=== PATIENT | male | born 1980 | race Caucasian/White ===

== ENCOUNTER 2016-11-02 23:17 | Emergency (ER) | payer OTHER ==
[~2016-11-02] VITALS: Ht 167.6 cm; Wt 97.7 kg
[2016-11-02 23:17] VITALS: Ht 167.6 cm; Wt 97.7 kg
[2016-11-02] MEDS ORDERED: LEVE500T13 PO (23:55)
[2016-11-03 00:08] LABS: BASO % 0.3 %; BASO ABS # 0.02 K/uL (0-0.2); COMPLETE YES; EOS % 1.4 %; HEMATOCRIT 45.8 % (42-52); IG% 0.3 %; LYMPH % 31.2 %; LYMPH ABS # 2.08 K/uL (1.2-3.4); MEAN CELL VOLUME 80.2 fL (80-100); MEAN CORPUSCULAR HGB CONC 34.9 g/dl (32-36); MEAN PLATELET VOLUME 9.4 fL (7.4-10.4); MONO % 9.5 %; NEUT % 57.3 %; PLATELET COUNT 225 K/uL (130-400); RED BLOOD COUNT 5.71 M/uL (4.7-6.1); WHITE BLOOD COUNT 6.66 K/uL (4.8-10.8)
--- NOTE | 2016-11-03 00:10 | EMERGENCY ROOM VISIT NOTE ---
History Report prepared by Henok: Joe Faustin Under the Supervision of: Dr. Justin Echeverria M.D. First contact with patient: 23:51 Chief Complaint: MENTAL HEALTH EVALUATION Stated Complaint: MENTAL HEALTH History of Present Illness The patient is a 36 year old male who presents to the Emergency Room for a mental health evaluation. He was assessed in the field by [facility] and advised to go to the hospital. Police/EMS brought him here. He states that he was extremely depressed this evening and states that he wanted to hill himself either by "lighting myself on fire, stab myself, or shoot myself." The patient was celebrating his 1 year wedding anniversary leatha, for which he drank 1 beer for the first time in 5 years. He is suicidal because he is missing a lot of important people in his life. 3 months ago, the patient took "80 pills" to try to commit suicide. He was not admitted to a psych facility at that time. He has a history of being an inpatient at psychologic facilities. He states that he has been off his medications for the past 5 months because of his insurance. He claims that he had a seizure this evening. He denies any headache or neck pain. He has a past medical history of PTSD, manic depression, bipolar disorder , schizophrenia, and epileptic seizures. He does, however, periodically take his Depakote. Source of History: patient Onset: this evening Position: other Symptom Intensity: severe Quality: other (Suicidal Ideation with plan) Timing: constant Associated Symptoms: No headache, No neck pain Review of Systems See HPI for pertinent positives & negatives. A total of 10 systems reviewed and were otherwise negative. Past Medical & Surgical Medical Problems: (1) Bipolar disorder (2) Epileptic seizures (3) Manic depression (4) PTSD (post-traumatic stress disorder) (5) Schizophrenia Family History Patient reports no known family medical history. Social History Smoking Status: Current Every Day Smoker Alcohol Use: none Marital Status: Housing Status: lives alone Occupation Status: unemployed Current/Historical Medications Scheduled Divalproex Sodium (Depakote), 500 TAB PO BID Levetiracetam (Keppra), 500 MG PO TID Allergies Coded Allergies: Clonazepam (Verified Allergy, Severe, per pt..., 11/02/16) Gabapentin (Verified Allergy, Severe, makes patient extremely violent, ) Physical Exam Vital Signs Date Time Temp Pulse Resp B/P (MAP) Pulse Ox O2 Delivery O2 Flow Rate FiO2 11/03/16 00:58 89 20 157/97 96 Room Air 11/02/16 23:17 37.0 97 20 169/106 96 Room Air Physical Exam GENERAL: Patient is well appearing, pleasant, and in no acute distress. HEENT: No acute trauma, normocephalic atraumatic, mucous membranes moist, no nasal congestion, no scleral icterus. NECK: No stridor, no adenopathy, no meningismus, trachea is midline. LUNGS: No dyspnea. Clear to auscultation and equal bilaterally. No wheeze, no rhonchi. HEART: Regular rate and rhythm. No murmurs, rubs, gallops appreciated. ABDOMEN: Soft, nontender, bowel sounds positive, no masses appreciated, no peritonitis. BACK: No midline tenderness, no CVA tenderness EXTREMITIES: Normal motion all extremities, no cyanosis, no edema. NEUROLOGIC: Alert and oriented, no acute motor or sensory deficits, no focal weakness, cranial nerves grossly intact. SKIN: No rash, no jaundice, no diaphoresis. PSYCH: Patient is somewhat manic. He admits depression and suicidal ideation with a plan. Medical Decision & Procedures Laboratory Results 11/02/16 23:57 Red Blood Count 5.71, Mean Corpuscular Volume 80.2, Mean Corpuscular Hemoglobin 28.0, Mean Corpuscular Hemoglobin Concent 34.9, Mean Platelet Volume 9.4, Neutrophils (%) (Auto) 57.3, Lymphocytes (%) (Auto) 31.2, Monocytes (%) (Auto) 9.5, Eosinophils (%) (Auto) 1.4, Basophils (%) (Auto) 0.3, Neutrophils # (Auto) 3.82, Lymphocytes # (Auto) 2.08, Monocytes # (Auto) 0.63, Eosinophils # (Auto) 0.09, Basophils # (Auto) 0.02 11/02/16 23:57 Test 11/02/16 23:40 11/02/16 23:57 Urine Color DK YELLOW Urine Appearance CLEAR (CLEAR) Urine pH 5.0 (4.5-7.5) Urine Specific [place] 1.029 (1.000-1.030) Urine Protein NEG (NEG) Urine Glucose (UA) NEG (NEG) Urine Ketones TRACE (NEG) Urine Occult Blood NEG (NEG) Urine Nitrite NEG (NEG) Urine Bilirubin NEG (NEG) Urine Urobilinogen NEG (NEG) Urine Leukocyte Esterase TRACE (NEG) Urine WBC (Auto) 10-30 /hpf (0-5) Urine RBC (Auto) 0-4 /hpf (0-4) Urine Hyaline Casts (Auto) 5-10 /lpf (0-5) Urine Epithelial Cells (Auto) 10-20 /lpf (0-5) Urine Bacteria (Auto) NEG (NEG) Urine Opiates Screen NEG (NEG) Urine Methadone, Qualitative NEG (NEG) Urine Barbiturates NEG (NEG) Urine Phencyclidine (PCP) Level NEG (NEG) Ur Amphetamine/Methamphetamine NEG (NEG) MDMA (Ecstasy) Screen NEG (NEG) Urine Benzodiazepines Screen NEG (NEG) Urine Cocaine Metabolite NEG (NEG) Urine Marijuana (THC) NEG (NEG) White Blood Count 6.66 K/uL (4.8-10.8) Red Blood Count 5.71 M/uL (4.7-6.1) Hemoglobin 16.0 g/dL (14.0-18.0) Hematocrit 45.8 % (42-52) Mean Corpuscular Volume 80.2 fL (80-100) Mean Corpuscular Hemoglobin 28.0 pg (25-34) Mean Corpuscular Hemoglobin Concent 34.9 g/dl (32-36) Platelet Count 225 K/uL (130-400) Mean Platelet Volume 9.4 fL (7.4-10.4) Neutrophils (%) (Auto) 57.3 % Lymphocytes (%) (Auto) 31.2 % Monocytes (%) (Auto) 9.5 % Eosinophils (%) (Auto) 1.4 % Basophils (%) (Auto) 0.3 % Neutrophils # (Auto) 3.82 K/uL (1.4-6.5) Lymphocytes # (Auto) 2.08 K/uL (1.2-3.4) Monocytes # (Auto) 0.63 K/uL (0.11-0.59) Eosinophils # (Auto) 0.09 K/uL (0-0.5) Basophils # (Auto) 0.02 K/uL (0-0.2) RDW Standard Deviation 41.7 fL (36.4-46.3) RDW Coefficient of Variation 14.3 % (11.5-14.5) Immature Granulocyte % (Auto) 0.3 % Immature Granulocyte # (Auto) 0.02 K/uL (0.00-0.02) Anion Gap 6.0 mmol/L (3-11) Est Creatinine Clear Calc Drug Dose 134.6 ml/min Estimated GFR () 131.2 Estimated GFR (Non- 113.2 BUN/Creatinine Ratio 15.8 (10-20) Calcium Level 9.3 mg/dl (8.5-10.1) Total Bilirubin 0.5 mg/dl (0.2-1) Aspartate Amino Transf (AST/SGOT) 12 U/L (15-37) Alanine Aminotransferase (ALT/SGPT) 32 U/L (12-78) Alkaline Phosphatase 102 U/L (45-117) Total Protein 7.0 gm/dl (6.4-8.2) Albumin 3.8 gm/dl (3.4-5.0) Globulin 3.2 gm/dl (2.5-4.0) Albumin/Globulin Ratio 1.2 (0.9-2) Thyroid Stimulating Hormone (TSH) 0.943 uIu/ml (0.300-4.500) Salicylates Level 3.3 mg/dl (2.8-20) Acetaminophen Level < 2 ug/ml (10-30) Valproic Acid (Depakene) Level 3 mcg/ml (50-100) Ethyl Alcohol mg/dL < 3.0 mg/dl (0-3) Laboratory results as reviewed by me. ECG Indication: toxicologic Rate (beats per minute): 90 Rhythm: sinus rhythm Findings: RBBB, no ectopy, other (QTC 469) ED Course 2351: The patient was evaluated in room A6. A complete history and physical exam was performed. 0233: The patient was accepted for further management at the [facility]; however, he cannot be transferred until 0700. 0700: The patient was transferred to the [facility]. Medical Decision Differential: Mood Disorder, Overdose, Infectious, Electrolyte Abnormality, Cardiac, Hepatic, Endocrine, Toxicologic, Neurologic, amongst other pathologies entertained. Medication Reconciliation: I attest that I have personally reviewed the patient 's current medication list. Blood pressure screening: Patient was found to have an elevated blood pressure and was referred to their primary doctor for recheck and further treatment. 36 yr old male arrives for evaluation of suicidal ideation and thoughts. Long history of mental health disorder. Notes missing his who he reports he just on facebook last week. He has plan, reports history of suicide attempts in past and is at high risk repeat. Medically clear. Accepted to [facility]. Impression Primary Impression: Suicidal ideation Additional Impression: HTN (hypertension) Scribe Attestation The scribe's documentation has been prepared under my direction and personally reviewed by me in its entirety. I confirm that the note above accurately reflects all work, treatment, procedures, and medical decision making performed by me. Departure Information Dispostion Mental Health Acute Care Referrals No Doctor, Assigned (PCP) Patient Instructions My [facility] Problem Qualifiers
[2016-11-03 00:29] LABS: URINE APPEARANCE CLEAR (CLEAR); URINE COLOR DK YELLOW; URINE NITRITE NEG (NEG); URINE SPECIFIC GRAVITY 1.029 (1.000-1.030); UROBILINOGEN NEG (NEG); ZZUR CULT IF INDIC CLEAN CATCH YES
[2016-11-03 00:31] LABS: MANUAL MICROSCOPIC REQUIRED? NO; REVIEW REQ? NO
[2016-11-03 00:32] LABS: URINE BILIRUBIN NEG (NEG)
[2016-11-03 00:34] LABS: BUN/CREATININE RATIO 15.8 (10-20); CALCIUM 9.3 mg/dl (8.5-10.1); CREATININE 0.83 mg/dl (0.60-1.40); POTASSIUM 3.6 mmol/L (3.5-5.1)
[2016-11-03 00:45] LABS: ALB/GLOB RATIO 1.2 (0.9-2); THYROID STIMULATING HORMONE 0.943 uIu/ml (0.300-4.500)
[2016-11-03 00:48] LABS: BENZODIAZEPINE, URINE NEG (NEG); COCAINE,URINE NEG (NEG); PHENCYCLIDINE, URINE NEG (NEG)
[2016-11-03 00:49] LABS: ACETAMINOPHEN < 2 ug/ml (10-30)
[2016-11-03 11:37] VITALS: BP 150/93; PULSE 84; TEMP 37; O2SAT 96
[2017-01-23] MEDS ORDERED: SERT-234 PO (17:48)
[2017-01-23] MEDS ORDERED: ACET-1256 PO (17:48)
== END 2016-11-03 11:38 ==
LOC: EDBD 23:17 → C.EDA 23:21
DX: R45.851 Suicidal ideations (principal); I10 Essential (primary) hypertension; F43.10 Post-traumatic stress disorder, unspecified; F31.9 Bipolar disorder, unspecified; G40.909 Epilepsy, unspecified, not intractable, without status epilepticus; F20.9 Schizophrenia, unspecified; F17.210 Nicotine dependence, cigarettes, uncomplicated; Z79.899 Other long term (current) drug therapy

== ENCOUNTER 2016-12-06 15:31 | Emergency (ER) | payer OTHER ==
[~2016-12-06] VITALS: Ht 167.6 cm; Wt 104.0 kg
[~2016-12-06 15:31] MED LIST: LEVE500T13 PO
[2016-12-06 15:46] VITALS: TEMP 37.1; Ht 167.6 cm; Wt 104.0 kg
[2016-12-06 16:06] LABS: MANUAL MICROSCOPIC REQUIRED? NO; REVIEW REQ? NO; URINE APPEARANCE CLEAR (CLEAR); URINE BILIRUBIN NEG (NEG); URINE COLOR DK YELLOW; URINE NITRITE NEG (NEG); URINE PH 5.5 (4.5-7.5); URINE SPECIFIC GRAVITY 1.025 (1.000-1.030); UROBILINOGEN NEG (NEG)
--- NOTE | 2016-12-06 16:15 | EMERGENCY ROOM VISIT NOTE ---
History Report prepared by Scribe: Callie Tsang Under the Supervision of: Dr. Zay Beth D.O. First contact with patient: 15:52 Chief Complaint: MENTAL HEALTH EVALUATION Stated Complaint: MENTAL HEALTH History of Present Illness The patient is a 36 year old male who presents to the Emergency Room with complaints of having constant suicidal ideations that started last week. The patient states that his friend hide a knife from him and that "he knew I was thinking about killing myself". The patient states that he previously tried to kill himself by overdosing on drugs 5 other times. The patient states he has manic depression has not had his medications for the past month. He was admitted to [facility] last month for suicidal ideations. The patient states he is willing to sign himself in. The patient also states that his urged him to call the police today. Pt denies headache, change in vision, fevers, chest pain, shortness of breath, nausea, vomiting, diarrhea, pain with urination , and melena. Source of History: patient Onset: last week Position: other (suicidal ideations) Timing: constant Note: Pt denies headache, change in vision, fevers, chest pain, shortness of breath, nausea, vomiting, diarrhea, pain with urination, and melena. Review of Systems See HPI for pertinent positives & negatives. A total of 10 systems reviewed and were otherwise negative. Past Medical & Surgical Medical Problems: (1) Bipolar disorder (2) Epileptic seizures (3) Manic depression (4) PTSD (post-traumatic stress disorder) (5) Schizophrenia Family History Patient reports no known family medical history. no pertinent family history stated Social History Smoking Status: Current Every Day Smoker Alcohol Use: none Marital Status: Housing Status: lives alone Occupation Status: unemployed Current/Historical Medications Scheduled Divalproex Sodium (Depakote), 500 TAB PO BID Sertraline (Zoloft), 100 MG PO DAILY Scheduled PRN Acetaminophen (Tylenol), 1,000 MG PO Q6 PRN for Pain Allergies Coded Allergies: Clonazepam (Verified Allergy, Severe, per pt..., 11/02/16) Gabapentin (Verified Allergy, Severe, makes patient extremely violent, ) Physical Exam Vital Signs Date Time Temp Pulse Resp B/P (MAP) Pulse Ox O2 Delivery O2 Flow Rate FiO2 12/06/16 21:48 91 18 146/70 93 Room Air 12/06/16 18:00 90 162/95 96 12/06/16 15:46 37.1 110 18 173/107 95 Room Air Physical Exam GENERAL: sitting up, disheveled, no acute distress, non-toxic EYE EXAM: normal conjunctiva, OROPHARYNX: no exudate, no erythema, lips, buccal mucosa, and tongue normal and mucous membranes are moist NECK: supple, no nuchal rigidity, no adenopathy, non-tender LUNGS: Clear to auscultation. Normal chest wall mechanics HEART: no murmurs, S1 normal and S2 normal ABDOMEN: abdomen soft, non-tender, normo-active bowel sounds, no masses, no rebound or guarding. BACK: Back is symmetrical on inspection and there is no deformity, no midline tenderness, no CVA tenderness. SKIN: no rashes and no bruising UPPER EXTREMITIES: upper extremities are grossly normal. LOWER EXTREMITIES: No pitting edema. PSYCH: Admits to suicidal ideation with plans to kill himself with a knife. Medical Decision & Procedures Laboratory Results 12/06/16 16:12 Red Blood Count 5.61, Mean Corpuscular Volume 82.0, Mean Corpuscular Hemoglobin 28.5, Mean Corpuscular Hemoglobin Concent 34.8, Mean Platelet Volume 9.2, Neutrophils (%) (Auto) 63.1, Lymphocytes (%) (Auto) 25.1, Monocytes (%) (Auto) 10.2, Eosinophils (%) (Auto) 1.0, Basophils (%) (Auto) 0.4, Neutrophils # (Auto ) 3.17, Lymphocytes # (Auto) 1.26, Monocytes # (Auto) 0.51, Eosinophils # (Auto ) 0.05, Basophils # (Auto) 0.02 12/06/16 16:12 Test 12/06/16 15:46 12/06/16 16:08 12/06/16 16:12 Urine Color DK YELLOW Urine Appearance CLEAR (CLEAR) Urine pH 5.5 (4.5-7.5) Urine Specific [place] 1.025 (1.000-1.030) Urine Protein NEG (NEG) Urine Glucose (UA) NEG (NEG) Urine Ketones NEG (NEG) Urine Occult Blood NEG (NEG) Urine Nitrite NEG (NEG) Urine Bilirubin NEG (NEG) Urine Urobilinogen NEG (NEG) Urine Leukocyte Esterase NEG (NEG) Urine Opiates Screen NEG (NEG) Urine Methadone, Qualitative NEG (NEG) Urine Barbiturates NEG (NEG) Urine Phencyclidine (PCP) Level NEG (NEG) Ur Amphetamine/Methamphetamine NEG (NEG) MDMA (Ecstasy) Screen NEG (NEG) Urine Benzodiazepines Screen NEG (NEG) Urine Cocaine Metabolite NEG (NEG) Urine Marijuana (THC) NEG (NEG) Bedside Glucose 138 mg/dl (70-99) White Blood Count 5.02 K/uL (4.8-10.8) Red Blood Count 5.61 M/uL (4.7-6.1) Hemoglobin 16.0 g/dL (14.0-18.0) Hematocrit 46.0 % (42-52) Mean Corpuscular Volume 82.0 fL (80-100) Mean Corpuscular Hemoglobin 28.5 pg (25-34) Mean Corpuscular Hemoglobin Concent 34.8 g/dl (32-36) Platelet Count 201 K/uL (130-400) Mean Platelet Volume 9.2 fL (7.4-10.4) Neutrophils (%) (Auto) 63.1 % Lymphocytes (%) (Auto) 25.1 % Monocytes (%) (Auto) 10.2 % Eosinophils (%) (Auto) 1.0 % Basophils (%) (Auto) 0.4 % Neutrophils # (Auto) 3.17 K/uL (1.4-6.5) Lymphocytes # (Auto) 1.26 K/uL (1.2-3.4) Monocytes # (Auto) 0.51 K/uL (0.11-0.59) Eosinophils # (Auto) 0.05 K/uL (0-0.5) Basophils # (Auto) 0.02 K/uL (0-0.2) RDW Standard Deviation 40.5 fL (36.4-46.3) RDW Coefficient of Variation 13.5 % (11.5-14.5) Immature Granulocyte % (Auto) 0.2 % Immature Granulocyte # (Auto) 0.01 K/uL (0.00-0.02) Anion Gap 5.0 mmol/L (3-11) Est Creatinine Clear Calc Drug Dose 151.8 ml/min Estimated GFR () 136.0 Estimated GFR (Non- 117.4 BUN/Creatinine Ratio 17.0 (10-20) Calcium Level 8.9 mg/dl (8.5-10.1) Total Bilirubin 0.4 mg/dl (0.2-1) Direct Bilirubin < 0.1 mg/dl (0-0.2) Aspartate Amino Transf (AST/SGOT) 23 U/L (15-37) Alanine Aminotransferase (ALT/SGPT) 35 U/L (12-78) Alkaline Phosphatase 110 U/L (45-117) Total Protein 6.6 gm/dl (6.4-8.2) Albumin 3.5 gm/dl (3.4-5.0) Thyroid Stimulating Hormone (TSH) 0.677 uIu/ml (0.300-4.500) Ethyl Alcohol mg/dL < 3.0 mg/dl (0-3) Laboratory results per my review. ED Course ED COURSE: Vital signs were reviewed and showed hypertensive and bradycardic The patients medical record was reviewed The above diagnostic studies were performed and reviewed. ED treatments and interventions as stated above. 1557: The patient was evaluated in room A6. A complete history and physical examination was performed. 2225: Upon reevaluation, the patient is resting.I discussed my findings with the patient and he understands and agrees with the treatment plan. Based on the patients age, coexisting illnesses, exam and lab findings the decision to treat as an outpatient transfer to [facility] was made. The patient remained stable while under my care. The patient appeared well at the time of discharge. The patient will be evaluated for further management. Medical Decision Differential diagnosis: Etiologies such as mood disorder, infection, hypoglycemia, electrolyte abnormalities, cardiac sources, intracerebral event, toxicologic, neurologic, as well as others were entertained. Patient is a 36 old male who presents the ER with suicidal ideations a plan to kill himself with a knife. He was talking with a friend and his . He called the police to bring him in. Based also been present for the past 2 weeks. Patient has had suicidal thoughts for the past. He has a history of schizophrenia, bipolar and manic depression. 302 petition was performed per report by the police. Patient is willing to come in. Labs were unremarkable with exception of a mild hypokalemia. Urine tox is negative. Alcohol was negative. Patient was agreeable and was accepted to [facility] on a 201 following being evaluated by our psychiatric palliative care coordinator. Medication Reconcilliation Current Medication List: was personally reviewed by me Blood Pressure Screening Patient's blood pressure: Elevated blood pressure Blood pressure disposition: Did not require urgent referral Impression Primary Impression: Suicidal ideation Additional Impressions: Mood disorder Hypokalemia Scribe Attestation The scribe's documentation has been prepared under my direction and personally reviewed by me in its entirety. I confirm that the note above accurately reflects all work, treatment, procedures, and medical decision making performed by me. Departure Information Dispostion Transfer Acute Care Facility Referrals No Doctor, Assigned (PCP) Patient Instructions My [facility] Problem Qualifiers
[2016-12-06 16:29] LABS: BENZODIAZEPINE, URINE NEG (NEG); COCAINE,URINE NEG (NEG); PHENCYCLIDINE, URINE NEG (NEG)
[2016-12-06 16:33] LABS: BASO % 0.4 %; BASO ABS # 0.02 K/uL (0-0.2); COMPLETE YES; IG% 0.2 %; LYMPH % 25.1 %; LYMPH ABS # 1.26 K/uL (1.2-3.4); MEAN CORPUSCULAR HEMOGLOBIN 28.5 pg (25-34); MEAN CORPUSCULAR HGB CONC 34.8 g/dl (32-36); MEAN PLATELET VOLUME 9.2 fL (7.4-10.4); MONO % 10.2 %; NEUT % 63.1 %; PLATELET COUNT 201 K/uL (130-400); RED BLOOD COUNT 5.61 M/uL (4.7-6.1); WHITE BLOOD COUNT 5.02 K/uL (4.8-10.8)
[2016-12-06 16:53] LABS: ALT/SGPT 35 U/L (12-78); AST/SGOT 23 U/L (15-37); BLOOD UREA NITROGEN 13 mg/dl (7-18); CALCIUM 8.9 mg/dl (8.5-10.1); CARBON DIOXIDE 25 mmol/L (21-32); CHLORIDE 110 mmol/L (98-107); CREATININE 0.76 mg/dl (0.60-1.40); GLUCOSE 118 mg/dl (70-99); POTASSIUM 3.4 mmol/L (3.5-5.1); SODIUM 140 mmol/L (136-145)
[2016-12-06 17:04] LABS: ALKALINE PHOSPHATASE 110 U/L (45-117); THYROID STIMULATING HORMONE 0.677 uIu/ml (0.300-4.500)
[2016-12-06 21:48] VITALS: BP 146/70; PULSE 91; O2SAT 93
[2016-12-06] MEDS ORDERED: DIVA500T59 PO (23:55)
[2017-01-23] MEDS ORDERED: ACET-1256 PO (17:48)
[2017-01-23] MEDS ORDERED: SERT-234 PO (17:48)
== END 2016-12-07 00:28 ==
LOC: EDSEX 15:31 → EDBD 15:31 → C.EDA 15:33
DX: R45.851 Suicidal ideations (principal); F39 Unspecified mood [affective] disorder; E87.6 Hypokalemia; Z00.8 Encounter for other general examination; F31.9 Bipolar disorder, unspecified; G40.909 Epilepsy, unspecified, not intractable, without status epilepticus; F33.9 Major depressive disorder, recurrent, unspecified; F43.10 Post-traumatic stress disorder, unspecified; F20.9 Schizophrenia, unspecified; F17.200 Nicotine dependence, unspecified, uncomplicated

== ENCOUNTER 2016-12-21 17:56 | Emergency (ER) | payer OTHER ==
[~2016-12-21] VITALS: Ht 165.1 cm; Wt 104.4 kg
[~2016-12-21 17:56] MED LIST changes: +DIVA500T59 PO; -LEVE500T13 PO
[2016-12-21 18:07] VITALS: TEMP 36.9; Ht 165.1 cm; Wt 104.4 kg
[2016-12-21 18:30] LABS: MANUAL MICROSCOPIC REQUIRED? NO; REVIEW REQ? NO; URINE APPEARANCE CLOUDY (CLEAR); URINE COLOR ORANGE; URINE NITRITE POS (NEG); URINE PH 5.5 (4.5-7.5); URINE SPECIFIC GRAVITY 1.027 (1.000-1.030); UROBILINOGEN POS (NEG); ZZUR CULT IF INDIC CLEAN CATCH NO
[2016-12-21 18:32] LABS: URINE BILIRUBIN NEG (NEG)
--- NOTE | 2016-12-21 18:40 | EMERGENCY ROOM VISIT NOTE ---
History Report prepared by Henok: Claudio Parish Under the Supervision of: Dr. Estuardo Peralta M.D. First contact with patient: 18:19 Chief Complaint: MENTAL HEALTH EVALUATION Stated Complaint: MHID History of Present Illness The patient is a homeless 36 year old male with a history of overdosing during suicide attempts who presents to the Emergency Room for worsening mental health the past few days. Per the psychiatric classification case manager, the patient was in the [facility] over the summer, and was discharged from the [facility] 4 days ago. The patient states that he lost his daughter in the hurricane in [place] 2 days ago, and upon hearing the news, he took around 20 Zoloft pills. The patient states that his mother wanted him to come here, because the patient told his mother earlier today that he was going to drink alcohol tonight and potentially hang himself. The patient denies drinking any alcohol today. Per the nursing staff, the patient also has suicidal ideations with a plan to cut his jugular vein with a knife. Source of History: patient, nursing staff, other (psych classification case manager) Onset: The past few days Position: other ([facility] - [facility]) Quality: other (states daughter 2 days ago in hurricane in [place] ) Timing: worsening Note: Associated symptoms: States that he took 20 Zoloft pills 2 days ago. Told mother that he may hang himself tonight. Denies drinking alcohol today. Review of Systems See HPI for pertinent positives & negatives. A total of 10 systems reviewed and were otherwise negative. Past Medical & Surgical Medical Problems: (1) Bipolar disorder (2) Epileptic seizures (3) Manic depression (4) PTSD (post-traumatic stress disorder) (5) Schizophrenia Family History Patient reports no known family medical history. Social History Smoking Status: Current Every Day Smoker Alcohol Use: none Marital Status: Housing Status: lives alone Occupation Status: unemployed Current/Historical Medications Scheduled Divalproex Sodium (Depakote), 500 TAB PO BID Hydrochlorothiazide (Hctz), 25 MG PO DAILY Sertraline (Zoloft), 100 MG PO DAILY Scheduled PRN Acetaminophen (Tylenol), 1,000 MG PO Q12 PRN for Pain Chlorpromazine Hcl (Thorazine), Unknown Dose PO Q6H PRN for UNDECIDED Allergies Coded Allergies: Clonazepam (Verified Allergy, Severe, per pt..., 11/02/16) Gabapentin (Verified Allergy, Severe, makes patient extremely violent, ) Physical Exam Vital Signs Date Time Temp Pulse Resp B/P (MAP) Pulse Ox O2 Delivery O2 Flow Rate FiO2 12/21/16 19:53 87 18 134/94 98 Room Air 12/21/16 18:07 36.9 107 20 155/109 95 Room Air Physical Exam GENERAL: Patient is a healthy-appearing well-nourished 36 year old male. HEAD: Normocephalic atraumatic EYES: Ocular movements intact pupils equal and react to light OROPHARYNX mucous membranes are moist no exudates present no erythema or edema present NECK: Supple no nuchal rigidity CHEST: Good equal expansion LUNGS: Clear and equal to auscultation CARDIAC: Normal S1 and S2 ABDOMEN: Soft nontender no guarding BACK: No CVA tenderness EXTREMITIES: No pain upon palpation normal muscle strength in all groups no clubbing cyanosis or edema NEURO: Patient is following commands and answering questions appropriately. Alert and oriented x3 Cranial Nerves 2-12 grossly intact PSYCH: Flat affect. Medical Decision & Procedures Laboratory Results 12/21/16 18:29 Red Blood Count 5.83, Mean Corpuscular Volume 81.6, Mean Corpuscular Hemoglobin 27.8, Mean Corpuscular Hemoglobin Concent 34.0, Mean Platelet Volume 9.8, Neutrophils (%) (Auto) 70.0, Lymphocytes (%) (Auto) 21.7, Monocytes (%) (Auto) 7.0, Eosinophils (%) (Auto) 0.7, Basophils (%) (Auto) 0.3, Neutrophils # (Auto) 5.17, Lymphocytes # (Auto) 1.60, Monocytes # (Auto) 0.52, Eosinophils # (Auto) 0.05, Basophils # (Auto) 0.02 12/21/16 18:29 Test 12/21/16 18:20 12/21/16 18:29 Urine Color ORANGE Urine Appearance CLOUDY (CLEAR) Urine pH 5.5 (4.5-7.5) Urine Specific [place] 1.027 (1.000-1.030) Urine Protein TRACE (NEG) Urine Glucose (UA) NEG (NEG) Urine Ketones TRACE (NEG) Urine Occult Blood NEG (NEG) Urine Nitrite POS (NEG) Urine Bilirubin NEG (NEG) Urine Urobilinogen POS (NEG) Urine Leukocyte Esterase SMALL (NEG) Urine WBC (Auto) 1-5 /hpf (0-5) Urine RBC (Auto) 0-4 /hpf (0-4) Urine Hyaline Casts (Auto) 5-10 /lpf (0-5) Urine Epithelial Cells (Auto) 10-20 /lpf (0-5) Urine Bacteria (Auto) NEG (NEG) Urine Opiates Screen NEG (NEG) Urine Methadone, Qualitative NEG (NEG) Urine Barbiturates NEG (NEG) Urine Phencyclidine (PCP) Level NEG (NEG) Ur Amphetamine/Methamphetamine NEG (NEG) MDMA (Ecstasy) Screen NEG (NEG) Urine Benzodiazepines Screen NEG (NEG) Urine Cocaine Metabolite NEG (NEG) Urine Marijuana (THC) NEG (NEG) White Blood Count 7.38 K/uL (4.8-10.8) Red Blood Count 5.83 M/uL (4.7-6.1) Hemoglobin 16.2 g/dL (14.0-18.0) Hematocrit 47.6 % (42-52) Mean Corpuscular Volume 81.6 fL (80-100) Mean Corpuscular Hemoglobin 27.8 pg (25-34) Mean Corpuscular Hemoglobin Concent 34.0 g/dl (32-36) Platelet Count 241 K/uL (130-400) Mean Platelet Volume 9.8 fL (7.4-10.4) Neutrophils (%) (Auto) 70.0 % Lymphocytes (%) (Auto) 21.7 % Monocytes (%) (Auto) 7.0 % Eosinophils (%) (Auto) 0.7 % Basophils (%) (Auto) 0.3 % Neutrophils # (Auto) 5.17 K/uL (1.4-6.5) Lymphocytes # (Auto) 1.60 K/uL (1.2-3.4) Monocytes # (Auto) 0.52 K/uL (0.11-0.59) Eosinophils # (Auto) 0.05 K/uL (0-0.5) Basophils # (Auto) 0.02 K/uL (0-0.2) RDW Standard Deviation 40.3 fL (36.4-46.3) RDW Coefficient of Variation 13.6 % (11.5-14.5) Immature Granulocyte % (Auto) 0.3 % Immature Granulocyte # (Auto) 0.02 K/uL (0.00-0.02) Anion Gap 7.0 mmol/L (3-11) Est Creatinine Clear Calc Drug Dose 177.5 ml/min Estimated GFR () 146.0 Estimated GFR (Non- 126.0 BUN/Creatinine Ratio 13.3 (10-20) Calcium Level 9.1 mg/dl (8.5-10.1) Total Bilirubin 0.4 mg/dl (0.2-1) Aspartate Amino Transf (AST/SGOT) 23 U/L (15-37) Alanine Aminotransferase (ALT/SGPT) 35 U/L (12-78) Alkaline Phosphatase 120 U/L (45-117) Total Protein 6.8 gm/dl (6.4-8.2) Albumin 3.7 gm/dl (3.4-5.0) Globulin 3.1 gm/dl (2.5-4.0) Albumin/Globulin Ratio 1.2 (0.9-2) Thyroid Stimulating Hormone (TSH) 0.892 uIu/ml (0.300-4.500) Salicylates Level 2.9 mg/dl (2.8-20) Acetaminophen Level < 2 ug/ml (10-30) Ethyl Alcohol mg/dL < 3.0 mg/dl (0-3) Labs reviewed by ED physician. ED Course 1830: Past medical records reviewed. The patient was evaluated in room A8. A complete history and physical examination was performed. 1943: Upon reexamination the patient is resting comfortably and denying suicidal ideations. I discussed results and treatment plan with the patient. He verbalizes agreement and understanding. The patient is ready for discharge. Medical Decision Differential diagnosis: Etiologies such as mood disorder, infection, hypoglycemia, electrolyte abnormalities, cardiac sources, intracerebral event, toxicologic, neurologic, as well as others were entertained. This is a 36-year-old male who presents emergency department complaining he was suicidal however upon further examination and talking to the patient he denies being suicidal. The patient also talked to his mother and in talking to her he seems to calm down. Based on this I feel that he can most likely be discharged home safely. The patient was also independently evaluated by case management who also felt that the patient can be safely discharged home. The patient does promise to return if his feelings return. Patient is in agreement with the treatment plan. Medication Reconcilliation Current Medication List: was personally reviewed by me Blood Pressure Screening Patient's blood pressure: Elevated blood pressure Blood pressure disposition: Elevated BP felt to be situational Impression Primary Impression: Mood disorder Scribe Attestation The scribe's documentation has been prepared under my direction and personally reviewed by me in its entirety. I confirm that the note above accurately reflects all work, treatment, procedures, and medical decision making performed by me. Departure Information Dispostion Home / Self-Care Referrals No Doctor, Assigned (PCP) Forms HOME CARE DOCUMENTATION FORM, IMPORTANT VISIT INFORMATION, School Instructions, Work Instructions Patient Instructions My [facility] Additional Instructions Return if you have any thoughts of harming yourself You have been examined and treated today on an emergency basis only. This is not a substitute for, or an effort to provide, complete comprehensive medical care. It is impossible to recognize and treat all injuries or illnesses in a single emergency department visit. It is therefore important that you follow up closely with your PCP. Call as soon as possible for an appointment. Thank you for your time and consideration. I look forward to speaking with you again soon. Please don't hesitate to call us if you have any questions.
[2016-12-21 18:43] LABS: BASO % 0.3 %; BASO ABS # 0.02 K/uL (0-0.2); COMPLETE YES; EOS % 0.7 %; HEMATOCRIT 47.6 % (42-52); IG% 0.3 %; LYMPH % 21.7 %; MEAN CELL VOLUME 81.6 fL (80-100); MEAN CORPUSCULAR HEMOGLOBIN 27.8 pg (25-34); MEAN PLATELET VOLUME 9.8 fL (7.4-10.4); PLATELET COUNT 241 K/uL (130-400); RED BLOOD COUNT 5.83 M/uL (4.7-6.1); WHITE BLOOD COUNT 7.38 K/uL (4.8-10.8)
[2016-12-21 18:46] LABS: BENZODIAZEPINE, URINE NEG (NEG); COCAINE,URINE NEG (NEG); PHENCYCLIDINE, URINE NEG (NEG)
[2016-12-21] MEDS ORDERED: HYDR25TA4 PO (18:55)
[2016-12-21] MEDS ORDERED: CHLO1TAB19 PO (18:56)
[2016-12-21 19:01] LABS: BUN/CREATININE RATIO 13.3 (10-20); CALCIUM 9.1 mg/dl (8.5-10.1); CREATININE 0.64 mg/dl (0.60-1.40); POTASSIUM 3.2 mmol/L (3.5-5.1)
[2016-12-21 19:11] LABS: ALB/GLOB RATIO 1.2 (0.9-2); THYROID STIMULATING HORMONE 0.892 uIu/ml (0.300-4.500)
[2016-12-21 19:12] LABS: ACETAMINOPHEN < 2 ug/ml (10-30)
[2016-12-21 19:53] VITALS: BP 134/94; PULSE 87; O2SAT 98
[2016-12-25 10:36] LABS: SYNTHETIC CANNABINOIDS QL URIN NEGATIVE (Negative)
[2017-01-23] MEDS ORDERED: SERT-234 PO (17:48)
[2017-01-23] MEDS ORDERED: ACET-1256 PO (17:48)
== END 2016-12-21 20:01 | disposition home or self-care (01) ==
LOC: EDBD 17:56 → C.EDA 17:57
DX: F39 Unspecified mood [affective] disorder (principal); F31.9 Bipolar disorder, unspecified; F20.9 Schizophrenia, unspecified; G40.909 Epilepsy, unspecified, not intractable, without status epilepticus; F17.200 Nicotine dependence, unspecified, uncomplicated; Z79.899 Other long term (current) drug therapy; Z88.8 Allergy status to other drugs, medicaments and biological substances

== ENCOUNTER 2017-01-09 14:21 | Emergency (ER) | payer OTHER ==
[~2017-01-09] VITALS: Ht 167.6 cm; Wt 95.6 kg
[~2017-01-09 14:21] MED LIST changes: +CHLO1TAB19 PO; +HYDR25TA4 PO
[2017-01-09 14:48] VITALS: TEMP 37; Ht 167.6 cm; Wt 95.6 kg
[2017-01-09 14:58] LABS: BASO % 0.4 %; BASO ABS # 0.03 K/uL (0-0.2); COMPLETE YES; HEMATOCRIT 47.8 % (42-52); IG% 0.3 %; LYMPH % 17.8 %; LYMPH ABS # 1.37 K/uL (1.2-3.4); MEAN CELL VOLUME 81.2 fL (80-100); MEAN CORPUSCULAR HEMOGLOBIN 29.2 pg (25-34); MEAN PLATELET VOLUME 9.2 fL (7.4-10.4); MONO % 7.5 %; PLATELET COUNT 220 K/uL (130-400); RED BLOOD COUNT 5.89 M/uL (4.7-6.1); WHITE BLOOD COUNT 7.71 K/uL (4.8-10.8)
[2017-01-09 15:18] LABS: URINE APPEARANCE CLEAR (CLEAR); URINE COLOR DK YELLOW; URINE NITRITE NEG (NEG); URINE PH 5.5 (4.5-7.5); URINE SPECIFIC GRAVITY 1.025 (1.000-1.030); UROBILINOGEN NEG (NEG)
[2017-01-09 15:23] LABS: MANUAL MICROSCOPIC REQUIRED? NO; REVIEW REQ? NO
[2017-01-09 15:24] LABS: URINE BILIRUBIN NEG (NEG)
[2017-01-09 15:24] LABS: ALT/SGPT 28 U/L (12-78); BLOOD UREA NITROGEN 9 mg/dl (7-18); BUN/CREATININE RATIO 12.3 (10-20); CALCIUM 9.7 mg/dl (8.5-10.1); CARBON DIOXIDE 23 mmol/L (21-32); CHLORIDE 109 mmol/L (98-107); CREATININE 0.69 mg/dl (0.60-1.40); GLUCOSE 85 mg/dl (70-99); POTASSIUM 3.7 mmol/L (3.5-5.1); SODIUM 142 mmol/L (136-145)
[2017-01-09 15:35] LABS: ALKALINE PHOSPHATASE 111 U/L (45-117); AST/SGOT 27 U/L (15-37); THYROID STIMULATING HORMONE 0.575 uIu/ml (0.300-4.500)
--- NOTE | 2017-01-09 15:44 | EMERGENCY ROOM VISIT NOTE ---
History Report prepared by Henok: Ibeth Ornelas Under the Supervision of: Dr. Estuardo Peralta M.D. First contact with patient: 14:26 Chief Complaint: MENTAL HEALTH EVALUATION Stated Complaint: SUICIDAL THOUGHTS History of Present Illness The patient is a 36 year old male who presents to the Emergency Room for a mental health evaluation. Per police, the patient called 911 stating that he has been paranoid and had thoughts of hanging himself by tying shoe strings together. The patient states that after he was last discharged, he relapsed a few days later. He states that he had some alcohol and that his last drink was a week ago. The patient notes that he stopped taking his medication. Source of History: patient Onset: episode Position: other (global) Quality: other (global) Timing: other (episode) Note: Per the police, the patient complains of being overly paranoid. Review of Systems See HPI for pertinent positives & negatives. A total of 10 systems reviewed and were otherwise negative. Past Medical & Surgical Medical Problems: (1) Bipolar disorder (2) Epileptic seizures (3) Manic depression (4) PTSD (post-traumatic stress disorder) (5) Schizophrenia Family History Patient reports no known family medical history. Social History Smoking Status: Current Every Day Smoker Alcohol Use: none Marital Status: Housing Status: lives alone Occupation Status: unemployed Current/Historical Medications Scheduled Divalproex Sodium (Depakote), 500 TAB PO BID Hydrochlorothiazide (Hctz), 25 MG PO DAILY Sertraline (Zoloft), 100 MG PO DAILY Scheduled PRN Acetaminophen (Tylenol), 1,000 MG PO Q12 PRN for Pain Allergies Coded Allergies: Clonazepam (Verified Allergy, Severe, per pt..., 01/09/17) Gabapentin (Verified Allergy, Severe, makes patient extremely violent, ) Physical Exam Vital Signs Date Time Temp Pulse Resp B/P (MAP) Pulse Ox O2 Delivery O2 Flow Rate FiO2 01/09/17 16:40 95 20 156/80 98 Room Air 01/09/17 14:48 37.0 98 22 147/123 94 Room Air Physical Exam GENERAL: Patient is a healthy-appearing well-nourished, filthy. HEAD: Normocephalic atraumatic EYES: Ocular movements intact pupils equal and react to light OROPHARYNX mucous membranes are moist no exudates present no erythema or edema present NECK: Supple no nuchal rigidity CHEST: Good equal expansion LUNGS: Clear and equal to auscultation CARDIAC: Normal S1 and S2 ABDOMEN: Soft nontender no guarding BACK: No CVA tenderness EXTREMITIES: No pain upon palpation normal muscle strength in all groups no clubbing cyanosis or edema NEURO: Patient is following commands and answering questions appropriately. Alert and oriented x3 Cranial Nerves 2-12 grossly intact Medical Decision & Procedures Laboratory Results 01/09/17 14:45 Red Blood Count 5.89, Mean Corpuscular Volume 81.2, Mean Corpuscular Hemoglobin 29.2, Mean Corpuscular Hemoglobin Concent 36.0, Mean Platelet Volume 9.2, Neutrophils (%) (Auto) 73.0, Lymphocytes (%) (Auto) 17.8, Monocytes (%) (Auto) 7.5, Eosinophils (%) (Auto) 1.0, Basophils (%) (Auto) 0.4, Neutrophils # (Auto) 5.63, Lymphocytes # (Auto) 1.37, Monocytes # (Auto) 0.58, Eosinophils # (Auto) 0.08, Basophils # (Auto) 0.03 01/09/17 14:45 Test 01/09/17 00:00 01/09/17 14:41 01/09/17 14:45 Urine Color DK YELLOW Urine Appearance CLEAR (CLEAR) Urine pH 5.5 (4.5-7.5) Urine Specific [place] 1.025 (1.000-1.030) Urine Protein NEG (NEG) Urine Glucose (UA) NEG (NEG) Urine Ketones TRACE (NEG) Urine Occult Blood NEG (NEG) Urine Nitrite NEG (NEG) Urine Bilirubin NEG (NEG) Urine Urobilinogen NEG (NEG) Urine Leukocyte Esterase NEG (NEG) Urine Opiates Screen NEG (NEG) Urine Methadone, Qualitative NEG (NEG) Urine Barbiturates NEG (NEG) Urine Phencyclidine (PCP) Level NEG (NEG) Ur Amphetamine/Methamphetamine NEG (NEG) MDMA (Ecstasy) Screen NEG (NEG) Urine Benzodiazepines Screen NEG (NEG) Urine Cocaine Metabolite NEG (NEG) Urine Marijuana (THC) NEG (NEG) Bedside Glucose 97 mg/dl (70-99) White Blood Count 7.71 K/uL (4.8-10.8) Red Blood Count 5.89 M/uL (4.7-6.1) Hemoglobin 17.2 g/dL (14.0-18.0) Hematocrit 47.8 % (42-52) Mean Corpuscular Volume 81.2 fL (80-100) Mean Corpuscular Hemoglobin 29.2 pg (25-34) Mean Corpuscular Hemoglobin Concent 36.0 g/dl (32-36) Platelet Count 220 K/uL (130-400) Mean Platelet Volume 9.2 fL (7.4-10.4) Neutrophils (%) (Auto) 73.0 % Lymphocytes (%) (Auto) 17.8 % Monocytes (%) (Auto) 7.5 % Eosinophils (%) (Auto) 1.0 % Basophils (%) (Auto) 0.4 % Neutrophils # (Auto) 5.63 K/uL (1.4-6.5) Lymphocytes # (Auto) 1.37 K/uL (1.2-3.4) Monocytes # (Auto) 0.58 K/uL (0.11-0.59) Eosinophils # (Auto) 0.08 K/uL (0-0.5) Basophils # (Auto) 0.03 K/uL (0-0.2) RDW Standard Deviation 39.5 fL (36.4-46.3) RDW Coefficient of Variation 13.5 % (11.5-14.5) Immature Granulocyte % (Auto) 0.3 % Immature Granulocyte # (Auto) 0.02 K/uL (0.00-0.02) Anion Gap 10.0 mmol/L (3-11) Est Creatinine Clear Calc Drug Dose 160.1 ml/min Estimated GFR () 141.6 Estimated GFR (Non- 122.1 BUN/Creatinine Ratio 12.3 (10-20) Calcium Level 9.7 mg/dl (8.5-10.1) Total Bilirubin 0.4 mg/dl (0.2-1) Direct Bilirubin < 0.1 mg/dl (0-0.2) Aspartate Amino Transf (AST/SGOT) 27 U/L (15-37) Alanine Aminotransferase (ALT/SGPT) 28 U/L (12-78) Alkaline Phosphatase 111 U/L (45-117) Total Protein 7.6 gm/dl (6.4-8.2) Albumin 4.1 gm/dl (3.4-5.0) Thyroid Stimulating Hormone (TSH) 0.575 uIu/ml (0.300-4.500) Ethyl Alcohol mg/dL < 3.0 mg/dl (0-3) Labs reviewed by ED physician. ED Course 1426: Past medical records reviewed. The patient was evaluated in room A8. A complete history and physical examination was performed. 1527: The patient has been medically cleared. Medical Decision Etiologies such as mood disorder, infection, hypoglycemia, electrolyte abnormalities, cardiac sources, intracerebral event, toxicologic, neurologic, as well as others were entertained. This is a 36-year-old male who is well-known to the emergency department who presents suicidal ideations. The patient's mother feels that the patient cannot be safely signed out. The patient has not been taking any of his medications and is still wearing the same clothes he was discharged in last time he was in the emergency department. I did discuss the case with case management who is able to get patient admitted to [facility]. Patient was given food in the emergency department. Impression Primary Impression: Mood disorder Scribe Attestation The scribe's documentation has been prepared under my direction and personally reviewed by me in its entirety. I confirm that the note above accurately reflects all work, treatment, procedures, and medical decision making performed by me. Departure Information Dispostion Home / Self-Care Referrals No Doctor, Assigned (PCP) Patient Instructions My [facility]
[2017-01-09 15:45] LABS: BENZODIAZEPINE, URINE NEG (NEG); COCAINE,URINE NEG (NEG); PHENCYCLIDINE, URINE NEG (NEG)
[2017-01-09 18:37] VITALS: BP 162/91; PULSE 94; O2SAT 98
[2017-01-23] MEDS ORDERED: SERT-234 PO (17:48)
[2017-01-23] MEDS ORDERED: ACET-1256 PO (17:48)
== END 2017-01-09 18:40 ==
LOC: C.EDB 14:22 → C.EDA 18:40
DX: F39 Unspecified mood [affective] disorder (principal); G40.909 Epilepsy, unspecified, not intractable, without status epilepticus; F31.9 Bipolar disorder, unspecified; F20.9 Schizophrenia, unspecified; F17.200 Nicotine dependence, unspecified, uncomplicated; Z79.899 Other long term (current) drug therapy; Z88.8 Allergy status to other drugs, medicaments and biological substances

== ENCOUNTER 2017-01-23 18:30 | Emergency (ER) | payer OTHER ==
[~2017-01-23] VITALS: Ht 157.5 cm; Wt 105.0 kg
[~2017-01-23 18:30] MED LIST changes: +ACET-1256 PO; -CHLO1TAB19 PO; +SERT-234 PO
[2017-01-23 18:43] VITALS: TEMP 36.7
[2017-01-23] MEDS ORDERED: ASPIRIN 81 MG CHEW PO STA (18:47)
[2017-01-23 18:50] VITALS: O2SAT 95
[2017-01-23 18:50] LABS: BASO % 0.3 %; BASO ABS # 0.02 K/uL (0-0.2); COMPLETE YES; EOS % 0.8 %; HEMATOCRIT 44.2 % (42-52); IG% 0.4 %; LYMPH % 20.7 %; LYMPH ABS # 1.59 K/uL (1.2-3.4); MEAN CELL VOLUME 80.1 fL (80-100); MEAN CORPUSCULAR HEMOGLOBIN 28.4 pg (25-34); MEAN CORPUSCULAR HGB CONC 35.5 g/dl (32-36); MEAN PLATELET VOLUME 9.6 fL (7.4-10.4); MONO % 9.2 %; NEUT % 68.6 %; PLATELET COUNT 226 K/uL (130-400); RED BLOOD COUNT 5.52 M/uL (4.7-6.1); WHITE BLOOD COUNT 7.69 K/uL (4.8-10.8)
[2017-01-23] MEDS ORDERED: NITROGLYCERIN OINT 2% 1GM PACKET EXT ONE (19:00)
[2017-01-23 19:04] LABS: BUN/CREATININE RATIO 16.4 (10-20); CALCIUM 9.3 mg/dl (8.5-10.1); CREATININE 0.66 mg/dl (0.60-1.40); POTASSIUM 3.5 mmol/L (3.5-5.1)
[2017-01-23 19:10] LABS: CKMB/CK RATIO 2.6 (0-3.0)
[2017-01-23 19:16] LABS: POINT OF CARE TROPONIN I < 0.030 ng/ml (0-0.045)
--- NOTE | 2017-01-23 19:29 | DIAGNOSTIC IMAGING REPORT ---
CHEST ONE VIEW PORTABLE HISTORY: 36 years-old Male CHEST PAIN acute atypical chest pain COMPARISON: None available TECHNIQUE: Portable upright AP view of the chest FINDINGS: Lungs are mildly hypoinflated. Cardiac silhouette is upper limits of normal, likely accentuated by technique. No pneumothorax. There is mild blunting of the left costophrenic angle with linear subsegmental bibasilar opacities. Mild right hemidiaphragmatic elevation. No lobar airspace consolidation. Bones are grossly intact. IMPRESSION: 1. Linear subsegmental bibasilar opacities favor atelectasis. 2. Mild blunting of the left costophrenic angle may also be secondary to atelectasis or trace effusion. The above report was generated using voice recognition software. It may contain grammatical, syntax or spelling errors. Electronically signed by: Prem Carreon M.D. 01/23/2017 7:28 PM Dictated Date/Time: 01/23/2017 7:26 PM
[2017-01-23] MEDS ORDERED: DPKSR500 PO (19:35)
[2017-01-23] MEDS ORDERED: RISP0.5T10 PO (19:35)
--- NOTE | 2017-01-23 20:09 | EMERGENCY ROOM VISIT NOTE ---
History Report prepared by Henok: Bacilio James Under the Supervision of: Dr. Alexx Gomez M.D. First contact with patient: 18:36 Chief Complaint: CHEST PAIN Stated Complaint: CHEST DISCOMFORT History of Present Illness The patient is a 36 year old male who presents to the Emergency Room with complaints of constant left chest pressure starting last night. The patient states that last night he has having chest pain that radiated into his left shoulder. The patient currently rates his discomfort as a 7/10 in severity. He additionally states that he is having some weakness, nausea, abdominal pain, and shortness of breath. The patient states that he is a smoker, and he smokes a pack every three days, though he used to smoke three packs per day. The patient states that he recently started taking Risperdal. He states that he has an extensive family history of heart disease, and he states that his father had a heart attack at 18 years old, and from one at 57 and had 15 in his life time. Pt denies LOC, headache, fevers, chills, diaphoresis, visual changes, neck pain, vomiting, back pain, melena, hematochezia, urinary symptoms , numbness, lymphadenopathy, rash, or other complaints. The patient was given aspirin and nitro by EMS prior to arrival. Source of History: patient Onset: last night Position: chest (left) Quality: pressure Timing: constant Associated Symptoms: + SOB, + nausea, + abdominal pain, + weakness Review of Systems See HPI for pertinent positives and negatives. A total of ten systems were reviewed and were otherwise negative. Past Medical & Surgical Medical Problems: (1) Bipolar disorder (2) Chest pain, rule out acute myocardial infarction (3) Epileptic seizures (4) Manic depression (5) PTSD (post-traumatic stress disorder) (6) Schizophrenia Family History Patient reports no known family medical history. Social History Smoking Status: Current Every Day Smoker Alcohol Use: none Marital Status: Housing Status: lives alone Occupation Status: unemployed Current/Historical Medications Scheduled Divalproex Sodium (Divalproex Sodium ER), 500 MG PO TID Risperidone (Risperdal), 0.5 MG PO BID Sertraline (Zoloft), 100 MG PO DAILY Scheduled PRN Acetaminophen (Tylenol), 1,000 MG PO Q12 PRN for Pain Allergies Coded Allergies: Clonazepam (Verified Allergy, Severe, per pt..., 01/09/17) Gabapentin (Verified Allergy, Severe, makes patient extremely violent, ) Physical Exam Vital Signs Date Time Temp Pulse Resp B/P (MAP) Pulse Ox O2 Delivery O2 Flow Rate FiO2 01/23/17 21:45 79 168/101 94 Room Air 01/23/17 21:07 Room Air 01/23/17 20:45 90 28 136/109 97 Room Air 01/23/17 20:05 89 24 140/94 95 Room Air 01/23/17 19:34 92 01/23/17 18:50 95 Room Air 01/23/17 18:50 95 Room Air 01/23/17 18:43 36.7 98 15 162/103 95 Room Air 01/23/17 18:43 95 Room Air Physical Exam GENERAL: Awake, alert, well-appearing, in no distress HENT: Normocephalic, atraumatic. Oropharynx unremarkable. EYES: Normal conjunctiva. Sclera non-icteric. NECK: Supple. No nuchal rigidity. FROM. No JVD. RESPIRATORY: Clear to auscultation. CARDIAC: Regular rate, normal rhythm. Extremities warm and well perfused. Pulses equal. ABDOMEN: Soft, non-distended. No tenderness to palpation. No rebound or guarding. No masses. RECTAL: Deferred. MUSCULOSKELETAL: Chest examination reveals no tenderness. The back is symmetrical on inspection without obvious abnormality. There is no CVA tenderness to palpation. No joint edema. LOWER EXTREMITIES: Calves are equal size bilaterally and non-tender. No edema. No discoloration. NEURO: Normal sensorium. No sensory or motor deficits noted. SKIN: No rash or jaundice noted. Medical Decision & Procedures ER Provider Diagnostic Interpretation: Radiology results as stated below per my review and radiologist interpretation: CHEST ONE VIEW PORTABLE HISTORY: 36 years-old Male CHEST PAIN acute atypical chest pain COMPARISON: None available TECHNIQUE: Portable upright AP view of the chest FINDINGS: Lungs are mildly hypoinflated. Cardiac silhouette is upper limits of normal, likely accentuated by technique. No pneumothorax. There is mild blunting of the left costophrenic angle with linear subsegmental bibasilar opacities. Mild right hemidiaphragmatic elevation. No lobar airspace consolidation. Bones are grossly intact. IMPRESSION: 1. Linear subsegmental bibasilar opacities favor atelectasis. 2. Mild blunting of the left costophrenic angle may also be secondary to atelectasis or trace effusion. The above report was generated using voice recognition software. It may contain grammatical, syntax or spelling errors. Electronically signed by: Prem Carreon M.D. 01/23/2017 7:28 PM Dictated Date/Time: 01/23/2017 7:26 PM Laboratory Results 01/23/17 18:40 Red Blood Count 5.52, Mean Corpuscular Volume 80.1, Mean Corpuscular Hemoglobin 28.4, Mean Corpuscular Hemoglobin Concent 35.5, Mean Platelet Volume 9.6, Neutrophils (%) (Auto) 68.6, Lymphocytes (%) (Auto) 20.7, Monocytes (%) (Auto) 9.2, Eosinophils (%) (Auto) 0.8, Basophils (%) (Auto) 0.3, Neutrophils # (Auto) 5.28, Lymphocytes # (Auto) 1.59, Monocytes # (Auto) 0.71, Eosinophils # (Auto) 0.06, Basophils # (Auto) 0.02 01/23/17 18:40 Test 01/23/17 18:40 01/23/17 18:58 White Blood Count 7.69 K/uL (4.8-10.8) Red Blood Count 5.52 M/uL (4.7-6.1) Hemoglobin 15.7 g/dL (14.0-18.0) Hematocrit 44.2 % (42-52) Mean Corpuscular Volume 80.1 fL (80-100) Mean Corpuscular Hemoglobin 28.4 pg (25-34) Mean Corpuscular Hemoglobin Concent 35.5 g/dl (32-36) Platelet Count 226 K/uL (130-400) Mean Platelet Volume 9.6 fL (7.4-10.4) Neutrophils (%) (Auto) 68.6 % Lymphocytes (%) (Auto) 20.7 % Monocytes (%) (Auto) 9.2 % Eosinophils (%) (Auto) 0.8 % Basophils (%) (Auto) 0.3 % Neutrophils # (Auto) 5.28 K/uL (1.4-6.5) Lymphocytes # (Auto) 1.59 K/uL (1.2-3.4) Monocytes # (Auto) 0.71 K/uL (0.11-0.59) Eosinophils # (Auto) 0.06 K/uL (0-0.5) Basophils # (Auto) 0.02 K/uL (0-0.2) RDW Standard Deviation 39.3 fL (36.4-46.3) RDW Coefficient of Variation 13.6 % (11.5-14.5) Immature Granulocyte % (Auto) 0.4 % Immature Granulocyte # (Auto) 0.03 K/uL (0.00-0.02) Anion Gap 7.0 mmol/L (3-11) Est Creatinine Clear Calc Drug Dose 163.6 ml/min Estimated GFR () 144.2 Estimated GFR (Non- 124.4 BUN/Creatinine Ratio 16.4 (10-20) Calcium Level 9.3 mg/dl (8.5-10.1) Total Bilirubin 0.4 mg/dl (0.2-1) Direct Bilirubin 0.1 mg/dl (0-0.2) Aspartate Amino Transf (AST/SGOT) 12 U/L (15-37) Alanine Aminotransferase (ALT/SGPT) 29 U/L (12-78) Alkaline Phosphatase 102 U/L (45-117) Total Creatine Kinase 137 U/L (39-308) Creatine Kinase MB 3.6 ng/ml (0.5-3.6) Creatine Kinase MB Ratio 2.6 (0-3.0) Total Protein 6.7 gm/dl (6.4-8.2) Albumin 3.6 gm/dl (3.4-5.0) Lipase 138 U/L (73-393) Bedside D-Dimer 158 ng/mlFEU (0-450) Bedside Troponin I < 0.030 ng/ml (0-0.045) Laboratory results reviewed by me Medications Administered Medications (Trade) Dose Ordered Sig/Jennifer Route Start Time Stop Time Status Last Admin Dose Admin Nitroglycerin (Nitroglycerin 2% Oint) 0.5 inch NOW ONCE EXT 01/23/17 19:00 01/23/17 19:01 DC 01/23/17 19:17 0.5 INCH Metoprolol Tartrate (Lopressor Tab) 50 mg STK-MED ONCE .ROUTE 01/23/17 20:43 01/23/17 20:44 DC 01/23/17 20:46 25 MG ECG Indication: chest pain Rate (beats per minute): 93 Rhythm: normal sinus Findings: RBBB (incomplete), no acute ischemic change, left axis deviation, no ectopy ED Course 1840: The patient was evaluated in room C11. A complete history and physical exam was performed. 1899: Nitroglycerin 2% Oint 0.5 inch EXT 2006: Upon reexamination, the patient was feeling better. I discussed the test results and treatment plan with him, and he was agreeable. The patient will be evaluated for further management. 2019: Discussed the patient's case with Dr. Peña, [facility] [place]. The patient will be evaluated for further treatment and disposition. 2128: I reassessed the patient, and he states that he does not want to stay. Dr. Peña, Dr Gonzalez, and I met with him, and he states that he does not like to be inside, and he feels that he is fine to go. He is going to follow up as an outpatient. The patient will be discharged home. Medical Decision Triage Nursing notes reviewed. The patient's presentation and history were concerning for chest pain. Etiologies such as cardiac ischemia, aortic dissection, pulmonary embolism, pneumonia, pneumothorax, musculoskeletal, infections, gastrointestinal, as well as others were entertained. The patient was evaluated. He had left-sided chest pain. ECG showed an incomplete right bundle branch block. No obvious ischemic change. His chest x- ray was unremarkable. His laboratory testing was unremarkable including a d- dimer and troponin. The patient is a smoker. He does not have good primary care. He has a family history of early heart disease and is overweight. Due to this a consultation was made with internal medicine for further evaluation and management. The patient was given aspirin prehospital. He received nitro paste in the emergency department. After evaluation and preparation for admission by internal medicine the patient declined admission. He asked to be discharged. He did not feel like he needed to stay in the hospital. I had a long discussion with this patient as did internal medicine. Dr. Peña from internal was was present. We offered to have the patient stay for further workup regarding his history but he declined. He was awake, alert, and not under the influence. The patient has demonstrated no significant defect in the decision-making capacity to make choices. The encounter had a good level of communication with language the patient can easily understand. I feel trust was present and conveyed that our action/intentions were the best interest of the patient. The patient was given all relevant information and reiterated the explained risks and benefits. The patient explained the reasoning for refusing treatment clearly. The patient possesses and expresses a set of values and goals, the ability to communicate and understand, and an ability to reason and deliberate. Despite acting emphatically, attentively and with the utmost patient's the patient declined further treatment. I offered options, negotiated, and explored every reasonable choice. I must respect the patient's autonomy and that they feel that their choices are best for them despite the associated risks of leaving AGAINST MEDICAL ADVICE. Medication Reconcilliation Current Medication List: was personally reviewed by me Blood Pressure Screening Patient's blood pressure: Elevated blood pressure Referred to the hospitalist Consults Time Called: 2006 Consulting Physician: LOC Maria Returned Call: 2018 Discussed the patient's case with LOC Maria. The patient will be evaluated for further treatment and disposition. Impression Primary Impression: Left sided chest pain Scribe Attestation The scribe's documentation has been prepared under my direction and personally reviewed by me in its entirety. I confirm that the note above accurately reflects all work, treatment, procedures, and medical decision making performed by me. Departure Information Dispostion Against Medical Advice Referrals No Doctor, Assigned (PCP) Forms Call Back Authorization, HOME CARE DOCUMENTATION FORM, IMPORTANT VISIT INFORMATION Patient Instructions My [facility] [employer] Additional Instructions Rest. Stop smoking. You are leaving against the physician's medical advice. Your evaluation is not complete. The exact cause of your symptoms is not known at this time. Your health could be at significant risk by your actions of leaving before the evaluation was completed. This could result in worsening of your condition, need for further treatment, hospitalization, surgery, or even . You may return at any time, for any reason, but you are encouraged to return immediately if your symptoms worsen or if you change your mind. Since you don't want to complete the evaluation here please seek medical care elsewhere as soon as possible. Call to [phone] for follow-up with the [facility] primary care doctors on Wednesday. Call your psychiatrist on Wednesday for follow-up as well.
[2017-01-23] MEDS ORDERED: METOPROLOL TARTRATE 25 MG TAB PO STA (20:36)
[2017-01-23] MEDS ORDERED: METOPROLOL TARTRATE 50 MG TAB ONE (20:43)
[2017-01-23] MEDS ORDERED: METOPROLOL TARTRATE 25 MG TAB PO SCH (21:00)
[2017-01-23] MEDS ORDERED: RISPERIDONE 0.5 MG TAB PO ONE (21:03)
[2017-01-23] MEDS ORDERED: DIVALPROEX 500 MG EXTENDED RELEASE TAB PO ONE (21:03)
[2017-01-23 21:07] VITALS: Ht 157.5 cm; Wt 105.0 kg
[2017-01-23] MEDS ORDERED: ACETAMINOPHEN 325 MG TAB PO PRN (21:15)
[2017-01-23] MEDS ORDERED: ONDANSETRON INJ 2 MG/ML 2 ML VIAL IV PRN (21:15)
[2017-01-23] MEDS ORDERED: IV FLUIDS COMPLETED PRN (21:30)
[2017-01-23] MEDS ORDERED: INFLUENZA VIRUS QUAD VACCINE 0.5 ML SYR IM. ONE (21:30)
[2017-01-23] MEDS ORDERED: INFLUENZA ADMINISTRATION CHARGE ONE (21:30)
[2017-01-23 21:45] VITALS: BP 168/101; PULSE 79; O2SAT 94
--- NOTE | 2017-01-23 23:00 | Medical Consult ---
Consultation Date of Consultation: Jan 23, 2017. Attending Physician: Reason for Consultation: Chest Pain Evaluation for admission History of Present Illness Mr Jasso is a 36 year old male who presents to the ER with chest pain. Started the previous night, severity currently 0/10, improved with nitro paste given in ER, constant ache on the left side of his chest. Radiating to his left shoulder. Associated nausea and shortness of breath. No diaphoresis. Current smoker third pack/day, previously 3 packs/day. His father had an VT aged 18 years old, aged 57. He feels like the chest tightness is related to him taking risperidone. Past Medical/Surgical History Medical Problems: (1) HTN (hypertension) Status: Acute (2) Hypokalemia Status: Acute (3) Left sided chest pain Status: Acute (4) Mood disorder Status: Acute (5) Mood disorder Status: Acute (6) Mood disorder Status: Acute (7) Suicidal ideation Status: Acute (8) Suicidal ideation Status: Acute Family History Patient reports no known family medical history. Social History Smoking Status: Current Every Day Smoker Marital Status: Housing Status: lives alone Occupation Status: unemployed Allergies Coded Allergies: Clonazepam (Verified Allergy, Severe, per pt..., 01/09/17) Gabapentin (Verified Allergy, Severe, makes patient extremely violent, ) Physical Exam Date Time Temp Pulse Resp B/P (MAP) Pulse Ox O2 Delivery O2 Flow Rate FiO2 01/23/17 21:45 79 168/101 94 Room Air 01/23/17 21:07 Room Air 01/23/17 20:45 90 28 136/109 97 Room Air 01/23/17 20:05 89 24 140/94 95 Room Air 01/23/17 19:34 92 01/23/17 18:50 95 Room Air 01/23/17 18:50 95 Room Air 01/23/17 18:43 36.7 98 15 162/103 95 Room Air 01/23/17 18:43 95 Room Air Laboratory Results Last 24 Hours Test 01/23/17 18:40 01/23/17 18:58 White Blood Count 7.69 K/uL Red Blood Count 5.52 M/uL Hemoglobin 15.7 g/dL Hematocrit 44.2 % Mean Corpuscular Volume 80.1 fL Mean Corpuscular Hemoglobin 28.4 pg Mean Corpuscular Hemoglobin Concent 35.5 g/dl Platelet Count 226 K/uL Mean Platelet Volume 9.6 fL Neutrophils (%) (Auto) 68.6 % Lymphocytes (%) (Auto) 20.7 % Monocytes (%) (Auto) 9.2 % Eosinophils (%) (Auto) 0.8 % Basophils (%) (Auto) 0.3 % Neutrophils # (Auto) 5.28 K/uL Lymphocytes # (Auto) 1.59 K/uL Monocytes # (Auto) 0.71 K/uL Eosinophils # (Auto) 0.06 K/uL Basophils # (Auto) 0.02 K/uL RDW Standard Deviation 39.3 fL RDW Coefficient of Variation 13.6 % Immature Granulocyte % (Auto) 0.4 % Immature Granulocyte # (Auto) 0.03 K/uL Sodium Level 142 mmol/L Potassium Level 3.5 mmol/L Chloride Level 108 mmol/L Carbon Dioxide Level 27 mmol/L Anion Gap 7.0 mmol/L Blood Urea Nitrogen 11 mg/dl Creatinine 0.66 mg/dl Est Creatinine Clear Calc Drug Dose 163.6 ml/min Estimated GFR () 144.2 Estimated GFR (Non- 124.4 BUN/Creatinine Ratio 16.4 Random Glucose 91 mg/dl Calcium Level 9.3 mg/dl Total Bilirubin 0.4 mg/dl Direct Bilirubin 0.1 mg/dl Aspartate Amino Transf (AST/SGOT) 12 U/L Alanine Aminotransferase (ALT/SGPT) 29 U/L Alkaline Phosphatase 102 U/L Total Creatine Kinase 137 U/L Creatine Kinase MB 3.6 ng/ml Creatine Kinase MB Ratio 2.6 Total Protein 6.7 gm/dl Albumin 3.6 gm/dl Lipase 138 U/L Bedside D-Dimer 158 ng/mlFEU Bedside Troponin I < 0.030 ng/ml
[2017-01-24] MEDS ORDERED: RISPERIDONE 0.5 MG TAB PO SCH (09:00)
[2017-01-24] MEDS ORDERED: ASPIRIN 81 MG ECTAB PO SCH (09:00)
[2017-01-24] MEDS ORDERED: DIVALPROEX 500 MG EXTENDED RELEASE TAB PO SCH (09:00)
[2017-01-24] MEDS ORDERED: SERTRALINE HCL 100 MG TAB PO SCH (09:00)
== END 2017-01-23 21:57 | disposition left against medical advice (07) ==
LOC: EDBD 18:30 → C.EDC 18:31 → CANRESERV 21:26 → ENRESERV 21:26 → C.EDC 21:57 → CANBEDREQ 22:27
DX: R07.89 Other chest pain (principal); F39 Unspecified mood [affective] disorder; G40.909 Epilepsy, unspecified, not intractable, without status epilepticus; F31.9 Bipolar disorder, unspecified; F20.9 Schizophrenia, unspecified; Z79.899 Other long term (current) drug therapy; F43.10 Post-traumatic stress disorder, unspecified; F17.210 Nicotine dependence, cigarettes, uncomplicated; Z82.49 Family history of ischemic heart disease and other diseases of the circulatory system

== ENCOUNTER 2017-02-11 18:47 | Emergency (ER) | payer OTHER ==
[~2017-02-11] VITALS: Ht 172.7 cm; Wt 85.0 kg
[~2017-02-11 18:47] MED LIST changes: -DIVA500T59 PO; +DPKSR500 PO; -HYDR25TA4 PO; +RISP0.5T10 PO
[2017-02-11 18:58] VITALS: TEMP 36.6; Ht 172.7 cm; Wt 85.0 kg
[2017-02-11 19:25] LABS: URINE APPEARANCE CLEAR (CLEAR); URINE BILIRUBIN NEG (NEG); URINE COLOR YELLOW; URINE NITRITE NEG (NEG); URINE PH 6.5 (4.5-7.5); URINE SPECIFIC GRAVITY 1.011 (1.000-1.030); UROBILINOGEN NEG (NEG)
[2017-02-11 19:29] LABS: MANUAL MICROSCOPIC REQUIRED? NO; REVIEW REQ? NO
[2017-02-11 19:44] LABS: BENZODIAZEPINE, URINE NEG (NEG); COCAINE,URINE NEG (NEG); PHENCYCLIDINE, URINE NEG (NEG)
[2017-02-11 20:04] LABS: BASO % 0.4 %; BASO ABS # 0.02 K/uL (0-0.2); COMPLETE YES; EOS % 0.9 %; HEMATOCRIT 45.7 % (42-52); IG% 0.4 %; LYMPH % 21.8 %; LYMPH ABS # 1.18 K/uL (1.2-3.4); MEAN CELL VOLUME 81.5 fL (80-100); MEAN CORPUSCULAR HEMOGLOBIN 28.9 pg (25-34); MEAN CORPUSCULAR HGB CONC 35.4 g/dl (32-36); MEAN PLATELET VOLUME 9.8 fL (7.4-10.4); MONO % 10.2 %; NEUT % 66.3 %; PLATELET COUNT 184 K/uL (130-400); RED BLOOD COUNT 5.61 M/uL (4.7-6.1); WHITE BLOOD COUNT 5.41 K/uL (4.8-10.8)
[2017-02-11 20:25] LABS: BUN/CREATININE RATIO 9.4 (10-20); CALCIUM 9.1 mg/dl (8.5-10.1); CREATININE 0.76 mg/dl (0.60-1.40); POTASSIUM 3.5 mmol/L (3.5-5.1)
[2017-02-11 20:36] LABS: THYROID STIMULATING HORMONE 0.358 uIu/ml (0.300-4.500)
[2017-02-11] MEDS ORDERED: NICOTINE POLACRILEX 2 MG GUM MT PRN (20:45)
[2017-02-11] MEDS ORDERED: NICOTINE 14 MG/24 HR TDSY ONE (20:49)
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
[2017-02-12 00:04] VITALS: BP 178/100; PULSE 78; O2SAT 100
[2017-02-12] MEDS ORDERED: NICOTINE 14 MG/24 HR TDSY TD SCH (09:00)
== END 2017-02-12 00:05 ==
LOC: EDBD 18:47 → C.EDA 18:50
DX: R45.851 Suicidal ideations (principal); F39 Unspecified mood [affective] disorder; F31.9 Bipolar disorder, unspecified; G40.909 Epilepsy, unspecified, not intractable, without status epilepticus; F20.9 Schizophrenia, unspecified; Z87.891 Personal history of nicotine dependence; Z79.899 Other long term (current) drug therapy; Z88.8 Allergy status to other drugs, medicaments and biological substances

== ENCOUNTER 2017-03-02 14:38 | Emergency (ER) | payer OTHER ==
[~2017-03-02] VITALS: Ht 167.6 cm; Wt 102.7 kg
[2017-03-02 14:38] VITALS: TEMP 36.5; Ht 167.6 cm; Wt 102.7 kg
[~2017-03-02 14:38] MED LIST changes: -ACET-1256 PO; -RISP0.5T10 PO
[2017-03-02 15:08] LABS: URINE APPEARANCE CLEAR (CLEAR); URINE BILIRUBIN NEG (NEG); URINE COLOR YELLOW; URINE NITRITE NEG (NEG); URINE SPECIFIC GRAVITY 1.015 (1.000-1.030); UROBILINOGEN NEG (NEG); ZZUR CULT IF INDIC CLEAN CATCH NO
[2017-03-02 15:10] LABS: MANUAL MICROSCOPIC REQUIRED? NO; REVIEW REQ? NO
--- NOTE | 2017-03-02 15:13 | EMERGENCY ROOM VISIT NOTE ---
History Report prepared by Henok: Bacilio James Under the Supervision of: Dr. Jareth Shukla M.D. First contact with patient: 15:00 Chief Complaint: MENTAL HEALTH EVALUATION Stated Complaint: MENTAL HEALTH History of Present Illness The patient is a 36 year old male who presents to the Emergency Room for a mental health evaluation due persistent suicidal ideation for the past few weeks. The patient states that he is having thoughts of overdosing on his medications, and he takes Depakote and Zoloft. He states that he does not feel safe at home with his brother since they have been getting into fights. He additionally states that he has been having thoughts of killing his brother as well. The patient states that he has not tried to hurt himself recently, though within the past year he has tried to overdose a few times. He reports he has been diagnosed with schizophrenia and depression. Source of History: patient Onset: past few weeks Position: other (global) Quality: other (suicidal ideation) Timing: other (persistent) Note: Associated symptoms: Homicidal ideation Review of Systems See HPI for pertinent positives and negatives. A total of ten systems were reviewed and were otherwise negative. Past Medical & Surgical Medical Problems: (1) Bipolar disorder (2) Chest pain, rule out acute myocardial infarction (3) Epileptic seizures (4) Manic depression (5) PTSD (post-traumatic stress disorder) (6) Schizophrenia Family History Patient reports no known family medical history. Social History Smoking Status: Current Every Day Smoker Alcohol Use: none Marital Status: Housing Status: lives alone Occupation Status: unemployed Current/Historical Medications Scheduled Divalproex Sodium (Divalproex Sodium ER), 500 MG PO TID Sertraline (Zoloft), 100 MG PO DAILY Scheduled PRN Trazodone Hcl (Trazodone), 1 TAB PO HS PRN for Sleep Allergies Coded Allergies: Clonazepam (Verified Allergy, Severe, per pt..., 03/02/17) Gabapentin (Verified Allergy, Severe, makes patient extremely violent, ) Risperidone (Unverified Allergy, Unknown, FOAMING AT THE MOUTH, UNSTEADY GAIT, 03/02/17) Physical Exam Vital Signs Date Time Temp Pulse Resp B/P (MAP) Pulse Ox O2 Delivery O2 Flow Rate FiO2 03/02/17 23:17 77 9 179/112 97 03/02/17 19:21 82 186/98 03/02/17 15:09 94 199/135 97 162/114 03/02/17 14:38 36.5 96 189/120 96 Room Air Physical Exam GENERAL: Awake, alert, well-appearing, in no distress HENT: Normocephalic, atraumatic. Oropharynx unremarkable. EYES: Normal conjunctiva. Sclera non-icteric. NECK: Supple. No nuchal rigidity. FROM. No JVD. RESPIRATORY: Clear to auscultation. CARDIAC: Regular rate, normal rhythm. Extremities warm and well perfused. Pulses equal. ABDOMEN: Soft, non-distended. No tenderness to palpation. No rebound or guarding. No masses. RECTAL: Deferred. MUSCULOSKELETAL: Chest examination reveals no tenderness. The back is symmetrical on inspection without obvious abnormality. There is no CVA tenderness to palpation. No joint edema. LOWER EXTREMITIES: Calves are equal size bilaterally and non-tender. No edema. No discoloration. NEURO: Normal sensorium. No sensory or motor deficits noted. SKIN: No rash or jaundice noted. PSYCH: Colorful affect.+SI with a plan and +HI Medical Decision & Procedures Laboratory Results 03/02/17 14:55 Red Blood Count 5.57, Mean Corpuscular Volume 82.2, Mean Corpuscular Hemoglobin 28.9, Mean Corpuscular Hemoglobin Concent 35.2, Mean Platelet Volume 10.1, Neutrophils (%) (Auto) 71.3, Lymphocytes (%) (Auto) 19.6, Monocytes (%) (Auto) 7.3, Eosinophils (%) (Auto) 0.8, Basophils (%) (Auto) 0.4, Neutrophils # (Auto) 5.10, Lymphocytes # (Auto) 1.40, Monocytes # (Auto) 0.52, Eosinophils # (Auto) 0.06, Basophils # (Auto) 0.03 03/02/17 14:55 Test 03/02/17 14:55 White Blood Count 7.15 K/uL (4.8-10.8) Red Blood Count 5.57 M/uL (4.7-6.1) Hemoglobin 16.1 g/dL (14.0-18.0) Hematocrit 45.8 % (42-52) Mean Corpuscular Volume 82.2 fL (80-100) Mean Corpuscular Hemoglobin 28.9 pg (25-34) Mean Corpuscular Hemoglobin Concent 35.2 g/dl (32-36) Platelet Count 198 K/uL (130-400) Mean Platelet Volume 10.1 fL (7.4-10.4) Neutrophils (%) (Auto) 71.3 % Lymphocytes (%) (Auto) 19.6 % Monocytes (%) (Auto) 7.3 % Eosinophils (%) (Auto) 0.8 % Basophils (%) (Auto) 0.4 % Neutrophils # (Auto) 5.10 K/uL (1.4-6.5) Lymphocytes # (Auto) 1.40 K/uL (1.2-3.4) Monocytes # (Auto) 0.52 K/uL (0.11-0.59) Eosinophils # (Auto) 0.06 K/uL (0-0.5) Basophils # (Auto) 0.03 K/uL (0-0.2) RDW Standard Deviation 41.2 fL (36.4-46.3) RDW Coefficient of Variation 13.7 % (11.5-14.5) Immature Granulocyte % (Auto) 0.6 % Immature Granulocyte # (Auto) 0.04 K/uL (0.00-0.02) Urine Color YELLOW Urine Appearance CLEAR (CLEAR) Urine pH 6.0 (4.5-7.5) Urine Specific [place] 1.015 (1.000-1.030) Urine Protein NEG (NEG) Urine Glucose (UA) NEG (NEG) Urine Ketones NEG (NEG) Urine Occult Blood NEG (NEG) Urine Nitrite NEG (NEG) Urine Bilirubin NEG (NEG) Urine Urobilinogen NEG (NEG) Urine Leukocyte Esterase NEG (NEG) Anion Gap 9.0 mmol/L (3-11) Est Creatinine Clear Calc Drug Dose 161.4 ml/min Estimated GFR () 139.9 Estimated GFR (Non- 120.7 BUN/Creatinine Ratio 16.0 (10-20) Calcium Level 8.9 mg/dl (8.5-10.1) Total Bilirubin 0.2 mg/dl (0.2-1) Aspartate Amino Transf (AST/SGOT) 6 U/L (15-37) Alanine Aminotransferase (ALT/SGPT) 24 U/L (12-78) Alkaline Phosphatase 93 U/L (45-117) Total Protein 6.9 gm/dl (6.4-8.2) Albumin 3.6 gm/dl (3.4-5.0) Globulin 3.3 gm/dl (2.5-4.0) Albumin/Globulin Ratio 1.1 (0.9-2) Thyroid Stimulating Hormone (TSH) 0.779 uIu/ml (0.300-4.500) Salicylates Level 2.9 mg/dl (2.8-20) Urine Opiates Screen NEG (NEG) Urine Methadone, Qualitative NEG (NEG) Acetaminophen Level < 2 ug/ml (10-30) Urine Barbiturates NEG (NEG) Valproic Acid (Depakene) Level 47 mcg/ml (50-100) Urine Phencyclidine (PCP) Level NEG (NEG) Ur Amphetamine/Methamphetamine NEG (NEG) MDMA (Ecstasy) Screen NEG (NEG) Urine Benzodiazepines Screen NEG (NEG) Urine Cocaine Metabolite NEG (NEG) Urine Marijuana (THC) NEG (NEG) Ethyl Alcohol mg/dL < 3.0 mg/dl (0-3) Laboratory results reviewed by me Medications Administered Medications (Trade) Dose Ordered Sig/Jennifer Route Start Time Stop Time Status Last Admin Dose Admin Divalproex Sodium (Depakote Extended Rel Tab) 500 mg NOW ONCE PO 03/02/17 19:30 03/02/17 19:31 DC 03/02/17 20:11 500 MG Labetalol HCl (Normodyne Tab) 100 mg NOW ONCE PO 03/02/17 22:30 03/02/17 22:31 DC 03/02/17 22:30 100 MG ED Course 1500: The patient was evaluated in room A6. A complete history and physical exam was performed. 0: Depakote Extended Release Tab 500mg PO 2147: [facility] will not accept the patient yet with his high blood pressure. 0: Labetalol HCl 100mg PO 2236: The patient will be transferred. Medical Decision I reviewed the patient's past medical history, medications, and the nursing notes as described above. Differential Diagnoses include: suicidality. The patient is a 36-year-old gentleman with a past medical history of bipolar disorder and suicidality with frequent inpatient admissions who presents emergency Department with report of SI with plan to overdose as well as thoughts of HI against his brother per history of present illness. Arrival the patient is in no acute distress, afebrile with stable vital signs. He is a colorful affect and reports suicidal thoughts with plan to overdose which she has done in the past. No recent attempts at self-harm. Labs unremarkable and patient was medically cleared. The patient's symptoms patient is criteria and requires inpatient admission. This time the patient is agreeable and seeks admission. However, if patient were to change his mind patient meets criteria for 302 and would be required at that time. Otherwise bed search is in progress. [facility] potentially may have a bed placement. Of note the did express concern over the patient's elevated blood pressures, over at this time the patient has no symptoms and thus given current guidelines there is no indication for treatment at this time. After further clarification with facility they request his BP be better controlled for transfer and their providers will be able to trend and manage going forward. Thus patient was given 1 time PO dose of Labetalol for BP control. Patient accepted for transfer to [facility]. Impression Primary Impression: Suicidal ideation Scribe Attestation The scribe's documentation has been prepared under my direction and personally reviewed by me in its entirety. I confirm that the note above accurately reflects all work, treatment, procedures, and medical decision making performed by me. Departure Information Dispostion Mental Health Acute Care Referrals No Doctor, Assigned (PCP) Patient Instructions My [facility]
[2017-03-02 15:20] LABS: BASO % 0.4 %; BASO ABS # 0.03 K/uL (0-0.2); COMPLETE YES; EOS % 0.8 %; HEMATOCRIT 45.8 % (42-52); IG% 0.6 %; LYMPH % 19.6 %; MEAN CELL VOLUME 82.2 fL (80-100); MEAN CORPUSCULAR HEMOGLOBIN 28.9 pg (25-34); MEAN CORPUSCULAR HGB CONC 35.2 g/dl (32-36); MEAN PLATELET VOLUME 10.1 fL (7.4-10.4); MONO % 7.3 %; NEUT % 71.3 %; PLATELET COUNT 198 K/uL (130-400); RED BLOOD COUNT 5.57 M/uL (4.7-6.1); WHITE BLOOD COUNT 7.15 K/uL (4.8-10.8)
[2017-03-02 15:37] LABS: BENZODIAZEPINE, URINE NEG (NEG); COCAINE,URINE NEG (NEG); PHENCYCLIDINE, URINE NEG (NEG)
[2017-03-02 15:47] LABS: CALCIUM 8.9 mg/dl (8.5-10.1); CREATININE 0.71 mg/dl (0.60-1.40); POTASSIUM 3.6 mmol/L (3.5-5.1)
[2017-03-02 15:53] LABS: ACETAMINOPHEN < 2 ug/ml (10-30)
[2017-03-02 15:57] LABS: ALB/GLOB RATIO 1.1 (0.9-2); THYROID STIMULATING HORMONE 0.779 uIu/ml (0.300-4.500)
[2017-03-02] MEDS ORDERED: TRAZ50TA35 PO (16:24)
[2017-03-02] MEDS ORDERED: DIVALPROEX 500 MG EXTENDED RELEASE TAB PO ONE (19:30)
[2017-03-02] MEDS ORDERED: LABETALOL HCL 100 MG TAB PO ONE (22:30)
[2017-03-02 23:17] VITALS: BP 179/112; PULSE 77; O2SAT 97
== END 2017-03-02 23:21 ==
LOC: EDBD 14:38 → C.EDA 14:40
DX: R45.851 Suicidal ideations (principal); R45.850 Homicidal ideations; R03.0 Elevated blood-pressure reading, without diagnosis of hypertension; F20.9 Schizophrenia, unspecified; F33.9 Major depressive disorder, recurrent, unspecified; F31.9 Bipolar disorder, unspecified; G40.909 Epilepsy, unspecified, not intractable, without status epilepticus; F43.10 Post-traumatic stress disorder, unspecified; F17.200 Nicotine dependence, unspecified, uncomplicated; Z91.5 Personal history of self-harm

== ENCOUNTER 2017-03-12 00:59 | Emergency (ER) | payer OTHER ==
[~2017-03-12] VITALS: Ht 167.6 cm; Wt 108.0 kg
[~2017-03-12 00:59] MED LIST changes: +TRAZ50TA35 PO
[2017-03-12 01:11] VITALS: TEMP 36.7; Ht 167.6 cm; Wt 108.0 kg
[2017-03-12] MEDS ORDERED: ABL/5 PO (01:33)
[2017-03-12] MEDS ORDERED: CLON0.1T12 PO (01:35)
[2017-03-12 01:40] LABS: URINE APPEARANCE CLEAR (CLEAR); URINE BILIRUBIN NEG (NEG); URINE COLOR YELLOW; URINE NITRITE NEG (NEG); UROBILINOGEN NEG (NEG)
[2017-03-12 01:57] LABS: MANUAL MICROSCOPIC REQUIRED? NO; REVIEW REQ? NO
[2017-03-12 02:07] LABS: BASO % 0.6 %; BASO ABS # 0.04 K/uL (0-0.2); COMPLETE YES; EOS % 1.7 %; HEMATOCRIT 44.3 % (42-52); LYMPH ABS # 1.93 K/uL (1.2-3.4); MEAN CELL VOLUME 83.7 fL (80-100); MEAN CORPUSCULAR HEMOGLOBIN 29.1 pg (25-34); MEAN CORPUSCULAR HGB CONC 34.8 g/dl (32-36); MEAN PLATELET VOLUME 9.7 fL (7.4-10.4); MONO % 10.2 %; NEUT % 59.5 %; PLATELET COUNT 173 K/uL (130-400); RED BLOOD COUNT 5.29 M/uL (4.7-6.1); WHITE BLOOD COUNT 7.16 K/uL (4.8-10.8)
[2017-03-12 02:09] LABS: BENZODIAZEPINE, URINE NEG (NEG); COCAINE,URINE NEG (NEG); PHENCYCLIDINE, URINE NEG (NEG)
[2017-03-12 02:29] LABS: ALT/SGPT 40 U/L (12-78); AST/SGOT 22 U/L (15-37); BLOOD UREA NITROGEN 13 mg/dl (7-18); BUN/CREATININE RATIO 18.5 (10-20); CALCIUM 9.1 mg/dl (8.5-10.1); CARBON DIOXIDE 27 mmol/L (21-32); CHLORIDE 102 mmol/L (98-107); CREATININE 0.72 mg/dl (0.60-1.40); GLUCOSE 93 mg/dl (70-99); POTASSIUM 3.7 mmol/L (3.5-5.1); SODIUM 139 mmol/L (136-145)
[2017-03-12 02:40] LABS: ALKALINE PHOSPHATASE 97 U/L (45-117)
--- NOTE | 2017-03-12 02:50 | EMERGENCY ROOM VISIT NOTE ---
History Report prepared by Henok: Amanda Valentino Under the Supervision of: Dr. Tasha Garcia D.O. First contact with patient: 01:02 Stated Complaint: MENTAL HEALTH EVALUATION History of Present Illness The patient is a 36 year old male who presents to the Emergency Room with complaints of an episode of suicidal ideations earlier today. He has a history of depression and suicidal ideation. He was discharged from [place] yesterday. The patient had been having a rough time today which is day. He was thinking about his father who passed 3 years ago and his daughter who passed a couple months ago. He admits to cutting himself earlier today. He was thinking about harming himself earlier, but he then starting thinking about his and family. He decided that he would not harm himself. He states that he has changed and become a better person recently. 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 He currently does not have any thoughts of hurting himself. He is taking all of his medications. He is staying at a [facility] with staff. He denies any drug or alcohol use. He admits to drug and alcohol abuse in the past. He has had thoughts of hurting his brother, but they have resolved when he thinks about his family. He does not think it would be worth an assault charge and potential fdc sentence. He does smoke. He is currently smoking 3 packs per day, but is thinking of quitting. Source of History: patient Onset: earlier today Position: other (global) Quality: other (suicidal ideation) Timing: other (episodic) Note: Pt reports thoughts of hurting others. Review of Systems See HPI for pertinent positives & negatives. A total of 10 systems reviewed and were otherwise negative. Past Medical & Surgical Medical Problems: (1) Bipolar disorder (2) Chest pain, rule out acute myocardial infarction (3) Epileptic seizures (4) Manic depression (5) PTSD (post-traumatic stress disorder) (6) Schizophrenia Family History Patient reports no known family medical history. Social History Smoking Status: Current Every Day Smoker Alcohol Use: none Marital Status: Housing Status: lives alone Occupation Status: unemployed Current/Historical Medications Scheduled Aripiprazole (Abilify), 5 MG PO QID Divalproex Sodium (Divalproex Sodium ER), 500 MG PO QID Sertraline (Zoloft), 50 MG PO QID Allergies Coded Allergies: Clonazepam (Verified Allergy, Severe, per pt..., 03/12/17) Gabapentin (Verified Allergy, Severe, makes patient extremely violent, ) Risperidone (Unverified Allergy, Unknown, FOAMING AT THE MOUTH, UNSTEADY GAIT, 03/12/17) Physical Exam Vital Signs Date Time Temp Pulse Resp B/P (MAP) Pulse Ox O2 Delivery O2 Flow Rate FiO2 03/12/17 03:10 81 18 147/90 98 03/12/17 01:11 36.7 94 18 154/88 96 Room Air Physical Exam GENERAL: alert, well appearing, well nourished, no distress, non-toxic EYE EXAM: normal conjunctiva, PERRL and EOM's grossly intact OROPHARYNX: poor dentition. no exudate, no erythema, lips, buccal mucosa, and tongue normal and mucous membranes are moist NECK: supple, no nuchal rigidity, no adenopathy, non-tender LUNGS: Clear to auscultation. Normal chest wall mechanics HEART: no murmurs, S1 normal and S2 normal ABDOMEN: abdomen soft, non-tender, normo-active bowel sounds, no masses, no rebound or guarding. BACK: Back is symmetrical on inspection and there is no deformity, no midline tenderness, no CVA tenderness. SKIN: no rashes and no bruising UPPER EXTREMITIES: upper extremities are grossly normal. LOWER EXTREMITIES: No pitting edema. NEURO EXAM: Normal sensorium, cranial nerves II-XII grossly intact, normal speech, no gross weakness of arms, no gross weakness of legs. PSYCH: positive SI with no plan. No HI. Odd affect. Makes eye contact. Medical Decision & Procedures Laboratory Results 03/12/17 01:24 Red Blood Count 5.29, Mean Corpuscular Volume 83.7, Mean Corpuscular Hemoglobin 29.1, Mean Corpuscular Hemoglobin Concent 34.8, Mean Platelet Volume 9.7, Neutrophils (%) (Auto) 59.5, Lymphocytes (%) (Auto) 27.0, Monocytes (%) (Auto) 10.2, Eosinophils (%) (Auto) 1.7, Basophils (%) (Auto) 0.6, Neutrophils # (Auto ) 4.27, Lymphocytes # (Auto) 1.93, Monocytes # (Auto) 0.73, Eosinophils # (Auto ) 0.12, Basophils # (Auto) 0.04 03/12/17 01:24 Test 03/12/17 01:15 03/12/17 01:24 Urine Color YELLOW Urine Appearance CLEAR (CLEAR) Urine pH 7.0 (4.5-7.5) Urine Specific [place] 1.020 (1.000-1.030) Urine Protein NEG (NEG) Urine Glucose (UA) NEG (NEG) Urine Ketones NEG (NEG) Urine Occult Blood NEG (NEG) Urine Nitrite NEG (NEG) Urine Bilirubin NEG (NEG) Urine Urobilinogen NEG (NEG) Urine Leukocyte Esterase NEG (NEG) Urine Opiates Screen NEG (NEG) Urine Methadone, Qualitative NEG (NEG) Urine Barbiturates NEG (NEG) Urine Phencyclidine (PCP) Level NEG (NEG) Ur Amphetamine/Methamphetamine NEG (NEG) MDMA (Ecstasy) Screen NEG (NEG) Urine Benzodiazepines Screen NEG (NEG) Urine Cocaine Metabolite NEG (NEG) Urine Marijuana (THC) NEG (NEG) White Blood Count 7.16 K/uL (4.8-10.8) Red Blood Count 5.29 M/uL (4.7-6.1) Hemoglobin 15.4 g/dL (14.0-18.0) Hematocrit 44.3 % (42-52) Mean Corpuscular Volume 83.7 fL (80-100) Mean Corpuscular Hemoglobin 29.1 pg (25-34) Mean Corpuscular Hemoglobin Concent 34.8 g/dl (32-36) Platelet Count 173 K/uL (130-400) Mean Platelet Volume 9.7 fL (7.4-10.4) Neutrophils (%) (Auto) 59.5 % Lymphocytes (%) (Auto) 27.0 % Monocytes (%) (Auto) 10.2 % Eosinophils (%) (Auto) 1.7 % Basophils (%) (Auto) 0.6 % Neutrophils # (Auto) 4.27 K/uL (1.4-6.5) Lymphocytes # (Auto) 1.93 K/uL (1.2-3.4) Monocytes # (Auto) 0.73 K/uL (0.11-0.59) Eosinophils # (Auto) 0.12 K/uL (0-0.5) Basophils # (Auto) 0.04 K/uL (0-0.2) RDW Standard Deviation 42.8 fL (36.4-46.3) RDW Coefficient of Variation 14.0 % (11.5-14.5) Immature Granulocyte % (Auto) 1.0 % Immature Granulocyte # (Auto) 0.07 K/uL (0.00-0.02) Anion Gap 10.0 mmol/L (3-11) Est Creatinine Clear Calc Drug Dose 163.4 ml/min Estimated GFR () 139.1 Estimated GFR (Non- 120.0 BUN/Creatinine Ratio 18.5 (10-20) Calcium Level 9.1 mg/dl (8.5-10.1) Total Bilirubin 0.3 mg/dl (0.2-1) Direct Bilirubin < 0.1 mg/dl (0-0.2) Aspartate Amino Transf (AST/SGOT) 22 U/L (15-37) Alanine Aminotransferase (ALT/SGPT) 40 U/L (12-78) Alkaline Phosphatase 97 U/L (45-117) Total Protein 6.8 gm/dl (6.4-8.2) Albumin 3.6 gm/dl (3.4-5.0) Thyroid Stimulating Hormone (TSH) 2.280 uIu/ml (0.300-4.500) Valproic Acid (Depakene) Level 61 mcg/ml (50-100) Ethyl Alcohol mg/dL < 3.0 mg/dl (0-3) Laboratory results per my review. ED Course 0110: The patient was evaluated in room A7. A complete history and physical exam was performed. 0221: The binder caser has evaluated the patient. She thinks the patient is safe to discharge. 0240: Upon reevaluation, the patient is doing well. I discussed the findings and the treatment plan with the patient. He verbalizes agreement and understanding. He was discharged home. Medical Decision Differential diagnosis: Etiologies such as mood disorder, infection, hypoglycemia, electrolyte abnormalities, cardiac sources, intracerebral event, toxicologic, neurologic, as well as others were entertained. Patient well-appearing here despite original complaints. Patient states he felt better by the time of arrival here. Patient currently in a jail and with supervision of all of his medications. Patient denies any current this I plan. Patient reassured and asking to leave after management by psychiatric binder caser. Patient states he felt safe to go home and knew he could come back if he felt worse. I do not feel patient is an eminent risk to himself or others at this time. Medication Reconcilliation Current Medication List: was personally reviewed by me Blood Pressure Screening Patient's blood pressure: Elevated blood pressure Blood pressure disposition: Elevated BP felt to be situational Impression Primary Impression: Acute anxiety Additional Impressions: Depression Tobacco abuse Scribe Attestation The scribe's documentation has been prepared under my direction and personally reviewed by me in its entirety. I confirm that the note above accurately reflects all work, treatment, procedures, and medical decision making performed by me. Departure Information Dispostion Home / Self-Care Referrals No Doctor, Assigned (PCP) Additional Instructions Please continue your regular medications as prescribed. If you're having any concerning thoughts of wanting to hurt herself or anyone else, please return the emergency room. Problem Qualifiers Additional Impressions: Depression Depression Type: unspecified Qualified Codes: F32.9 - Major depressive disorder, single episode, unspecified
[2017-03-12 03:10] VITALS: BP 147/90; PULSE 81; O2SAT 98
== END 2017-03-12 03:10 | disposition home or self-care (01) ==
LOC: EDBD 00:59 → C.EDA 01:01
DX: F41.9 Anxiety disorder, unspecified (principal); F32.9 Major depressive disorder, single episode, unspecified; F17.210 Nicotine dependence, cigarettes, uncomplicated; F31.9 Bipolar disorder, unspecified; G40.909 Epilepsy, unspecified, not intractable, without status epilepticus; F43.10 Post-traumatic stress disorder, unspecified; F20.9 Schizophrenia, unspecified; Z79.899 Other long term (current) drug therapy

== ENCOUNTER 2017-03-23 02:42 | Emergency (ER) | payer OTHER ==
[~2017-03-23] VITALS: Ht 165.1 cm; Wt 107.3 kg
[~2017-03-23 02:42] MED LIST changes: +ABL/5 PO; -TRAZ50TA35 PO
[2017-03-23 02:54] VITALS: TEMP 36.6; Ht 165.1 cm; Wt 107.3 kg
--- NOTE | 2017-03-23 03:47 | EMERGENCY ROOM VISIT NOTE ---
History Report prepared by Henok: Amanda Valentino Under the Supervision of: Dr. Rajiv Altamirano D.O. First contact with patient: 02:52 Chief Complaint: MENTAL HEALTH EVALUATION Stated Complaint: MENTAL HEALTH History of Present Illness The patient is a 37 year old male who presents to the Emergency Room with complaints of persistent suicidal ideation starting ATHLETIC MONITOR. He presents to the ED by EMS. The patient has a plan to overdose on all of his medications and alcohol. He called the police and told them of his plans. He has a history of suicidal ideation. He has tried overdosing before. He states he wants to kill himself, but is stopped because he has his children. He says that tonight he does not care anymore and if he is let out he will try to kill himself. He is feeling depressed. He notes that he has started drinking again. Source of History: patient Onset: ATHLETIC MONITOR Position: other (global) Quality: other (suicidal ideation) Timing: other (persistent) Note: Pt reports depression. Review of Systems See HPI for pertinent positives and negatives. A total of ten systems were reviewed and were otherwise negative. Past Medical & Surgical Medical Problems: (1) Bipolar disorder (2) Chest pain, rule out acute myocardial infarction (3) Epileptic seizures (4) Manic depression (5) PTSD (post-traumatic stress disorder) (6) Schizophrenia Family History Patient reports no known family medical history. Social History Smoking Status: Current Every Day Smoker Alcohol Use: none Marital Status: Housing Status: lives alone Occupation Status: unemployed Current/Historical Medications Scheduled Aripiprazole (Abilify), 5 MG PO QID Divalproex Sodium (Divalproex Sodium ER), 1,000 MG PO BID Sertraline (Zoloft), 50 MG PO QID Allergies Coded Allergies: Clonazepam (Verified Allergy, Severe, per pt..., 03/23/17) Gabapentin (Verified Allergy, Severe, makes patient extremely violent, 03/23/17) Risperidone (Unverified Allergy, Unknown, FOAMING AT THE MOUTH, UNSTEADY GAIT, 03/23/17) Physical Exam Vital Signs Date Time Temp Pulse Resp B/P (MAP) Pulse Ox O2 Delivery O2 Flow Rate FiO2 03/23/17 05:04 86 18 171/111 96 Room Air 03/23/17 02:54 36.6 96 18 186/109 99 Room Air Physical Exam GENERAL: Awake, alert, well-appearing, in no distress HENT: Normocephalic, atraumatic. Oropharynx unremarkable. EYES: Normal conjunctiva. Sclera non-icteric. NECK: Supple. No nuchal rigidity. FROM. No JVD. RESPIRATORY: Clear to auscultation. CARDIAC: Regular rate, normal rhythm. Extremities warm and well perfused. Pulses equal. ABDOMEN: Soft, non-distended. No tenderness to palpation. No rebound or guarding. No masses. RECTAL: Deferred. MUSCULOSKELETAL: Chest examination reveals no tenderness. The back is symmetrical on inspection without obvious abnormality. There is no CVA tenderness to palpation. No joint edema. LOWER EXTREMITIES: Calves are equal size bilaterally and non-tender. No edema. No discoloration. NEURO: Normal sensorium. No sensory or motor deficits noted. SKIN: No rash or jaundice noted. PSYCH: Suicidal ideation, but cooperative. Medical Decision & Procedures Laboratory Results 03/23/17 03:39 Red Blood Count 5.46, Mean Corpuscular Volume 84.4, Mean Corpuscular Hemoglobin 29.5, Mean Corpuscular Hemoglobin Concent 34.9, Mean Platelet Volume 9.7, Neutrophils (%) (Auto) 68.7, Lymphocytes (%) (Auto) 20.5, Monocytes (%) (Auto) 9.2, Eosinophils (%) (Auto) 0.9, Basophils (%) (Auto) 0.2, Neutrophils # (Auto) 5.50, Lymphocytes # (Auto) 1.64, Monocytes # (Auto) 0.74, Eosinophils # (Auto) 0.07, Basophils # (Auto) 0.02 03/23/17 03:39 Test 03/23/17 03:00 03/23/17 03:37 03/23/17 03:39 Urine Color YELLOW Urine Appearance CLEAR (CLEAR) Urine pH 6.0 (4.5-7.5) Urine Specific [place] 1.020 (1.000-1.030) Urine Protein TRACE (NEG) Urine Glucose (UA) NEG (NEG) Urine Ketones NEG (NEG) Urine Occult Blood NEG (NEG) Urine Nitrite NEG (NEG) Urine Bilirubin NEG (NEG) Urine Urobilinogen NEG (NEG) Urine Leukocyte Esterase NEG (NEG) Urine WBC (Auto) 5-10 /hpf (0-5) Urine RBC (Auto) 0-4 /hpf (0-4) Urine Hyaline Casts (Auto) 1-5 /lpf (0-5) Urine Epithelial Cells (Auto) 5-10 /lpf (0-5) Urine Bacteria (Auto) NEG (NEG) Urine Opiates Screen NEG (NEG) Urine Methadone, Qualitative NEG (NEG) Urine Barbiturates NEG (NEG) Urine Phencyclidine (PCP) Level NEG (NEG) Ur Amphetamine/Methamphetamine NEG (NEG) MDMA (Ecstasy) Screen NEG (NEG) Urine Benzodiazepines Screen NEG (NEG) Urine Cocaine Metabolite NEG (NEG) Urine Marijuana (THC) NEG (NEG) Bedside Glucose 106 mg/dl (70-99) White Blood Count 8.01 K/uL (4.8-10.8) Red Blood Count 5.46 M/uL (4.7-6.1) Hemoglobin 16.1 g/dL (14.0-18.0) Hematocrit 46.1 % (42-52) Mean Corpuscular Volume 84.4 fL (80-100) Mean Corpuscular Hemoglobin 29.5 pg (25-34) Mean Corpuscular Hemoglobin Concent 34.9 g/dl (32-36) Platelet Count 197 K/uL (130-400) Mean Platelet Volume 9.7 fL (7.4-10.4) Neutrophils (%) (Auto) 68.7 % Lymphocytes (%) (Auto) 20.5 % Monocytes (%) (Auto) 9.2 % Eosinophils (%) (Auto) 0.9 % Basophils (%) (Auto) 0.2 % Neutrophils # (Auto) 5.50 K/uL (1.4-6.5) Lymphocytes # (Auto) 1.64 K/uL (1.2-3.4) Monocytes # (Auto) 0.74 K/uL (0.11-0.59) Eosinophils # (Auto) 0.07 K/uL (0-0.5) Basophils # (Auto) 0.02 K/uL (0-0.2) RDW Standard Deviation 43.6 fL (36.4-46.3) RDW Coefficient of Variation 14.2 % (11.5-14.5) Immature Granulocyte % (Auto) 0.5 % Immature Granulocyte # (Auto) 0.04 K/uL (0.00-0.02) Anion Gap 4.0 mmol/L (3-11) Est Creatinine Clear Calc Drug Dose 196.9 ml/min Estimated GFR () > 150.0 Estimated GFR (Non- 130.3 BUN/Creatinine Ratio 22.0 (10-20) Calcium Level 8.8 mg/dl (8.5-10.1) Total Bilirubin 0.3 mg/dl (0.2-1) Direct Bilirubin < 0.1 mg/dl (0-0.2) Aspartate Amino Transf (AST/SGOT) 8 U/L (15-37) Alanine Aminotransferase (ALT/SGPT) 22 U/L (12-78) Alkaline Phosphatase 88 U/L (45-117) Total Protein 6.7 gm/dl (6.4-8.2) Albumin 3.6 gm/dl (3.4-5.0) Thyroid Stimulating Hormone (TSH) 1.520 uIu/ml (0.300-4.500) Ethyl Alcohol mg/dL < 3.0 mg/dl (0-3) Laboratory results reviewed by me Medications Administered Medications (Trade) Dose Ordered Sig/Jennifer Route Start Time Stop Time Status Last Admin Dose Admin Clonidine HCl (Catapres Tab) 0.2 mg NOW ONCE PO 03/23/17 05:30 03/23/17 05:31 DC 03/23/17 05:24 0.2 MG ED Course 0259: The patient was evaluated in room A9B. A complete history and physical exam was performed. 0530: Clonidine HCl 0.2 mg PO. 0545: I reevaluated the patient. Discussed results and discharge instructions: he verbalized understanding and agreement. The patient is ready for discharge. Medical Decision Differential diagnosis: Etiologies such as mood disorder, infection, hypoglycemia, electrolyte abnormalities, cardiac sources, intracerebral event, toxicologic, neurologic, as well as others were entertained. Patient seen by the crisis counselor patient's requesting to go to the [facility]. Patient's under 201 for suicidal ideation. He's been stable throughout emergency department evaluation and recheck of the patient is stable at 5:15 AM Patient with a symptomatic hypertension, patient was treated with clonidine Patient at 5:40 AM spoke again to the crisis counselor and decided that he would contract for safety he has strict follow-up he has a friend that will be able to watch him. Patient had clonidine given his blood pressure did decrease. After discussing at great length with the crisis counselor decided that he would be safe for discharge Medication Reconcilliation Current Medication List: was personally reviewed by me Blood Pressure Screening Patient's blood pressure: Elevated blood pressure Blood pressure disposition: Elevated BP felt to be situational Impression Primary Impression: Suicidal ideation Additional Impression: HTN (hypertension) Scribe Attestation The scribe's documentation has been prepared under my direction and personally reviewed by me in its entirety. I confirm that the note above accurately reflects all work, treatment, procedures, and medical decision making performed by me. Departure Information Dispostion Home / Self-Care Referrals No Doctor, Assigned (PCP) Patient Instructions ED Depression, ED HTN Established, My [facility] Problem Qualifiers
[2017-03-23 03:56] LABS: BASO % 0.2 %; BASO ABS # 0.02 K/uL (0-0.2); COMPLETE YES; EOS % 0.9 %; HEMATOCRIT 46.1 % (42-52); IG% 0.5 %; LYMPH % 20.5 %; LYMPH ABS # 1.64 K/uL (1.2-3.4); MEAN CELL VOLUME 84.4 fL (80-100); MEAN CORPUSCULAR HEMOGLOBIN 29.5 pg (25-34); MEAN CORPUSCULAR HGB CONC 34.9 g/dl (32-36); MEAN PLATELET VOLUME 9.7 fL (7.4-10.4); MONO % 9.2 %; NEUT % 68.7 %; PLATELET COUNT 197 K/uL (130-400); RED BLOOD COUNT 5.46 M/uL (4.7-6.1); WHITE BLOOD COUNT 8.01 K/uL (4.8-10.8)
[2017-03-23 04:00] LABS: URINE APPEARANCE CLEAR (CLEAR); URINE BILIRUBIN NEG (NEG); URINE COLOR YELLOW; URINE NITRITE NEG (NEG); UROBILINOGEN NEG (NEG)
[2017-03-23 04:02] LABS: MANUAL MICROSCOPIC REQUIRED? NO; REVIEW REQ? NO
[2017-03-23 04:16] LABS: BENZODIAZEPINE, URINE NEG (NEG); COCAINE,URINE NEG (NEG); PHENCYCLIDINE, URINE NEG (NEG)
[2017-03-23 04:17] LABS: ALT/SGPT 22 U/L (12-78); AST/SGOT 8 U/L (15-37); BLOOD UREA NITROGEN 13 mg/dl (7-18); CALCIUM 8.8 mg/dl (8.5-10.1); CARBON DIOXIDE 28 mmol/L (21-32); CHLORIDE 107 mmol/L (98-107); CREATININE 0.58 mg/dl (0.60-1.40); GLUCOSE 100 mg/dl (70-99); POTASSIUM 3.4 mmol/L (3.5-5.1); SODIUM 139 mmol/L (136-145)
[2017-03-23 04:28] LABS: ALKALINE PHOSPHATASE 88 U/L (45-117)
[2017-03-23] MEDS ORDERED: CLONIDINE HCL 0.1 MG TAB PO ONE (05:30)
[2017-03-23 05:55] VITALS: BP 165/108; PULSE 86; O2SAT 95
== END 2017-03-23 05:55 | disposition home or self-care (01) ==
LOC: EDUNIT# 02:43 → EDBD 02:46 → C.EDA 02:47
DX: Z00.8 Encounter for other general examination (principal); R45.851 Suicidal ideations; I10 Essential (primary) hypertension; F32.9 Major depressive disorder, single episode, unspecified; F17.210 Nicotine dependence, cigarettes, uncomplicated; F31.9 Bipolar disorder, unspecified; G40.909 Epilepsy, unspecified, not intractable, without status epilepticus; F43.10 Post-traumatic stress disorder, unspecified; F20.9 Schizophrenia, unspecified; Z79.899 Other long term (current) drug therapy

== ENCOUNTER 2017-04-06 00:36 | Emergency (ER) | payer OTHER ==
[~2017-04-06] VITALS: Ht 167.6 cm; Wt 110.0 kg
[2017-04-06 00:47] VITALS: BP 171/101; PULSE 98; TEMP 36.9; O2SAT 98; Ht 167.6 cm; Wt 110.0 kg
--- NOTE | 2017-04-06 00:52 | EMERGENCY ROOM VISIT NOTE ---
History Report prepared by Henok: Miriam Tsang Under the Supervision of: Dr. Justin Echeverria M.D. First contact with patient: 00:41 Chief Complaint: MENTAL HEALTH EVALUATION Stated Complaint: MENTAL HEALTH History of Present Illness The patient is a 37 year old male who presents to the Emergency Room for a mental health evaluation. The patient admits to suicidal ideation with a plan to overdose and walk into traffic. The patient states that he is angry and "would like to fight somebody". The patient reports has been off of his daily medications because he has been unable to get them filled. The patient reports not taking his Depakote or Clonidine over the past couple days. The patient denies any drug or recent alcohol use. Source of History: patient Position: other (generalized) Quality: other (mental health evaluation) Modifying Factors (Relieving): other (none) Review of Systems See HPI for pertinent positives & negatives. A total of 10 systems reviewed and were otherwise negative. Past Medical & Surgical Medical Problems: (1) Bipolar disorder (2) Chest pain, rule out acute myocardial infarction (3) Epileptic seizures (4) Manic depression (5) PTSD (post-traumatic stress disorder) (6) Schizophrenia Family History Patient reports no known family medical history. Social History Smoking Status: Current Every Day Smoker Alcohol Use: none Drug Use: none Marital Status: Housing Status: lives alone Occupation Status: unemployed Current/Historical Medications Scheduled Aripiprazole (Abilify), 5 MG PO QID Clonidine Hcl (Catapres), 0.3 MG PO TID Divalproex Sodium (Divalproex Sodium ER), 1,000 MG PO BID Sertraline (Zoloft), 50 MG PO QID Allergies Coded Allergies: Clonazepam (Verified Allergy, Severe, per pt..., 04/06/17) Gabapentin (Verified Allergy, Severe, makes patient extremely violent, ) Risperidone (Verified Allergy, Unknown, FOAMING AT THE MOUTH, UNSTEADY GAIT, 04/06/17) Physical Exam Vital Signs Date Time Temp Pulse Resp B/P (MAP) Pulse Ox O2 Delivery O2 Flow Rate FiO2 04/06/17 00:47 36.9 98 18 171/101 98 Room Air Physical Exam GENERAL: Patient is unkempt appearing and malodorous, in no acute distress. HEENT: No acute trauma, normocephalic atraumatic, mucous membranes moist, no nasal congestion, no scleral icterus. NECK: No stridor, no adenopathy, no meningismus, trachea is midline. LUNGS: No dyspnea. Clear to auscultation and equal bilaterally. No wheeze, no rhonchi. HEART: Regular rate and rhythm. No murmurs, rubs, gallops appreciated. ABDOMEN: Soft, nontender, bowel sounds positive, no masses appreciated, no peritonitis. BACK: No midline tenderness, no CVA tenderness EXTREMITIES: Normal motion all extremities, no cyanosis, no edema. NEUROLOGIC: Alert and oriented, no acute motor or sensory deficits, no focal weakness, cranial nerves grossly intact. SKIN: No rash, no jaundice, no diaphoresis. PSYCH: States he is suicidal and while not homicidal, he wants to hurt people. Medical Decision & Procedures Laboratory Results 04/06/17 01:05 Red Blood Count 5.24, Mean Corpuscular Volume 84.5, Mean Corpuscular Hemoglobin 30.0, Mean Corpuscular Hemoglobin Concent 35.4, Mean Platelet Volume 9.5, Neutrophils (%) (Auto) 66.5, Lymphocytes (%) (Auto) 23.1, Monocytes (%) (Auto) 8.5, Eosinophils (%) (Auto) 1.1, Basophils (%) (Auto) 0.5, Neutrophils # (Auto) 5.79, Lymphocytes # (Auto) 2.01, Monocytes # (Auto) 0.74, Eosinophils # (Auto) 0.10, Basophils # (Auto) 0.04 04/06/17 01:05 Test 04/06/17 00:44 04/06/17 01:05 Urine Color DK YELLOW Urine Appearance CLEAR (CLEAR) Urine pH 5.0 (4.5-7.5) Urine Specific [place] 1.029 (1.000-1.030) Urine Protein NEG (NEG) Urine Glucose (UA) NEG (NEG) Urine Ketones TRACE (NEG) Urine Occult Blood NEG (NEG) Urine Nitrite NEG (NEG) Urine Bilirubin NEG (NEG) Urine Urobilinogen NEG (NEG) Urine Leukocyte Esterase NEG (NEG) Urine WBC (Auto) 1-5 /hpf (0-5) Urine RBC (Auto) 0-4 /hpf (0-4) Urine Hyaline Casts (Auto) 0 /lpf (0-5) Urine Epithelial Cells (Auto) 5-10 /lpf (0-5) Urine Bacteria (Auto) NEG (NEG) Urine Opiates Screen NEG (NEG) Urine Methadone, Qualitative NEG (NEG) Urine Barbiturates NEG (NEG) Urine Phencyclidine (PCP) Level NEG (NEG) Ur Amphetamine/Methamphetamine NEG (NEG) MDMA (Ecstasy) Screen NEG (NEG) Urine Benzodiazepines Screen NEG (NEG) Urine Cocaine Metabolite NEG (NEG) Urine Marijuana (THC) NEG (NEG) White Blood Count 8.71 K/uL (4.8-10.8) Red Blood Count 5.24 M/uL (4.7-6.1) Hemoglobin 15.7 g/dL (14.0-18.0) Hematocrit 44.3 % (42-52) Mean Corpuscular Volume 84.5 fL (80-100) Mean Corpuscular Hemoglobin 30.0 pg (25-34) Mean Corpuscular Hemoglobin Concent 35.4 g/dl (32-36) Platelet Count 198 K/uL (130-400) Mean Platelet Volume 9.5 fL (7.4-10.4) Neutrophils (%) (Auto) 66.5 % Lymphocytes (%) (Auto) 23.1 % Monocytes (%) (Auto) 8.5 % Eosinophils (%) (Auto) 1.1 % Basophils (%) (Auto) 0.5 % Neutrophils # (Auto) 5.79 K/uL (1.4-6.5) Lymphocytes # (Auto) 2.01 K/uL (1.2-3.4) Monocytes # (Auto) 0.74 K/uL (0.11-0.59) Eosinophils # (Auto) 0.10 K/uL (0-0.5) Basophils # (Auto) 0.04 K/uL (0-0.2) RDW Standard Deviation 42.0 fL (36.4-46.3) RDW Coefficient of Variation 13.7 % (11.5-14.5) Immature Granulocyte % (Auto) 0.3 % Immature Granulocyte # (Auto) 0.03 K/uL (0.00-0.02) Anion Gap 6.0 mmol/L (3-11) Est Creatinine Clear Calc Drug Dose 152.8 ml/min Estimated GFR () 134.4 Estimated GFR (Non- 115.9 BUN/Creatinine Ratio 24.3 (10-20) Calcium Level 9.0 mg/dl (8.5-10.1) Total Bilirubin 0.3 mg/dl (0.2-1) Aspartate Amino Transf (AST/SGOT) 14 U/L (15-37) Alanine Aminotransferase (ALT/SGPT) 28 U/L (12-78) Alkaline Phosphatase 89 U/L (45-117) Total Protein 7.0 gm/dl (6.4-8.2) Albumin 3.5 gm/dl (3.4-5.0) Globulin 3.5 gm/dl (2.5-4.0) Albumin/Globulin Ratio 1.0 (0.9-2) Thyroid Stimulating Hormone (TSH) 2.140 uIu/ml (0.300-4.500) Salicylates Level 2.2 mg/dl (2.8-20) Acetaminophen Level < 2 ug/ml (10-30) Valproic Acid (Depakene) Level 60 mcg/ml (50-100) Ethyl Alcohol mg/dL < 3.0 mg/dl (0-3) Laboratory results as reviewed by me. Medications Administered Medications (Trade) Dose Ordered Sig/Jennifer Route Start Time Stop Time Status Last Admin Dose Admin Divalproex Sodium (Depakote Extended Rel Tab) 1,000 mg NOW ONCE PO 04/06/17 01:00 04/06/17 01:01 DC 04/06/17 01:06 1,000 MG Sertraline HCl (Zoloft Tab) 50 mg NOW ONCE PO 04/06/17 01:00 04/06/17 01:01 DC 04/06/17 01:06 50 MG Clonidine HCl (Catapres Tab) 0.2 mg NOW ONCE PO 04/06/17 01:00 04/06/17 01:01 DC 04/06/17 01:06 0.2 MG ED Course 0042: The patient was evaluated in room A6. A complete history and physical exam was performed. 0100: Ordered Clonidine HCl 0.2 mg PO, Zoloft Tab 50 mg PO, Divalproex Sodium 1000 mg PO. 0217: The patient was evaluated by mental health case management associate and states he is no longer suicidal or homicidal and would like to be discharged. 0223: I reevaluated the patient, he reconfirms he is no longer suicidal or homicidal. 0226: Reevaluated the patient. Discussed results and discharge instructions: He verbalized understanding and agreement. The patient is ready for discharge. Medical Decision Differential: Mood Disorder, Overdose, Infectious, Electrolyte Abnormality, Cardiac, Hepatic, Endocrine, Toxicologic, Neurologic, amongst other pathologies entertained. 37 yr old homeless male well known to department for frequent visits requesting mental health evaluation. Initially with complaints of suicidal ideation and anger issues but this changed shortly after arrival and him stating he was planning on leaving at 530a after sleeping/eating in ED. He has made no act of furtherance on harming self, admits he is not a danger to self others and this is a pattern he has developed which I note reviewing his recent stays. I gave him his nightly medications, stressed the importance of him actually taking his medications. He states he feels safe being discharged, he has set up pickup with local homeless [facility]pc and he is aware of symptoms requiring RTED. Medication Reconcilliation Current Medication List: was personally reviewed by me Blood Pressure Screening Patient's blood pressure: Elevated blood pressure Blood pressure disposition: Referred to PCP (advised urgent PCP evaluation) Impression Primary Impression: Mood disorder Additional Impression: Hypertension Scribe Attestation The scribe's documentation has been prepared under my direction and personally reviewed by me in its entirety. I confirm that the note above accurately reflects all work, treatment, procedures, and medical decision making performed by me. Departure Information Dispostion Home / Self-Care Forms HOME CARE DOCUMENTATION FORM, IMPORTANT VISIT INFORMATION Patient Instructions My [facility] Additional Instructions We are always here to help. Return at any time if you are concerned you may harm yourself or others. It is important you take all of your medications. Your blood pressure was elevated during this visit. This is quite common in many people who are being evaluated in the Emergency Department for many reasons. However, it is important that you have your Primary Care Provider recheck your blood pressure and discuss whether treatment will be needed. 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 If you develop severe headaches, chest pain, weakness in arms or legs, or other concerning symptoms call 911. Problem Qualifiers
[2017-04-06] MEDS ORDERED: DIVALPROEX 500 MG EXTENDED RELEASE TAB PO ONE (01:00)
[2017-04-06] MEDS ORDERED: CLONIDINE HCL 0.1 MG TAB PO ONE (01:00)
[2017-04-06] MEDS ORDERED: SERTRALINE HCL 50 MG TAB PO ONE (01:00)
[2017-04-06 01:04] LABS: URINE APPEARANCE CLEAR (CLEAR); URINE COLOR DK YELLOW; URINE NITRITE NEG (NEG); URINE SPECIFIC GRAVITY 1.029 (1.000-1.030); UROBILINOGEN NEG (NEG); ZZUR CULT IF INDIC CLEAN CATCH NO
[2017-04-06] MEDS ORDERED: CLON0.3T3 PO (01:06)
[2017-04-06 01:09] LABS: MANUAL MICROSCOPIC REQUIRED? NO; REVIEW REQ? NO
[2017-04-06 01:11] LABS: URINE BILIRUBIN NEG (NEG)
[2017-04-06 01:16] LABS: BASO % 0.5 %; BASO ABS # 0.04 K/uL (0-0.2); COMPLETE YES; EOS % 1.1 %; HEMATOCRIT 44.3 % (42-52); IG% 0.3 %; LYMPH % 23.1 %; LYMPH ABS # 2.01 K/uL (1.2-3.4); MEAN CELL VOLUME 84.5 fL (80-100); MEAN CORPUSCULAR HGB CONC 35.4 g/dl (32-36); MEAN PLATELET VOLUME 9.5 fL (7.4-10.4); MONO % 8.5 %; NEUT % 66.5 %; PLATELET COUNT 198 K/uL (130-400); RED BLOOD COUNT 5.24 M/uL (4.7-6.1); WHITE BLOOD COUNT 8.71 K/uL (4.8-10.8)
[2017-04-06 01:28] LABS: BENZODIAZEPINE, URINE NEG (NEG); COCAINE,URINE NEG (NEG); PHENCYCLIDINE, URINE NEG (NEG)
[2017-04-06 01:36] LABS: BUN/CREATININE RATIO 24.3 (10-20); CREATININE 0.77 mg/dl (0.60-1.40); POTASSIUM 3.4 mmol/L (3.5-5.1)
[2017-04-06 01:46] LABS: THYROID STIMULATING HORMONE 2.14 uIu/ml (0.300-4.500)
[2017-04-06 01:55] LABS: ACETAMINOPHEN < 2 ug/ml (10-30)
== END 2017-04-06 02:43 | disposition home or self-care (01) ==
LOC: EDBD 00:36 → C.EDA 00:38
DX: F39 Unspecified mood [affective] disorder (principal); I10 Essential (primary) hypertension; F31.9 Bipolar disorder, unspecified; G40.909 Epilepsy, unspecified, not intractable, without status epilepticus; F20.9 Schizophrenia, unspecified; F17.200 Nicotine dependence, unspecified, uncomplicated; Z79.899 Other long term (current) drug therapy; Z88.8 Allergy status to other drugs, medicaments and biological substances

== ENCOUNTER 2017-04-15 23:08 | Inpatient (IN) | payer OTHER ==
[~2017-04-15] VITALS: Ht 167.6 cm; Wt 108.8 kg
[~2017-04-15 23:08] MED LIST changes: +CLON0.3T3 PO; -DPKSR500 PO
[2017-04-15 23:39] LABS: BASO % 0.4 %; BASO ABS # 0.03 K/uL (0-0.2); EOS % 1.4 %; HEMATOCRIT 44.6 % (42-52); HEMOGLOBIN 15.8 g/dL (14.0-18.0); IG# 0.02 K/uL (0.00-0.02); LYMPH % 28.1 %; LYMPH ABS # 2.06 K/uL (1.2-3.4); MEAN CELL VOLUME 83.7 fL (80-100); MEAN CORPUSCULAR HEMOGLOBIN 29.6 pg (25-34); MEAN CORPUSCULAR HGB CONC 35.4 g/dl (32-36); MEAN PLATELET VOLUME 9.8 fL (7.4-10.4); MONO % 6.8 %; NEUT ABS # 4.62 K/uL (1.4-6.5); PLATELET COUNT 205 K/uL (130-400); RED CELL DISTRIBUTION WIDTH CV 13.4 % (11.5-14.5); RED CELL DISTRIBUTION WIDTH SD 40.3 fL (36.4-46.3); WHITE BLOOD COUNT 7.33 K/uL (4.8-10.8)
[2017-04-15 23:59] LABS: ALBUMIN 3.6 gm/dl (3.4-5.0); CALCIUM 8.8 mg/dl (8.5-10.1); CREATININE 0.75 mg/dl (0.60-1.40); POTASSIUM 3.5 mmol/L (3.5-5.1)
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
[2017-04-16 00:10] LABS: TOTAL PROTEIN 6.6 gm/dl (6.4-8.2)
[2017-04-16 00:24] VITALS: O2SAT 96
[2017-04-16] MEDS ORDERED: CLONIDINE HCL 0.1 MG TAB PO STA (00:26)
[2017-04-16] MEDS ORDERED: NURSING VERBAL MED ORDER ONE (01:45)
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
[2017-04-16 02:58] VITALS: BP 179/93; PULSE 70; TEMP 36.9; Ht 167.6 cm; Wt 108.8 kg
[2017-04-16] MEDS ORDERED: hydrOXYzine HCL 25 MG TAB PO PRN ×2 (03:00)
[2017-04-16] MEDS ORDERED: SODIUM CHLORIDE 0.65% NA SOLN 45 ML (OCEAN) PRN (03:00)
[2017-04-16] MEDS ORDERED: BISMUTH SUBSALICYLATE PER ML OMNICELL CHARGE PO PRN (03:00)
[2017-04-16] MEDS ORDERED: MAGNESIUM HYDROXIDE SUSP 30 ML UDC PO PRN (03:00)
[2017-04-16] MEDS ORDERED: ACETAMINOPHEN 325 MG TAB PO PRN (03:00)
[2017-04-16] MEDS ORDERED: ALUMINUM/MAGNESIUM SUSP 30 ML UDC PO PRN (03:00)
--- NOTE | 2017-04-16 06:15 | NUR ---
Patient's admission orders were reviewed.
[2017-04-16 10:08] VITALS: BP 138/91; PULSE 87; TEMP 36.7
[2017-04-16] MEDS: CLONIDINE HCL 0.3 MG TAB PO SCH ×3 (10:11→21:54)
[2017-04-16] MEDS: SERTRALINE HCL 50 MG TAB PO SCH (10:11)
[2017-04-16] MEDS: DIVALPROEX 500 MG EXTENDED RELEASE TAB PO SCH ×2 (10:11→21:53)
[2017-04-16] MEDS ORDERED: ABL/5 PO (11:56)
--- NOTE | 2017-04-16 12:02 | NUR ---
Malnutrition screen identified patient, however reviewed chart and no indication for malnutrition was identified. Malnutrition [place] Screening Tool Assessment Score= 0, no nutrition risk. Please consult RD for any nutrition concerns.
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
[2017-04-16] MEDS ORDERED: NICOTINE 21 MG/24 HR TDSY TD ONE (12:45)
--- NOTE | 2017-04-16 13:14 | NUR ---
Per pt request, [facility] and Geeta was informed of pts admission. Per Geeta, pt does well when he is compliant with his meds and his daily routine is not changed. Geeta is off this week and part of next week. Geeta said pt struggles with lack of structure when [employer]eta is not available daily. She said pt tends to lie and to be attention seeking. She said he will often say he is an addict, has children and seizures. Geeta said that none of this information has been confirmed and to her knowledge is not true. He is easily influenced by what others say. She said he has child like behaviors and if doesn't get his way with threaten others. Geeta said she has been working with his CM, Allyssa with [employer]. She said they are working on finding him housing. She said pt is impulsive and will spend his monthly income in one day. She said in May, he will have a rep-payee, Julia Feliz.
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
[2017-04-16 14:20] VITALS: BP 131/85; PULSE 84
--- NOTE | 2017-04-16 14:25 | NUR ---
Pt signed his treatment plan and review. His LOS is reported to be 2-4 days. He hopes to be discharged on Wednesday. He states he is not suicidal and reports his mood is normal. Affect does appear bright.
--- NOTE | 2017-04-16 14:36 | NUR ---
Pt slept in this morning and ate breakfast late. He has been sleeping off and on most of the day. He said that he wasn't feeling ready to go to groups yet because he wanted "to get to know everyone first." He said that he has "PTSD" and that it is difficult for him to be around people sometimes. He took his meds without difficulty. Pt continues on q 15 minute checks.
--- NOTE | 2017-04-16 15:22 | NUR ---
Initial social history conducted with pt . Pt reported that he is currently homeless and resides at night at a local homeless usp , [facility] . Pt reported that he has " triplets " and a biological son . Pt reported numerous inpatient mental health treatment and [facility] ( 2010 , 2014 ) . Pt reported the previous incarcerations for assault and drug possession . Pt reported that he was a " crack cocaine smoker " for 10 years . Pt reported the last time he used crack cocaine was 7 years ago . Pt denied all current substance use/abuse . Pt reported that he has no contact with his family and reported that he was adopted . Pt stated that he has one female friend whom is also homeless . Pt presented with periodic sleeping throughout the session . Pt denied all current suicidal/homicidal ideation and stated that he " was just saying alot of stupid things last night " . Pt reported that he has been homeless " off and on " for many years . Pt was orientated to current month , date , and time . Pt reported receiving therapy at [facility] , case management at [facility] , and services from [facility] .
--- NOTE | 2017-04-16 18:47 | NUR ---
Pt thinks a female friend of his may visit him, but wanted to know if she would be able to bring her emotional support dog. This RN called Karie, clinical coordinator, who stated that she could bring the dog to the unit if the dog had a collar/vest on it indicating that it is an emotional support dog, and current paperwork from the dog's hatch supervisor would also be needed. Pt was made aware of this, but has not made an effort to call his friend.
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
[2017-04-16] MEDS: ARIPIprazole TAB 10 MG TAB PO SCH (21:53)
--- NOTE | 2017-04-16 21:56 | NUR ---
Pt just approached the nurses' station and asked, "why am I not in my own room anymore?". Attempted to talk with pt that he has been out of his room, affect bright and pleasant. Pt stated, "well, it's doctor ordered and I don't like to sleep with anyone in my room". Pt then stated he plans to sleep in the quiet room.
[2017-04-16] MEDS ORDERED: ARIPIprazole TAB 5 MG TAB PO SCH (22:00)
--- NOTE | 2017-04-17 01:55 | NUR ---
24 hour chart orders reviewed.
[2017-04-17 06:49] VITALS: BP_SYST 128; BP_SYST 130; BP_DIAS 84; BP_DIAS 86; PULSE 92; TEMP 36.9
[2017-04-17] MEDS: SERTRALINE HCL 50 MG TAB PO SCH (08:56)
[2017-04-17] MEDS: DIVALPROEX 500 MG EXTENDED RELEASE TAB PO SCH ×2 (08:56→20:39)
[2017-04-17] MEDS: CLONIDINE HCL 0.3 MG TAB PO SCH ×3 (08:56→20:38)
[2017-04-17] MEDS: NICOTINE 21 MG/24 HR TDSY TD SCH (08:59)
[2017-04-17 14:12] VITALS: BP 117/75; PULSE 101
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
[2017-04-17] MEDS: ARIPIprazole TAB 10 MG TAB PO SCH (20:38)
[2017-04-17] MEDS ORDERED: HALOPERIDOL 5 MG TAB ONE (21:23)
[2017-04-17] MEDS ORDERED: LORAZEPAM 2 MG TAB ONE (21:24)
[2017-04-17] MEDS ORDERED: LORAZEPAM 2 MG/ML 1 ML VIAL IM PRN (21:30)
[2017-04-17] MEDS ORDERED: NURSING VERBAL MED ORDER ONE (21:30)
[2017-04-17] MEDS ORDERED: HALOPERIDOL LACTATE 5 MG/ML 1 ML VIAL IM PRN (21:30)
[2017-04-17] MEDS ORDERED: HALOPERIDOL 5 MG TAB PO PRN (21:30)
[2017-04-17] MEDS: LORAZEPAM 2 MG TAB PO PRN (21:30)
--- NOTE | 2017-04-17 22:06 | NUR ---
Pt took his HS meds early per his request. He then was in the dayroom and asked by the counselor why he left community meeting early. Pt became verbally threatening to staff. The undersigned went to the dayroom to talk with pt, who also threatened to leave the unit "and you can't stop me". As pt was threatening to harm staff and to leave the unit, security was called for support. Pt continued to threaten to leave and demanded to be transferred to another facility. Pt was focused on being "disrespected" by you guys (staff), because you didn't stop that lady (female patient) from talking to my friends". Any attempts to rationally have a discussion with pt were unsuccessful, as he was becoming increasingly agitated. Dr. Faria was contacted and new orders obtained (see eMAR). Pt was given/accepted Haldol 5mg po and Ativan 2mg po at 2130. Asked pt to go to the quiet room, as his behavior was not acceptable in the dayroom, as it might scare his peers. Pt was reluctant to do this, stating "I don't have to do that if I don't fucking want to" but he did walk to the quiet room, with staff and security. He continued to focus on wanting to be discharged, despite being reminded he is on an involuntary commitment. Pt remains in the quiet room at this time, with security present in the hallway.
--- NOTE | 2017-04-18 02:38 | NUR ---
24 hour chart orders reviewed.
[2017-04-18 06:55] VITALS: BP_SYST 141; BP_SYST 89; BP_DIAS 46; BP_DIAS 95; PULSE 108; PULSE 78; TEMP 36.6
[2017-04-18] MEDS: DIVALPROEX 500 MG EXTENDED RELEASE TAB PO SCH ×2 (09:35→22:41)
[2017-04-18] MEDS: SERTRALINE HCL 50 MG TAB PO SCH (09:35)
[2017-04-18] MEDS: CLONIDINE HCL 0.3 MG TAB PO SCH ×3 (09:35→22:41)
[2017-04-18] MEDS: NICOTINE 21 MG/24 HR TDSY TD SCH (09:36)
--- NOTE | 2017-04-18 11:58 | NUR ---
Prem has maintained good behavioral control this morning. He has not attended unit programming but has been appropriate in the day area and has napped a few times.
[2017-04-18 13:33] VITALS: BP_SYST 128; BP_SYST 147; BP_DIAS 86; PULSE 80
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
[2017-04-18] MEDS: LORAZEPAM 2 MG TAB PO PRN ×2 (18:05→23:21)
--- NOTE | 2017-04-18 18:06 | NUR ---
Pt requested and received Ativan 2mg PO PRN for complaints of feeling "worked up and anxious." He said that he needed something to calm down after having a disagreement about football with another pt. Addendum: 04/18/17 at 1940 by Cristina Azar RN Pt is resting comfortably in the quiet room.
[2017-04-18 22:25] VITALS: BP 132/83; PULSE 118
--- NOTE | 2017-04-18 22:32 | NUR ---
Patient stated he was having chest discomfort and his vital signs were taken and his blood pressure was 138/83, which is a marked improvement from his base line. Patient states he has had multiple heart attacks over the last week, but was never diagnosed. He historically has blood pressures of 200/100. Patient continues to threaten staff, states to call security, dictates care. Patient states he doesn't feel he is being treated fairly. Patient stated he only likes to watch movies of retirement where the guards get killed by the prisoners.
[2017-04-18] MEDS: ARIPIprazole TAB 15 MG TAB PO SCH (22:41)
--- NOTE | 2017-04-18 22:56 | NUR ---
Awakened pt at approximately 1015 to give him his HS meds. Pt initially cooperative but then became upset and argumentative because he said that he wanted to watch "Wednesday Night Football" and the other patients were watching a movie. He said that "it's not fair that they are able to control the TV that way." Explained to pt that the other patients came to a group decision to watch a movie. Pt then refused to take his medication at that time. Pt then came out to the nurse's station and continued to argue with multiple staff. He was also threatening staff members and calling staff names. Pt later took his HS meds for another nurse. Pt is currently in the quiet room talking with security. Pt continues on q 15 minute checks.
--- NOTE | 2017-04-18 23:15 | NUR ---
Patient received ativan 2 mg and haldol 5 mg for increased anxiety and agitation. Continued to threaten staff and dictate his care. He refused to take medications from one nurse and demanded other nurse to give them. Argumentative with every step of care.
--- NOTE | 2017-04-18 23:45 | NUR ---
Patient stated his medications began to work and asked for radio and to return to his room. More cooperative at this point.
--- NOTE | 2017-04-19 02:05 | NUR ---
romi has been asleep in the quiet room since 29. he had received prn meds to help him calm his thoughts/behaviors.
--- NOTE | 2017-04-19 04:20 | NUR ---
24 hour chart orders reviewed
[2017-04-19 07:40] VITALS: BP_SYST 109; BP_SYST 125; BP_DIAS 69; BP_DIAS 85; PULSE 86; PULSE 98; TEMP 36.7
[2017-04-19] MEDS: SERTRALINE HCL 50 MG TAB PO SCH (08:02)
[2017-04-19] MEDS: DIVALPROEX 500 MG EXTENDED RELEASE TAB PO SCH ×2 (08:02→19:46)
[2017-04-19] MEDS: CLONIDINE HCL 0.3 MG TAB PO SCH ×3 (08:02→19:46)
[2017-04-19] MEDS: NICOTINE 21 MG/24 HR TDSY TD SCH (08:03)
--- NOTE | 2017-04-19 14:39 | NUR ---
Pt has spent most of his free time in the quiet room. He was irritated b/c he wanted to leave today, has been focused on disch. Is aware disch is planned for tomorrow. He has been trying to negotiate the earliest time. Staff explained disch process. Pt was able to process with staff, he deescalated without requiring medication. He jokes with peers and staff. Lacks insight. Med compliant.
[2017-04-19 14:46] VITALS: BP 138/76; PULSE 89; TEMP 36.7
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
[2017-04-19] MEDS: ARIPIprazole TAB 15 MG TAB PO SCH (19:46)
--- NOTE | 2017-04-19 20:14 | NUR ---
Pt was calm and cooperative for the majority of the afternoon. He said that he was going "to have a good evening because I am leaving tomorrow." Pt did not go to self awareness group but came out to eat dinner. He returned to the quiet room after dinner and took a nap. The pt woke up and ate a snack and his HS meds were administered early because he was going to return to bed. Pt became acutely agitated with staff, demanding that staff get him new clothes so that he could take a shower. When staff asked what clothes he needed, he said, "What are you fucking retarded, you are supposed to be a nurse." The pt continued to be agitated saying "noone cares about my personal hygiene." Pt then demanded being given a time that he would be discharged tomorrow saying that he has an appointment at 10am with his correctional counselor/case manager. Pt is currently taking a shower. Pt continues on q 15minute checks.
--- NOTE | 2017-04-19 22:33 | NUR ---
Pt came out to the dayroom after his shower and was more calm and cooperative. He spent time watching television and then returned to lay down in the quiet room. Pt currently appears to be sleeping. Pt continues on q 15 minute checks.
--- NOTE | 2017-04-20 02:35 | NUR ---
24 hour chart orders reviewed
[2017-04-20 07:04] VITALS: BP_SYST 130; BP_SYST 143; BP_DIAS 85; BP_DIAS 86; PULSE 81; PULSE 99; TEMP 36.5
[2017-04-20] MEDS: CLONIDINE HCL 0.3 MG TAB PO SCH (07:55)
[2017-04-20] MEDS: SERTRALINE HCL 50 MG TAB PO SCH (07:55)
[2017-04-20] MEDS: NICOTINE 21 MG/24 HR TDSY TD SCH (07:55)
[2017-04-20] MEDS: DIVALPROEX 500 MG EXTENDED RELEASE TAB PO SCH (07:55)
[2017-04-20] MEDS ORDERED: ZLF50 PO (09:20)
[2017-04-20] MEDS ORDERED: ABL/15 PO (09:20)
--- NOTE | 2017-04-20 09:22 | NUR ---
discharge summary : see interdisciplinary treatment team review for 04/20/17
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
[2017-04-20] MEDS ORDERED: CTP/1 PO (09:37)
--- NOTE | 2017-04-20 09:52 | NUR ---
discharged to front entrance at 0950 for discharge to home; belongings returned and discharge information given with stated understanding.
== END 2017-04-20 09:50 | disposition home or self-care (01) | DRG 885 ==
LOC: EDBD 23:08 → C.EDA 23:09 → C.MHU 04-16 01:43
PROVIDERS: ADMIT Psychiatry & Neurology Child & Adolescent Psychiatry; ATTEND Psychiatry & Neurology Child & Adolescent Psychiatry
DX: F20.9 Schizophrenia, unspecified (principal); R45.851 Suicidal ideations; F31.9 Bipolar disorder, unspecified; E11.9 Type 2 diabetes mellitus without complications; F43.10 Post-traumatic stress disorder, unspecified; F17.200 Nicotine dependence, unspecified, uncomplicated; G40.909 Epilepsy, unspecified, not intractable, without status epilepticus

== ENCOUNTER 2017-04-26 19:16 | Inpatient (IN) | payer OTHER ==
[~2017-04-26] VITALS: Ht 167.6 cm; Wt 107.8 kg
[~2017-04-26 19:16] MED LIST changes: +ABL/15 PO; -ABL/5 PO; -CLON0.3T3 PO; +CTP/1 PO; -SERT-234 PO; +ZLF50 PO
[2017-04-26 19:23] VITALS: O2SAT 95
[2017-04-26] MEDS ORDERED: DPKSR500 PO (19:35)
[2017-04-26] MEDS ORDERED: ALBUT/IPRATROP 3MG/0.5MG NEB 3 ML VIAL INH STA (20:01)
[2017-04-26 20:29] LABS: BASO % 0.4 %; BASO ABS # 0.03 K/uL (0-0.2); EOS % 0.6 %; EOS ABS # 0.05 K/uL (0-0.5); HEMATOCRIT 44.1 % (42-52); HEMOGLOBIN 15.7 g/dL (14.0-18.0); IG# 0.02 K/uL (0.00-0.02); LYMPH % 25.4 %; LYMPH ABS # 2.08 K/uL (1.2-3.4); MEAN CELL VOLUME 83.4 fL (80-100); MEAN CORPUSCULAR HEMOGLOBIN 29.7 pg (25-34); MEAN CORPUSCULAR HGB CONC 35.6 g/dl (32-36); MEAN PLATELET VOLUME 9.2 fL (7.4-10.4); MONO % 7.3 %; NEUT % 66.1 %; NEUT ABS # 5.41 K/uL (1.4-6.5); PLATELET COUNT 209 K/uL (130-400); RED CELL DISTRIBUTION WIDTH CV 13.2 % (11.5-14.5); RED CELL DISTRIBUTION WIDTH SD 39.7 fL (36.4-46.3); WHITE BLOOD COUNT 8.19 K/uL (4.8-10.8)
--- NOTE | 2017-04-26 20:41 | DIAGNOSTIC IMAGING REPORT ---
TWO VIEW CHEST CLINICAL HISTORY: Pneumonia. FINDINGS: PA and lateral chest radiographs are compared to study dated 01/23/2017. The cardiomediastinal silhouette is unremarkable. There is chronic elevation of right hemidiaphragm and bibasilar opacities. No pleural effusion or pneumothorax is seen. There is no pneumothorax. The bony thorax appears intact. IMPRESSION: There is chronic elevation right hemidiaphragm and bibasilar airspace opacities. This likely represents atelectasis. Correlate clinically for evidence of superimposed pneumonia. Electronically signed by: Kenji Montoya M.D. 04/26/2017 8:40 PM Dictated Date/Time: 04/26/2017 8:39 PM
[2017-04-26 20:45] LABS: BLOOD UREA NITROGEN 14 mg/dl (7-18); CALCIUM 9.2 mg/dl (8.5-10.1); CARBON DIOXIDE 27 mmol/L (21-32); CREATININE 0.64 mg/dl (0.60-1.40); GLUCOSE 92 mg/dl (70-99); POTASSIUM 3.4 mmol/L (3.5-5.1); SODIUM 140 mmol/L (136-145)
[2017-04-26] MEDS ORDERED: DOXYCYCLINE HYCLATE 100 MG CAP PO ONE (21:00)
[2017-04-26 21:28] LABS: INFLUENZA B ANTIGEN Neg for Influ B (NEG)
[2017-04-26 23:11] LABS: ALBUMIN 3.9 gm/dl (3.4-5.0); TOTAL PROTEIN 6.9 gm/dl (6.4-8.2)
[2017-04-26] MEDS ORDERED: NURSING VERBAL MED ORDER ONE (23:15)
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
[2017-04-27 00:52] VITALS: O2SAT 95
[2017-04-27] MEDS ORDERED: ARIPIprazole TAB 15 MG TAB PO STA (01:31)
[2017-04-27] MEDS ORDERED: DIVALPROEX 500 MG EXTENDED RELEASE TAB PO STA (01:32)
[2017-04-27] MEDS ORDERED: CLONIDINE HCL 0.1 MG TAB PO STA (01:34)
[2017-04-27] MEDS ORDERED: ACETAMINOPHEN 325 MG TAB PO PRN (01:45)
[2017-04-27] MEDS ORDERED: SODIUM CHLORIDE 0.65% NA SOLN 45 ML (OCEAN) PRN (01:45)
[2017-04-27] MEDS ORDERED: MAGNESIUM HYDROXIDE SUSP 30 ML UDC PO PRN (01:45)
[2017-04-27] MEDS ORDERED: ALUMINUM/MAGNESIUM SUSP 30 ML UDC PO PRN (01:45)
[2017-04-27] MEDS ORDERED: BISMUTH SUBSALICYLATE PER ML OMNICELL CHARGE PO PRN (01:45)
[2017-04-27] MEDS ORDERED: HALOPERIDOL 5 MG TAB PO PRN (01:45)
[2017-04-27] MEDS ORDERED: hydrOXYzine HCL 25 MG TAB PO PRN ×2 (01:45)
[2017-04-27] MEDS ORDERED: BENZTROPINE MESYLATE 1 MG TAB PO PRN (01:45)
[2017-04-27 03:07] VITALS: BP 136/88; PULSE 78; TEMP 36.8; BMI 38.4
[2017-04-27 06:54] VITALS: BP_SYST 156; BP_SYST 172; BP_DIAS 112; BP_DIAS 90; PULSE 121; PULSE 96; TEMP 36.8
[2017-04-27 06:55] VITALS: Ht 167.6 cm; Wt 107.8 kg
[2017-04-27] MEDS: CLONIDINE HCL 0.1 MG TAB PO SCH ×3 (08:39→21:30)
[2017-04-27] MEDS: NICOTINE 21 MG/24 HR TDSY TD SCH (08:39)
[2017-04-27] MEDS: DIVALPROEX 500 MG EXTENDED RELEASE TAB PO SCH ×2 (08:40→21:27)
[2017-04-27] MEDS: SERTRALINE HCL 50 MG TAB PO SCH (08:40)
[2017-04-27] MEDS: DOXYCYCLINE HYCLATE 100 MG CAP PO SCH ×2 (08:40→21:27)
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
[2017-04-27 14:19] VITALS: BP 157/83; PULSE 101
[2017-04-27] MEDS: ARIPIprazole TAB 15 MG TAB PO SCH (21:27)
[2017-04-27 21:31] VITALS: BP 157/96; PULSE 86
[2017-04-28 06:55] VITALS: BP_SYST 141; BP_SYST 152; BP_DIAS 90; PULSE 92; PULSE 99; TEMP 37
[2017-04-28] MEDS: SERTRALINE HCL 50 MG TAB PO SCH (08:14)
[2017-04-28] MEDS: CLONIDINE HCL 0.1 MG TAB PO SCH ×3 (08:14→21:29)
[2017-04-28] MEDS: DIVALPROEX 500 MG EXTENDED RELEASE TAB PO SCH ×2 (08:14→21:29)
[2017-04-28] MEDS: DOXYCYCLINE HYCLATE 100 MG CAP PO SCH ×2 (08:14→21:29)
[2017-04-28] MEDS: NICOTINE 21 MG/24 HR TDSY TD SCH (08:17)
[2017-04-28] MEDS: LORAZEPAM 2 MG TAB PO PRN (09:57)
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
[2017-04-28 14:02] VITALS: BP 130/88; PULSE 108
--- NOTE | 2017-04-28 16:44 | Psychiatric Progress Notes ---
Psychiatric Progress Note Date of Service Apr 28, 2017. Notes Approach by patient in the day room, who stated that he wanted to speak with me about his medications, as he walked out of his assessment with the psychiatric nurse practitioner earlier today. He says he wants new medications, as the current medications must not be working because "I'm getting angry on them." Again reviewed the treatment plan and repeated our discussion from yesterday, that he was not compliant with the Depakote was restarted during his hospitalization last week, and that this is our recommendation to help with irritability and anger outbursts. Also reviewed the importance of working on coping skills and developing a plan to deal with stressful or difficult situations. He made comments that he could hurt someone if he doesn't get what he wants, and continued to complain about his care, stating that he was only seen by a medical physician today and not a powder press operator (which is inaccurate), and that he refuses to see that clinician anymore, and if he is forced to, we will have to keep him in the hospital until the of the . He then stomped off ending the interaction. He was later informed by staff that he had initially agreed to a meeting with his vocational case manager and possibly other service providers, which was scheduled for tomorrow morning. He then became upset when his female friend Estefania said she couldn't come to visit him, so said he didn't want to talk with anyone or have a meeting tomorrow. He also refused to sign a release for [place] [facility] medication management, but with ongoing staff encouragement eventually signed it. We will continue to plan to hold the meeting with his vocational case manager and any other outpatient service providers were able to attend, and if the patient is unwilling to participate in treatment, we will consider an administrative discharge. He does not have active psychotic or manic symptoms, is aware of the potential consequences of threats or aggression towards other people, and is making unrealistic demands of treatment. He is also clearly attempting to manipulate others and threatening people to get what he wants.
[2017-04-28 20:46] VITALS: BP 144/91; PULSE 85
[2017-04-28] MEDS: ARIPIprazole TAB 15 MG TAB PO SCH (21:29)
[2017-04-29 06:43] VITALS: BP_SYST 145; BP_SYST 151; BP_DIAS 100; BP_DIAS 75; PULSE 108; PULSE 90; TEMP 36.8
[2017-04-29] MEDS: DIVALPROEX 500 MG EXTENDED RELEASE TAB PO SCH (08:29)
[2017-04-29] MEDS: CLONIDINE HCL 0.1 MG TAB PO SCH (08:29)
[2017-04-29] MEDS: DOXYCYCLINE HYCLATE 100 MG CAP PO SCH (08:29)
[2017-04-29] MEDS: SERTRALINE HCL 50 MG TAB PO SCH (08:29)
[2017-04-29] MEDS: NICOTINE 21 MG/24 HR TDSY TD SCH (08:32)
[2017-04-29] MEDS ORDERED: DXY100 PO (09:03)
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
[2017-04-29] MEDS: LORAZEPAM 2 MG TAB PO PRN (10:59)
== END 2017-04-29 11:40 | disposition home or self-care (01) | DRG 885 ==
LOC: C.EDB 19:16 → EDBD 19:16 → C.MHU 23:17
PROVIDERS: ADMIT Psychiatry & Neurology Psychiatry; ATTEND Psychiatry & Neurology Psychiatry
DX: F25.0 Schizoaffective disorder, bipolar type (principal); R45.851 Suicidal ideations; R45.850 Homicidal ideations; J20.9 Acute bronchitis, unspecified; G40.909 Epilepsy, unspecified, not intractable, without status epilepticus; F60.2 Antisocial personality disorder; F43.10 Post-traumatic stress disorder, unspecified; F70 Mild intellectual disabilities; F17.200 Nicotine dependence, unspecified, uncomplicated; Z91.14 Patient's other noncompliance with medication regimen; Z59.0 Homelessness; Z91.5 Personal history of self-harm; Z81.8 Family history of other mental and behavioral disorders; Z81.3 Family history of other psychoactive substance abuse and dependence; Z79.899 Other long term (current) drug therapy

== ENCOUNTER 2017-05-01 12:28 | Emergency (ER) | payer OTHER ==
[~2017-05-01] VITALS: Ht 167.6 cm; Wt 109.0 kg
[~2017-05-01 12:28] MED LIST changes: +DPKSR500 PO; +DXY100 PO
[2017-05-01 12:36] VITALS: TEMP 36.5; Ht 167.6 cm; Wt 109.0 kg
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
[2017-05-01] MEDS ORDERED: NICOTINE POLACRILEX 2 MG GUM MT PRN (13:15)
[2017-05-01] MEDS ORDERED: NICOTINE 21 MG/24 HR TDSY TD STA (13:15)
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
[2017-05-01 14:27] LABS: HEMATOCRIT 45.3 % (42-52); HEMOGLOBIN 16.1 g/dL (14.0-18.0); MEAN CELL VOLUME 83.1 fL (80-100); MEAN CORPUSCULAR HEMOGLOBIN 29.5 pg (25-34); MEAN CORPUSCULAR HGB CONC 35.5 g/dl (32-36); MEAN PLATELET VOLUME 9.7 fL (7.4-10.4); PLATELET COUNT 205 K/uL (130-400); RED CELL DISTRIBUTION WIDTH CV 13.3 % (11.5-14.5); RED CELL DISTRIBUTION WIDTH SD 39.9 fL (36.4-46.3); WHITE BLOOD COUNT 10.68 K/uL (4.8-10.8)
[2017-05-01 14:31] LABS: BASO % 0.2 %; BASO ABS # 0.02 K/uL (0-0.2); EOS % 0.2 %; EOS ABS # 0.02 K/uL (0-0.5); IG# 0.03 K/uL (0.00-0.02); LYMPH % 11.3 %; LYMPH ABS # 1.21 K/uL (1.2-3.4); MONO % 7.7 %; MONO ABS # 0.82 K/uL (0.11-0.59); NEUT % 80.3 %; NEUT ABS # 8.58 K/uL (1.4-6.5)
[2017-05-01 14:37] LABS: ALT/SGPT 29 U/L (12-78); AST/SGOT 12 U/L (15-37); BLOOD UREA NITROGEN 13 mg/dl (7-18); CALCIUM 9.1 mg/dl (8.5-10.1); CARBON DIOXIDE 27 mmol/L (21-32); CREATININE 0.58 mg/dl (0.60-1.40); GLUCOSE 91 mg/dl (70-99); POTASSIUM 3.5 mmol/L (3.5-5.1); SODIUM 138 mmol/L (136-145); TOTAL PROTEIN 7.2 gm/dl (6.4-8.2)
[2017-05-01 14:48] LABS: ALKALINE PHOSPHATASE 97 U/L (45-117)
[2017-05-01 19:20] VITALS: BP 184/94; PULSE 93; O2SAT 95
== END 2017-05-01 19:20 ==
LOC: C.EDB 12:29 → C.EDA 19:20
DX: F60.2 Antisocial personality disorder (principal); F25.0 Schizoaffective disorder, bipolar type; F43.10 Post-traumatic stress disorder, unspecified; R45.850 Homicidal ideations; M79.641 Pain in right hand; W22.8XXA Striking against or struck by other objects, initial encounter; E11.9 Type 2 diabetes mellitus without complications; F17.200 Nicotine dependence, unspecified, uncomplicated; Z79.2 Long term (current) use of antibiotics

== ENCOUNTER 2017-05-08 21:47 | Emergency (ER) | payer OTHER ==
[~2017-05-08] VITALS: Ht 167.6 cm; Wt 110.9 kg
[~2017-05-08 21:47] MED LIST changes: -ABL/15 PO
[2017-05-08 21:51] VITALS: TEMP 36.9; Ht 167.6 cm; Wt 110.9 kg
[2017-05-08] MEDS ORDERED: INVEGA INJECTION IM (22:36)
[2017-05-08 22:48] LABS: BASO % 0.6 %; BASO ABS # 0.05 K/uL (0-0.2); EOS % 0.8 %; EOS ABS # 0.07 K/uL (0-0.5); HEMATOCRIT 45.6 % (42-52); IG# 0.06 K/uL (0.00-0.02); LYMPH ABS # 2.06 K/uL (1.2-3.4); MEAN CELL VOLUME 83.8 fL (80-100); MEAN CORPUSCULAR HEMOGLOBIN 29.4 pg (25-34); MEAN CORPUSCULAR HGB CONC 35.1 g/dl (32-36); MEAN PLATELET VOLUME 9.7 fL (7.4-10.4); MONO % 8.6 %; MONO ABS # 0.71 K/uL (0.11-0.59); NEUT % 64.3 %; NEUT ABS # 5.29 K/uL (1.4-6.5); PLATELET COUNT 212 K/uL (130-400); RED CELL DISTRIBUTION WIDTH CV 13.4 % (11.5-14.5); RED CELL DISTRIBUTION WIDTH SD 40.1 fL (36.4-46.3); WHITE BLOOD COUNT 8.24 K/uL (4.8-10.8)
[2017-05-08 23:07] LABS: ALBUMIN 3.8 gm/dl (3.4-5.0); CALCIUM 9.3 mg/dl (8.5-10.1); CREATININE 0.72 mg/dl (0.60-1.40); POTASSIUM 3.8 mmol/L (3.5-5.1)
[2017-05-08 23:26] LABS: TOTAL PROTEIN 7.1 gm/dl (6.4-8.2)
[2017-05-09 00:30] VITALS: BP 128/72; PULSE 80; O2SAT 98
--- NOTE | 2017-05-09 00:57 | EMERGENCY ROOM VISIT NOTE ---
History Report prepared by [place]: Brianna Perez Under the Supervision of: Dr. Zay Beth D.O. 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 The patient states that his girlfriend broke up with him today and he began punching a wall with his left hand. The patient was recently treated at [facility] two weeks ago. The patient was recently seen at [facility] two days ago. He states that his medications have been discontinued, though he is currently taking one medication for his depression. He states that he messaged his mother on FB that he wishes he had a gun so he could harm himself. He notes that he has overdosed in the past on his prescription medication and illicit drugs. The patient denies any headaches, fevers, nausea, vomiting, diarrhea, coughs, or runny nose. 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 He denies any runny nose. Review of Systems See HPI for pertinent positives & negatives. A total of 10 systems reviewed and were otherwise negative. Past Medical & Surgical Medical Problems: (1) Antisocial personality disorder (2) Chest pain, rule out acute myocardial infarction (3) Diabetes (4) Epileptic seizures (5) PTSD (post-traumatic stress disorder) (6) Schizoaffective disorder, bipolar type Family History Patient reports no known family medical history. Social History Smoking Status: Current Every Day Smoker Alcohol Use: none Drug Use: none Marital Status: single Housing Status: lives alone Occupation Status: unemployed Current/Historical Medications Scheduled [Invega Injection], IM UD Allergies Coded Allergies: Gabapentin (Verified Allergy, Severe, makes patient extremely violent, ) Risperidone (Verified Allergy, Unknown, FOAMING AT THE MOUTH, UNSTEADY GAIT, 05/01/17) Uncoded Allergies: *CLONAZEPAM (Allergy, Severe, PATIENT STATES "" THE REACTION, ) THIS IS ADDED AN UNCODED ALLERGEN TO ALLOW MAR DOCUMENTATION FOR THE SUCCESSFUL ADMINISTRATION OF LORAZEPAM. Physical Exam Vital Signs Date Time Temp Pulse Resp B/P (MAP) Pulse Ox O2 Delivery O2 Flow Rate FiO2 05/09/17 00:30 80 20 128/72 98 05/08/17 21:51 36.9 117 20 167/124 95 Room Air Physical Exam GENERAL: Sitting up in bed, alert, disheveled-appearing, well nourished, no distress, non-toxic EYE EXAM: normal conjunctiva. OROPHARYNX: no exudate, no erythema, lips, buccal mucosa, and tongue normal and mucous membranes are moist NECK: supple, no nuchal rigidity, no adenopathy, non-tender LUNGS: Clear to auscultation. Normal chest wall mechanics HEART: no murmurs, S1 normal and S2 normal ABDOMEN: abdomen soft, non-tender, normo-active bowel sounds, no masses, no rebound or guarding. BACK: Back is symmetrical on inspection and there is no deformity, no midline tenderness, no CVA tenderness. SKIN: no rashes and no bruising UPPER EXTREMITIES: upper extremities are grossly normal. LOWER EXTREMITIES: No pitting edema. NEURO EXAM: Normal sensorium, cranial nerves II-XII grossly intact, normal speech, no gross weakness of arms, no gross weakness of legs. PSYCH: Admits to suicidal ideations with a plan. Medical Decision & Procedures Laboratory Results 05/08/17 22:14 Red Blood Count 5.44, Mean Corpuscular Volume 83.8, Mean Corpuscular Hemoglobin 29.4, Mean Corpuscular Hemoglobin Concent 35.1, Mean Platelet Volume 9.7, Neutrophils (%) (Auto) 64.3, Lymphocytes (%) (Auto) 25.0, Monocytes (%) (Auto) 8.6, Eosinophils (%) (Auto) 0.8, Basophils (%) (Auto) 0.6, Neutrophils # (Auto) 5.29, Lymphocytes # (Auto) 2.06, Monocytes # (Auto) 0.71, Eosinophils # (Auto) 0.07, Basophils # (Auto) 0.05 05/08/17 22:14 Test 05/08/17 00:00 05/08/17 22:14 Urine Color YELLOW Urine Appearance CLEAR (CLEAR) Urine pH 5.0 (4.5-7.5) Urine Specific [place] 1.027 (1.000-1.030) Urine Protein TRACE (NEG) Urine Glucose (UA) NEG (NEG) Urine Ketones TRACE (NEG) Urine Occult Blood NEG (NEG) Urine Nitrite NEG (NEG) Urine Bilirubin NEG (NEG) Urine Urobilinogen NEG (NEG) Urine Leukocyte Esterase NEG (NEG) Urine WBC (Auto) 1-5 /hpf (0-5) Urine RBC (Auto) 0-4 /hpf (0-4) Urine Hyaline Casts (Auto) 1-5 /lpf (0-5) Urine Epithelial Cells (Auto) 0-5 /lpf (0-5) Urine Bacteria (Auto) NEG (NEG) Urine Crystals CALCIUM OXALATE (NONE Urine Opiates Screen NEG (NEG) Urine Methadone, Qualitative NEG (NEG) Urine Barbiturates NEG (NEG) Urine Phencyclidine (PCP) Level NEG (NEG) Ur Amphetamine/Methamphetamine NEG (NEG) MDMA (Ecstasy) Screen NEG (NEG) Urine Benzodiazepines Screen NEG (NEG) Urine Cocaine Metabolite NEG (NEG) Urine Marijuana (THC) NEG (NEG) White Blood Count 8.24 K/uL (4.8-10.8) Red Blood Count 5.44 M/uL (4.7-6.1) Hemoglobin 16.0 g/dL (14.0-18.0) Hematocrit 45.6 % (42-52) Mean Corpuscular Volume 83.8 fL (80-100) Mean Corpuscular Hemoglobin 29.4 pg (25-34) Mean Corpuscular Hemoglobin Concent 35.1 g/dl (32-36) Platelet Count 212 K/uL (130-400) Mean Platelet Volume 9.7 fL (7.4-10.4) Neutrophils (%) (Auto) 64.3 % Lymphocytes (%) (Auto) 25.0 % Monocytes (%) (Auto) 8.6 % Eosinophils (%) (Auto) 0.8 % Basophils (%) (Auto) 0.6 % Neutrophils # (Auto) 5.29 K/uL (1.4-6.5) Lymphocytes # (Auto) 2.06 K/uL (1.2-3.4) Monocytes # (Auto) 0.71 K/uL (0.11-0.59) Eosinophils # (Auto) 0.07 K/uL (0-0.5) Basophils # (Auto) 0.05 K/uL (0-0.2) RDW Standard Deviation 40.1 fL (36.4-46.3) RDW Coefficient of Variation 13.4 % (11.5-14.5) Immature Granulocyte % (Auto) 0.7 % Immature Granulocyte # (Auto) 0.06 K/uL (0.00-0.02) Anion Gap 12.0 mmol/L (3-11) Est Creatinine Clear Calc Drug Dose 164.2 ml/min Estimated GFR () 138.1 Estimated GFR (Non- 119.2 BUN/Creatinine Ratio 20.2 (10-20) Calcium Level 9.3 mg/dl (8.5-10.1) Total Bilirubin 0.2 mg/dl (0.2-1) Direct Bilirubin mg/dl (0-0.2) Aspartate Amino Transf (AST/SGOT) 21 U/L (15-37) Alanine Aminotransferase (ALT/SGPT) 41 U/L (12-78) Alkaline Phosphatase 102 U/L (45-117) Total Protein 7.1 gm/dl (6.4-8.2) Albumin 3.8 gm/dl (3.4-5.0) Thyroid Stimulating Hormone (TSH) 0.779 uIu/ml (0.300-4.500) Chemistry Specimen Hemolysis Ethyl Alcohol mg/dL < 3.0 mg/dl (0-3) Laboratory results per my review. ED Course ED COURSE: Vital signs were reviewed and showed tachycardic. The patients medical record was reviewed The above diagnostic studies were performed and reviewed. ED treatments and interventions as stated above. 2207: The patient was evaluated in room A5. A complete history and physical examination was performed. 2240: The patient was moved to room C9 at this time. 2255: I reassessed the patient at this time. [facility] [place] determined the patient was clear for discharge. The patient does not feel comfortable going home. The patient is being re-evaluated. 2343: Riley Almendarez, psychiatric protective services case worker states that the patient denies any SI and wants to leave. The patient states that his girlfriend wants to get back with him. 0110: Upon reevaluation, I discussed my findings with the patient and he understands and agrees with the treatment plan. Based on the patients age, coexisting illnesses, exam and lab findings the decision to treat as an outpatient was made. The patient remained stable while under my care. The patient appeared well at the time of discharge. Medical Decision Differential diagnosis: Etiologies such as mood disorder, infection, hypoglycemia, electrolyte abnormalities, cardiac sources, intracerebral event, toxicologic, neurologic, as well as others were entertained. Patient is a 37-year-old male who presents to ER for suicidal thoughts. He has been recently admitted and discharged twice this past month. Patient currently notes that his girlfriend broke up with him and this incited all of these events. On my exam he notes he wishes to come in. He was evaluated by Randi Bob and Riley. Upon a complete evaluation by our psychiatric care liaison patient retracted all the statements. He notes that he is not suicidal. His girlfriend did take him back. He currently has place to stay tonight. Upon talking to Randi Bob they note that he does this fairly regularly when he has no place to stay. I had a long conversation with this gentleman. He denied any suicidal or homicidal ideations. He does note that he wants to go home. I discussed with Riley and Randi Bob survey instrument operator. They both agree that this is very common. Patient denies that he will hurt himself. He no longer has any suicidal or homicidal ideations. Anything worsens or changes he'll return immediately to the ER. They have been through this multiple times with him before in the past. He notes he is comfortable following this procedure. Discussed with Pt concerning signs and symptoms to watch out for. Pt was instructed to follow up with their PCP and discussed with the patient their option to return to the ED at anytime for persistent or worsening symptoms. The appropriate anticipatory guidance and out-patient management, including indications for return to the emergency department, were explained at length to the patient and understood. Medication Reconcilliation Current Medication List: was personally reviewed by me Blood Pressure Screening Patient's blood pressure: Elevated blood pressure Blood pressure disposition: Elevated BP felt to be situational Impression Primary Impression: Mood disorder Scribe Attestation The scribe's documentation has been prepared under my direction and personally reviewed by me in its entirety. I confirm that the note above accurately reflects all work, treatment, procedures, and medical decision making performed by me. Departure Information Dispostion Home / Self-Care Referrals No Doctor, Assigned (PCP) Forms HOME CARE DOCUMENTATION FORM, IMPORTANT VISIT INFORMATION Patient Instructions My [facility] Additional Instructions Please follow up with your primary care doctor with in the next 24 hours. Any worsening of your symptoms, please return to the ED immediately. This includes any fevers greater than 100.4, worsening pain, chest pain, shortness breath, persistent nausea, vomiting, unable to eat or drink, or any other concerning signs or symptoms from your standpoint. Any thoughts of self-harm or wanting to harm anyone else please return immediately to the ER.
== END 2017-05-09 00:32 | disposition home or self-care (01) ==
LOC: C.EDB 21:48 → C.EDC 05-09 00:32
DX: F39 Unspecified mood [affective] disorder (principal); F60.2 Antisocial personality disorder; E11.9 Type 2 diabetes mellitus without complications; G40.909 Epilepsy, unspecified, not intractable, without status epilepticus; F43.10 Post-traumatic stress disorder, unspecified; F25.0 Schizoaffective disorder, bipolar type; F17.200 Nicotine dependence, unspecified, uncomplicated

== ENCOUNTER 2017-05-09 11:24 | Emergency (ER) | payer OTHER ==
[2017-05-09 11:24] VITALS: TEMP 36.4
[~2017-05-09 11:24] MED LIST changes: -CTP/1 PO; -DPKSR500 PO; -DXY100 PO; +INVEGA INJECTION IM; -ZLF50 PO
[2017-05-09 12:29] LABS: BASO % 0.3 %; BASO ABS # 0.02 K/uL (0-0.2); EOS % 0.4 %; EOS ABS # 0.03 K/uL (0-0.5); HEMATOCRIT 46.6 % (42-52); HEMOGLOBIN 16.6 g/dL (14.0-18.0); IG# 0.06 K/uL (0.00-0.02); LYMPH % 17.5 %; LYMPH ABS # 1.39 K/uL (1.2-3.4); MEAN CELL VOLUME 82.9 fL (80-100); MEAN CORPUSCULAR HEMOGLOBIN 29.5 pg (25-34); MEAN CORPUSCULAR HGB CONC 35.6 g/dl (32-36); MEAN PLATELET VOLUME 9.6 fL (7.4-10.4); MONO % 7.1 %; MONO ABS # 0.56 K/uL (0.11-0.59); NEUT % 73.9 %; NEUT ABS # 5.88 K/uL (1.4-6.5); PLATELET COUNT 215 K/uL (130-400); RED CELL DISTRIBUTION WIDTH CV 13.3 % (11.5-14.5); RED CELL DISTRIBUTION WIDTH SD 39.6 fL (36.4-46.3); WHITE BLOOD COUNT 7.94 K/uL (4.8-10.8)
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
[2017-05-09 12:48] LABS: ALBUMIN 3.9 gm/dl (3.4-5.0); ALT/SGPT 42 U/L (12-78); AST/SGOT 15 U/L (15-37); BLOOD UREA NITROGEN 12 mg/dl (7-18); CALCIUM 8.9 mg/dl (8.5-10.1); CARBON DIOXIDE 27 mmol/L (21-32); CREATININE 0.71 mg/dl (0.60-1.40); GLUCOSE 88 mg/dl (70-99); POTASSIUM 3.5 mmol/L (3.5-5.1); SODIUM 139 mmol/L (136-145)
[2017-05-09 12:59] LABS: ALKALINE PHOSPHATASE 102 U/L (45-117)
--- NOTE | 2017-05-09 13:54 | DIAGNOSTIC IMAGING REPORT ---
R HAND MIN 3 VIEWS ROUTINE HISTORY: 37 years-old Male right hand pain acute right hand pain status post trauma COMPARISON: Brain radiographs 05/01/2017 TECHNIQUE: 3 views the right hand FINDINGS: Subacute to chronic fracture deformity involves the right fifth metacarpal neck, unchanged with mild apex dorsal angulation. 9 mm corticated bone fragment is seen within the expected region of the ulnar styloid. No acute fracture or subluxation. There is mild soft tissue swelling noted about the dorsomedial hand. IMPRESSION: 1. Unchanged subacute to chronic appearing fracture deformity of the fifth metatarsal neck. 2. Chronic appearing ulnar styloid fracture. 3. Mild soft tissue swelling of the dorsomedial hand. No opaque foreign body. The above report was generated using voice recognition software. It may contain grammatical, syntax or spelling errors. Electronically signed by: Prem Carreon M.D. 05/09/2017 1:53 PM Dictated Date/Time: 05/09/2017 1:51 PM
[2017-05-09 20:27] VITALS: BP 151/113; PULSE 101; O2SAT 95
== END 2017-05-09 20:28 ==
LOC: EDBD 11:24 → C.EDA 11:25
DX: F32.9 Major depressive disorder, single episode, unspecified (principal); R45.851 Suicidal ideations; M79.641 Pain in right hand; F25.0 Schizoaffective disorder, bipolar type; F17.210 Nicotine dependence, cigarettes, uncomplicated; F60.2 Antisocial personality disorder; F43.10 Post-traumatic stress disorder, unspecified; I10 Essential (primary) hypertension; E11.9 Type 2 diabetes mellitus without complications

== ENCOUNTER 2017-06-30 18:22 | Emergency (ER) | payer OTHER ==
[~2017-06-30] VITALS: Ht 167.6 cm; Wt 110.0 kg
[2017-06-30 18:27] VITALS: TEMP 36.5; Ht 167.6 cm; Wt 110.0 kg
[2017-06-30 19:31] LABS: BASO % 0.3 %; BASO ABS # 0.02 K/uL (0-0.2); EOS % 1.3 %; EOS ABS # 0.08 K/uL (0-0.5); HEMATOCRIT 43.7 % (42-52); HEMOGLOBIN 15.6 g/dL (14.0-18.0); IG# 0.03 K/uL (0.00-0.02); LYMPH % 24.7 %; LYMPH ABS # 1.53 K/uL (1.2-3.4); MEAN CELL VOLUME 81.5 fL (80-100); MEAN CORPUSCULAR HEMOGLOBIN 29.1 pg (25-34); MEAN CORPUSCULAR HGB CONC 35.7 g/dl (32-36); MEAN PLATELET VOLUME 9.8 fL (7.4-10.4); MONO % 10.5 %; MONO ABS # 0.65 K/uL (0.11-0.59); NEUT % 62.7 %; NEUT ABS # 3.88 K/uL (1.4-6.5); PLATELET COUNT 189 K/uL (130-400); RED CELL DISTRIBUTION WIDTH CV 13.5 % (11.5-14.5); RED CELL DISTRIBUTION WIDTH SD 40.2 fL (36.4-46.3); WHITE BLOOD COUNT 6.19 K/uL (4.8-10.8)
[2017-06-30 19:48] LABS: ALBUMIN 3.6 gm/dl (3.4-5.0); ALT/SGPT 25 U/L (12-78); AST/SGOT 14 U/L (15-37); BLOOD UREA NITROGEN 13 mg/dl (7-18); CALCIUM 9.4 mg/dl (8.5-10.1); CARBON DIOXIDE 27 mmol/L (21-32); CREATININE 0.63 mg/dl (0.60-1.40); GLUCOSE 84 mg/dl (70-99); POTASSIUM 3.7 mmol/L (3.5-5.1); SODIUM 140 mmol/L (136-145)
[2017-06-30 19:58] LABS: ALKALINE PHOSPHATASE 95 U/L (45-117); TOTAL PROTEIN 6.9 gm/dl (6.4-8.2)
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
[2017-07-01] MEDS ORDERED: DEXAMETHASONE CONC 1 MG/ML 30 ML PO STA (01:00)
--- NOTE | 2017-07-01 10:34 | EMERGENCY ROOM VISIT NOTE ---
ED Visit Note First contact with patient: 08:14 I assumed care at the change of shift, Dr. Segovia had been the physician just prior to me. The patient was seen by the psychiatry case management team. The patient is now denying suicidal intent. He does have a history of suicidal ideation, this is almost chronic for him. He denies intent to harm himself. He states now that he has been taking his medications. He does feel comfortable with discharge back to the [facility]. Patient does have outpatient appointments scheduled. These appointments were made by our psychiatry team. Patient has agreed to return here for any worsening suicidality or worsening symptoms. He has contracted verbally for safety.
[2017-07-01 11:02] VITALS: BP 153/92; PULSE 87; O2SAT 94
--- NOTE | 2017-07-01 23:57 | EMERGENCY ROOM VISIT NOTE ---
ED Visit Note First contact with patient: 02:57 I received this patient in signout at the change of shift from Dr. Beth, pending a mental health bed search. The patient is well known to our mental health team. He is voluntary for admission. Patient has been signed out to Dr. Cruz at the change of shift, please see his notes for further details of disposition.
== END 2017-07-01 11:03 | disposition home or self-care (01) ==
LOC: EDBD 18:22 → C.EDA 18:23
DX: R45.851 Suicidal ideations (principal); F32.9 Major depressive disorder, single episode, unspecified; F25.0 Schizoaffective disorder, bipolar type; F17.210 Nicotine dependence, cigarettes, uncomplicated; F60.2 Antisocial personality disorder; F43.10 Post-traumatic stress disorder, unspecified; E11.9 Type 2 diabetes mellitus without complications; G40.909 Epilepsy, unspecified, not intractable, without status epilepticus; Z79.899 Other long term (current) drug therapy; Z88.8 Allergy status to other drugs, medicaments and biological substances

== ENCOUNTER 2017-07-06 22:32 | Emergency (ER) | payer OTHER ==
[~2017-07-06] VITALS: Ht 167.6 cm; Wt 112.2 kg
[2017-07-06 22:37] VITALS: TEMP 36.2; O2SAT 95; Ht 167.6 cm; Wt 112.2 kg
[2017-07-06] MEDS ORDERED: ONDANSETRON INJ 2 MG/ML 2 ML VIAL IV STA (23:01)
[2017-07-06] MEDS ORDERED: SODIUM CHLORIDE 0.9% 1000ML 1,000 ML IV STA (23:01)
[2017-07-06 23:39] LABS: BASO % 0.5 %; BASO ABS # 0.03 K/uL (0-0.2); EOS % 1.5 %; EOS ABS # 0.09 K/uL (0-0.5); HEMATOCRIT 42.3 % (42-52); HEMOGLOBIN 15.2 g/dL (14.0-18.0); IG# 0.02 K/uL (0.00-0.02); LYMPH % 32.6 %; LYMPH ABS # 2.01 K/uL (1.2-3.4); MEAN CELL VOLUME 82.5 fL (80-100); MEAN CORPUSCULAR HEMOGLOBIN 29.6 pg (25-34); MEAN CORPUSCULAR HGB CONC 35.9 g/dl (32-36); MEAN PLATELET VOLUME 9.9 fL (7.4-10.4); MONO % 12.5 %; MONO ABS # 0.77 K/uL (0.11-0.59); NEUT % 52.6 %; NEUT ABS # 3.24 K/uL (1.4-6.5); PLATELET COUNT 202 K/uL (130-400); RED CELL DISTRIBUTION WIDTH CV 13.6 % (11.5-14.5); RED CELL DISTRIBUTION WIDTH SD 41.2 fL (36.4-46.3); WHITE BLOOD COUNT 6.16 K/uL (4.8-10.8)
[2017-07-07] LABS: ALBUMIN 3.6 gm/dl (3.4-5.0); CALCIUM 9.2 mg/dl (8.5-10.1); CREATININE 0.88 mg/dl (0.60-1.40); POTASSIUM 3.5 mmol/L (3.5-5.1)
[2017-07-07 00:03] LABS: TOTAL PROTEIN 6.6 gm/dl (6.4-8.2)
[2017-07-07] MEDS ORDERED: ONDA4TAB10 SL (00:05)
--- NOTE | 2017-07-07 00:07 | EMERGENCY ROOM VISIT NOTE ---
History First contact with patient: 22:46 Chief Complaint: ABDOMINAL PAIN Stated Complaint: STOMACH PAINS FROM DRINKING Nursing Triage Summary: Pt complains of generalized of abdominal pain since yesterday. +nausea, vomiting and diarrhea History of Present Illness The patient is a 37 year old male who presents to the Emergency Room with complaints of abdominal pain. The patient states that he drank a significant amount of alcohol yesterday. He states that he drank 1 can of beer, then 3, 42 ounce bottles of beer. He states that afterward, he was very argumentative and argues with both his mom and his . He states that his mother is a DIRECTOR [employer] and was worried he may have alcohol poisoning. The patient admits that he has a problem with alcohol, although states he has only drank on 5 occasions since he was put on probation 10 years ago. He does admit to smoking weight this morning. He states that he has had some abdominal cramping since this morning and has had multiple episodes of diarrhea and vomiting since then. Patient rates his discomfort a 9/10. Review of Systems A complete 10 point review of systems was reviewed with the patient with pertinent positives and negatives as per history of present illness. All else were negative. Past Medical/Surgical History Medical Problems: (1) Antisocial personality disorder (2) Chest pain, rule out acute myocardial infarction (3) Diabetes (4) Epileptic seizures (5) PTSD (post-traumatic stress disorder) (6) Schizoaffective disorder, bipolar type Family History Patient reports no known family medical history. Social History Smoking Status: Current Every Day Smoker Alcohol Use: none Drug Use: none Marital Status: single Housing Status: lives alone Occupation Status: unemployed Current/Historical Medications Scheduled Ondasetron Odt (Zofran Odt), 4 MG SL Q6H [Invega Injection], IM UD Physical Exam Vital Signs Date Time Temp Pulse Resp B/P (MAP) Pulse Ox O2 Delivery O2 Flow Rate FiO2 07/07/17 00:42 92 20 142/110 Room Air 07/06/17 22:37 36.2 93 16 154/118 95 Room Air Physical Exam VITALS: Vitals are noted on the nurse's note and reviewed by myself. Vital signs stable. GENERAL: This is a 37-year-old male, in no acute distress, nondiaphoretic, well- developed well-nourished. EARS: External auditory canals clear, tympanic membranes pearly bess without erythema or effusion bilaterally. EYES: Pupils equal round and reactive to light and accommodation. MOUTH: Mucous membranes moist. Tonsils are not enlarged. Pharynx without erythema or exudate. HEART: Regular rate and rhythm without murmurs gallops or rubs. LUNGS: Clear to auscultation bilaterally without wheezes, rales or rhonchi. ABDOMEN: Positive bowel sounds x 4. Soft, nontender to palpation. NEURO: Patient was alert and oriented to person place and time. Medical Decision & Procedures Laboratory Results 07/06/17 23:29 Red Blood Count 5.13, Mean Corpuscular Volume 82.5, Mean Corpuscular Hemoglobin 29.6, Mean Corpuscular Hemoglobin Concent 35.9, Mean Platelet Volume 9.9, Neutrophils (%) (Auto) 52.6, Lymphocytes (%) (Auto) 32.6, Monocytes (%) (Auto) 12.5, Eosinophils (%) (Auto) 1.5, Basophils (%) (Auto) 0.5, Neutrophils # (Auto ) 3.24, Lymphocytes # (Auto) 2.01, Monocytes # (Auto) 0.77, Eosinophils # (Auto ) 0.09, Basophils # (Auto) 0.03 07/06/17 23:29 Test 07/06/17 23:29 White Blood Count 6.16 K/uL (4.8-10.8) Red Blood Count 5.13 M/uL (4.7-6.1) Hemoglobin 15.2 g/dL (14.0-18.0) Hematocrit 42.3 % (42-52) Mean Corpuscular Volume 82.5 fL (80-100) Mean Corpuscular Hemoglobin 29.6 pg (25-34) Mean Corpuscular Hemoglobin Concent 35.9 g/dl (32-36) Platelet Count 202 K/uL (130-400) Mean Platelet Volume 9.9 fL (7.4-10.4) Neutrophils (%) (Auto) 52.6 % Lymphocytes (%) (Auto) 32.6 % Monocytes (%) (Auto) 12.5 % Eosinophils (%) (Auto) 1.5 % Basophils (%) (Auto) 0.5 % Neutrophils # (Auto) 3.24 K/uL (1.4-6.5) Lymphocytes # (Auto) 2.01 K/uL (1.2-3.4) Monocytes # (Auto) 0.77 K/uL (0.11-0.59) Eosinophils # (Auto) 0.09 K/uL (0-0.5) Basophils # (Auto) 0.03 K/uL (0-0.2) RDW Standard Deviation 41.2 fL (36.4-46.3) RDW Coefficient of Variation 13.6 % (11.5-14.5) Immature Granulocyte % (Auto) 0.3 % Immature Granulocyte # (Auto) 0.02 K/uL (0.00-0.02) Anion Gap 7.0 mmol/L (3-11) Est Creatinine Clear Calc Drug Dose 135.2 ml/min Estimated GFR () 127.2 Estimated GFR (Non- 109.7 BUN/Creatinine Ratio 13.9 (10-20) Calcium Level 9.2 mg/dl (8.5-10.1) Total Bilirubin 0.3 mg/dl (0.2-1) Aspartate Amino Transf (AST/SGOT) 12 U/L (15-37) Alanine Aminotransferase (ALT/SGPT) 24 U/L (12-78) Alkaline Phosphatase 93 U/L (45-117) Total Protein 6.6 gm/dl (6.4-8.2) Albumin 3.6 gm/dl (3.4-5.0) Globulin 3.0 gm/dl (2.5-4.0) Albumin/Globulin Ratio 1.2 (0.9-2) Lipase 118 U/L (73-393) Ethyl Alcohol mg/dL < 3.0 mg/dl (0-3) Medications Administered Medications (Trade) Dose Ordered Sig/Jennifer Route Start Time Stop Time Status Last Admin Dose Admin Sodium Chloride 1,000 ml @ 999 mls/hr Q1H1M STAT IV 07/06/17 23:01 07/07/17 00:01 DC 07/06/17 23:29 999 MLS/HR Ondansetron HCl (Zofran Inj) 4 mg NOW STAT IV 07/06/17 23:01 07/06/17 23:03 DC 07/06/17 23:29 4 MG Ondansetron HCl (ZOFRAN ODT 4MG Home Pack) 1 homepack UD ONCE PO 07/07/17 00:15 07/07/17 00:16 DC 07/07/17 00:41 1 HOMEPACK Medical Decision Differential diagnosis includes gastroenteritis, colitis, IBS, IBD, food-born illness, appendicitis, among others. The patient is a 37-year-old male who presents today complaining of vomiting and diarrhea. He has no focal abdominal tenderness on exam. Labs revealed no leukocytosis, anemia, or concerning electrolyte abnormalities. Patient was treated with antiemetics and fluids and was able to tolerate fluids prior to discharge. He did express concern about his drinking. He certainly will not require any inpatient treatment as he has only drank on 5 occasions in the past 10 years. Case management spoke with the patient and provided him with outpatient resources. Based on the patient's presentation and work up, I feel the patient is stable for outpatient treatment. The patient was educated to return to the emergency department for any worsening of their current condition or new/concerning symptoms. He will follow up with his PCP. The patient was independently evaluated by Dr. Peralta, ED attending physician , who agreed with my assessment and treatment plan. Medication Reconcilliation Current Medication List: was personally reviewed by me Blood Pressure Screening Patient's blood pressure: Elevated blood pressure Blood pressure disposition: Referred to PCP Impression Primary Impression: Nausea, vomiting, and diarrhea Departure Information Dispostion Home / Self-Care Condition GOOD Prescriptions Ondasetron Odt (ZOFRAN ODT) 4 Mg Tab 4 MG SL Q6H for Nausea, #10 TAB Prov: Myrna Gold ., MIKE 07/07/17 Referrals No Doctor, Assigned (PCP) Patient Instructions My [facility] Additional Instructions You have been treated in the Emergency Department your Abdominal Pain. Laboratory results and imaging studies have ruled out any emergent causes for your abdominal pain which would warrant admission or surgery. You have been prescribed Zofran to be used for any nausea or vomiting. Take as prescribed. For pain control, you can use the following [id number] medicines (if >12 yo): - Regular strength (325mg/tab) Tylenol (acetaminophen) 2 tabs every 4-6 hours as needed. Do not exceed 12 tablets in a 24 hour period. Avoid taking more than 4 grams (4000 mg) of Tylenol per day. This includes any other sources of acetaminophen you may take on a regular basis. - Regular strength (200 mg/tab) Advil (ibuprofen) 1-2 tabs every 4-6 hours as needed. Do not exceed a dose of 3200 mg per day. Drink plenty of water and stay well hydrated. As with any trip to the Emergency Department, you should follow-up with your Primary Care Provider from today's visit. Return to the emergency department if your symptoms persist despite treatment plan outlined above or if the following symptoms occur: Worsening abdominal pain , persistent vomiting despite the medication, fever or other new/concerning symptoms.
[2017-07-07] MEDS ORDERED: ONDANSETRON HOME PACK 4MG OD TAB PO ONE (00:15)
[2017-07-07 00:42] VITALS: BP 142/110; PULSE 92
== END 2017-07-07 00:48 | disposition home or self-care (01) ==
LOC: C.EDB 22:33
DX: R11.2 Nausea with vomiting, unspecified (principal); R19.7 Diarrhea, unspecified; R03.0 Elevated blood-pressure reading, without diagnosis of hypertension; F10.99 Alcohol use, unspecified with unspecified alcohol-induced disorder; E11.9 Type 2 diabetes mellitus without complications; F17.200 Nicotine dependence, unspecified, uncomplicated

== ENCOUNTER 2017-07-09 13:26 | Inpatient (IN) | payer OTHER ==
[~2017-07-09] VITALS: Ht 167.6 cm; Wt 102.0 kg
[~2017-07-09 13:26] MED LIST changes: +ONDA4TAB10 SL
--- NOTE | 2017-07-09 13:42 | EMERGENCY ROOM VISIT NOTE ---
History Report prepared by Henok: Lionel Ba Under the Supervision of: Dr. Justin Echeverria M.D. First contact with patient: 13:28 Stated Complaint: MENTAL HEALTH History of Present Illness The patient is a 37 year old male who presents to the Emergency Room with complaints of altered mental status. Per the sample case porter, he reports homicidal and suicidal ideation and claims he would like a gun to shoot himself. He became increasingly aggressive with the homeless prison staff and was kicked out of the [facility] Apparently he made threatening movements towards staff thus CAN help contacted. Of note he apparently is on probation. Patient admits regular ETOH use though it has been a few days. He admits worsening anxiety/depression and thoughts of self harm. States he would consider shooting himself or others but does not have a gun and probably wouldn' t do anything. Denies other plan nor access for self harm or harm to others. Recieves invega shots for his psychiatric issues. Many previous admissions. Denies any medical issues. Denies drug use. Denies anything making things worse. Better now that out of situation. 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 He denies possession of any weapons. Review of Systems See HPI for pertinent positives & negatives. A total of 10 systems reviewed and were otherwise negative. Past Medical & Surgical Medical Problems: (1) Antisocial personality disorder (2) Chest pain, rule out acute myocardial infarction (3) Diabetes (4) Epileptic seizures (5) PTSD (post-traumatic stress disorder) (6) Schizoaffective disorder, bipolar type Family History Patient reports no known family medical history. Social History Smoking Status: Current Every Day Smoker Alcohol Use: none Drug Use: none Marital Status: single Housing Status: lives alone Occupation Status: unemployed Current/Historical Medications Scheduled Divalproex Sodium (Depakote Etended-Release), 1,500 MG PO HS Lisinopril (Zestril), 20 MG PO DAILY Metoprolol Tartrate (Metoprolol Tartrate), 50 MG PO DAILY Ondasetron Odt (Zofran Odt), 4 MG SL Q6H Sertraline (Zoloft), 50 MG PO DAILY Allergies Coded Allergies: Gabapentin (Verified Allergy, Severe, makes patient extremely violent, ) Risperidone (Verified Allergy, Unknown, FOAMING AT THE MOUTH, UNSTEADY GAIT, 07/09/17) Uncoded Allergies: *CLONAZEPAM (Allergy, Severe, PATIENT STATES "" THE REACTION, ) THIS IS ADDED AN UNCODED ALLERGEN TO ALLOW MAR DOCUMENTATION FOR THE SUCCESSFUL ADMINISTRATION OF LORAZEPAM. Physical Exam Vital Signs Date Time Temp Pulse Resp B/P (MAP) Pulse Ox O2 Delivery O2 Flow Rate FiO2 07/09/17 16:35 76 18 129/82 98 Room Air 07/09/17 14:12 36.9 86 16 181/104 98 Room Air Physical Exam GENERAL: Patient is unkept, malodorous, and overweight. Patient is well appearing and in no acute distress. EYES: No scleral icterus, unremarkable pupils. ENT: Mucous membranes moist, no nasal congestion. NECK: No masses appreciated, no meningismus, trachea is midline. RESPIRATORY: No dyspnea. Clear to auscultation and equal bilaterally. No wheeze , no rhonchi. CARDIOVASCULAR: Regular rate and rhythm. No murmurs, rubs, gallops appreciated. GASTROINTESTINAL: Abdomen soft, nontender, no peritonitis. Bowel sounds positive. No masses appreciated. BACK: No midline tenderness, no CVA tenderness EXTREMITIES: Normal motion all extremities, no cyanosis, no edema. NEUROLOGIC: Alert and oriented, no acute motor or sensory deficits, no focal weakness, cranial nerves grossly intact. SKIN: No rash, no jaundice, no diaphoresis. PSYCH: Admits suicidal and homicidal ideation. He has a plan to find a gun and shoot self and others. Medical Decision & Procedures Laboratory Results 07/09/17 13:46 Red Blood Count 5.26, Mean Corpuscular Volume 81.9, Mean Corpuscular Hemoglobin 29.1, Mean Corpuscular Hemoglobin Concent 35.5, Mean Platelet Volume 9.6, Neutrophils (%) (Auto) 66.9, Lymphocytes (%) (Auto) 22.7, Monocytes (%) (Auto) 8.5, Eosinophils (%) (Auto) 1.1, Basophils (%) (Auto) 0.3, Neutrophils # (Auto) 5.05, Lymphocytes # (Auto) 1.71, Monocytes # (Auto) 0.64, Eosinophils # (Auto) 0.08, Basophils # (Auto) 0.02 07/09/17 13:58 Test 07/09/17 13:31 07/09/17 13:46 07/09/17 13:58 Urine Color DK YELLOW Urine Appearance CLEAR (CLEAR) Urine pH 6.5 (4.5-7.5) Urine Specific [place] 1.025 (1.000-1.030) Urine Protein NEG (NEG) Urine Glucose (UA) NEG (NEG) Urine Ketones NEG (NEG) Urine Occult Blood TRACE (NEG) Urine Nitrite NEG (NEG) Urine Bilirubin NEG (NEG) Urine Urobilinogen NEG (NEG) Urine Leukocyte Esterase NEG (NEG) Urine WBC (Auto) 1-5 /hpf (0-5) Urine RBC (Auto) 0-4 /hpf (0-4) Urine Hyaline Casts (Auto) 1-5 /lpf (0-5) Urine Epithelial Cells (Auto) 5-10 /lpf (0-5) Urine Bacteria (Auto) NEG (NEG) Urine Opiates Screen NEG (NEG) Urine Methadone, Qualitative NEG (NEG) Urine Barbiturates NEG (NEG) Urine Phencyclidine (PCP) Level NEG (NEG) Ur Amphetamine/Methamphetamine NEG (NEG) MDMA (Ecstasy) Screen NEG (NEG) Urine Benzodiazepines Screen NEG (NEG) Urine Cocaine Metabolite NEG (NEG) Urine Marijuana (THC) NEG (NEG) White Blood Count 7.54 K/uL (4.8-10.8) Red Blood Count 5.26 M/uL (4.7-6.1) Hemoglobin 15.3 g/dL (14.0-18.0) Hematocrit 43.1 % (42-52) Mean Corpuscular Volume 81.9 fL (80-100) Mean Corpuscular Hemoglobin 29.1 pg (25-34) Mean Corpuscular Hemoglobin Concent 35.5 g/dl (32-36) Platelet Count 195 K/uL (130-400) Mean Platelet Volume 9.6 fL (7.4-10.4) Neutrophils (%) (Auto) 66.9 % Lymphocytes (%) (Auto) 22.7 % Monocytes (%) (Auto) 8.5 % Eosinophils (%) (Auto) 1.1 % Basophils (%) (Auto) 0.3 % Neutrophils # (Auto) 5.05 K/uL (1.4-6.5) Lymphocytes # (Auto) 1.71 K/uL (1.2-3.4) Monocytes # (Auto) 0.64 K/uL (0.11-0.59) Eosinophils # (Auto) 0.08 K/uL (0-0.5) Basophils # (Auto) 0.02 K/uL (0-0.2) RDW Standard Deviation 41.1 fL (36.4-46.3) RDW Coefficient of Variation 13.7 % (11.5-14.5) Immature Granulocyte % (Auto) 0.5 % Immature Granulocyte # (Auto) 0.04 K/uL (0.00-0.02) Anion Gap 8.0 mmol/L (3-11) Est Creatinine Clear Calc Drug Dose 174.3 ml/min Estimated GFR () 144.1 Estimated GFR (Non- 124.3 BUN/Creatinine Ratio 21.9 (10-20) Calcium Level 9.1 mg/dl (8.5-10.1) Total Bilirubin 0.3 mg/dl (0.2-1) Aspartate Amino Transf (AST/SGOT) 14 U/L (15-37) Alanine Aminotransferase (ALT/SGPT) 25 U/L (12-78) Alkaline Phosphatase 88 U/L (45-117) Total Protein 6.8 gm/dl (6.4-8.2) Albumin 3.7 gm/dl (3.4-5.0) Globulin 3.1 gm/dl (2.5-4.0) Albumin/Globulin Ratio 1.2 (0.9-2) Thyroid Stimulating Hormone (TSH) 0.803 uIu/ml (0.300-4.500) Salicylates Level 2.7 mg/dl (2.8-20) Acetaminophen Level < 2 ug/ml (10-30) Ethyl Alcohol mg/dL < 3.0 mg/dl (0-3) Laboratory results as reviewed by me. ED Course 1330: The patient was evaluated in room A7. A complete history and physical exam was performed. 1511: We are waiting for the [facility] to evaluate the patient. 1822: I checked in with the sample case porter who notes that the [facility] denied to take him. He has a referral to the [facility]. Medical Decision Differential: Mood Disorder, Overdose, Infectious, Electrolyte Abnormality, Cardiac, Hepatic, Endocrine, Toxicologic, Neurologic, amongst other pathologies entertained. 37 yr old schizophrenic male well known to department for frequent visits with suicidal ideation. Worsening over the last week or so with visit last week for mood disorder as well. Issues with homeless prison and became aggressive with staff. Threatening to shoot himself and others but admits he probably wouldn't and that he doesn't own or have access to these or other weapons. He denies plan to overdose on anything. Initially HTN but resolved after resting some. Labs unremarkable. Difficulty with placement given he states he wishes to kill people. Throughout patient wishing 201 placement though noting feeling much better after calming down. Of not CAN Help did not feel 302 indicated and his statements were quite vague to me without any act of furtherance. Plan to continue bed search and monitor patient further. He has not been aggressive, combative, nor causing issues throughout his stay. Head Trauma GCS Score: 15 Medication Reconcilliation Current Medication List: was personally reviewed by me Blood Pressure Screening Patient's blood pressure: Elevated blood pressure Blood pressure disposition: Elevated BP felt to be situational Impression Primary Impression: Suicidal ideation Additional Impressions: Homicidal ideation Schizoaffective disorder, bipolar type Scribe Attestation The scribe's documentation has been prepared under my direction and personally reviewed by me in its entirety. I confirm that the note above accurately reflects all work, treatment, procedures, and medical decision making performed by me. Departure Information Referrals No Doctor, Assigned (PCP) Problem Qualifiers
[2017-07-09 14:10] LABS: BASO % 0.3 %; BASO ABS # 0.02 K/uL (0-0.2); EOS % 1.1 %; EOS ABS # 0.08 K/uL (0-0.5); HEMATOCRIT 43.1 % (42-52); HEMOGLOBIN 15.3 g/dL (14.0-18.0); IG# 0.04 K/uL (0.00-0.02); LYMPH % 22.7 %; LYMPH ABS # 1.71 K/uL (1.2-3.4); MEAN CELL VOLUME 81.9 fL (80-100); MEAN CORPUSCULAR HEMOGLOBIN 29.1 pg (25-34); MEAN CORPUSCULAR HGB CONC 35.5 g/dl (32-36); MEAN PLATELET VOLUME 9.6 fL (7.4-10.4); MONO % 8.5 %; MONO ABS # 0.64 K/uL (0.11-0.59); NEUT % 66.9 %; NEUT ABS # 5.05 K/uL (1.4-6.5); PLATELET COUNT 195 K/uL (130-400); RED CELL DISTRIBUTION WIDTH CV 13.7 % (11.5-14.5); RED CELL DISTRIBUTION WIDTH SD 41.1 fL (36.4-46.3); WHITE BLOOD COUNT 7.54 K/uL (4.8-10.8)
[2017-07-09] MEDS ORDERED: DPKSR/500 PO (14:18)
[2017-07-09] MEDS ORDERED: METO50TA17 PO (14:18)
[2017-07-09] MEDS ORDERED: LISI-725 PO (14:18)
[2017-07-09] MEDS ORDERED: SERT50TA PO (14:18)
[2017-07-09 14:31] LABS: ALBUMIN 3.7 gm/dl (3.4-5.0); CALCIUM 9.1 mg/dl (8.5-10.1); CREATININE 0.65 mg/dl (0.60-1.40); POTASSIUM 3.5 mmol/L (3.5-5.1)
[2017-07-09 14:42] LABS: TOTAL PROTEIN 6.8 gm/dl (6.4-8.2)
--- NOTE | 2017-07-09 21:42 | EMERGENCY ROOM VISIT NOTE ---
ED Visit Note First contact with patient: 21:37 I received this patient at change of shift signout from Dr. Echeverria. Please see his note for complete history and physical. The patient was medically cleared prior to my assuming of his care. The patient presented to the emergency department because of threatening gestures as well as threatening statements to the staff. He also made suicidal ideation known. The patient started to have thoughts that he wanted to leave the emergency department prior to his complete evaluation. For this reason a 302 petition was requested. I evaluated the patient. He has very poor insight into his overall condition as well as his threatening gestures and statements. I did fill out page 7 of the 302 commitment. I do feel the patient requires inpatient treatment at this time. I discussed his case with the emergency department mental health case management coordinator. After the 302 petition was filled out the patient was evaluated by the can help delegate. At this time a bed search did not produce an inpatient facility for the patient. He will be observed in the emergency department overnight while the bed search has been put on hold. The patient was signed out to Dr. Garcia at change of shift. Please see her note for continuation of care.
[2017-07-10] MEDS ORDERED: ONDANSETRON 4MG OD TAB PO PRN (01:15)
--- NOTE | 2017-07-10 08:17 | EMERGENCY ROOM VISIT NOTE ---
ED Visit Note First contact with patient: 08:00 Patient signed out to me by Dr. Walker. No issues reported to be overnight. Bed search had been suspended overnight and will resume again in the morning. Patient signed out to Dr. Yanez.
[2017-07-10] MEDS ORDERED: METOPROLOL TARTRATE 50 MG TAB PO SCH (09:00)
[2017-07-10] MEDS ORDERED: SERTRALINE HCL 100 MG TAB PO SCH (09:00)
[2017-07-10] MEDS ORDERED: LISINOPRIL 20 MG TAB PO SCH (09:00)
[2017-07-10] MEDS ORDERED: ONDA4TAB46 PO (11:09)
[2017-07-10 11:28] VITALS: O2SAT 97
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
[2017-07-10] MEDS ORDERED: SODIUM CHLORIDE 0.65% NA SOLN 45 ML (OCEAN) PRN (12:30)
[2017-07-10] MEDS ORDERED: hydrOXYzine HCL 25 MG TAB PO PRN ×2 (12:30)
[2017-07-10] MEDS ORDERED: MAGNESIUM HYDROXIDE SUSP 30 ML UDC PO PRN (12:30)
[2017-07-10] MEDS ORDERED: BISMUTH SUBSALICYLATE PER ML OMNICELL CHARGE PO PRN (12:30)
[2017-07-10] MEDS ORDERED: ACETAMINOPHEN 325 MG TAB PO PRN (12:30)
[2017-07-10] MEDS ORDERED: ALUMINUM/MAGNESIUM SUSP 30 ML UDC PO PRN (12:30)
[2017-07-10] MEDS ORDERED: HALOPERIDOL 5 MG TAB PO PRN (12:30)
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
[2017-07-10 13:35] VITALS: BP 156/105; PULSE 89; TEMP 36.8; Ht 167.6 cm; Wt 102.0 kg
[2017-07-10] MEDS ORDERED: DIVALPROEX 500 MG EXTENDED RELEASE TAB PO SCH (21:00)
[2017-07-10] MEDS: DIVALPROEX 500 MG EXTENDED RELEASE TAB PO SCH ×2 (21:04→21:23)
[2017-07-10] MEDS: METOPROLOL TARTRATE 50 MG TAB PO SCH ×2 (21:05→21:24)
[2017-07-11 06:34] VITALS: BP_SYST 135; BP_SYST 146; BP_DIAS 101; BP_DIAS 90; PULSE 80; PULSE 87; TEMP 37
[2017-07-11] MEDS: SERTRALINE HCL 50 MG TAB PO SCH (08:11)
[2017-07-11] MEDS: LISINOPRIL 20 MG TAB PO SCH (08:11)
[2017-07-11] MEDS: METOPROLOL TARTRATE 50 MG TAB PO SCH ×2 (08:12→20:39)
--- NOTE | 2017-07-11 10:26 | Psychiatric Progress Notes ---
Progress Note Date of Service Jul 11, 2017. Interval History 37-year-old gentleman known to us from previous hospitalizations, admitted on 301 after making homicidal and suicidal statements. Chief Complaint "A little better.". Subjective Patient was seen & assessed interval progress reviewed with Treatment Team. The patient says that he is doing "a little better", "I don't know what came over me the other day.". He is taking his meds and denying side effects and says that he knows he needs to keep taking them. He says that his SI are "less " and denies any thoughts to harm others. He denies aud/vis hallucinations. Nursing reports that he continues to misrepresent his circumstances to peers, saying that he is and has triplets. He asks if he will be able to leave sometime this week. He has been cooperative with staff, appropriate in his behaviors. Review of Systems Constitutional: No fever, No chills, No sweats, No weight loss, No weakness, No fatigue, No problem reported ENT: No hearing loss, No unusual epistaxis, No nasal symptoms, No sore throat, No tinnitus, No dental problems, No trouble swallowing, No problem reported Respiratory: No cough, No sputum, No wheezing, No shortness of breath, No dyspnea on exertion, No dyspnea at rest, No hemoptysis, No problem reported Cardiovascular: No chest pain, No orthopnea, No PND, No edema, No claudication , No palpitations, No problem reported Abdomen: No pain, No nausea, No vomiting, No diarrhea, No constipation, No GI bleeding, No problem reported Musculoskeletal: No joint pain, No muscle pain, No swelling, No calf pain, No problem reported Neurologic: No memory loss, No paralysis, No weakness, No numbness/tingling, No vertigo, No balance problems, No problem reported Psychiatric: + depression symptoms (fewer SI) Integumentary: No rash, No itch, No new/changing skin lesions, No color change , No bleeding, No problem reported Sleep Information Total Hours of Sleep: 8.00 Meal Information Percent of Breakfast Consumed: 100 Percent of Lunch Consumed: 100 Percent of Dinner Consumed: 100 Mental Status Exam During interview pt is: alert and oriented, cooperative Appearance: disheveled (and malodorous) Eye contact is: good Motor behavior is: steady gait & station, no abnormal motor movements Speech: normal in rate, rhythm & volume Affect: blunted Mood is: depressed Thought process: goal directed Thought content: reality based without delusions Suicidal thought are: present Homicidal thoughts are: present Hallucinations: denies auditory, denies visual Cognition: memory grossly intact, attention grossly intact, language grossly intact Intelligence estimated to be: below average Insight: limited Judgement: limited Impression Cooperative with treatment, behavior appropriate. No HI and fewer SI. He has been restarted on all meds with titration of Depakote over 3 days. Is here on a 302, but likely will not need to be inpatient long. Would like to confirm all OP services tomorrow, but could go as soon as Wednesday if remains appropriate. Plan (1) Schizoaffective disorder, bipolar type 07/10 -Will restart Depakote ER 500 mg tonight, 1000 mg tomorrow and 1500 mg the next night -Will restart Zoloft to target mood at 50 mg titrating as tolerated -Will need to confirm current medications with outpatient provider on Wednesday and obtain outpatient records -Will maintain him on a medically necessary private room presently due to his history of impulsive aggressive behaviors -Every 15 minute checks for safety -Encourage participation in group and individual counseling -Assist the patient to maintain good hygiene -Patient is here on a 302. Will continue to gather information toward the need for further inpatient treatment - Will order haldol 4 mg q4hr prn agitation - FLP and FBS completed 04/17/17, less than 3 months ago. All WNL with the exception of elevated triglycerides of 153. 3/ - Continue current plan - Confirm all OP services Wednesday (2) Antisocial personality disorder 07/10 - He has clearly been informed that he needs to maintain appropriate behaviors while on the unit - There is some concern that his behaviors are at times aimed at getting his needs served in the ER (meals, place to sleep). Monitor for malingering (3) Hypertension 07/10 - Will restart lisinporil and metoprolol - Monitor BP's Has been reviewed with Dr. Shyann Membreno Discharge / Aftercare Planning Therapist: Name: None Room Service Food Server: Name: None Visit Code E&M Code: 13936 Inventory Assets Strengths: Reports that he has a psychiatric provider, Needs: To abstain from abusable substances Risk Factors Assessment Male: Yes : Yes /single/: Yes Higher / Fall in social status: No Health problems: No Mental Health Diagnoses: Yes Substance use disorders: Yes Previous attempt: Yes Previous psychiatric stay: Yes Smoker: Yes Protective Factors Assessment Moravian beliefs: No : No Responsible for young children: No Employed: No Stable relationships: No Supportive family: No Data Vital Signs Last 24 Hrs: Date Time Temp Pulse Resp B/P (MAP) Pulse Ox O2 Delivery O2 Flow Rate FiO2 07/11/17 06:34 37.0 80 22 135/90 87 146/101 07/10/17 13:35 36.8 89 16 156/105 07/10/17 11:28 82 18 177/85 97 Meds Administered Last 24 Hrs: Meds Administered (Past 24Hrs) Medications (Trade) Dose Ordered Sig/Jennifer Route Start Time Stop Time Status Last Admin Dose Admin Lisinopril (Zestril Tab) 20 mg QAM PO 07/10/17 09:00 07/10/17 13:00 DC 07/10/17 09:55 20 MG Metoprolol Tartrate (Lopressor Tab) 50 mg QAM PO 07/10/17 09:00 07/10/17 12:51 DC 07/10/17 09:55 50 MG Sertraline HCl (Zoloft Tab) 50 mg QAM PO 07/10/17 09:00 07/10/17 12:52 DC 07/10/17 09:55 50 MG Divalproex Sodium (Depakote Extended Rel Tab) 500 mg Taper HS PO 07/10/17 21:00 08/11/17 20:59 07/10/17 21:04 500 MG Lisinopril (Zestril Tab) 20 mg DAILY PO 07/11/17 09:00 08/10/17 08:59 07/11/17 08:11 20 MG Metoprolol Tartrate (Lopressor Tab) 50 mg BID PO 07/10/17 21:00 08/09/17 20:59 07/11/17 08:12 50 MG Sertraline HCl (Zoloft Tab) 50 mg DAILY PO 07/11/17 09:00 08/10/17 08:59 07/11/17 08:11 50 MG Lab Results Last 24 Hrs: 07/09/17 13:46 Red Blood Count 5.26, Mean Corpuscular Volume 81.9, Mean Corpuscular Hemoglobin 29.1, Mean Corpuscular Hemoglobin Concent 35.5, Mean Platelet Volume 9.6, Neutrophils (%) (Auto) 66.9, Lymphocytes (%) (Auto) 22.7, Monocytes (%) (Auto) 8.5, Eosinophils (%) (Auto) 1.1, Basophils (%) (Auto) 0.3, Neutrophils # (Auto) 5.05, Lymphocytes # (Auto) 1.71, Monocytes # (Auto) 0.64, Eosinophils # (Auto) 0.08, Basophils # (Auto) 0.02 07/09/17 13:58 Test 07/09/17 13:31 07/09/17 13:46 07/09/17 13:58 Urine Color DK YELLOW Urine Appearance CLEAR (CLEAR) Urine pH 6.5 (4.5-7.5) Urine Specific [place] 1.025 (1.000-1.030) Urine Protein NEG (NEG) Urine Glucose (UA) NEG (NEG) Urine Ketones NEG (NEG) Urine Occult Blood TRACE (NEG) Urine Nitrite NEG (NEG) Urine Bilirubin NEG (NEG) Urine Urobilinogen NEG (NEG) Urine Leukocyte Esterase NEG (NEG) Urine WBC (Auto) 1-5 /hpf (0-5) Urine RBC (Auto) 0-4 /hpf (0-4) Urine Hyaline Casts (Auto) 1-5 /lpf (0-5) Urine Epithelial Cells (Auto) 5-10 /lpf (0-5) Urine Bacteria (Auto) NEG (NEG) Urine Opiates Screen NEG (NEG) Urine Methadone, Qualitative NEG (NEG) Urine Barbiturates NEG (NEG) Urine Phencyclidine (PCP) Level NEG (NEG) Ur Amphetamine/Methamphetamine NEG (NEG) MDMA (Ecstasy) Screen NEG (NEG) Urine Benzodiazepines Screen NEG (NEG) Urine Cocaine Metabolite NEG (NEG) Urine Marijuana (THC) NEG (NEG) White Blood Count 7.54 K/uL (4.8-10.8) Red Blood Count 5.26 M/uL (4.7-6.1) Hemoglobin 15.3 g/dL (14.0-18.0) Hematocrit 43.1 % (42-52) Mean Corpuscular Volume 81.9 fL (80-100) Mean Corpuscular Hemoglobin 29.1 pg (25-34) Mean Corpuscular Hemoglobin Concent 35.5 g/dl (32-36) Platelet Count 195 K/uL (130-400) Mean Platelet Volume 9.6 fL (7.4-10.4) Neutrophils (%) (Auto) 66.9 % Lymphocytes (%) (Auto) 22.7 % Monocytes (%) (Auto) 8.5 % Eosinophils (%) (Auto) 1.1 % Basophils (%) (Auto) 0.3 % Neutrophils # (Auto) 5.05 K/uL (1.4-6.5) Lymphocytes # (Auto) 1.71 K/uL (1.2-3.4) Monocytes # (Auto) 0.64 K/uL (0.11-0.59) Eosinophils # (Auto) 0.08 K/uL (0-0.5) Basophils # (Auto) 0.02 K/uL (0-0.2) RDW Standard Deviation 41.1 fL (36.4-46.3) RDW Coefficient of Variation 13.7 % (11.5-14.5) Immature Granulocyte % (Auto) 0.5 % Immature Granulocyte # (Auto) 0.04 K/uL (0.00-0.02) Anion Gap 8.0 mmol/L (3-11) Est Creatinine Clear Calc Drug Dose 174.3 ml/min Estimated GFR () 144.1 Estimated GFR (Non- 124.3 BUN/Creatinine Ratio 21.9 (10-20) Calcium Level 9.1 mg/dl (8.5-10.1) Total Bilirubin 0.3 mg/dl (0.2-1) Aspartate Amino Transf (AST/SGOT) 14 U/L (15-37) Alanine Aminotransferase (ALT/SGPT) 25 U/L (12-78) Alkaline Phosphatase 88 U/L (45-117) Total Protein 6.8 gm/dl (6.4-8.2) Albumin 3.7 gm/dl (3.4-5.0) Globulin 3.1 gm/dl (2.5-4.0) Albumin/Globulin Ratio 1.2 (0.9-2) Thyroid Stimulating Hormone (TSH) 0.803 uIu/ml (0.300-4.500) Salicylates Level 2.7 mg/dl (2.8-20) Acetaminophen Level < 2 ug/ml (10-30) Ethyl Alcohol mg/dL < 3.0 mg/dl (0-3)
[2017-07-11] MEDS ORDERED: NICOTINE 21 MG/24 HR TDSY TD ONE (12:01)
[2017-07-11] MEDS: DIVALPROEX 500 MG EXTENDED RELEASE TAB PO SCH (20:40)
[2017-07-12 06:46] VITALS: BP_SYST 143; BP_SYST 149; BP_DIAS 102; BP_DIAS 96; PULSE 80; PULSE 81; TEMP 36.9
[2017-07-12] MEDS: SERTRALINE HCL 50 MG TAB PO SCH (08:22)
[2017-07-12] MEDS: METOPROLOL TARTRATE 50 MG TAB PO SCH (08:22)
[2017-07-12] MEDS: NICOTINE 21 MG/24 HR TDSY TD SCH ×2 (08:22→09:00)
[2017-07-12] MEDS: LISINOPRIL 20 MG TAB PO SCH (08:22)
[2017-07-12] MEDS ORDERED: SERT50TA PO (10:56)
[2017-07-12] MEDS ORDERED: LISI-725 PO (10:56)
[2017-07-12] MEDS ORDERED: DPKSR/500 PO (10:56)
[2017-07-12] MEDS ORDERED: METO50TA17 PO (10:56)
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
== END 2017-07-12 11:50 | disposition home or self-care (01) | DRG 885 ==
LOC: EDBD 13:26 → C.EDA 13:27 → C.MHU 07-10 11:54
PROVIDERS: ADMIT Psychiatry & Neurology Child & Adolescent Psychiatry; ATTEND Psychiatry & Neurology Child & Adolescent Psychiatry
DX: F25.0 Schizoaffective disorder, bipolar type (principal); R45.851 Suicidal ideations; R45.850 Homicidal ideations; F60.2 Antisocial personality disorder; E11.9 Type 2 diabetes mellitus without complications; F43.10 Post-traumatic stress disorder, unspecified; F17.200 Nicotine dependence, unspecified, uncomplicated; G40.909 Epilepsy, unspecified, not intractable, without status epilepticus; F12.10 Cannabis abuse, uncomplicated; I10 Essential (primary) hypertension; Z91.14 Patient's other noncompliance with medication regimen; Z88.8 Allergy status to other drugs, medicaments and biological substances; Z59.0 Homelessness

== ENCOUNTER 2017-08-25 11:03 | Emergency (ER) | payer OTHER ==
[~2017-08-25] VITALS: Ht 170.2 cm; Wt 116.6 kg
[~2017-08-25 11:03] MED LIST changes: +DPKSR/500 PO; -INVEGA INJECTION IM; +LISI-725 PO; +METO50TA17 PO; -ONDA4TAB10 SL; +SERT50TA PO
[2017-08-25 11:05] VITALS: TEMP 37; Ht 170.2 cm; Wt 116.6 kg
[2017-08-25] MEDS ORDERED: KETOROLAC TROMETHAMINE 30 MG/ML VIAL IV STA (11:12)
[2017-08-25] MEDS ORDERED: SODIUM CHLORIDE 0.9% 1000ML 1,000 ML IV STA (11:12)
[2017-08-25 11:41] LABS: BASO % 0.6 %; BASO ABS # 0.03 K/uL (0-0.2); EOS % 1.6 %; EOS ABS # 0.08 K/uL (0-0.5); HEMATOCRIT 42.5 % (42-52); IG# 0.03 K/uL (0.00-0.02); LYMPH % 22.6 %; LYMPH ABS # 1.15 K/uL (1.2-3.4); MEAN CELL VOLUME 81.9 fL (80-100); MEAN CORPUSCULAR HEMOGLOBIN 28.9 pg (25-34); MEAN CORPUSCULAR HGB CONC 35.3 g/dl (32-36); MEAN PLATELET VOLUME 10.1 fL (7.4-10.4); MONO % 13.2 %; MONO ABS # 0.67 K/uL (0.11-0.59); NEUT % 61.4 %; NEUT ABS # 3.13 K/uL (1.4-6.5); PLATELET COUNT 155 K/uL (130-400); RED CELL DISTRIBUTION WIDTH CV 13.7 % (11.5-14.5); RED CELL DISTRIBUTION WIDTH SD 41.2 fL (36.4-46.3); WHITE BLOOD COUNT 5.09 K/uL (4.8-10.8)
[2017-08-25] MEDS ORDERED: RSP2 PO (11:49)
[2017-08-25 11:59] LABS: ALBUMIN 3.8 gm/dl (3.4-5.0); ALT/SGPT 32 U/L (12-78); AST/SGOT 14 U/L (15-37); BLOOD UREA NITROGEN 11 mg/dl (7-18); CALCIUM 9.1 mg/dl (8.5-10.1); CARBON DIOXIDE 27 mmol/L (21-32); CREATININE 0.65 mg/dl (0.60-1.40); GLUCOSE 97 mg/dl (70-99); LIPASE 130 U/L (73-393); POTASSIUM 3.8 mmol/L (3.5-5.1); SODIUM 142 mmol/L (136-145)
[2017-08-25 12:02] LABS: ALKALINE PHOSPHATASE 110 U/L (45-117); TOTAL PROTEIN 6.9 gm/dl (6.4-8.2)
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
--- NOTE | 2017-08-25 12:49 | DIAGNOSTIC IMAGING REPORT ---
LUMBAR SPINE 2 OR 3 VIEWS HISTORY: 37 years-old Male lower back pain acute low back pain COMPARISON: None available TECHNIQUE: 3 views of the lumbar spine FINDINGS: No acute fracture, subluxation or significant degenerative changes. Minimal posterior intervertebral disc space narrowing at L5-S1. The imaged soft tissues are unremarkable. IMPRESSION: No acute fracture or subluxation. The above report was generated using voice recognition software. It may contain grammatical, syntax or spelling errors. Electronically signed by: Prem Carreon M.D. 08/25/2017 12:47 PM Dictated Date/Time: 08/25/2017 12:46 PM
[2017-08-25 13:50] VITALS: BP 150/100; PULSE 75; O2SAT 98
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
== END 2017-08-25 14:02 | disposition home or self-care (01) ==
LOC: EDBD 11:03 → C.EDC 11:04
DX: R51 Headache (principal); G40.909 Epilepsy, unspecified, not intractable, without status epilepticus; E11.9 Type 2 diabetes mellitus without complications; I10 Essential (primary) hypertension; F25.0 Schizoaffective disorder, bipolar type; F17.200 Nicotine dependence, unspecified, uncomplicated; Z88.8 Allergy status to other drugs, medicaments and biological substances; Z79.899 Other long term (current) drug therapy

== ENCOUNTER 2017-09-06 02:42 | Emergency (ER) | payer OTHER ==
[~2017-09-06] VITALS: Ht 167.6 cm; Wt 102.5 kg
[~2017-09-06 02:42] MED LIST changes: -LISI-725 PO; -METO50TA17 PO; +RSP2 PO
--- NOTE | 2017-09-06 02:52 | EMERGENCY ROOM VISIT NOTE ---
History Report prepared by Henok: [place] Under the Supervision of: Dr. Estuardo Peralta M.D. First contact with patient: 02:43 Chief Complaint: MENTAL HEALTH EVALUATION Stated Complaint: MENTAL HEALTH History of Present Illness The patient is a 37 year old male who presents to the Emergency Room for a mental health evaluation. The patient states he is suicidal and that he has a plan. He has already accepted admission to [place]. He is in the ED for medical clearance. This HPI is limited. Source of History: patient Review of Systems ROS limited. Past Medical & Surgical Medical Problems: (1) Antisocial personality disorder (2) Chest pain, rule out acute myocardial infarction (3) Diabetes (4) Epileptic seizures (5) Hypertension (6) PTSD (post-traumatic stress disorder) (7) Schizoaffective disorder, bipolar type Family History Patient reports no known family medical history. Social History Smoking Status: Current Every Day Smoker Alcohol Use: none Drug Use: none Marital Status: single Housing Status: lives alone Occupation Status: unemployed Current/Historical Medications Scheduled Divalproex Sodium (Depakote Etended-Release), 1,500 MG PO HS Lisinopril (Zestril), 20 MG PO DAILY Metoprolol Succinate (Toprol Xl), 1 TAB PO DAILY Sertraline (Zoloft), 25 MG PO DAILY Scheduled PRN Ibuprofen Tab (Advil), 200-400 MG PO DIRECTED PRN for Pain or Fever Allergies Coded Allergies: Gabapentin (Verified Allergy, Severe, makes patient extremely violent, ) Risperidone (Verified Allergy, Unknown, FOAMING AT THE MOUTH, UNSTEADY GAIT, 09/06/17) Uncoded Allergies: *CLONAZEPAM (Allergy, Severe, PATIENT STATES "" THE REACTION, ) THIS IS ADDED AN UNCODED ALLERGEN TO ALLOW MAR DOCUMENTATION FOR THE SUCCESSFUL ADMINISTRATION OF LORAZEPAM. Physical Exam Vital Signs Date Time Temp Pulse Resp B/P (MAP) Pulse Ox O2 Delivery O2 Flow Rate FiO2 09/06/17 04:45 79 14 160/89 99 Room Air 09/06/17 03:18 187/145 09/06/17 02:56 36.9 88 18 202/131 94 Room Air Physical Exam GENERAL: Awake, alert, well-appearing, in no acute distress HENT: Normocephalic, atraumatic. Oropharynx unremarkable. EYES: Normal conjunctiva. Sclera non-icteric. NECK: Supple. No nuchal rigidity. FROM. No JVD. RESPIRATORY: Clear to auscultation. CARDIAC: Regular rate, normal rhythm. Extremities warm and well perfused. Pulses equal. ABDOMEN: Soft, non-distended. No tenderness to palpation. No rebound or guarding. No masses. RECTAL: Deferred. MUSCULOSKELETAL: Chest examination reveals no tenderness. The back is symmetrical on inspection without obvious abnormality. There is no CVA tenderness to palpation. No joint edema. LOWER EXTREMITIES: Calves are equal size bilaterally and non-tender. No edema. No discoloration. NEURO: Normal sensorium. No sensory or motor deficits noted. SKIN: No rash or jaundice noted. Medical Decision & Procedures Laboratory Results 09/06/17 02:56 Red Blood Count 5.50, Mean Corpuscular Volume 81.3, Mean Corpuscular Hemoglobin 30.2, Mean Corpuscular Hemoglobin Concent 37.1, Mean Platelet Volume 9.6, Neutrophils (%) (Auto) 69.3, Lymphocytes (%) (Auto) 21.0, Monocytes (%) (Auto) 8.1, Eosinophils (%) (Auto) 1.1, Basophils (%) (Auto) 0.1, Neutrophils # (Auto) 5.50, Lymphocytes # (Auto) 1.67, Monocytes # (Auto) 0.64, Eosinophils # (Auto) 0.09, Basophils # (Auto) 0.01 09/06/17 02:56 Test 09/06/17 02:47 09/06/17 02:56 Urine Color YELLOW Urine Appearance CLEAR (CLEAR) Urine pH 6.5 (4.5-7.5) Urine Specific [place] 1.006 (1.000-1.030) Urine Protein NEG (NEG) Urine Glucose (UA) NEG (NEG) Urine Ketones NEG (NEG) Urine Occult Blood NEG (NEG) Urine Nitrite NEG (NEG) Urine Bilirubin NEG (NEG) Urine Urobilinogen NEG (NEG) Urine Leukocyte Esterase NEG (NEG) Urine Opiates Screen NEG (NEG) Urine Methadone, Qualitative NEG (NEG) Urine Barbiturates NEG (NEG) Urine Phencyclidine (PCP) Level NEG (NEG) Ur Amphetamine/Methamphetamine NEG (NEG) MDMA (Ecstasy) Screen NEG (NEG) Urine Benzodiazepines Screen NEG (NEG) Urine Cocaine Metabolite NEG (NEG) Urine Marijuana (THC) NEG (NEG) White Blood Count 7.94 K/uL (4.8-10.8) Red Blood Count 5.50 M/uL (4.7-6.1) Hemoglobin 16.6 g/dL (14.0-18.0) Hematocrit 44.7 % (42-52) Mean Corpuscular Volume 81.3 fL (80-100) Mean Corpuscular Hemoglobin 30.2 pg (25-34) Mean Corpuscular Hemoglobin Concent 37.1 g/dl (32-36) Platelet Count 208 K/uL (130-400) Mean Platelet Volume 9.6 fL (7.4-10.4) Neutrophils (%) (Auto) 69.3 % Lymphocytes (%) (Auto) 21.0 % Monocytes (%) (Auto) 8.1 % Eosinophils (%) (Auto) 1.1 % Basophils (%) (Auto) 0.1 % Neutrophils # (Auto) 5.50 K/uL (1.4-6.5) Lymphocytes # (Auto) 1.67 K/uL (1.2-3.4) Monocytes # (Auto) 0.64 K/uL (0.11-0.59) Eosinophils # (Auto) 0.09 K/uL (0-0.5) Basophils # (Auto) 0.01 K/uL (0-0.2) RDW Standard Deviation 41.0 fL (36.4-46.3) RDW Coefficient of Variation 13.7 % (11.5-14.5) Immature Granulocyte % (Auto) 0.4 % Immature Granulocyte # (Auto) 0.03 K/uL (0.00-0.02) Anion Gap 9.0 mmol/L (3-11) Est Creatinine Clear Calc Drug Dose 169.2 ml/min Estimated GFR () 142.3 Estimated GFR (Non- 122.8 BUN/Creatinine Ratio 14.8 (10-20) Calcium Level 8.9 mg/dl (8.5-10.1) Total Bilirubin 0.5 mg/dl (0.2-1) Direct Bilirubin < 0.1 mg/dl (0-0.2) Aspartate Amino Transf (AST/SGOT) 16 U/L (15-37) Alanine Aminotransferase (ALT/SGPT) 34 U/L (12-78) Alkaline Phosphatase 97 U/L (45-117) Total Protein 7.8 gm/dl (6.4-8.2) Albumin 3.8 gm/dl (3.4-5.0) Thyroid Stimulating Hormone (TSH) 1.420 uIu/ml (0.300-4.500) Valproic Acid (Depakene) Level 94 mcg/ml (50-100) Ethyl Alcohol mg/dL < 3.0 mg/dl (0-3) Labs reviewed by ED physician. Medications Administered Medications (Trade) Dose Ordered Sig/Jennifer Route Start Time Stop Time Status Last Admin Dose Admin Ibuprofen (Motrin Tab) 600 mg NOW STAT PO 09/06/17 03:08 09/06/17 03:09 DC 09/06/17 03:08 600 MG Metoprolol Tartrate (Lopressor Tab) 50 mg NOW STAT PO 09/06/17 04:42 09/06/17 04:43 DC 09/06/17 04:55 50 MG Lisinopril (Zestril Tab) 20 mg STK-MED ONCE .ROUTE 09/06/17 04:47 09/06/17 04:48 DC 09/06/17 04:56 20 MG ED Course 0245: Past medical records reviewed. The patient was evaluated in room A7. A complete history and physical examination was performed. 0308: Motrin Tab 600 mg PO. Medical Decision Differential diagnosis: Etiologies such as mood disorder, infection, hypoglycemia, electrolyte abnormalities, cardiac sources, intracerebral event, toxicologic, neurologic, as well as others were entertained. This is a 37-year-old male who comes here for because he is suicidal and wants to sign himself in. He also notes that he has a plan. He was medically cleared by me as he is normal laboratory work. The patient has been accepted by [place] awaiting medical clearance. I did discuss the case with case management. Patient will be transferred to [place]. Medication Reconcilliation Current Medication List: was personally reviewed by me Impression Primary Impression: Mood disorder Scribe Attestation The scribe's documentation has been prepared under my direction and personally reviewed by me in its entirety. I confirm that the note above accurately reflects all work, treatment, procedures, and medical decision making performed by me. Departure Information Dispostion Mental Health Acute Care Prescriptions Metoprolol Succinate (TOPROL XL) 50 Mg Tab 1 TAB PO DAILY for 30 Days, #30 TAB Prov: Estuardo Peralta MD 09/06/17 Lisinopril (ZESTRIL) 20 Mg Tab 20 MG PO DAILY for 30 Days, #30 TAB Prov: Estuardo Peralta MD 09/06/17 Referrals No Doctor, Assigned (PCP) Patient Instructions [facility]
[2017-09-06 02:56] VITALS: TEMP 36.9; Ht 167.6 cm; Wt 102.5 kg
[2017-09-06] MEDS ORDERED: IBUPROFEN 600 MG TAB PO STA (03:08)
[2017-09-06 03:12] LABS: BASO % 0.1 %; BASO ABS # 0.01 K/uL (0-0.2); EOS % 1.1 %; EOS ABS # 0.09 K/uL (0-0.5); HEMATOCRIT 44.7 % (42-52); HEMOGLOBIN 16.6 g/dL (14.0-18.0); IG# 0.03 K/uL (0.00-0.02); LYMPH ABS # 1.67 K/uL (1.2-3.4); MEAN CELL VOLUME 81.3 fL (80-100); MEAN CORPUSCULAR HEMOGLOBIN 30.2 pg (25-34); MEAN CORPUSCULAR HGB CONC 37.1 g/dl (32-36); MEAN PLATELET VOLUME 9.6 fL (7.4-10.4); MONO % 8.1 %; MONO ABS # 0.64 K/uL (0.11-0.59); NEUT % 69.3 %; PLATELET COUNT 208 K/uL (130-400); RED CELL DISTRIBUTION WIDTH CV 13.7 % (11.5-14.5); WHITE BLOOD COUNT 7.94 K/uL (4.8-10.8)
[2017-09-06] MEDS ORDERED: SERT25TA PO (03:12)
[2017-09-06] MEDS ORDERED: IBUP-103 PO (03:12)
[2017-09-06] MEDS ORDERED: DPKSR/500 PO (03:12)
[2017-09-06 03:41] LABS: ALBUMIN 3.8 gm/dl (3.4-5.0); ALKALINE PHOSPHATASE 97 U/L (45-117); ALT/SGPT 34 U/L (12-78); AST/SGOT 16 U/L (15-37); BLOOD UREA NITROGEN 10 mg/dl (7-18); CALCIUM 8.9 mg/dl (8.5-10.1); CARBON DIOXIDE 26 mmol/L (21-32); CREATININE 0.67 mg/dl (0.60-1.40); GLUCOSE 92 mg/dl (70-99); POTASSIUM 3.7 mmol/L (3.5-5.1); SODIUM 141 mmol/L (136-145); TOTAL PROTEIN 7.8 gm/dl (6.4-8.2)
[2017-09-06] MEDS ORDERED: METOPROLOL TARTRATE 50 MG TAB PO STA (04:42)
[2017-09-06] MEDS ORDERED: LISINOPRIL 20 MG TAB PO STA (04:42)
[2017-09-06] MEDS ORDERED: METO-452 PO (04:45)
[2017-09-06] MEDS ORDERED: LISI-792 PO (04:45)
[2017-09-06] MEDS ORDERED: LISINOPRIL 5 MG TAB ONE (04:47)
[2017-09-06 07:40] VITALS: BP 140/94; PULSE 70; O2SAT 95
== END 2017-09-06 07:40 ==
LOC: EDBD 02:42 → C.EDA 02:43
DX: Z00.8 Encounter for other general examination (principal); F39 Unspecified mood [affective] disorder; R45.851 Suicidal ideations; F17.210 Nicotine dependence, cigarettes, uncomplicated; Z79.899 Other long term (current) drug therapy; Z88.8 Allergy status to other drugs, medicaments and biological substances

== ENCOUNTER 2021-11-18 17:16 | Inpatient (IN) ==
[2021-11-18 18:31] LABS: Appearance Urine Cloudy (Clear); Bacteria Urine Automated Negative (Negative); Bilirubin Urine Negative (Negative); Blood Urine 2+ (Negative); Color Urine Dark Yellow; Glucose Urine UA Negative (Negative); Ketones Urine Negative (Negative); Leukocyte Esterase Urine Negative (Negative); Nitrite Urine Negative (Negative); Protein Urine Negative (Negative); RBC Urine Automated >30 /hpf (0-4); Specific Gravity Urine 1.026 (1.000-1.030); Urobilinogen Urine Negative (Negative); pH Urine 6.5 (4.5-7.5)
--- NOTE | 2021-11-18 18:35 | Emergency Department Note ---
History of Present Illness General Chief complaint: Mental Health Evaluation Stated complaint: suicidal ideation Time Seen by Provider: 11/18/21 18:20 Source: patient, RN notes reviewed and old records reviewed Mode of arrival: ambulatory Limitations: no limitations History of Present Illness Maximum Pain Intensity: 8 This patient is a 41-year-old male who comes in here for mental health help. He tells me that his ship's officer wants him to go to rehab but he thinks he should get mental health help first he started using drugs again lately 2 days ago he said he used meth marijuana and 1 shot of heroin. He denies that he is use any alcohol for 1 week. He has a history of seizure disorder mostly in the setting of using alcohol or drugs he says and he last had a seizure 1 week ago he tells me is on Keppra for this. He did run out of some of his medications for his mental health recently. He denies any recent overdose he denies any aspirin or alcohol ingestion he is chronic back pain from where he broke it in the past denies fever chills he has chronic asthma and COPD but his breathing is been stable he said suicidal ideations he said 1 week ago he got mad and started hitting things and he has a history of bipolar. He feels he needs inpatient treatment. Home Medications Medication Instructions Recorded Confirmed Type divalproex 500 mg tablet,extended 500 mg PO TID 02/14/19 11/18/21 History release 24 hr amlodipine 5 mg tablet 5 mg PO BID 11/30/20 11/18/21 History aripiprazole 10 mg tablet 10 mg PO DAILY 06/17/21 11/18/21 History atenolol 50 mg tablet 50 mg PO DAILY 06/17/21 11/18/21 History famotidine 20 mg tablet (Pepcid) 20 mg UNKNOWN 11/18/21 11/18/21 History Allergies Allergy/AdvReac Type Severity Reaction Status Date / Time clonazepam Allergy Severe PATIENT Verified 06/17/21 18:48 STATES "" THE REACTION gabapentin Allergy Severe makes Verified 06/17/21 18:48 patient extremely violent risperidone Allergy Severe FOAMING AT Verified 06/17/21 18:48 THE MOUTH, UNSTEADY GAIT strawberry Allergy Intermediate Hives Verified 06/17/21 18:48 Past Med/Surg History Medical History (Updated 11/18/21 @ 23:06 by Jesus Naranjo MD) Alcohol consumption binge drinking Antisocial personality disorder Chest pain, rule out acute myocardial infarction Diabetes Epileptic seizures Headache Hypertension MDD (major depressive disorder) Methamphetamine use Nausea and vomiting Nausea, vomiting, and diarrhea PTSD (post-traumatic stress disorder) Schizoaffective disorder, bipolar type Seizure Surgical History No pertinent past surgical history No significant past surgical history Social History Smoking Status: Current every day smoker Tobacco Type: Cigarettes Hx Alcohol Use: Yes Hx Substance Use: Yes Non-Prescribed Medications: Amphetamines Non-Prescribed Medications Comment: Has not used since beginning of 2020 Preferred Language: Macedonian Feels Safe at Home: Yes Review of Systems A total of 10 systems reviewed and were otherwise negative Physical Exam Vital Signs Vital Signs - 24 hr 11/18/21 17:28 11/18/21 18:46 11/18/21 20:23 Temperature 36.6 C Temperature Source Temporal Artery Scan Pulse Rate 96 H Pulse Rate [Finger] 78 Respiratory Rate 18 14 16 Respiratory Effort / Characteristics Non-Labored Spontaneous Respiratory Depth Normal Normal Normal Respiratory Pattern Regular Blood Pressure 191/124 H Blood Pressure [Right Arm] 180/142 H Blood Pressure Mean 146 Blood Pressure Mean [Right Arm] 154 Blood Pressure Position Sitting Pulse Oximetry 97 95 95 Oxygen Delivery Method Room Air Room Air Sepsis Recent Fever Within 48 Hours No Sepsis New/Unexplained Change in Mental Status No Sepsis Action Taken by Nursing No Action Required 11/18/21 22:17 Temperature Temperature Source Pulse Rate Pulse Rate [Finger] 84 Respiratory Rate 18 Respiratory Effort / Characteristics Respiratory Depth Respiratory Pattern Blood Pressure Blood Pressure [Right Arm] 164/97 H Blood Pressure Mean Blood Pressure Mean [Right Arm] 119 Blood Pressure Position Pulse Oximetry 98 Oxygen Delivery Method Room Air Sepsis Recent Fever Within 48 Hours Sepsis New/Unexplained Change in Mental Status Sepsis Action Taken by Nursing General: Well developed well nourished middle-aged male who appears in no acute distress, breathing comfortably on room air. Normal speech HEENT: Normal cephalic atraumatic. Pupils are equal round and reactive to light. Extraocular movements are intact. Oropharynx is pink with moist mucous membranes. No swelling of the mouth lips or tongue. Neck: Supple with a midline trachea. No meningeal signs or stiffness, no JVD or bruits. No Stridor. Chest: Clear to auscultation bilaterally. No wheezes or rhonchi. No increased work of breathing. Heart: Regular rate and rhythm without murmurs or gallops. Abdomen: Soft nontender, nondistended without rebound guarding or rigidity. Extremities: No cyanosis clubbing or edema. No calf tenderness or assymetry Spine/Back. Non tender to palpation. No CVA tenderness Skin: Good turgor without rashes. Neurologic exam: Cranial nerves two through 12 are intact. Motor and sensation are intact and symmetrical throughout. Psych: His speech is somewhat rapid he answers questions appropriately. He admits to having suicidal ideations. Course Administered Medications Discontinued Medications Nicotine (Nicotine 21 Mg/24 Hr Tdsy) 21 mg TD NOW STA Stop: 11/18/21 22:59 Last Admin: 11/18/21 23:21 Dose: 21 mg Documented By: ROMARIO Medical Decision Making Differential Diagnosis Depression, anxiety, schizophrenia, toxicologic, metabolic, electrolyte or metabolic abnormality Medical Records Attestation: I reviewed the patient's medical records. Home Medications Current Medication List: was personally reviewed by me Laboratory Data Attestation: I reviewed the patient's lab results. Result diagrams: 11/18/21 18:47 11/18/21 18:47 Lab Results 11/18/21 11/18/21 11/18/21 Range/Units 18:12 18:12 18:34 WBC (4.8-10.8) K/ul RBC (4.63-6.08) M/uL Hgb (14.0-18.0) g/dl Hct (40.1-51.0) % MCV (80.0-100.0) fL MCH (25.0-34.0) pg MCHC (32.0-36.0) g/dL RDW Std Deviation (36.4-46.3) fL RDW Coeff of Franco (11.5-14.5) % Plt Count (130-400) K/uL MPV (9.4-12.4) fL Immature Gran % (Auto) % Neut % (Auto) % Lymph % (Auto) % Gilliam % (Auto) % Eos % (Auto) % Baso % (Auto) % Neut # (Auto) (1.4-6.5) K/uL Lymph # (Auto) (1.2-3.4) K/uL Gilliam # (Auto) (0.24-0.82) K/uL Eos # (Auto) (0-0.50) K/uL Baso # (Auto) (0-0.2) K/uL Immature Gran # (Auto) (0.00-0.02) K/uL Sodium (136-145) mmol/L Potassium (3.5-5.1) mmol/L Chloride (98-107) mmol/L Carbon Dioxide (21-32) mmol/L Anion Gap (3-11) BUN (6-23) mg/dl Creatinine (0.6-1.4) mg/dl Est Cr Clr Drug Dosing ml/min Est GFR ( Amer) ml/min Est GFR (Non-Af Amer) ml/min BUN/Creatinine Ratio (10-20) Glucose (70-99(Fasting)) mg/dl Calcium (8.5-10.1) mg/dl Total Bilirubin (0.2-1.0) mg/dl AST (13-39) U/L ALT (7-52) U/L Alkaline Phosphatase (34-104) U/L Total Protein (6.0-8.3) gm/dl Albumin (3.4-5.0) gm/dl Globulin (2.5-4.0) gm/dl Albumin/Globulin Ratio (0.9-2) TSH (0.300-4.500) uIu/ml Urine Color Dark Yellow Urine Appearance Cloudy A (Clear) Urine pH 6.5 (4.5-7.5) Ur Specific [place] 1.026 (1.000-1.030) Urine Protein Negative (Negative) Urine Glucose (UA) Negative (Negative) Urine Ketones Negative (Negative) Urine Blood 2+ H (Negative) Urine Nitrite Negative (Negative) Urine Bilirubin Negative (Negative) Urine Urobilinogen Negative (Negative) Ur Leukocyte Esterase Negative (Negative) Urine WBC (Auto) 1-5 (0-5) /hpf Urine RBC (Auto) >30 H (0-4) /hpf U Hyaline Cast (Auto) 1-5 (0-5) /lpf U Epithel Cells (Auto) 5-10 H (0-5) /lpf Urine Bacteria (Auto) Negative (Negative) Salicylates (3.0-30) mg/dl Urine Opiates Screen Neg (Neg) Ur Methadone, Qual Neg (Neg) Acetaminophen (10-30) ug/ml Urine Barbiturates Neg (Neg) Valproic Acid (50-100) mcg/ml Ur Phencyclidine (PCP) Neg (Neg) U Amphetamin/Meth Scrn Neg (Neg) MDMA (Ecstasy) Screen Neg (Neg) U Benzodiazepines Scrn Neg (Neg) Ur Cocaine Metabolite Neg (Neg) U Marijuana (THC) Screen Neg (Neg) Ethyl Alcohol mg/dL (<10.0) mg/dl SARS-CoV-2, RNA, NAAT POSITIVE A* (NEGATIVE) 11/18/21 11/18/21 11/18/21 Range/Units 18:39 18:47 18:47 WBC 4.39 L (4.8-10.8) K/ul RBC 4.96 (4.63-6.08) M/uL Hgb 14.0 (14.0-18.0) g/dl Hct 39.7 L (40.1-51.0) % MCV 80.0 (80.0-100.0) fL MCH 28.2 (25.0-34.0) pg MCHC 35.3 (32.0-36.0) g/dL RDW Std Deviation 40.2 (36.4-46.3) fL RDW Coeff of Franco 13.8 (11.5-14.5) % Plt Count 205 (130-400) K/uL MPV 10.2 (9.4-12.4) fL Immature Gran % (Auto) 0.2 % Neut % (Auto) 59.0 % Lymph % (Auto) 30.5 % Gilliam % (Auto) 8.9 % Eos % (Auto) 0.9 % Baso % (Auto) 0.5 % Neut # (Auto) 2.59 (1.4-6.5) K/uL Lymph # (Auto) 1.34 (1.2-3.4) K/uL Gilliam # (Auto) 0.39 (0.24-0.82) K/uL Eos # (Auto) 0.04 (0-0.50) K/uL Baso # (Auto) 0.02 (0-0.2) K/uL Immature Gran # (Auto) 0.01 (0.00-0.02) K/uL Sodium 144 (136-145) mmol/L Potassium 3.8 (3.5-5.1) mmol/L Chloride 107 (98-107) mmol/L Carbon Dioxide 30 (21-32) mmol/L Anion Gap 7 (3-11) BUN 12 (6-23) mg/dl Creatinine 0.70 (0.6-1.4) mg/dl Est Cr Clr Drug Dosing 151.6 ml/min Est GFR ( Amer) 135.9 ml/min Est GFR (Non-Af Amer) 117.2 ml/min BUN/Creatinine Ratio 17.1 (10-20) Glucose 95 (70-99(Fasting)) mg/dl Calcium 9.3 (8.5-10.1) mg/dl Total Bilirubin 0.4 (0.2-1.0) mg/dl AST 14 (13-39) U/L ALT 20 (7-52) U/L Alkaline Phosphatase 96 (34-104) U/L Total Protein 6.3 (6.0-8.3) gm/dl Albumin 4.1 (3.4-5.0) gm/dl Globulin 2.2 L (2.5-4.0) gm/dl Albumin/Globulin Ratio 1.9 (0.9-2) TSH 0.538 (0.300-4.500) uIu/ml Urine Color Urine Appearance (Clear) Urine pH (4.5-7.5) Ur Specific [place] (1.000-1.030) Urine Protein (Negative) Urine Glucose (UA) (Negative) Urine Ketones (Negative) Urine Blood (Negative) Urine Nitrite (Negative) Urine Bilirubin (Negative) Urine Urobilinogen (Negative) Ur Leukocyte Esterase (Negative) Urine WBC (Auto) (0-5) /hpf Urine RBC (Auto) (0-4) /hpf U Hyaline Cast (Auto) (0-5) /lpf U Epithel Cells (Auto) (0-5) /lpf Urine Bacteria (Auto) (Negative) Salicylates (3.0-30) mg/dl Urine Opiates Screen (Neg) Ur Methadone, Qual (Neg) Acetaminophen (10-30) ug/ml Urine Barbiturates (Neg) Valproic Acid (50-100) mcg/ml Ur Phencyclidine (PCP) (Neg) U Amphetamin/Meth Scrn (Neg) MDMA (Ecstasy) Screen (Neg) U Benzodiazepines Scrn (Neg) Ur Cocaine Metabolite (Neg) U Marijuana (THC) Screen (Neg) Ethyl Alcohol mg/dL (<10.0) mg/dl SARS-CoV-2, RNA, NAAT (NEGATIVE) 11/18/21 11/18/21 Range/Units 18:47 18:47 WBC (4.8-10.8) K/ul RBC (4.63-6.08) M/uL Hgb (14.0-18.0) g/dl Hct (40.1-51.0) % MCV (80.0-100.0) fL MCH (25.0-34.0) pg MCHC (32.0-36.0) g/dL RDW Std Deviation (36.4-46.3) fL RDW Coeff of Franco (11.5-14.5) % Plt Count (130-400) K/uL MPV (9.4-12.4) fL Immature Gran % (Auto) % Neut % (Auto) % Lymph % (Auto) % Gilliam % (Auto) % Eos % (Auto) % Baso % (Auto) % Neut # (Auto) (1.4-6.5) K/uL Lymph # (Auto) (1.2-3.4) K/uL Gilliam # (Auto) (0.24-0.82) K/uL Eos # (Auto) (0-0.50) K/uL Baso # (Auto) (0-0.2) K/uL Immature Gran # (Auto) (0.00-0.02) K/uL Sodium (136-145) mmol/L Potassium (3.5-5.1) mmol/L Chloride (98-107) mmol/L Carbon Dioxide (21-32) mmol/L Anion Gap (3-11) BUN (6-23) mg/dl Creatinine (0.6-1.4) mg/dl Est Cr Clr Drug Dosing ml/min Est GFR ( Amer) ml/min Est GFR (Non-Af Amer) ml/min BUN/Creatinine Ratio (10-20) Glucose (70-99(Fasting)) mg/dl Calcium (8.5-10.1) mg/dl Total Bilirubin (0.2-1.0) mg/dl AST (13-39) U/L ALT (7-52) U/L Alkaline Phosphatase (34-104) U/L Total Protein (6.0-8.3) gm/dl Albumin (3.4-5.0) gm/dl Globulin (2.5-4.0) gm/dl Albumin/Globulin Ratio (0.9-2) TSH (0.300-4.500) uIu/ml Urine Color Urine Appearance (Clear) Urine pH (4.5-7.5) Ur Specific [place] (1.000-1.030) Urine Protein (Negative) Urine Glucose (UA) (Negative) Urine Ketones (Negative) Urine Blood (Negative) Urine Nitrite (Negative) Urine Bilirubin (Negative) Urine Urobilinogen (Negative) Ur Leukocyte Esterase (Negative) Urine WBC (Auto) (0-5) /hpf Urine RBC (Auto) (0-4) /hpf U Hyaline Cast (Auto) (0-5) /lpf U Epithel Cells (Auto) (0-5) /lpf Urine Bacteria (Auto) (Negative) Salicylates < 3.0 L (3.0-30) mg/dl Urine Opiates Screen (Neg) Ur Methadone, Qual (Neg) Acetaminophen < 3 L (10-30) ug/ml Urine Barbiturates (Neg) Valproic Acid < 10 L (50-100) mcg/ml Ur Phencyclidine (PCP) (Neg) U Amphetamin/Meth Scrn (Neg) MDMA (Ecstasy) Screen (Neg) U Benzodiazepines Scrn (Neg) Ur Cocaine Metabolite (Neg) U Marijuana (THC) Screen (Neg) Ethyl Alcohol mg/dL < 10.0 (<10.0) mg/dl SARS-CoV-2, RNA, NAAT (NEGATIVE) MDM Narrative Patient comes in as described above he has been using drugs again and is feeling depressed and suicidal. He last used alcohol a week ago and does not appear to be acutely withdrawing. Multiple blood testing and urine was done for medical clearance as well as COVID testing. He has no acute complaints to suggest a medical issue. Blood work was unremarkable for any acute abnormalities. Nothing to suggest acute electrolyte, toxicologic, metabolic or infectious process. COVID testing was however. In light of this he will not be a low be placed in a psych facility and will be admitted here medically with a psychiatric consultation. I did consult Dr. Escobar, who promptly saw the patient in the ER for these measures. Impression & Plan COVID, Depression, Anxiety, Suicide ideation Discharge Plan Visit Data Chief Complaint: Mental Health Evaluation Stated Complaint: suicidal ideation ED Provider: Jesus Naranjo Discharge Problem: COVID, Depression, Anxiety, Suicide ideation Forms Stand Alone Forms: My [facility], Suicide Prevention Resources Prescriptions Prescriptions: No Action divalproex 500 mg Tablet Extended Release 24 Hr 500 mg PO TID Rx Instructions: LAST FILLED PER EXT MED HX WAS 11/18/20 atenolol 50 mg tablet 50 mg PO DAILY Rx Instructions: LAST FILLED PER EXT MED HX WAS 06/25/20 aripiprazole 10 mg tablet 10 mg PO DAILY Rx Instructions: LAST FILLED PER EXT MED HX WAS 06/17/20. famotidine [Pepcid] 20 mg tablet 20 mg UNKNOWN amlodipine 5 mg tablet 5 mg PO BID Rx Instructions: LAST FILLED PER EXT MED HX WAS 11/18/20 Referrals Referrals: PCP,NO [Primary Care Provider] - : Depression Qualifiers: Depression Type: other depression Qualified Code(s): F32.89 - Other specified depressive episodes
[2021-11-18 19:05] LABS: Basophils # (auto) 0.02 K/uL (0-0.2); Basophils % (auto) 0.5 %; Eosinophils # (auto) 0.04 K/uL (0-0.50); Eosinophils % (auto) 0.9 %; Hematocrit (blood only) 39.7 % (40.1-51.0); Immature Granulocytes # (auto) 0.01 K/uL (0.00-0.02); Immature Granulocytes % (auto) 0.2 %; Lymphocytes # (auto) 1.34 K/uL (1.2-3.4); Lymphocytes % (auto) 30.5 %; Mean Corpuscular Hemoglobin 28.2 pg (25.0-34.0); Mean Corpuscular Hgb Conc 35.3 g/dL (32.0-36.0); Mean Platelet Volume 10.2 fL (9.4-12.4); Monocytes # (auto) 0.39 K/uL (0.24-0.82); Monocytes % (auto) 8.9 %; Neutrophils # (auto) 2.59 K/uL (1.4-6.5); Platelet Count 205 K/uL (130-400); RDW Coefficient of Variation 13.8 % (11.5-14.5); RDW Standard Deviation 40.2 fL (36.4-46.3); Red Blood Count 4.96 M/uL (4.63-6.08); White Blood Count 4.39 K/ul (4.8-10.8)
[2021-11-18 19:30] LABS: Albumin Globulin Ratio 1.9 (0.9-2); Albumin Level 4.1 gm/dl (3.4-5.0); BUN Creatinine Ratio 17.1 (10-20); Bilirubin,Total 0.4 mg/dl (0.2-1.0); Calcium 9.3 mg/dl (8.5-10.1); Creatinine Clr Calc Pharmacy 151.6 ml/min; Est GFR (African American) 135.9 ml/min; Est GFR (Non-African American) 117.2 ml/min; Globulin 2.2 gm/dl (2.5-4.0); Potassium 3.8 mmol/L (3.5-5.1); Total Protein 6.3 gm/dl (6.0-8.3)
[2021-11-18 19:31] LABS: Acetaminophen < 3 ug/ml (10-30); Salicylate < 3.0 mg/dl (3.0-30); Valproic Acid < 10 mcg/ml (50-100)
[2021-11-18 20:18] LABS: Amphetamines+Metham, Urine Neg (Neg); Barbiturates, Urine Neg (Neg); Benzodiazepine, Urine Neg (Neg); Cocaine, Urine Neg (Neg); MDMA (Ecstacy), Urine Neg (Neg); Methadone, Urine Neg (Neg); Opiate, Urine Neg (Neg); Phencyclidine, Urine Neg (Neg)
[2021-11-18] MEDS ORDERED: NICOTINE 21 MG/24 HR TDSY TD STA (22:58)
--- NOTE | 2021-11-18 23:44 | History and Physical Report ---
DATE OF ADMISSION: 11/18/2021. CHIEF COMPLAINT: Suicidal ideation, COVID positive. HISTORY OF PRESENT ILLNESS: This is a 41-year-old male with past medical history significant for hypertension, seizures, schizophrenia, PTSD, depression, bipolar, who comes for mental health help. Says he was using drugs lately, he was using meth, marijuana and one shot of heroin a few days back and also says about one week ago, he drank alcohol 48 beers in 2 days. He has a history of seizures, mostly from alcohol and drugs, and he takes medication for that. He says he has chronic asthma and he states he is smoking 3-4 packs of cigarettes daily and asking for nicotine patch. He says he is on probation since December last year and his lead security officer told him to go to rehab, but because, lately using drugs having suicidal ideation he wanted mental health help before going to rehab and in the ER, he was found to be COVID positive. He says he has some cough possibly from COVID or from his asthma, has some runny nose. No sore throat. Appetite is not that great. Denies any headache. No blurred visions. He says he has some mild chest pain, but he says it is from his anxiety. No shortness of breath, no nausea, no abdominal pain. Normal bowel and bladder movements. He says he is not COVID vaccinated.Also he says he had thoughts of hurting one woman. ALLERGIES: KLONOPIN, GABAPENTIN, RISPERIDONE, STRAWBERRY. PAST MEDICAL HISTORY: As mentioned above. PAST SURGICAL HISTORY: Unknown at this time. FAMILY HISTORY: Unknown. SOCIAL HISTORY: He says he drinks, smokes 3-4 packs of cigarettes daily, drank alcohol last week, did meth, marijuana and heroin a few days back. REVIEW OF SYSTEMS: As per HPI. Rest of review of systems is negative. PHYSICAL EXAMINATION: GENERAL: The patient is of moderate build, not in acute distress. VITAL SIGNS: Temperature 36.6, pulse 84, respiratory rate 16, blood pressure 167/94, oxygen 95% on room air. HEENT: Atraumatic. No facial droop seen. NECK: No JVD. No neck masses. CARDIOVASCULAR: S1 and S2 heard. Regular rate and rhythm. No murmur, no gallop. RESPIRATORY SYSTEM: Normal AP diameter. No accessory muscle use. No wheezing or crackles. ABDOMEN: Soft, bowel sounds present, nontender, no distention. CENTRAL NERVOUS SYSTEM: Alert and oriented. Speech is clear. No facial droop. Obeys simple commands. Moves extremities. EXTREMITIES: No edema, no erythema. LABORATORY DATA: WBC 4.3, hemoglobin 14, hematocrit 39.7, platelets 205. Sodium 144, potassium 3.8, chloride 107, bicarbonate 20, BUN 12, creatinine 0.7, serum glucose 95, calcium 9.3, total bilirubin 0.4, AST 14, ALT 20, alkaline phosphatase 96. TSH 0.5. Urinalysis cloudy, +2 blood. Urine drug screen, salicylate level less than 3, acetaminophen less than 3, valproic acid less than 10, alcohol less than 10. SARS-CoV-2 rapid test positive. ASSESSMENT AND PLAN: This is a 41-year-old male who presents with mental health problem and found to be COVID positive. 1. COVID positive. The patient is not vaccinated, saturating fine on room air. We will follow chest x-ray in the a.m. Isolation precautions for COVID. 2. Hypertension. Continue his amlodipine, atenolol. We will place him on IV hydralazine p.r.n. Monitor the blood pressure. 3. History of seizures. Continue his home med?. Seems had seizure last week. Will consult neurology. 4. History of bipolar depression, post-traumatic stress disorder, schizophrenia. Continue his home medications. Psychiatry consult. 5. Current suicidal ideation. One-on-one observation ,Suicidal precautions,safe tray. Await psychiatry input. 6. Alcoholism and drug abuse. The patient is allergic to gabapentin and Klonopin. We will place him on thiamine and folic acid. We will monitor for any withdrawals. 7. Deep venous thrombosis prophylaxis: Lovenox. DISPOSITION: Closely monitor in the med-tele. Level 1, full code. Expect to discharge to mental health unit when stable. Job ID: [id number] [facility]
[2021-11-19] MEDS ORDERED: MULTI-VITAMIN INFUSION 10 ML, THIAMINE HCL 100 MG, FOLIC ACID 1 MG in SODIUM CHLORIDE 0... IV ONE (00:21)
[2021-11-19] MEDS ORDERED: ALBUTEROL HFA 8 GM INHALER INH PRN (00:21)
[2021-11-19] MEDS ORDERED: SODIUM CHLORIDE 0.45 % 1,000 ML IV SCH (00:21)
[2021-11-19] MEDS ORDERED: NITROGLYCERIN SL 0.4 MG/TAB TAB SL PRN (00:21)
[2021-11-19] MEDS: amLODIPine BESYLATE 5 MG TAB PO SCH ×2 (01:55→09:45)
[2021-11-19] MEDS: hydrALAZINE HCL 20 MG/ML VIAL IV PRN (04:16)
[2021-11-19] MEDS: FOLIC ACID 1 MG TAB PO SCH ×2 (05:57→09:45)
[2021-11-19] MEDS: THIAMINE HCL 100 MG TAB PO SCH ×2 (05:57→09:45)
--- NOTE | 2021-11-19 06:23 | Communication Note ---
Date of Service: November 19, 2021 Needs to confirm medications patient is on. Thanks
[2021-11-19 06:54] LABS: Basophils # (auto) 0.03 K/uL (0-0.2); Basophils % (auto) 0.5 %; Eosinophils # (auto) 0.11 K/uL (0-0.50); Eosinophils % (auto) 1.7 %; Hematocrit (blood only) 43.1 % (40.1-51.0); Hemoglobin 14.9 g/dl (14.0-18.0); Immature Granulocytes # (auto) 0.01 K/uL (0.00-0.02); Immature Granulocytes % (auto) 0.2 %; Lymphocytes # (auto) 1.28 K/uL (1.2-3.4); Mean Corpuscular Hemoglobin 27.9 pg (25.0-34.0); Mean Corpuscular Hgb Conc 34.6 g/dL (32.0-36.0); Mean Corpuscular Volume 80.7 fL (80.0-100.0); Monocytes # (auto) 0.54 K/uL (0.24-0.82); Monocytes % (auto) 8.4 %; Neutrophils # (auto) 4.44 K/uL (1.4-6.5); Neutrophils % (auto) 69.2 %; Platelet Count 190 K/uL (130-400); RDW Coefficient of Variation 13.5 % (11.5-14.5); RDW Standard Deviation 39.4 fL (36.4-46.3); Red Blood Count 5.34 M/uL (4.63-6.08); White Blood Count 6.41 K/ul (4.8-10.8)
--- NOTE | 2021-11-19 07:19 | XRay Report ---
XR chest 1V portable HISTORY: 41 years-old Male covid acute shortness of breath COMPARISON: 01/23/2017 TECHNIQUE: AP view of the chest FINDINGS: The cardiac silhouette is enlarged. No pneumothorax, large pleural effusion or overt pulmonary edema. Mild linear right basilar consolidation with right hemidiaphragmatic elevation. The bones appear yeimi ssly intact. IMPRESSION: Mild linear right basilar consolidation suggests atelectasis. ACT 112: Negative or not required by law. The above report was generated using voice recognition software. It may contain grammatical, syntax o r spelling errors. Electronically signed by: Joseluis Carreon M.D. 11/19/2021 7:17 AM
[2021-11-19 07:30] LABS: Troponin I High Sensitivity 5.5 pg/ml (0-20)
--- NOTE | 2021-11-19 07:36 | Hospitalist Progress Note ---
Date of Service November 19, 2021 Assessment & Plan (1) Suicide ideation: (2) Polysubstance abuse: (3) COVID: Plan: This is a 41-year-old male who presents with mental health problem and found to be COVID positive. 1. COVID positive. The patient is not vaccinated, saturating fine on room air.chest x-ray unremarkable. Isolation precautions for COVID. 2. Hypertension. Continue his amlodipine, atenolol. We will place him on IV hydralazine p.r.n. Monitor the blood pressure. 3. History of seizures. Continue his home med?. Seems had seizure last week. Neurology consulted -Depakote 1000 mg now, then continue home dose. Check level in about a week. CBC, hepatic, Depakote level should be checked every 6 months or so. This patient gives a longstanding history of seizures, which he reports as being related to drug and alcohol use, although he indicates that he has clearly had seizures without alcohol withdrawal. It sounds as if the patient has done well on Depakote and this could be helpful psychiatrically as well. Given that he has essentially no detectable Depakote in his blood, I would recommend giving him Depakote 1000 mg p.o. x1 now and continuing with home dose and checking the level in about a week. His primary care provider is located in [place] and apparently has been providing his anticonvulsants. I think that is reasonable to continue to do so. 4. History of bipolar depression, post-traumatic stress disorder, schizophrenia . Continue his home medications. Psychiatry consulted 5. Current suicidal ideation. One-on-one observation ,Suicidal precautions,safe tray. Psychiatry consulted, plan for Invega trial, instead of Abilify 6. Alcoholism and drug abuse. The patient is allergic to gabapentin and Klonopin. We will place him on thiamine and folic acid. We will monitor for any withdrawals. DVT prophylaxis: Lovenox. DISPOSITION: Closely monitor in the med-tele.full code. Expect to discharge to mental health unit when stable. Admission and Anticipated Discharge Date Admission Date: November 18, 2021 Subjective Patient seen for follow-up of SI, found covid 19 positive Currently laying in bed, in no acute distress He is cooperative Alert oriented answering questions appropriately He has no respiratory symptoms, no complaints No fevers, chills, chest pain, shortness of breath, minimal occasional cough (reports hx of asthma) Review of Systems Review of Systems: All systems reviewed & are unremarkable except as noted in Subjective Physical Exam Physical Exam: GENERAL: The patient is of moderate build, not in acute distress. HEENT: NC/Atraumatic. No facial droop seen. NECK: No JVD. No neck masses. CARDIOVASCULAR: S1 and S2 heard. Regular rate and rhythm. No murmur, no gallop. RESPIRATORY SYSTEM: Normal AP diameter. No accessory muscle use. No wheezing or crackles. ABDOMEN: Soft, bowel sounds present, nontender, no distention. NEURO: Alert and oriented. Speech is clear. No facial droop. Obeys simple commands. Moves extremities. Cooperative. EXTREMITIES: No edema, no erythema. Results & Data Results & Data ([facility]) Vital Signs (Past 12 Hours) Vital Signs Pulse Pulse Resp BP BP Pulse Ox Pulse Ox 11/19/21 07:10 82 18 154/119 H 95 11/19/21 06:11 80 20 169/119 H 95 11/19/21 05:34 82 20 161/120 H 97 11/19/21 04:39 82 20 116/116 H 98 11/19/21 04:18 80 20 187/111 H 96 11/19/21 02:30 80 20 162/108 H 96 11/19/21 02:33 97 11/19/21 01:14 87 20 163/109 H 98 11/18/21 22:17 84 18 164/97 H 98 11/18/21 20:23 78 16 180/142 H 95 O2 Del Method 11/19/21 07:10 Room Air 11/19/21 06:11 Room Air 11/19/21 05:34 Room Air 11/19/21 04:39 Room Air 11/19/21 04:18 Room Air 11/19/21 02:30 11/19/21 02:33 11/19/21 01:14 11/18/21 22:17 Room Air 11/18/21 20:23 Room Air Laboratory Results 11/19/21 11/19/21 11/19/21 Range/Units 06:07 06:07 06:07 WBC 6.41 (4.8-10.8) K/ul RBC 5.34 (4.63-6.08) M/uL Hgb 14.9 (14.0-18.0) g/dl Hct 43.1 (40.1-51.0) % MCV 80.7 (80.0-100.0) fL MCH 27.9 (25.0-34.0) pg MCHC 34.6 (32.0-36.0) g/dL RDW Std Deviation 39.4 (36.4-46.3) fL RDW Coeff of Franco 13.5 (11.5-14.5) % Plt Count 190 (130-400) K/uL MPV 10.0 (9.4-12.4) fL Immature Gran % (Auto) 0.2 % Neut % (Auto) 69.2 % Lymph % (Auto) 20.0 % [place] % (Auto) 8.4 % Eos % (Auto) 1.7 % Baso % (Auto) 0.5 % Neut # (Auto) 4.44 (1.4-6.5) K/uL Lymph # (Auto) 1.28 (1.2-3.4) K/uL [place] # (Auto) 0.54 (0.24-0.82) K/uL Eos # (Auto) 0.11 (0-0.50) K/uL Baso # (Auto) 0.03 (0-0.2) K/uL Immature Gran # (Auto) 0.01 (0.00-0.02) K/uL Sodium Pending (136-145) mmol/L Potassium Pending (3.5-5.1) mmol/L Chloride Pending (98-107) mmol/L Carbon Dioxide Pending (21-32) mmol/L Anion Gap Pending (3-11) BUN Pending (6-23) mg/dl Creatinine Pending (0.6-1.4) mg/dl Est Cr Clr Drug Dosing Pending ml/min Est GFR ( Amer) Pending ml/min Est GFR (Non-Af Amer) Pending ml/min BUN/Creatinine Ratio Pending (10-20) Glucose Pending (70-99(Fasting)) mg/dl Calcium Pending (8.5-10.1) mg/dl Magnesium Pending Total Bilirubin Pending (0.2-1.0) mg/dl Direct Bilirubin Pending AST Pending (13-39) U/L ALT Pending (7-52) U/L Alkaline Phosphatase Pending (34-104) U/L Troponin I High Sens 5.5 (0-20) pg/ml Total Protein Pending (6.0-8.3) gm/dl Albumin Pending (3.4-5.0) gm/dl Globulin (2.5-4.0) gm/dl Albumin/Globulin Ratio (0.9-2) Vitamin B12 Pending TSH (0.300-4.500) uIu/ml Urine Color Urine Appearance (Clear) Urine pH (4.5-7.5) Ur Specific [place] (1.000-1.030) Urine Protein (Negative) Urine Glucose (UA) (Negative) Urine Ketones (Negative) Urine Blood (Negative) Urine Nitrite (Negative) Urine Bilirubin (Negative) Urine Urobilinogen (Negative) Ur Leukocyte Esterase (Negative) Urine WBC (Auto) (0-5) /hpf Urine RBC (Auto) (0-4) /hpf U Hyaline Cast (Auto) (0-5) /lpf U Epithel Cells (Auto) (0-5) /lpf Urine Bacteria (Auto) (Negative) Salicylates (3.0-30) mg/dl Urine Opiates Screen (Neg) Ur Methadone, Qual (Neg) Acetaminophen (10-30) ug/ml Urine Barbiturates (Neg) Valproic Acid (50-100) mcg/ml Ur Phencyclidine (PCP) (Neg) U Amphetamin/Meth Scrn (Neg) MDMA (Ecstasy) Screen (Neg) U Benzodiazepines Scrn (Neg) Ur Cocaine Metabolite (Neg) U Marijuana (THC) Screen (Neg) Ethyl Alcohol mg/dL (<10.0) mg/dl SARS-CoV-2, RNA, NAAT (NEGATIVE) 11/18/21 11/18/21 11/18/21 Range/Units 23:53 18:47 18:47 WBC (4.8-10.8) K/ul RBC (4.63-6.08) M/uL Hgb (14.0-18.0) g/dl Hct (40.1-51.0) % MCV (80.0-100.0) fL MCH (25.0-34.0) pg MCHC (32.0-36.0) g/dL RDW Std Deviation (36.4-46.3) fL RDW Coeff of Franco (11.5-14.5) % Plt Count (130-400) K/uL MPV (9.4-12.4) fL Immature Gran % (Auto) % Neut % (Auto) % Lymph % (Auto) % [place] % (Auto) % Eos % (Auto) % Baso % (Auto) % Neut # (Auto) (1.4-6.5) K/uL Lymph # (Auto) (1.2-3.4) K/uL [place] # (Auto) (0.24-0.82) K/uL Eos # (Auto) (0-0.50) K/uL Baso # (Auto) (0-0.2) K/uL Immature Gran # (Auto) (0.00-0.02) K/uL Sodium (136-145) mmol/L Potassium (3.5-5.1) mmol/L Chloride (98-107) mmol/L Carbon Dioxide (21-32) mmol/L Anion Gap (3-11) BUN (6-23) mg/dl Creatinine (0.6-1.4) mg/dl Est Cr Clr Drug Dosing ml/min Est GFR ( Amer) ml/min Est GFR (Non-Af Amer) ml/min BUN/Creatinine Ratio (10-20) Glucose (70-99(Fasting)) mg/dl Calcium (8.5-10.1) mg/dl Magnesium Total Bilirubin (0.2-1.0) mg/dl Direct Bilirubin AST (13-39) U/L ALT (7-52) U/L Alkaline Phosphatase (34-104) U/L Troponin I High Sens 5.8 (0-20) pg/ml Total Protein (6.0-8.3) gm/dl Albumin (3.4-5.0) gm/dl Globulin (2.5-4.0) gm/dl Albumin/Globulin Ratio (0.9-2) Vitamin B12 TSH (0.300-4.500) uIu/ml Urine Color Urine Appearance (Clear) Urine pH (4.5-7.5) Ur Specific [place] (1.000-1.030) Urine Protein (Negative) Urine Glucose (UA) (Negative) Urine Ketones (Negative) Urine Blood (Negative) Urine Nitrite (Negative) Urine Bilirubin (Negative) Urine Urobilinogen (Negative) Ur Leukocyte Esterase (Negative) Urine WBC (Auto) (0-5) /hpf Urine RBC (Auto) (0-4) /hpf U Hyaline Cast (Auto) (0-5) /lpf U Epithel Cells (Auto) (0-5) /lpf Urine Bacteria (Auto) (Negative) Salicylates < 3.0 L (3.0-30) mg/dl Urine Opiates Screen (Neg) Ur Methadone, Qual (Neg) Acetaminophen < 3 L (10-30) ug/ml Urine Barbiturates (Neg) Valproic Acid < 10 L (50-100) mcg/ml Ur Phencyclidine (PCP) (Neg) U Amphetamin/Meth Scrn (Neg) MDMA (Ecstasy) Screen (Neg) U Benzodiazepines Scrn (Neg) Ur Cocaine Metabolite (Neg) U Marijuana (THC) Screen (Neg) Ethyl Alcohol mg/dL < 10.0 (<10.0) mg/dl SARS-CoV-2, RNA, NAAT (NEGATIVE) 11/18/21 11/18/21 11/18/21 Range/Units 18:47 18:47 18:39 WBC 4.39 L (4.8-10.8) K/ul RBC 4.96 (4.63-6.08) M/uL Hgb 14.0 (14.0-18.0) g/dl Hct 39.7 L (40.1-51.0) % MCV 80.0 (80.0-100.0) fL MCH 28.2 (25.0-34.0) pg MCHC 35.3 (32.0-36.0) g/dL RDW Std Deviation 40.2 (36.4-46.3) fL RDW Coeff of Franco 13.8 (11.5-14.5) % Plt Count 205 (130-400) K/uL MPV 10.2 (9.4-12.4) fL Immature Gran % (Auto) 0.2 % Neut % (Auto) 59.0 % Lymph % (Auto) 30.5 % [place] % (Auto) 8.9 % Eos % (Auto) 0.9 % Baso % (Auto) 0.5 % Neut # (Auto) 2.59 (1.4-6.5) K/uL Lymph # (Auto) 1.34 (1.2-3.4) K/uL [place] # (Auto) 0.39 (0.24-0.82) K/uL Eos # (Auto) 0.04 (0-0.50) K/uL Baso # (Auto) 0.02 (0-0.2) K/uL Immature Gran # (Auto) 0.01 (0.00-0.02) K/uL Sodium 144 (136-145) mmol/L Potassium 3.8 (3.5-5.1) mmol/L Chloride 107 (98-107) mmol/L Carbon Dioxide 30 (21-32) mmol/L Anion Gap 7 (3-11) BUN 12 (6-23) mg/dl Creatinine 0.70 (0.6-1.4) mg/dl Est Cr Clr Drug Dosing 151.6 ml/min Est GFR ( Amer) 135.9 ml/min Est GFR (Non-Af Amer) 117.2 ml/min BUN/Creatinine Ratio 17.1 (10-20) Glucose 95 (70-99(Fasting)) mg/dl Calcium 9.3 (8.5-10.1) mg/dl Magnesium Total Bilirubin 0.4 (0.2-1.0) mg/dl Direct Bilirubin AST 14 (13-39) U/L ALT 20 (7-52) U/L Alkaline Phosphatase 96 (34-104) U/L Troponin I High Sens (0-20) pg/ml Total Protein 6.3 (6.0-8.3) gm/dl Albumin 4.1 (3.4-5.0) gm/dl Globulin 2.2 L (2.5-4.0) gm/dl Albumin/Globulin Ratio 1.9 (0.9-2) Vitamin B12 TSH 0.538 (0.300-4.500) uIu/ml Urine Color Urine Appearance (Clear) Urine pH (4.5-7.5) Ur Specific [place] (1.000-1.030) Urine Protein (Negative) Urine Glucose (UA) (Negative) Urine Ketones (Negative) Urine Blood (Negative) Urine Nitrite (Negative) Urine Bilirubin (Negative) Urine Urobilinogen (Negative) Ur Leukocyte Esterase (Negative) Urine WBC (Auto) (0-5) /hpf Urine RBC (Auto) (0-4) /hpf U Hyaline Cast (Auto) (0-5) /lpf U Epithel Cells (Auto) (0-5) /lpf Urine Bacteria (Auto) (Negative) Salicylates (3.0-30) mg/dl Urine Opiates Screen (Neg) Ur Methadone, Qual (Neg) Acetaminophen (10-30) ug/ml Urine Barbiturates (Neg) Valproic Acid (50-100) mcg/ml Ur Phencyclidine (PCP) (Neg) U Amphetamin/Meth Scrn (Neg) MDMA (Ecstasy) Screen (Neg) U Benzodiazepines Scrn (Neg) Ur Cocaine Metabolite (Neg) U Marijuana (THC) Screen (Neg) Ethyl Alcohol mg/dL (<10.0) mg/dl SARS-CoV-2, RNA, NAAT (NEGATIVE) 11/18/21 11/18/21 11/18/21 Range/Units 18:34 18:12 18:12 WBC (4.8-10.8) K/ul RBC (4.63-6.08) M/uL Hgb (14.0-18.0) g/dl Hct (40.1-51.0) % MCV (80.0-100.0) fL MCH (25.0-34.0) pg MCHC (32.0-36.0) g/dL RDW Std Deviation (36.4-46.3) fL RDW Coeff of Franco (11.5-14.5) % Plt Count (130-400) K/uL MPV (9.4-12.4) fL Immature Gran % (Auto) % Neut % (Auto) % Lymph % (Auto) % [place] % (Auto) % Eos % (Auto) % Baso % (Auto) % Neut # (Auto) (1.4-6.5) K/uL Lymph # (Auto) (1.2-3.4) K/uL [place] # (Auto) (0.24-0.82) K/uL Eos # (Auto) (0-0.50) K/uL Baso # (Auto) (0-0.2) K/uL Immature Gran # (Auto) (0.00-0.02) K/uL Sodium (136-145) mmol/L Potassium (3.5-5.1) mmol/L Chloride (98-107) mmol/L Carbon Dioxide (21-32) mmol/L Anion Gap (3-11) BUN (6-23) mg/dl Creatinine (0.6-1.4) mg/dl Est Cr Clr Drug Dosing ml/min Est GFR ( Amer) ml/min Est GFR (Non-Af Amer) ml/min BUN/Creatinine Ratio (10-20) Glucose (70-99(Fasting)) mg/dl Calcium (8.5-10.1) mg/dl Magnesium Total Bilirubin (0.2-1.0) mg/dl Direct Bilirubin AST (13-39) U/L ALT (7-52) U/L Alkaline Phosphatase (34-104) U/L Troponin I High Sens (0-20) pg/ml Total Protein (6.0-8.3) gm/dl Albumin (3.4-5.0) gm/dl Globulin (2.5-4.0) gm/dl Albumin/Globulin Ratio (0.9-2) Vitamin B12 TSH (0.300-4.500) uIu/ml Urine Color Dark Yellow Urine Appearance Cloudy A (Clear) Urine pH 6.5 (4.5-7.5) Ur Specific [place] 1.026 (1.000-1.030) Urine Protein Negative (Negative) Urine Glucose (UA) Negative (Negative) Urine Ketones Negative (Negative) Urine Blood 2+ H (Negative) Urine Nitrite Negative (Negative) Urine Bilirubin Negative (Negative) Urine Urobilinogen Negative (Negative) Ur Leukocyte Esterase Negative (Negative) Urine WBC (Auto) 1-5 (0-5) /hpf Urine RBC (Auto) >30 H (0-4) /hpf U Hyaline Cast (Auto) 1-5 (0-5) /lpf U Epithel Cells (Auto) 5-10 H (0-5) /lpf Urine Bacteria (Auto) Negative (Negative) Salicylates (3.0-30) mg/dl Urine Opiates Screen Neg (Neg) Ur Methadone, Qual Neg (Neg) Acetaminophen (10-30) ug/ml Urine Barbiturates Neg (Neg) Valproic Acid (50-100) mcg/ml Ur Phencyclidine (PCP) Neg (Neg) U Amphetamin/Meth Scrn Neg (Neg) MDMA (Ecstasy) Screen Neg (Neg) U Benzodiazepines Scrn Neg (Neg) Ur Cocaine Metabolite Neg (Neg) U Marijuana (THC) Screen Neg (Neg) Ethyl Alcohol mg/dL (<10.0) mg/dl SARS-CoV-2, RNA, NAAT POSITIVE A* (NEGATIVE) Medications Administered Current Inpatient Medications Acetaminophen (Acetaminophen 325 Mg Tab) 650 mg PO Q4H PRN PRN Reason: Pain or Fever Stop: 12/19/21 00:20 Albuterol (Albuterol Hfa 8 Gm Inhaler) 2 puffs INH Q4H PRN PRN Reason: Shortness Of Breath Or Wheezing Stop: 12/19/21 00:20 Amlodipine Besylate (Amlodipine Besylate 5 Mg Tab) 5 mg PO BID [facility] Stop: 12/19/21 00:20 Last Admin: 11/19/21 01:55 Dose: 5 mg Aripiprazole (Aripiprazole 10 Mg Tab) 10 mg PO DAILY [facility] Stop: 12/19/21 08:59 Atenolol (Atenolol 50 Mg Tablet) 50 mg PO DAILY [facility] Stop: 12/19/21 08:59 Divalproex Sodium (Divalproex Extended Release 500 Mg Tab) 500 mg PO TID [facility] Stop: 12/19/21 08:59 Enoxaparin Sodium (Enoxaparin Inj 40 Mg/0.4 Ml Syr) 40 mg SQ Q24H [facility] Stop: 12/19/21 08:59 Folic Acid (Folic Acid 1 Mg Tab) 1 mg PO QAM [facility] Stop: 12/19/21 00:20 Last Admin: 11/19/21 05:57 Dose: 1 mg Hydralazine HCl (Hydralazine Hcl 20 Mg/Ml Vial) 7.5 mg IV Q6H PRN PRN Reason: Hypertension Stop: 12/19/21 00:20 Last Admin: 11/19/21 04:16 Dose: 7.5 mg Sodium Chloride (1/2 Nss) 1,000 mls @ 100 mls/hr IV .Q10H [facility] Stop: 11/19/21 10:20 Last Admin: 11/19/21 04:02 Dose: 100 mls/hr Miscellaneous (Remove Nicoderm Patch) 1 each N/A DAILY@0859 [facility] Stop: 12/19/21 08:58 Nicotine (Nicotine 21 Mg/24 Hr Tdsy) 21 mg TD QAM [facility] Stop: 12/19/21 08:59 Nitroglycerin (Nitroglycerin Sl 0.4 Mg/Tab Tab) 0.4 mg SL UD PRN PRN Reason: Chest Pain Stop: 12/19/21 00:20 Thiamine HCl (Thiamine Hcl 100 Mg Tab) [facility] [place] Stop: 12/19/21 00:20 Last Admin: 11/19/21 05:57 Dose: 100 mg
[2021-11-19 07:42] LABS: Albumin Level 4.1 gm/dl (3.4-5.0); BUN Creatinine Ratio 16.1 (10-20); Bilirubin Direct 0.1 mg/dl (0-0.2); Bilirubin,Total 0.4 mg/dl (0.2-1.0); Calcium 8.9 mg/dl (8.5-10.1); Creatinine Clr Calc Pharmacy 189.5 ml/min; Est GFR (African American) 148.9 ml/min; Est GFR (Non-African American) 128.5 ml/min; Magnesium 1.9 mg/dl (1.7-2.4); Potassium 3.8 mmol/L (3.5-5.1); Total Protein 6.4 gm/dl (6.0-8.3)
[2021-11-19] MEDS ORDERED: ARIPiprazole 10 MG TAB PO SCH (09:00)
[2021-11-19] MEDS: ENOXAPARIN INJ 40 MG/0.4 ML SYR SQ SCH (09:43)
[2021-11-19] MEDS: NICOTINE 21 MG/24 HR TDSY TD SCH (09:43)
[2021-11-19] MEDS: DIVALPROEX EXTENDED RELEASE 500 MG TAB PO SCH ×2 (09:44→16:21)
[2021-11-19] MEDS: ATENOLOL 50 MG TABLET PO SCH (09:44)
--- NOTE | 2021-11-19 10:53 | Electrocardiogram Report ---
Test Reason : Blood Pressure : / mmHG Vent. Rate : 077 BPM Atrial Rate : 077 BPM P-R Int : 232 ms QRS Dur : 126 ms QT Int : 384 ms P-R-T Axes : 056 -43 014 degrees QTc Int : 434 ms Sinus rhythm with marked sinus arrhythmia with 1st degree A-V block Left axis deviation Non-specific intra-ventricular conduction block Abnormal ECG When compared with ECG of 26-APR-2017 19:23, AL interval has increased QRS duration has increased Borderline criteria for Lateral infarct are no longer Present ST elevation now present in Lateral leads Confirmed by Endy Hernandez ([id number]) on 11/19/2021 10:53:38 AM Referred By: REFERRED SELF Confirmed By:Godfrey Hernandez
--- NOTE | 2021-11-19 13:33 | Psychiatric Consultation ---
Date of Consultation November 19, 2021 Impression / Recommendations Impression 41 yo male with long hx of recurrent threats, poor med compliance in the setting of ongoing polysubstance abuse and unstable housing. (1) COVID: (2) Schizoaffective disorder, bipolar type: (3) Polysubstance abuse: Plan Risks/benefits/alternatives were reviewed re: antipsychotics for mood and/or psychosis. Discussion included but was not limited to metabolic side effects, risks of TD and suicidal thoughts. There were no abnormal motor movements at baseline. Consider fasting glucose and lipid panel order for baseline monitoring, perhaps in 5 days when his depakote level is repeated. He agreed to Invega retrial with plan for KABA. Will start [address] of Abilify. continue 1-on-1. currently voluntary when he is medically cleared. Psych History Identifying Data 41 yo male, homeless most recently staying in the [facility], admit medically due to COVID + status and HTN after presenting for SI. was seen in respiratory isolation in full PPE. Chief Complaint "I wanted to get my head straightened out before I do a 90 day program." History of Present Illness Patient states that his PO directed him to [facility] ED as he has not been taking his medications for "many months" and patient had made statements about hurting himself though later reported SI was 1 week ago. In the ED he reported: he was using meth, marijuana and one shot of heroin a few days back and also says about one week ago, he drank alcohol 48 beers in 2 days. His last seizure was perhaps a week ago around that time. He does not appear to be experiencing Etoh withdrawal at his time but does have persistently elevated BP. He has a long history of threats to self harm resulting in patient hospitalizations on both voluntary and involuntary status. He has can be impulsive and make threats toward others though many times his symptoms are in the context of a being homeless/a legal issue or abusing substances. He reports his last inpatient hospitalization was in Feb [address] [facility]. He doesn't know the last time he was seen at [facility] or took Abilify. In general he feels that Abilify "makes me more agitated." He is open to a KABA and reports past positive response to Invega. He is rather non specific about current mood or vegetative symptoms. Past Psychiatric History Past Medication Trials: Klonopin, Neurontin, Risperdal, [place], Adderall, Haldol, Klonopin, Zoloft, Depakote, thorazine, Abilify, probably others Allergies Allergy/AdvReac Type Severity Reaction Status Date / Time clonazepam Allergy Severe PATIENT Verified 06/17/21 18:48 STATES "" THE REACTION gabapentin Allergy Severe makes Verified 06/17/21 18:48 patient extremely violent risperidone Allergy Severe FOAMING AT Verified 06/17/21 18:48 THE MOUTH, UNSTEADY GAIT strawberry Allergy Intermediate Hives Verified 06/17/21 18:48 Home Medications Medication Instructions Recorded Confirmed Type divalproex 500 mg tablet,extended 500 mg PO TID 02/14/19 11/18/21 History release 24 hr amlodipine 5 mg tablet 5 mg PO BID 11/30/20 11/18/21 History aripiprazole 10 mg tablet 10 mg PO DAILY 06/17/21 11/18/21 History atenolol 50 mg tablet 50 mg PO DAILY 06/17/21 11/18/21 History famotidine 20 mg tablet (Pepcid) 20 mg UNKNOWN 11/18/21 11/18/21 History Personal History Beliefs That Will Affect Care: None Patient History Medical History (Updated 11/19/21 @ 13:48 by Shyann Membreno MD) Alcohol consumption binge drinking Antisocial personality disorder Chest pain, rule out acute myocardial infarction Diabetes Epileptic seizures Headache Hypertension MDD (major depressive disorder) Methamphetamine use Nausea and vomiting Nausea, vomiting, and diarrhea PTSD (post-traumatic stress disorder) Schizoaffective disorder, bipolar type Seizure Surgical History No pertinent past surgical history No significant past surgical history Social History Smoking Status: Current every day smoker Tobacco Type: Cigarettes Hx Alcohol Use: Yes Alcohol type: beer Hx Substance Use: Yes Non-Prescribed Medications: Amphetamines Non-Prescribed Medications Comment: Has not used since beginning of 2020 Last Used Substance: Days (ago) Last Used Substance Other:: Heroin Preferred Language: Guatemalan Communication Ability: Effective Senior Account Representative Required: No Beliefs That Will Affect Care: None Current Living Situation: Homeless Other Information That Helps Us Care for You: No Feels Safe at Home: Yes Safety Concerns: Feels Safe At This Time Physical Exam Psychiatric: Orientation: alert Apperance: appropriately groomed Eye Contact: good eye contact Motor Behavior: no abnormal motor movements Speech: normal rate/rhythm/volume of speech Affect: + constricted affect Mood: + depressed mood Thought Process: + concrete thought process Thought Content: reality based without delusions Suicidal Thoughts: denies suicidal thoughts Homicidal Thoughts: denies homicidal thoughts Hallucinations: no auditory hallucinations and no visual hallucinations Cognition: attention grossly intact and language grossly intact Estimated Intelligence: consistent with education level Insight: + limited insight Judgement: + limited judgement Vital Signs (Past 24 Hours): Last Vital Signs Temp 36.6 C 11/19/21 11:51 Pulse 72 11/19/21 11:51 Resp 20 11/19/21 11:51 BP 161/117 H 11/19/21 11:51 Pulse Ox 98 11/19/21 11:51 O2 Del Method 11/19/21 11:51 Review of Systems All systems reviewed & are unremarkable except as noted in HPI & below Results & Data (PSY) Laboratory Results Labs 11/18/21 11/18/21 11/18/21 18:12 18:12 18:34 WBC RBC Hgb Hct MCV MCH MCHC RDW Std Deviation RDW Coeff of Franco Plt Count MPV Immature Gran % (Auto) Neut % (Auto) Lymph % (Auto) Garden % (Auto) Eos % (Auto) Baso % (Auto) Neut # (Auto) Lymph # (Auto) Garden # (Auto) Eos # (Auto) Baso # (Auto) Immature Gran # (Auto) Sodium Potassium Chloride Carbon Dioxide Anion Gap BUN Creatinine Est Cr Clr Drug Dosing Est GFR ( Amer) Est GFR (Non-Af Amer) BUN/Creatinine Ratio Glucose Calcium Magnesium Total Bilirubin Direct Bilirubin AST ALT Alkaline Phosphatase Troponin I High Sens Total Protein Albumin Globulin Albumin/Globulin Ratio Vitamin B12 TSH Urine Color Dark Yellow Urine Appearance Cloudy A Urine pH 6.5 Ur Specific Dunlap 1.026 Urine Protein Negative Urine Glucose (UA) Negative Urine Ketones Negative Urine Blood 2+ H Urine Nitrite Negative Urine Bilirubin Negative Urine Urobilinogen Negative Ur Leukocyte Esterase Negative Urine WBC (Auto) 1-5 Urine RBC (Auto) >30 H U Hyaline Cast (Auto) 1-5 U Epithel Cells (Auto) 5-10 H Urine Bacteria (Auto) Negative Salicylates Urine Opiates Screen Neg Ur Methadone, Qual Neg Acetaminophen Urine Barbiturates Neg Valproic Acid Ur Phencyclidine (PCP) Neg U Amphetamin/Meth Scrn Neg MDMA (Ecstasy) Screen Neg U Benzodiazepines Scrn Neg Ur Cocaine Metabolite Neg U Marijuana (THC) Screen Neg Ethyl Alcohol mg/dL SARS-CoV-2, RNA, NAAT POSITIVE A* 11/18/21 11/18/21 11/18/21 18:39 18:47 18:47 WBC 4.39 L RBC 4.96 Hgb 14.0 Hct 39.7 L MCV 80.0 MCH 28.2 MCHC 35.3 RDW Std Deviation 40.2 RDW Coeff of Franco 13.8 Plt Count 205 MPV 10.2 Immature Gran % (Auto) 0.2 Neut % (Auto) 59.0 Lymph % (Auto) 30.5 Garden % (Auto) 8.9 Eos % (Auto) 0.9 Baso % (Auto) 0.5 Neut # (Auto) 2.59 Lymph # (Auto) 1.34 Garden # (Auto) 0.39 Eos # (Auto) 0.04 Baso # (Auto) 0.02 Immature Gran # (Auto) 0.01 Sodium 144 Potassium 3.8 Chloride 107 Carbon Dioxide 30 Anion Gap 7 BUN 12 Creatinine 0.70 Est Cr Clr Drug Dosing 151.6 Est GFR ( Amer) 135.9 Est GFR (Non-Af Amer) 117.2 BUN/Creatinine Ratio 17.1 Glucose 95 Calcium 9.3 Magnesium Total Bilirubin 0.4 Direct Bilirubin AST 14 ALT 20 Alkaline Phosphatase 96 Troponin I High Sens Total Protein 6.3 Albumin 4.1 Globulin 2.2 L Albumin/Globulin Ratio 1.9 Vitamin B12 TSH 0.538 Urine Color Urine Appearance Urine pH Ur Specific Dunlap Urine Protein Urine Glucose (UA) Urine Ketones Urine Blood Urine Nitrite Urine Bilirubin Urine Urobilinogen Ur Leukocyte Esterase Urine WBC (Auto) Urine RBC (Auto) U Hyaline Cast (Auto) U Epithel Cells (Auto) Urine Bacteria (Auto) Salicylates Urine Opiates Screen Ur Methadone, Qual Acetaminophen Urine Barbiturates Valproic Acid Ur Phencyclidine (PCP) U Amphetamin/Meth Scrn MDMA (Ecstasy) Screen U Benzodiazepines Scrn Ur Cocaine Metabolite U Marijuana (THC) Screen Ethyl Alcohol mg/dL SARS-CoV-2, RNA, NAAT 11/18/21 11/18/21 11/18/21 18:47 18:47 23:53 WBC RBC Hgb Hct MCV MCH MCHC RDW Std Deviation RDW Coeff of Franco Plt Count MPV Immature Gran % (Auto) Neut % (Auto) Lymph % (Auto) Garden % (Auto) Eos % (Auto) Baso % (Auto) Neut # (Auto) Lymph # (Auto) Garden # (Auto) Eos # (Auto) Baso # (Auto) Immature Gran # (Auto) Sodium Potassium Chloride Carbon Dioxide Anion Gap BUN Creatinine Est Cr Clr Drug Dosing Est GFR ( Amer) Est GFR (Non-Af Amer) BUN/Creatinine Ratio Glucose Calcium Magnesium Total Bilirubin Direct Bilirubin AST ALT Alkaline Phosphatase Troponin I High Sens 5.8 Total Protein Albumin Globulin Albumin/Globulin Ratio Vitamin B12 TSH Urine Color Urine Appearance Urine pH Ur Specific Dun[place] Urine Protein Urine Glucose (UA) Urine Ketones Urine Blood Urine Nitrite Urine Bilirubin Urine Urobilinogen Ur Leukocyte Esterase Urine WBC (Auto) Urine RBC (Auto) U Hyaline Cast (Auto) U Epithel Cells (Auto) Urine Bacteria (Auto) Salicylates < 3.0 L Urine Opiates Screen Ur Methadone, Qual Acetaminophen < 3 L Urine Barbiturates Valproic Acid < 10 L Ur Phencyclidine (PCP) U Amphetamin/Meth Scrn MDMA (Ecstasy) Screen U Benzodiazepines Scrn Ur Cocaine Metabolite U Marijuana (THC) Screen Ethyl Alcohol mg/dL < 10.0 SARS-CoV-2, RNA, NAAT 11/19/21 11/19/21 11/19/21 06:07 06:07 06:07 WBC 6.41 RBC 5.34 Hgb 14.9 Hct 43.1 MCV 80.7 MCH 27.9 MCHC 34.6 RDW Std Deviation 39.4 RDW Coeff of Franco 13.5 Plt Count 190 MPV 10.0 Immature Gran % (Auto) 0.2 Neut % (Auto) 69.2 Lymph % (Auto) 20.0 Garden % (Auto) 8.4 Eos % (Auto) 1.7 Baso % (Auto) 0.5 Neut # (Auto) 4.44 Lymph # (Auto) 1.28 Garden # (Auto) 0.54 Eos # (Auto) 0.11 Baso # (Auto) 0.03 Immature Gran # (Auto) 0.01 Sodium 139 Potassium 3.8 Chloride 107 Carbon Dioxide 24 Anion Gap 8 BUN 9 Creatinine 0.56 L Est Cr Clr Drug Dosing 189.5 Est GFR ( Amer) 148.9 Est GFR (Non-Af Amer) 128.5 BUN/Creatinine Ratio 16.1 Glucose 89 Calcium 8.9 Magnesium 1.9 Total Bilirubin 0.4 Direct Bilirubin 0.1 AST 14 ALT 19 Alkaline Phosphatase 94 Troponin I High Sens 5.5 Total Protein 6.4 Albumin 4.1 Globulin Albumin/Globulin Ratio Vitamin B12 291 TSH Urine Color Urine Appearance Urine pH Ur Specific Dunlap Urine Protein Urine Glucose (UA) Urine Ketones Urine Blood Urine Nitrite Urine Bilirubin Urine Urobilinogen Ur Leukocyte Esterase Urine WBC (Auto) Urine RBC (Auto) U Hyaline Cast (Auto) U Epithel Cells (Auto) Urine Bacteria (Auto) Salicylates Urine Opiates Screen Ur Methadone, Qual Acetaminophen Urine Barbiturates Valproic Acid Ur Phencyclidine (PCP) U Amphetamin/Meth Scrn MDMA (Ecstasy) Screen U Benzodiazepines Scrn Ur Cocaine Metabolite U Marijuana (THC) Screen Ethyl Alcohol mg/dL SARS-CoV-2, RNA, NAAT 11/19/21 10:44 WBC RBC Hgb Hct MCV MCH MCHC RDW Std Deviation RDW Coeff of Franco Plt Count MPV Immature Gran % (Auto) Neut % (Auto) Lymph % (Auto) Garden % (Auto) Eos % (Auto) Baso % (Auto) Neut # (Auto) Lymph # (Auto) Garden # (Auto) Eos # (Auto) Baso # (Auto) Immature Gran # (Auto) Sodium Potassium Chloride Carbon Dioxide Anion Gap BUN Creatinine Est Cr Clr Drug Dosing Est GFR ( Amer) Est GFR (Non-Af Amer) BUN/Creatinine Ratio Glucose Calcium Magnesium Total Bilirubin Direct Bilirubin AST ALT Alkaline Phosphatase Troponin I High Sens 4.8 Total Protein Albumin Globulin Albumin/Globulin Ratio Vitamin B12 TSH Urine Color Urine Appearance Urine pH Ur Specific Dun[place] Urine Protein Urine Glucose (UA) Urine Ketones Urine Blood Urine Nitrite Urine Bilirubin Urine Urobilinogen Ur Leukocyte Esterase Urine WBC (Auto) Urine RBC (Auto) U Hyaline Cast (Auto) U Epithel Cells (Auto) Urine Bacteria (Auto) Salicylates Urine Opiates Screen Ur Methadone, Qual Acetaminophen Urine Barbiturates Valproic Acid Ur Phencyclidine (PCP) U Amphetamin/Meth Scrn MDMA (Ecstasy) Screen U Benzodiazepines Scrn Ur Cocaine Metabolite U Marijuana (THC) Screen Ethyl Alcohol mg/dL SARS-CoV-2, RNA, NAAT Medications Administered Amlodipine Besylate (Amlodipine Besylate 5 Mg Tab) 5 mg PO BID [facility] Stop: 12/19/21 00:20 Last Admin: 11/19/21 09:45 Dose: 5 mg Documented By: Admin: 11/19/21 01:55 Dose: 5 mg Documented By: ROMARIO Aripiprazole (Aripiprazole 10 Mg Tab) 10 mg PO DAILY [facility] Stop: 12/19/21 08:59 Last Admin: 11/19/21 09:44 Dose: 10 mg Documented By: JESUS Atenolol (Atenolol 50 Mg Tablet) 50 mg PO DAILY [facility] Stop: 12/19/21 08:59 Last Admin: 11/19/21 09:44 Dose: 50 mg Documented By: JESSU Divalproex Sodium (Divalproex Extended Release 500 Mg Tab) 500 mg PO TID [facility] Stop: 12/19/21 08:59 Last Admin: 11/19/21 09:44 Dose: 500 mg Documented By: JESUS Enoxaparin Sodium (Enoxaparin Inj 40 Mg/0.4 Ml Syr) 40 mg SQ Q24H [facility] Stop: 12/19/21 08:59 Last Admin: 11/19/21 09:43 Dose: 40 mg Documented By: JESUS Folic Acid (Folic Acid 1 Mg Tab) 1 mg PO QAM [facility] Stop: 12/19/21 00:20 Last Admin: 11/19/21 09:45 Dose: 1 mg Documented By: Admin: 11/19/21 05:57 Dose: 1 mg Documented By: BIRGIT Hydralazine HCl (Hydralazine Hcl 20 Mg/Ml Vial) 7.5 mg IV Q6H PRN PRN Reason: Hypertension Stop: 12/19/21 00:20 Last Admin: 11/19/21 04:16 Dose: 7.5 mg Documented By: BIRGIT Miscellaneous (Remove Nicoderm Patch) 1 each N/A DAILY@0859 [facility] Stop: 12/19/21 08:58 Last Admin: 11/19/21 08:19 Dose: 1 each Documented By: LEE Nicotine (Nicotine 21 Mg/24 Hr Tdsy) 21 mg TD QAM [facility] Stop: 12/19/21 08:59 Last Admin: 11/19/21 09:43 Dose: 21 mg Documented By: JESUS Thiamine HCl (Thiamine Hcl 100 Mg Tab) [facility] Stop: 12/19/21 00:20 Last Admin: 11/19/21 09:45 Dose: 100 mg Documented By: Admin: 11/19/21 05:57 Dose: 100 mg Documented By: BIRGIT Coding Level of Care Code 96603 Inpt Consult Level 3 Diagnoses COVID U07.1 Schizoaffective disorder, bipolar type F25.0 Polysubstance abuse F19.10
[2021-11-19] MEDS: PALIPERIDONE 3 MG TABCR PO SCH (16:21)
[2021-11-19] MEDS ORDERED: DIVALPROEX EXTENDED RELEASE 500 MG TAB PO ONE (16:30)
--- NOTE | 2021-11-19 17:11 | Progress Notes ---
DATE OF SERVICE: 11/19/2021. REASON FOR CONSULTATION: History of seizure. SUBJECTIVE: The patient is a 41-year-old male who was admitted for mental health reasons. He indicates that he has had seizures since age 15. He does not know the description of a seizure and does not have an aura, but believes that he has generalized tonic-clonic seizures and he has bitten his tongue in the past, but not been incontinent. He believes that the seizures are related to his drug and alcohol use. I have no records to confirm or refute that. The patient confirms that he was using drugs and alcohol when he was 15. He denies a family history of epilepsy, although is adopted. He was born full term, had normal milestones, had a concussion in high school. No known history of stroke, encephalitis or meningitis. At one point, he was both on Keppra and Depakote and was transitioned to Depakote monotherapy. His last seizure was over 2 years ago. He ran out of his seizure medicines, which he received from primary care several weeks ago and had a seizure last week. At that time, he was using meth, marijuana, heroin x1 and drank 48 cans of beer in 2 days. He has no current headaches, new weakness or numbness. He has tolerated Depakote well. He denies weight gain. On this admission, he was found to be COVID positive. ALLERGIES: KLONOPIN, GABAPENTIN, RISPERIDONE AND STRAWBERRY. MEDICAL HISTORY: Hypertension, seizures, schizophrenia, PTSD, depression, bipolar. SURGICAL HISTORY: Unknown to this examiner. FAMILY HISTORY: The patient is adopted. The patient smokes 3-4 packs of cigarettes daily, drank alcohol last 1 week ago, and did marijuana and heroin last week as well. REVIEW OF SYSTEMS: As above. LABORATORY DATA: The patient's Depakote level on admission is less than 10. Initial white count 4.39, H and H 14/40, platelet count 205. Chemistry panel unremarkable. Transaminases normal. Globulin level 2.2, albumin 4.1. Urinalysis cloudy, 2+ blood, greater than 30 red cells, 5-10 epithelial cells. Tox screen is negative. COVID testing is positive. HOME MEDICATIONS: are amlodipine, aripiprazole (Abilify), atenolol, Depakote 500 three times a day and famotidine. OBJECTIVE: Last vital signs: 125/90, 77, 18, 37, 96% on room air. The patient is awake and alert. Speech and language are normal. Affect is appropriate. He is oriented x3 and there is no right/left confusion. There is normal extraocular motility, normal facial symmetry. Speech and language are normal. There is full strength in the upper and lowers. There is normal bulk and tone. [id number] is without tremor. [id number] is normal. Toes are downgoing. IMPRESSION AND PLAN: This patient gives a longstanding history of seizures, which he reports as being related to drug and alcohol use, although he indicates that he has clearly had seizures without alcohol withdrawal. It sounds as if the patient has done well on Depakote and this could be helpful psychiatrically as well. Given that he has essentially no detectable Depakote in his blood, I would recommend giving him Depakote 1000 mg p.o. x1 now and continuing with home dose and checking the level in about a week. His primary care provider is located in [place] and apparently has been providing his anticonvulsants. I think that is reasonable to continue to do so. I do not think he necessarily needs to see a neurologist if he is doing well. CBC, hepatic, Depakote level should be checked every 6 months or so. We will sign off. Please contact me if there are questions or concerns. Job ID: [id number] [id number]
[2021-11-20] MEDS: DIVALPROEX EXTENDED RELEASE 500 MG TAB PO SCH ×4 (00:34→23:49)
[2021-11-20] MEDS: amLODIPine BESYLATE 5 MG TAB PO SCH ×3 (00:34→23:48)
--- NOTE | 2021-11-20 05:53 | Psychiatric Progress Note ---
Date of Service November 20, 2021 Impression / Recommendations Impression 41 yo male with long hx of recurrent threats, poor med compliance in the setting of ongoing polysubstance abuse and unstable housing. 11/20/21: feels like Invega is well tolerated and helping him "hold it together." (1) COVID: (2) Schizoaffective disorder, bipolar type: (3) Polysubstance abuse: Plan 11/20/21: continue Invega retrial, increase to 6 mg tomorrow with loading for KABA soon after. 11/19/21: Risks/benefits/alternatives were reviewed re: antipsychotics for mood and/or psychosis. Discussion included but was not limited to metabolic side effects, risks of TD and suicidal thoughts. There were no abnormal motor movements at baseline. Consider fasting glucose and lipid panel order for baseline monitoring, perhaps in 5 days when his depakote level is repeated. He agreed to Invega retrial with plan for KABA. Will start [address] of Abilify. continue 1-on-1. currently voluntary when he is medically cleared. Interval History Identifying Information 41 yo male, homeless most recently staying in the [place] area, admit medically due to COVID + status and HTN after presenting for SI. He remains in respiratory isolation. Chief Complaint patient didn't understand why not admitted to psych unit. Review of Systems Notes he is eating, drinking, and toileting well; denies medication related side effects. Telehealth Telehealth Options: Telephone only For the duration of the visit, provider was performing the assessment from: The same facility as the patient After establishing a telemedicine visit, patient was: Patient was verified with two unique identifiers, Patient/authorized rep acknowledged consent and understanding and Gave permission to continue telehealth session Total Time Spent (minutes): 15 Subjective Subjective Patient was seen & assessed and interval progress reviewed with nursing. Denying SI, no seizure activity. Last IV hydralazine >24 hrs ago and BP trended down with med compliance. Seen by neuro. States he's angry at people in [place] who are spreading rumors that he has AIDS and why he can't return there. Physical Exam Psychiatric Orientation: alert Speech: normal rate/rhythm/volume of speech Mood: + depressed mood Thought Process: + concrete thought process Thought Content: reality based without delusions Suicidal Thoughts: denies suicidal thoughts Homicidal Thoughts: denies homicidal thoughts Hallucinations: no auditory hallucinations and no visual hallucinations Cognition: attention grossly intact and language grossly intact Insight: + limited insight Judgement: + limited judgement Vital Signs (Past 24 Hours) Last Vital Signs Temp 37.1 C 11/20/21 03:25 Pulse 78 11/20/21 03:25 Resp 18 11/20/21 03:25 BP 147/95 H 11/20/21 03:25 Pulse Ox 92 11/20/21 03:25 O2 Del Method 11/20/21 03:25 Results & Data ([facility]) Laboratory Results Laboratory Results - last 24 hr 11/19/21 11/19/21 11/19/21 06:07 06:07 06:07 WBC 6.41 RBC 5.34 Hgb 14.9 Hct 43.1 MCV 80.7 MCH 27.9 MCHC 34.6 RDW Std Deviation 39.4 RDW Coeff of Franco 13.5 Plt Count 190 MPV 10.0 Immature Gran % (Auto) 0.2 Neut % (Auto) 69.2 Lymph % (Auto) 20.0 Toole % (Auto) 8.4 Eos % (Auto) 1.7 Baso % (Auto) 0.5 Neut # (Auto) 4.44 Lymph # (Auto) 1.28 Toole # (Auto) 0.54 Eos # (Auto) 0.11 Baso # (Auto) 0.03 Immature Gran # (Auto) 0.01 Sodium 139 Potassium 3.8 Chloride 107 Carbon Dioxide 24 Anion Gap 8 BUN 9 Creatinine 0.56 L Est Cr Clr Drug Dosing 189.5 Est GFR ( Amer) 148.9 Est GFR (Non-Af Amer) 128.5 BUN/Creatinine Ratio 16.1 Glucose 89 Calcium 8.9 Magnesium 1.9 Total Bilirubin 0.4 Direct Bilirubin 0.1 AST 14 ALT 19 Alkaline Phosphatase 94 Troponin I High Sens 5.5 Total Protein 6.4 Albumin 4.1 Vitamin B12 291 11/19/21 10:44 WBC RBC Hgb Hct MCV MCH MCHC RDW Std Deviation RDW Coeff of Franco Plt Count MPV Immature Gran % (Auto) Neut % (Auto) Lymph % (Auto) Toole % (Auto) Eos % (Auto) Baso % (Auto) Neut # (Auto) Lymph # (Auto) Toole # (Auto) Eos # (Auto) Baso # (Auto) Immature Gran # (Auto) Sodium Potassium Chloride Carbon Dioxide Anion Gap BUN Creatinine Est Cr Clr Drug Dosing Est GFR ( Amer) Est GFR (Non-Af Amer) BUN/Creatinine Ratio Glucose Calcium Magnesium Total Bilirubin Direct Bilirubin AST ALT Alkaline Phosphatase Troponin I High Sens 4.8 Total Protein Albumin Vitamin B12 Current Inpatient Medications Current Inpatient Medications: Current Inpatient Medications Acetaminophen (Acetaminophen 325 Mg Tab) 650 mg PO Q4H PRN PRN Reason: Pain or Fever Stop: 12/19/21 00:20 Albuterol (Albuterol Hfa 8 Gm Inhaler) 2 puffs INH Q4H PRN PRN Reason: Shortness Of Breath Or Wheezing Stop: 12/19/21 00:20 Amlodipine Besylate (Amlodipine Besylate 5 Mg Tab) 5 mg PO BID [facility] Stop: 12/19/21 00:20 Last Admin: 11/20/21 00:34 Dose: 5 mg Atenolol (Atenolol 50 Mg Tablet) 50 mg PO DAILY [facility] Stop: 12/19/21 08:59 Last Admin: 11/19/21 09:44 Dose: 50 mg Divalproex Sodium (Divalproex Extended Release 500 Mg Tab) 500 mg PO TID [facility] Stop: 12/19/21 08:59 Last Admin: 11/20/21 00:34 Dose: 500 mg Enoxaparin Sodium (Enoxaparin Inj 40 Mg/0.4 Ml Syr) 40 mg SQ Q24H [facility] Stop: 12/19/21 08:59 Last Admin: 11/19/21 09:43 Dose: 40 mg Folic Acid (Folic Acid 1 Mg Tab) 1 mg PO QAM [facility] Stop: 12/19/21 00:20 Last Admin: 11/19/21 09:45 Dose: 1 mg Hydralazine HCl (Hydralazine Hcl 20 Mg/Ml Vial) 7.5 mg IV Q6H PRN PRN Reason: Hypertension Stop: 12/19/21 00:20 Last Admin: 11/19/21 04:16 Dose: 7.5 mg Miscellaneous (Remove Nicoderm Patch) 1 each N/A DAILY@0859 [facility] Stop: 12/19/21 08:58 Last Admin: 11/19/21 08:19 Dose: 1 each Nicotine (Nicotine 21 Mg/24 Hr Tdsy) 21 mg TD QAM [facility] Stop: 12/19/21 08:59 Last Admin: 11/19/21 09:43 Dose: 21 mg Nitroglycerin (Nitroglycerin Sl 0.4 Mg/Tab Tab) 0.4 mg SL UD PRN PRN Reason: Chest Pain Stop: 12/19/21 00:20 Paliperidone (Paliperidone 3 Mg Tabcr) 3 mg PO [facility] Stop: 12/19/21 13:44 Last Admin: 11/19/21 16:21 Dose: 3 mg Thiamine HCl (Thiamine Hcl 100 Mg Tab) 100 mg PO [facility] Stop: 12/19/21 00:20 Last Admin: 11/19/21 09:45 Dose: 100 mg
[2021-11-20 07:54] LABS: Hematocrit (blood only) 43.1 % (40.1-51.0); Mean Corpuscular Hgb Conc 34.8 g/dL (32.0-36.0); Mean Corpuscular Volume 80.4 fL (80.0-100.0); Mean Platelet Volume 9.7 fL (9.4-12.4); Platelet Count 189 K/uL (130-400); RDW Coefficient of Variation 13.6 % (11.5-14.5); RDW Standard Deviation 39.2 fL (36.4-46.3); Red Blood Count 5.36 M/uL (4.63-6.08); White Blood Count 6.18 K/ul (4.8-10.8)
[2021-11-20] MEDS: ATENOLOL 50 MG TABLET PO SCH (08:43)
[2021-11-20] MEDS: THIAMINE HCL 100 MG TAB PO SCH (08:44)
[2021-11-20] MEDS: PALIPERIDONE 3 MG TABCR PO SCH (08:44)
[2021-11-20] MEDS: FOLIC ACID 1 MG TAB PO SCH (08:44)
[2021-11-20] MEDS: NICOTINE 21 MG/24 HR TDSY TD SCH (08:44)
[2021-11-20] MEDS: ENOXAPARIN INJ 40 MG/0.4 ML SYR SQ SCH (08:45)
[2021-11-20 08:51] LABS: BUN Creatinine Ratio 17.2 (10-20); Calcium 9.2 mg/dl (8.5-10.1); Chol HDL Ratio 3.6 (0-5); Creatinine Clr Calc Pharmacy 180.8 ml/min; Est GFR (African American) 146.8 ml/min; Est GFR (Non-African American) 126.6 ml/min; Magnesium 1.9 mg/dl (1.7-2.4); Phosphorus 2.4 mg/dl (2.5-4.9); Potassium 3.9 mmol/L (3.5-5.1)
--- NOTE | 2021-11-20 18:47 | Hospitalist Progress Note ---
Date of Service November 20, 2021 Assessment & Plan (1) Suicide ideation: (2) Polysubstance abuse: (3) COVID: Plan: This is a 41-year-old male who presents with mental health problem and found to be COVID positive. 1. COVID positive. The patient is not vaccinated, saturating fine on room air.chest x-ray unremarkable. Isolation precautions for COVID. 2. Hypertension. Continue his amlodipine, atenolol. We will place him on IV hydralazine p.r.n. Monitor the blood pressure. 3. History of seizures. Continue his home med?. Seems had seizure last week. Neurology consulted -Depakote 1000 mg now, then continue home dose. Check level in about a week. CBC, hepatic, Depakote level should be checked every 6 months or so. This patient gives a longstanding history of seizures, which he reports as being related to drug and alcohol use, although he indicates that he has clearly had seizures without alcohol withdrawal. It sounds as if the patient has done well on Depakote and this could be helpful psychiatrically as well. Given that he has essentially no detectable Depakote in his blood, I would recommend giving him Depakote 1000 mg p.o. x1 now and continuing with home dose and checking the level in about a week. His primary care provider is located in [place] and apparently has been providing his anticonvulsants. I think that is reasonable to continue to do so. 4. History of bipolar depression, post-traumatic stress disorder, schizophrenia . Continue his home medications. Psychiatry consulted 5. Current suicidal ideation. One-on-one observation ,Suicidal precautions,safe tray. Psychiatry consulted, plan for Invega trial, instead of Abilify Invega started 6. Alcoholism and drug abuse. The patient is allergic to gabapentin and Klonopin. We will place him on thiamine and folic acid. We will monitor for a ny withdrawals. DVT prophylaxis: Lovenox. DISPOSITION: Closely monitor in the med-tele.full code. Expect to discharge to mental health unit when stable. Admission and Anticipated Discharge Date Admission Date: November 18, 2021 Subjective Patient seen for follow-up of SI, found covid 19 positive Currently laying in bed, in no acute distress Alert oriented answering questions appropriately He has no respiratory symptoms, no complaints No fevers, chills, chest pain, shortness of breath, minimal occasional cough (reports hx of asthma) No SI Review of Systems Review of Systems: All systems reviewed & are unremarkable except as noted in Subjective Physical Exam Physical Exam: GENERAL: The patient is of moderate build, not in acute distress. HEENT: NC/Atraumatic. No facial droop seen. NECK: No JVD. No neck masses. CARDIOVASCULAR: S1 and S2 heard. Regular rate and rhythm. No murmur, no anderson p. RESPIRATORY SYSTEM: Normal AP diameter. No accessory muscle use. No wheezing or crackles. ABDOMEN: Soft, bowel sounds present, nontender, no distention. NEURO: Alert and oriented. Speech is clear. No facial droop. Obeys simple commands. Moves extremities. Cooperative. EXTREMITIES: No edema, no erythema. Results & Data Results & Data ([facility]) Vital Signs (Past 12 Hours) Vital Signs Temp Pulse Pulse Resp BP BP Pulse Ox 11/20/21 16:26 37.0 C 76 16 154/91 H 98 11/20/21 15:41 79 11/20/21 12:14 37.0 C 85 16 171/69 H 98 11/20/21 10:34 36.6 C 80 20 169/110 H 95 11/20/21 07:00 36.8 C 79 20 149/100 H 95 11/20/21 07:13 77 O2 Del Method 11/20/21 16:26 Room Air 11/20/21 15:41 11/20/21 12:14 Room Air 11/20/21 10:34 Room Air 11/20/21 07:00 Room Air 11/20/21 07:13 Laboratory Results 11/20/21 11/20/21 Range/Units 07:38 07:38 WBC 6.18 (4.8-10.8) K/ul RBC 5.36 (4.63-6.08) M/uL Hgb 15.0 (14.0-18.0) g/dl Hct 43.1 (40.1-51.0) % MCV 80.4 (80.0-100.0) fL MCH 28.0 (25.0-34.0) pg MCHC 34.8 (32.0-36.0) g/dL RDW Std Deviation 39.2 (36.4-46.3) fL RDW Coeff of Franco 13.6 (11.5-14.5) % Plt Count 189 (130-400) K/uL MPV 9.7 (9.4-12.4) fL Sodium 141 (136-145) mmol/L Potassium 3.9 (3.5-5.1) mmol/L Chloride 107 (98-107) mmol/L Carbon Dioxide 27 (21-32) mmol/L Anion Gap 7 (3-11) BUN 10 (6-23) mg/dl Creatinine 0.58 L (0.6-1.4) mg/dl Est Cr Clr Drug Dosing 180.8 ml/min Est GFR ( Amer) 146.8 ml/min Est GFR (Non-Af Amer) 126.6 ml/min BUN/Creatinine Ratio 17.2 (10-20) Glucose 88 (70-99(Fasting)) mg/dl Calcium 9.2 (8.5-10.1) mg/dl Phosphorus 2.4 L (2.5-4.9) mg/dl Magnesium 1.9 (1.7-2.4) mg/dl Triglycerides 122 (0-150) mg/dl Cholesterol 102 (0-200) mg/dl LDL Cholesterol, Calc 50 mg/dl VLDL Cholesterol, Calc 24 (0-30) mg/dl HDL Cholesterol 28 mg/dl Cholesterol/HDL Ratio 3.6 (0-5) Medications Administered Current Inpatient Medications Acetaminophen (Acetaminophen 325 Mg Tab) 650 mg PO Q4H PRN PRN Reason: Pain or Fever Stop: 12/19/21 00:20 Albuterol (Albuterol Hfa 8 Gm Inhaler) 2 puffs INH Q4H PRN PRN Reason: Shortness Of Breath Or Wheezing Stop: 12/19/21 00:20 Amlodipine Besylate (Amlodipine Besylate 5 Mg Tab) 5 mg PO BID [facility] Stop: 12/19/21 00:20 Last Admin: 11/20/21 08:43 Dose: 5 mg Atenolol (Atenolol 50 Mg Tablet) 50 mg PO DAILY [facility] Stop: 12/19/21 08:59 Last Admin: 11/20/21 08:43 Dose: 50 mg Divalproex Sodium (Divalproex Extended Release 500 Mg Tab) 500 mg PO TID [facility] Stop: 12/19/21 08:59 Last Admin: 11/20/21 14:00 Dose: 500 mg Enoxaparin Sodium (Enoxaparin Inj 40 Mg/0.4 Ml Syr) 40 mg SQ Q24H [facility] Stop: 12/19/21 08:59 Last Admin: 11/20/21 08:45 Dose: 40 mg Folic Acid (Folic Acid 1 Mg Tab) [facility] Stop: 12/19/21 00:20 Last Admin: 11/20/21 08:44 Dose: 1 mg Hydralazine HCl (Hydralazine Hcl 20 Mg/Ml Vial) 7.5 mg IV Q6H PRN PRN Reason: Hypertension Stop: 12/19/21 00:20 Last Admin: 11/19/21 04:16 Dose: 7.5 mg Miscellaneous (Remove Nicoderm Patch) 1 each N/A DAILY@0859 [facility] Stop: 12/19/21 08:58 Last Admin: 11/20/21 08:45 Dose: 1 each Nicotine (Nicotine 21 Mg/24 Hr Tdsy) 21 mg TD [facility] Stop: 12/19/21 08:59 Last Admin: 11/20/21 08:44 Dose: 21 mg Nitroglycerin (Nitroglycerin Sl 0.4 Mg/Tab Tab) 0.4 mg SL UD PRN PRN Reason: Chest Pain Stop: 12/19/21 00:20 Paliperidone (Paliperidone 3 Mg Tabcr) 6 mg PO [facility] Stop: 12/21/21 08:59 Thiamine HCl (Thiamine Hcl 100 Mg Tab) 100 mg PO [facility] Stop: 12/19/21 00:20 Last Admin: 11/20/21 08:44 Dose: 100 mg
[2021-11-20] MEDS: ACETAMINOPHEN 325 MG TAB PO PRN (23:48)
[2021-11-21] MEDS: PALIPERIDONE 3 MG TABCR PO SCH (07:46)
[2021-11-21] MEDS: ATENOLOL 50 MG TABLET PO SCH (07:47)
[2021-11-21] MEDS: THIAMINE HCL 100 MG TAB PO SCH (07:47)
[2021-11-21] MEDS: FOLIC ACID 1 MG TAB PO SCH (07:47)
[2021-11-21] MEDS: DIVALPROEX EXTENDED RELEASE 500 MG TAB PO SCH ×3 (07:47→20:09)
[2021-11-21] MEDS: amLODIPine BESYLATE 5 MG TAB PO SCH ×2 (07:47→20:09)
[2021-11-21] MEDS: NICOTINE 21 MG/24 HR TDSY TD SCH (07:50)
[2021-11-21] MEDS: ENOXAPARIN INJ 40 MG/0.4 ML SYR SQ SCH (07:50)
[2021-11-21 09:41] LABS: BUN Creatinine Ratio 16.4 (10-20); Calcium 9.7 mg/dl (8.5-10.1); Creatinine Clr Calc Pharmacy 156.5 ml/min; Est GFR (African American) 138.3 ml/min; Est GFR (Non-African American) 119.3 ml/min; Potassium 3.8 mmol/L (3.5-5.1)
--- NOTE | 2021-11-21 11:04 | Hospitalist Progress Note ---
Date of Service November 21, 2021 Assessment & Plan (1) Suicide ideation: (2) Polysubstance abuse: (3) COVID: Plan: This is a 41-year-old male who presents with mental health problem and found to be COVID positive. 1. COVID positive. The patient is not vaccinated, saturating fine on room air.chest x-ray unremarkable. Isolation precautions for COVID. Repeat COVID test, as it can help with placement Update: Repeat COVID test positive (11/21/21) 2. Hypertension. Continue his amlodipine, atenolol.IV hydralazine p.r.n. Monitor the blood pressure. 3. History of seizures. Continue his home med?. Seems had seizure last week. Neurology consulted -Depakote 1000 mg x1 given, then continue home dose. Check level in about a week. CBC, hepatic, Depakote level should be checked every 6 months or so. Per neuro - This patient gives a longstanding history of seizures, which he reports as being related to drug and alcohol use, although he indicates that he has clearly had seizures without alcohol withdrawal. It sounds as if the patient has done well on Depakote and this could be helpful psychiatrically as well. Given that he has essentially no detectable Depakote in his blood, I would recommend giving him Depakote 1000 mg p.o. x1 now and continuing with home dose and checking the level in about a week. His primary care provider is located in [place] and apparently has been providing his anticonvulsants. I think that is reasonable to continue to do so. 4. History of bipolar depression, post-traumatic stress disorder, schizophrenia. Continue his home medications. Psychiatry consulted 5. Current suicidal ideation. One-on-one observation ,Suicidal precautions,safe tray. Psychiatry consulted, plan for Invega trial, instead of Abilify Invega started Plan for KABA tomorrow 11/21/21: cholesterol panel from this am reviewed, 1 loading injection of Invega tomorrow 235, Depakote level ordered for 11/23/21. If still hospitalized, 2nd Invega injection 156 mg recommended on day 8 or 11/25. 6. Alcoholism and drug abuse. The patient is allergic to gabapentin and Klonopin.Place him on thiamine and folic acid. We will monitor for any withdrawals. DVT prophylaxis: Lovenox. DISPOSITION: Closely monitor in the med-tele.full code. Expect to discharge to mental health unit when stable. Admission and Anticipated Discharge Date Admission Date: November 18, 2021 Subjective Patient seen for follow-up of SI, found covid 19 positive Currently laying in bed, in no acute distress Alert oriented answering questions appropriately He has no respiratory symptoms, no complaints No fevers, chills, chest pain, shortness of breath, minimal occasional cough (reports hx of asthma) No SI Will repeat COVID-19 test, as patient is asymptomatic ( repeat test positive) Plan for long-acting injectable - Invega, tomorrow Review of Systems Review of Systems: All systems reviewed & are unremarkable except as noted in Subjective Physical Exam Physical Exam: GENERAL: The patient is of moderate build, not in acute distress. HEENT: NC/Atraumatic. No facial droop seen. NECK: No JVD. No neck masses. CARDIOVASCULAR: S1 and S2 heard. Regular rate and rhythm. No murmur, no gallop. RESPIRATORY SYSTEM: Normal AP diameter. No accessory muscle use. No wheezing or crackles. ABDOMEN: Soft, bowel sounds present, nontender, no distention. NEURO: Alert and oriented. Speech is clear. No facial droop. Obeys simple commands. Moves extremities. Cooperative. EXTREMITIES: No edema, no erythema. Results & Data Results & Data ([facility]) Vital Signs (Past 12 Hours) Vital Signs Temp Pulse Pulse Resp BP BP Pulse Ox 11/21/21 09:48 83 11/21/21 09:40 75 154/91 H 11/21/21 07:27 37.1 C 78 18 160/106 H 171/135 H 95 11/21/21 04:04 36.7 C 83 18 158/100 H 95 O2 Del Method 11/21/21 09:48 11/21/21 09:40 11/21/21 07:27 Room Air 11/21/21 04:04 Room Air Laboratory Results 11/21/21 Range/Units 09:05 Sodium 141 (136-145) mmol/L Potassium 3.8 (3.5-5.1) mmol/L Chloride 106 (98-107) mmol/L Carbon Dioxide 29 (21-32) mmol/L Anion Gap 6 (3-11) BUN 11 (6-23) mg/dl Creatinine 0.67 (0.6-1.4) mg/dl Est Cr Clr Drug Dosing 156.5 ml/min Est GFR ( Amer) 138.3 ml/min Est GFR (Non-Af Amer) 119.3 ml/min BUN/Creatinine Ratio 16.4 (10-20) Glucose 105 H (70-99(Fasting)) mg/dl Calcium 9.7 (8.5-10.1) mg/dl Medications Administered Current Inpatient Medications Acetaminophen (Acetaminophen 325 Mg Tab) 650 mg PO Q4H PRN PRN Reason: Pain or Fever Stop: 12/19/21 00:20 Last Admin: 11/20/21 23:48 Dose: 650 mg Albuterol (Albuterol Hfa 8 Gm Inhaler) 2 puffs INH Q4H PRN PRN Reason: Shortness Of Breath Or Wheezing Stop: 12/19/21 00:20 Amlodipine Besylate (Amlodipine Besylate 5 Mg Tab) 5 mg PO BID [facility] Stop: 12/19/21 00:20 Last Admin: 11/21/21 07:47 Dose: 5 mg Atenolol (Atenolol 50 Mg Tablet) 50 mg PO DAILY [facility] Stop: 12/19/21 08:59 Last Admin: 11/21/21 07:47 Dose: 50 mg Divalproex Sodium (Divalproex Extended Release 500 Mg Tab) 500 mg PO TID [facility] Stop: 12/19/21 08:59 Last Admin: 11/21/21 07:47 Dose: 500 mg Enoxaparin Sodium (Enoxaparin Inj 40 Mg/0.4 Ml Syr) 40 mg SQ Q24H [facility] Stop: 12/19/21 08:59 Last Admin: 11/21/21 07:50 Dose: 40 mg Folic Acid (Folic Acid 1 Mg Tab) 1 mg PO QAM [facility] Stop: 12/19/21 00:20 Last Admin: 11/21/21 07:47 Dose: 1 mg Hydralazine HCl (Hydralazine Hcl 20 Mg/Ml Vial) 7.5 mg IV Q6H PRN PRN Reason: Hypertension Stop: 12/19/21 00:20 Last Admin: 11/19/21 04:16 Dose: 7.5 mg Miscellaneous (Remove Nicoderm Patch) 1 each N/A DAILY@0859 [facility] Stop: 12/19/21 08:58 Last Admin: 11/21/21 07:50 Dose: 1 each Nicotine (Nicotine 21 Mg/24 Hr Tdsy) 21 mg TD QAM [facility] Stop: 12/19/21 08:59 Last Admin: 11/21/21 07:50 Dose: 21 mg Nitroglycerin (Nitroglycerin Sl 0.4 Mg/Tab Tab) 0.4 mg SL UD PRN PRN Reason: Chest Pain Stop: 12/19/21 00:20 Paliperidone ([facility]idone 3 Mg Tabcr) [facility] Stop: 12/21/21 08:59 Last Admin: 11/21/21 07:46 Dose: 6 mg Paliperidone Palmitate (Paliperidone Palmitate 234 Mg/1.5 Ml Syr) 234 mg IM ONE ONE Stop: 11/22/21 09:01 Thiamine HCl (Thiamine Hcl 100 Mg Tab) [facility] Stop: 12/19/21 00:20 Last Admin: 11/21/21 07:47 Dose: 100 mg
--- NOTE | 2021-11-21 14:04 | Psychiatric Progress Note ---
Date of Service November 21, 2021 Impression / Recommendations Impression 41 yo male with long hx of recurrent threats, poor med compliance in the setting of ongoing polysubstance abuse and unstable housing. 11/21/21: tolerating Invega, remains receptive to KABA but now refusing rehab. (1) COVID: (2) Schizoaffective disorder, bipolar type: (3) Polysubstance abuse: Plan 11/21/21: cholesterol panel from this am reviewed, 1 loading injection of Invega tomorrow 235, Depakote level ordered for 11/23/21. If still hospitalized, 2nd Invega injection 156 mg recommended on day 11/24 or 11/25. Dr. Elkins to repeat CoVID test as negative could assist with appropriate placement. 11/20/21: continue Invega retrial, increase to 6 mg tomorrow with loading for KABA soon after. 11/19/21: Risks/benefits/alternatives were reviewed re: antipsychotics for mood and/or psychosis. Discussion included but was not limited to metabolic side effects, risks of TD and suicidal thoughts. There were no abnormal motor movements at baseline. Consider fasting glucose and lipid panel order for baseline monitoring, perhaps in 5 days when his depakote level is repeated. He agreed to Invega retrial with plan for KABA. Will start [address] of Abilify. continue 1-on-1. currently voluntary when he is medically cleared. Interval History Identifying Information 41 yo male, homeless most recently staying in the [facility], admit medically due to COVID + status and HTN after presenting for SI. He remains in respiratory isolation. Chief Complaint "I'm going to the [facility], that's it." and hung up Review of Systems Notes patient unwilling to participate. Telehealth Telehealth Options: Telephone only For the duration of the visit, provider was performing the assessment from: The same facility as the patient After establishing a telemedicine visit, patient was: Patient was verified with two unique identifiers, Patient/authorized rep acknowledged consent and understanding and Gave permission to continue telehealth session Total Time Spent (minutes): 5 Subjective Subjective Patient was seen & assessed and interval progress reviewed with nursing. Started to review treatment plan goals with patient and he continues to have difficulty understanding why he can't be on a mental health unit. Now he is insistent that he will not go to rehab and liaison is unable to find any hx with probation or outstanding legal on patient. Case reviewed with Dr. Elkins. Patient reportedly asked for opiates. Physical Exam Psychiatric Orientation: alert Speech: normal rate/rhythm/volume of speech Mood: + irritable mood Thought Process: + concrete thought process Thought Content: reality based without delusions Cognition: language grossly intact Insight: + limited insight Judgement: + limited judgement Vital Signs (Past 24 Hours) Last Vital Signs Temp 37.0 C 11/21/21 11:13 Pulse 76 11/21/21 11:13 Resp 18 11/21/21 11:13 BP 151/94 H 11/21/21 11:13 Pulse Ox 96 11/21/21 11:13 O2 Del Method 11/21/21 11:13 Results & Data ([facility]) Laboratory Results Laboratory Results - last 24 hr 11/21/21 11/21/21 09:05 10:59 Sodium 141 Potassium 3.8 Chloride 106 Carbon Dioxide 29 Anion Gap 6 BUN 11 Creatinine 0.67 Est Cr Clr Drug Dosing 156.5 Est GFR ( Amer) 138.3 Est GFR (Non-Af Amer) 119.3 BUN/Creatinine Ratio 16.4 Glucose 105 H Calcium 9.7 SARS-CoV-2, RNA, NAAT Pending Current Inpatient Medications Current Inpatient Medications: Current Inpatient Medications Acetaminophen (Acetaminophen 325 Mg Tab) 650 mg PO Q4H PRN PRN Reason: Pain or Fever Stop: 12/19/21 00:20 Last Admin: 11/20/21 23:48 Dose: 650 mg Albuterol (Albuterol Hfa 8 Gm Inhaler) 2 puffs INH Q4H PRN PRN Reason: Shortness Of Breath Or Wheezing Stop: 12/19/21 00:20 Amlodipine Besylate (Amlodipine Besylate 5 Mg Tab) 5 mg PO BID [facility] Stop: 12/19/21 00:20 Last Admin: 11/21/21 07:47 Dose: 5 mg Atenolol (Atenolol 50 Mg Tablet) 50 mg PO DAILY [facility] Stop: 12/19/21 08:59 Last Admin: 11/21/21 07:47 Dose: 50 mg Divalproex Sodium (Divalproex Extended Release 500 Mg Tab) 500 mg PO TID [facility] Stop: 12/19/21 08:59 Last Admin: 11/21/21 07:47 Dose: 500 mg Enoxaparin Sodium (Enoxaparin Inj 40 Mg/0.4 Ml Syr) 40 mg SQ Q24H [facility] Stop: 12/19/21 08:59 Last Admin: 11/21/21 07:50 Dose: 40 mg Folic Acid (Folic Acid 1 Mg Tab) [facility] Stop: 12/19/21 00:20 Last Admin: 11/21/21 07:47 Dose: 1 mg Hydralazine HCl (Hydralazine Hcl 20 Mg/Ml Vial) 7.5 mg IV Q6H PRN PRN Reason: Hypertension Stop: 12/19/21 00:20 Last Admin: 11/19/21 04:16 Dose: 7.5 mg Miscellaneous (Remove Nicoderm Patch) 1 each N/A DAILY@0859 [facility] Stop: 12/19/21 08:58 Last Admin: 11/21/21 07:50 Dose: 1 each Nicotine (Nicotine 21 Mg/24 Hr Tdsy) 21 mg TD [facility] Stop: 12/19/21 08:59 Last Admin: 11/21/21 07:50 Dose: 21 mg Nitroglycerin (Nitroglycerin Sl 0.4 Mg/Tab Tab) 0.4 mg SL UD PRN PRN Reason: Chest Pain Stop: 12/19/21 00:20 Paliperidone (Paliperidone 3 Mg Tabcr) 6 mg PO [facility] Stop: 12/21/21 08:59 Last Admin: 11/21/21 07:46 Dose: 6 mg Paliperidone Palmitate (Paliperidone Palmitate 234 Mg/1.5 Ml Syr) 234 mg IM ONE ONE Stop: 11/22/21 09:01 Thiamine HCl (Thiamine Hcl 100 Mg Tab) 100 mg PO [facility] Stop: 12/19/21 00:20 Last Admin: 11/21/21 07:47 Dose: 100 mg
[2021-11-22] MEDS: ACETAMINOPHEN 325 MG TAB PO PRN (00:54)
--- NOTE | 2021-11-22 04:48 | Communication Note ---
Date of Service: November 22, [address] interim progress [address] as Dr. Vera assumes clinical responsibility for consult service late today. Repeat COVID test remained positive. Remains pérez ative with nursing but concrete and entitled re: his treatment once medically cleared. Monitor tolerability of 1st Invega injection, PO Invega will be taper and d/c at discretion of Dr. Vera when 2nd loading dose is ordered. Clarification: patient sought voluntary treatment. He is not on a 302 warrant and should he desire to leave AMA he does not meet commitment criteria.
--- NOTE | 2021-11-22 07:13 | Hospitalist Progress Note ---
Date of Service November 22, 2021 Assessment & Plan (1) Suicide ideation: (2) Polysubstance abuse: (3) COVID: Plan: This is a 41-year-old male who presents with mental health problem and found to be COVID positive. 1. COVID positive. The patient is not vaccinated, saturating fine on room air.chest x-ray unremarkable. Isolation precautions for COVID. Repeat COVID test, as it can help with placement Update: Repeat COVID test positive (11/21/21) 2. Hypertension. Continue his amlodipine, atenolol.IV hydralazine p.r.n. Monitor the blood pressure. 3. History of seizures. Continue his home med?. Seems had seizure last week. Neurology consulted -Depakote 1000 mg x1 given, then continue home dose. Check level in about a week. CBC, hepatic, Depakote level should be checked every 6 months or so. Per neuro - This patient gives a longstanding history of seizures, which he reports as being related to drug and alcohol use, although he indicates that he has clearly had seizures without alcohol withdrawal. It sounds as if the patient has done well on Depakote and this could be helpful psychiatrically as well. Given that he has essentially no detectable Depakote in his blood, I would recommend giving him Depakote 1000 mg p.o. x1 now and continuing with home dose and checking the level in about a week. His primary care provider is located in [place] and apparently has been providing his anticonvulsants. I think that is reasonable to continue to do so. 4. History of bipolar depression, post-traumatic stress disorder, schizophrenia. Continue his home medications. Psychiatry consulted 5. Current suicidal ideation. One-on-one observation ,Suicidal precautions,safe tray. Psychiatry consulted, plan for Invega trial, instead of Abilify Invega started Given KABA Invega 254 mg today (11/22/2021) Per psychiatry: 11/22/2021: Clarification: patient sought voluntary treatment. He is not on a 302 warrant and should he desire to leave AMA he does not meet commitment criteria. 11/21/21: cholesterol panel from this am reviewed, 1 loading injection of Invega tomorrow 235, Depakote level ordered for 11/23/21. If still hospitalized, 2nd Invega injection 156 mg recommended on day 11/24 or 11/25. 6. Alcoholism and drug abuse. The patient is allergic to gabapentin and Klonopin.Place him on thiamine and folic acid. We will monitor for any withdrawals. DVT prophylaxis: Lovenox. DISPOSITION:Patient left the hospital after talking to me on the phone, and talking to psychiatry. Patient was not examined. Discharge plan was discussed, however patient was not officially discharged / as he left before being seen and final discharge plan confirmed . Admission and Anticipated Discharge Date Admission Date: November 18, 2021 Subjective Patient admitted SI, found covid 19 positive Notified by nursing staff, that the patient would like to leave AMA Discussed with psychiatry - per psych, patient can leave the hospital Talked to the patient on the phone -patient says that he has a court hearing, and has to leave. I made him aware that I am working on his discharge. Per patient and nurse, patient does not have any depakote left, and therefore I will be sending it to his pharmacy. Patient also told the nurse that his pharmacy is [facility] in [place]. I also called psychiatry, for discharge recommendations. Per psychiatry, patient could be discharged on Invega 3 mg daily. Patient already received long-acting injectable medication today. Unfortunately right after I talked to the patient on the phone, and went to see him, in full PPE, due to his COVID +status, I was informed patient already left. Review of Systems Review of Systems: Other Physical Exam Physical Exam: Pt not examined Results & Data Results & Data ([place]) Vital Signs (Past 12 Hours) Vital Signs Temp Pulse Pulse Resp BP Pulse Ox O2 Del Method 11/21/21 23:48 93 H 11/21/21 22:47 36.7 C 95 H 19 152/92 H 97 Room Air Medications Administered Current Inpatient Medications Acetaminophen (Acetaminophen 325 Mg Tab) 650 mg PO Q4H PRN PRN Reason: Pain or Fever Stop: 12/19/21 00:20 Last Admin: 11/22/21 00:54 Dose: 650 mg Albuterol (Albuterol Hfa 8 Gm Inhaler) 2 puffs INH Q4H PRN PRN Reason: Shortness Of Breath Or Wheezing Stop: 12/19/21 00:20 Amlodipine Besylate (Amlodipine Besylate 5 Mg Tab) 5 mg PO BID [facility] Stop: 12/19/21 00:20 Last Admin: 11/21/21 20:09 Dose: 5 mg Atenolol (Atenolol 50 Mg Tablet) 50 mg PO DAILY [facility] Stop: 12/19/21 08:59 Last Admin: 11/21/21 07:47 Dose: 50 mg Divalproex Sodium (Divalproex Extended Release 500 Mg Tab) 500 mg PO TID [facility] Stop: 12/19/21 08:59 Last Admin: 11/21/21 20:09 Dose: 500 mg Enoxaparin Sodium (Enoxaparin Inj 40 Mg/0.4 Ml Syr) 40 mg SQ Q24H [facility] Stop: 12/19/21 08:59 Last Admin: 11/21/21 07:50 Dose: 40 mg Folic Acid (Folic Acid 1 Mg Tab) 1 mg PO [facility] Stop: 12/19/21 00:20 Last Admin: 11/21/21 07:47 Dose: 1 mg Hydralazine HCl (Hydralazine Hcl 20 Mg/Ml Vial) 7.5 mg IV Q6H PRN PRN Reason: Hypertension Stop: 12/19/21 00:20 Last Admin: 11/19/21 04:16 Dose: 7.5 mg Miscellaneous (Remove Nicoderm Patch) 1 each N/A DAILY@0859 [facility] Stop: 12/19/21 08:58 Last Admin: 11/21/21 07:50 Dose: 1 each Nicotine (Nicotine 21 Mg/24 Hr Tdsy) 21 mg TD [facility] Stop: 12/19/21 08:59 Last Admin: 11/21/21 07:50 Dose: 21 mg Nitroglycerin (Nitroglycerin Sl 0.4 Mg/Tab Tab) 0.4 mg SL UD PRN PRN Reason: Chest Pain Stop: 12/19/21 00:20 Paliperidone (Paliperidone 3 Mg Tabcr) 6 mg PO [facility] Stop: 12/21/21 08:59 Last Admin: 11/21/21 07:46 Dose: 6 mg Paliperidone Palmitate (Paliperidone Palmitate 234 Mg/1.5 Ml Syr) 234 mg IM [facility] ONE Stop: 11/22/21 09:01 Thiamine HCl (Thiamine Hcl 100 Mg Tab) 100 mg PO [facility] Stop: 12/19/21 00:20 Last Admin: 11/21/21 07:47 Dose: 100 mg
[2021-11-22] MEDS ORDERED: PALIPERIDONE PALMITATE 234 MG/1.5 ML SYR IM ONE (09:00)
[2021-11-22] MEDS: PALIPERIDONE 3 MG TABCR PO SCH (09:50)
[2021-11-22] MEDS: amLODIPine BESYLATE 5 MG TAB PO SCH (09:50)
[2021-11-22] MEDS: FOLIC ACID 1 MG TAB PO SCH (09:50)
[2021-11-22] MEDS: THIAMINE HCL 100 MG TAB PO SCH (09:50)
[2021-11-22] MEDS: ATENOLOL 50 MG TABLET PO SCH (09:50)
[2021-11-22] MEDS: NICOTINE 21 MG/24 HR TDSY TD SCH (09:51)
[2021-11-22] MEDS: ENOXAPARIN INJ 40 MG/0.4 ML SYR SQ SCH (09:52)
[2021-11-22] MEDS: DIVALPROEX EXTENDED RELEASE 500 MG TAB PO SCH (09:52)
[2021-11-22] MEDS: hydrALAZINE HCL 20 MG/ML VIAL IV PRN (12:11)
--- NOTE | 2021-11-22 16:08 | Discharge Summary ---
Date of Service November 22, 2021 Admission HPI Per Admitting Provider This is a 41-year-old male with past medical history significant for hypertension, seizures, schizophrenia, PTSD, depression, bipolar, who comes for mental health help. Says he was using drugs lately, he was using meth, marijuana and one shot of heroin a few days back and also says about one week ago, he drank alcohol 48 beers in 2 days. He has a history of seizures, mostly from alcohol and drugs, and he takes medication for that. He says he has chronic asthma and he states he is smoking 3-4 packs of cigarettes daily and asking for nicotine patch. He says he is on probation since December last year and his licensed loan officer told him to go to rehab, but because, lately using drugs having suicidal ideation he wanted mental health help before going to rehab and in the ER, he was found to be COVID positive. He says he has some cough possibly from COVID or from his asthma, has some runny nose. No sore throat. Appetite is not that great. Denies any headache. No blurred visions. He says he has some mild chest pain, but he says it is from his anxiety. No shortness of breath, no nausea, no abdominal pain. Normal bowel and bladder movements. He says he is not COVID vaccinated.Also he says he had thoughts of hurting one woman. Admission Exam Per Admitting Provider GENERAL: The patient is of moderate build, not in acute distress. VITAL SIGNS: Temperature 36.6, pulse 84, respiratory rate 16, blood pressure 167/94, oxygen 95% on room air. HEENT: Atraumatic. No facial droop seen. NECK: No JVD. No neck masses. CARDIOVASCULAR: S1 and S2 heard. Regular rate and rhythm. No murmur, no gallop. RESPIRATORY SYSTEM: Normal AP diameter. No accessory muscle use. No wheezing or crackles. ABDOMEN: Soft, bowel sounds present, nontender, no distention. CENTRAL NERVOUS SYSTEM: Alert and oriented. Speech is clear. No facial droop. Obeys simple commands. Moves extremities. EXTREMITIES: No edema, no erythema. Principal Diagnosis SI covid 19 positive Discharge Exam Pt not examined, as he left before being seen Talked to the patient on the phone about discharge and care that he will need after discharge. Discharge Data Allergies Allergy/AdvReac Type Severity Reaction Status Date / Time clonazepam Allergy Severe PATIENT Verified 06/17/21 18:48 STATES "" THE REACTION gabapentin Allergy Severe makes Verified 06/17/21 18:48 patient extremely violent risperidone Allergy Severe FOAMING AT Verified 06/17/21 18:48 THE MOUTH, UNSTEADY GAIT strawberry Allergy Intermediate Hives Verified 06/17/21 18:48 Consultations 11/18/21 19:37 ED Decision to Admit Stat 11/19/21 08:00 Consult Neurology Routine Consult Psychiatry Routine Hospital Course (1) Suicide ideation: (2) Polysubstance abuse: (3) COVID: 11/22/2021 -patient left the hospital before being seen. Patient should follow-up at [facility] for second injection of Invega. Invega p.o. was also sent to his pharmacy. Patient should be taking his Depakot e, and have a Depakote level checked in a week. Depakote prescription was also sent to patient's pharmacy. Patient left the hospital, and was not officially discharged. We will try to contact the patient and help with follow-up. This is a 41-year-old male who presents with mental health problem and found to be COVID positive. 1. COVID positive. The patient is not vaccinated, saturating fine on room air.chest x-ray unremarkable. Isolation precautions for COVID. Repeat COVID test, as it can help with placement Update: Repeat COVID test positive (11/21/21) 2. Hypertension. Continue his amlodipine, atenolol.IV hydralazine p.r.n. Monitor the blood pressure. 3. History of seizures. Continue his home med?. Seems had seizure last week. Neurology consulted -Depakote 1000 mg x1 given, then continue home dose. Check level in about a week. CBC, hepatic, Depakote level should be checked every 6 months or so. Per neuro - This patient gives a longstanding history of seizures, which he reports as being related to drug and alcohol use, although he indicates that he has clearly had seizures without alcohol withdrawal. It sounds as if the patient has done well on Depakote and this could be helpful psychiatrically as alie rey. Given that he has essentially no detectable Depakote in his blood, I would recommend giving him Depakote 1000 mg p.o. x1 now and continuing with home dose and checking the level in about a week. His primary care provider is located in [place] and apparently has been providing his anticonvulsants. I think that is reasonable to continue to do so. 4. History of bipolar depression, post-traumatic stress disorder, schizophrenia. Continue his home medications. Psychiatry consulted 5. Current suicidal ideation. One-on-one observation ,Suicidal precautions,safe tray. Psychiatry consulted, plan for Invega trial, instead of Abilify Invega started Given KABA Invega 254 mg today (11/22/2021) Per psychiatry: 11/22/2021: Clarification: patient sought voluntary treatment. He is not on a 302 warrant and should he desire to leave AMA he does not meet commitment criteria. 11/21/21: cholesterol panel from this am reviewed, 1 loading injection of Invega tomorrow 235, Depakote level ordered for 11/23/21. If still hospitalized, 2nd Invega injection 156 mg recommended on day 11/24 or 11/25. 6. Alcoholism and drug abuse. The patient is allergic to gabapentin and K lonopin.Place him on thiamine and folic acid. We will monitor for any withdrawals. Total Time Total Time Spent Total Time Spent (In Minutes): 10 Discharge Plan Discharge Items Patient Disposition: Against Medical Advice Reason For Visit: COVID Activity: Per Instructions section Non-emergency contact: Primary Care Provider and Psychiatrist Follow-up/Referrals: [facility] [Outside] (follow up with [facility] to receive second injection of Invega Sustenna 156mg. You are due for second injection on 11/26/21. You are also prescribed Invega 3mg po daily if unable to receive second injection. ) PCP,NO [Primary Care Provider] - [employer] Consultant Provider Instructions: Patient should follow-up at [facility] for second injection of Invega. Invega p.o. was also sent to his pharmacy. Patient should be taking his Depakote, and have a Depakote level checked in a week. Depakote prescription was also sent to patient's pharmacy. Patient left the hospital, and was not officially discharged. We will try to contact the patient and help with follow-up. Pending Studies at Discharge: No Stand-Alone Forms: My [facility], Smoking Cessation Medications and DC Order Prescriptions: New divalproex 500 mg Tablet Extended Release 24 Hr 500 mg PO TID 30 Days Qty: 90 0RF paliperidone [Invega] 3 mg Tablet Extended Release 24hr 3 mg PO QAM 30 Days Qty: 30 0RF Continued divalproex 500 mg Tablet Extended Release 24 Hr 500 mg PO TID Rx Instructions: LAST FILLED PER [facility] HX WAS 11/18/20 atenolol 50 mg tablet 50 mg PO DAILY Rx Instructions: LAST FILLED PER [facility]T [facility] HX WAS 06/25/20 famotidine [Pepcid] 20 mg tablet 20 mg UNKNOWN amlodipine 5 mg tablet 5 mg PO BID Rx Instructions: LAST FILLED PER [facility]T [facility] HX WAS 11/18/20 Discontinued aripiprazole 10 mg tablet 10 mg PO DAILY Rx Instructions: LAST FILLED PER [facility]T [facility] HX WAS 06/17/20. Admission Data Admit Date/Time: 11/18/21 21:49 Attending Provider: Jeff Elkins Admit Provider: Ryan Escobar Primary Care Provider: PCP,[facility] Other Providers: Ryan Escobar ; Barbara Vera ; Shyann Membreno ; Sammie Hagen ; Alida Albright ; Nolan Huff
--- NOTE | 2021-11-22 20:03 | Communication Note ---
Date of Service: November 22, 2021 Was notified this afternoon of patient's desire to leave [facility] at 1800. He had arranged his own ride. Earlier he claimed to have a court hearing early tomorrow (of course not as a Wednesday) but we did reach out to probation one more time. He has consistently denied SI/HI and has not exhibited any psychotic symptoms. He no longer meets criteria for inpatient psychiatric hospitalization and was uncooperative with treatment team yesterday as we explained that given COVID status and current symptoms it was extremely unlikely that he would qualify for care at the [facility] at the end of his isolation. He has been inconsistent with his requests at rehab. During his stay he did seek opiates and was mainly interested in care to solve his housing needs. Had we known the patient wanted to leave today, I probably would have chosen not to administer first loading dose of Invega. Reviewed with liaison that 2nd loading dose (156) should be given in 4-7 days. We are not able to coordinate aftercare with [facility] as it is a weekend. He has their contact number and was a patient there as of September 2021 per records so likely still active patient. I suggested that he be discharged on 3 mg oral as it is generally continued until the 2nd dose and if given a 30 day supply it would provide some additional coverage for the month if he is not able to get the 2nd injection, also avoids need to taper if he just stops the medication on his own.
--- NOTE | 2021-12-01 08:03 | Coding Query ---
CODING QUERY To promote full compliance with coding requirements relating to patient care, provider participation is requested in all cases of clinical education consultant uncertainty. Please assist us with the question(s) below: Coding Question(s): The admit order in EMR documents the reason for visit as covid, and the ER H&P documents, "Nothing to suggest acute electrolyte, toxicologic, metabolic or infectious process. COVID testing was however. In light of this he will not be a low be placed in a psych facility and will be admitted here medically with a psychiatric consultation", and the H&P documents, "This is a 41-year-old male who presents with mental health problem and found to be COVID positive", and the Psychiatric Consultation and Psychiatric Progress Notes document, "41 yo male, homeless most recently staying in the [facility], admit medically due to COVID + status and HTN after presenting for SI", however the 11/19 Progress Note by Neurology documents, "The patient is a 41-year-old male who was admitted for mental health reasons", then, on the Discharge Summary, there is documentation of, " Reason For Visit: COVID" and, under Principal Diagnosis, "SI covid 19 positive". Due to conflicting documentation as to the reason for the Inpatient admission, please clarify below, in your clinical opinion, the diagnosis Most responsible for the Inpatient admission. ( ) Admitted Inpatient medically for COVID -19 positive as the diagnosis most responsible for the admission ( x ) Admitted Inpatient for Mental Health reasons as the diagnosis most responsible for the admission ( X) Admitted Inpatient for Other: Please Specify Admitted due to Mental Health reasons as the diagnosis responsible for the admission - however due to COVID 19 positive status pt was admitted to medical service and not to psychiatry. Psychiatry was consulted and following closely during pt's admission. Physician's Response(s): Thank you Naty Montalvo Principal Diagnosis: "that condition established after study, to be chiefly responsible for occasioning the admission of the patient to the hospital for care." Co-Existing Principal Diagnosis: "when two or more diagnoses equally meet the criteria for principal diagnosis as determined by the circumstances of admission, diagnostic work up, and/or therapy provided, and the Alphabetic Index, Tabular List, or another coding guideline does not provide sequencing direction, any one of the diagnoses may be sequenced first." "When the physician has documented what appears to be a current diagnosis in the body of the record, but has not included the diagnosis in the final diagnostic statement, the physician should be asked whether the diagnosis should be added." (Source Coding [facility] 2 QTR90. p3-4) SHOAIB
== END 2021-11-22 17:06 | disposition left against medical advice (07) | DRG 885 ==
LOC: ED 17:16 → EDINP 21:49 → SUATTDRO 21:49 → EDINP 11-19 01:07 → 2W 11-19 11:35

== ENCOUNTER 2021-11-23 00:09 | Observation (INO) ==
[2021-11-23 02:02] LABS: Appearance Urine Cloudy (Clear); Bacteria Urine Automated Negative (Negative); Blood Urine Negative (Negative); Color Urine Dark Yellow; Epithelial Cell Urine Auto >30 /lpf (0-5); Glucose Urine UA Negative (Negative); Ketones Urine 1+ (Negative); Leukocyte Esterase Urine Negative (Negative); Nitrite Urine Negative (Negative); Protein Urine 2+ (Negative); Specific Gravity Urine 1.032 (1.000-1.030); Urobilinogen Urine Negative (Negative); pH Urine 5.5 (4.5-7.5)
[2021-11-23 02:05] LABS: Bilirubin Urine 1+ (Negative)
[2021-11-23 02:17] LABS: Amphetamines+Metham, Urine Neg (Neg); Barbiturates, Urine Neg (Neg); Benzodiazepine, Urine Neg (Neg); Cocaine, Urine Neg (Neg); MDMA (Ecstacy), Urine Neg (Neg); Methadone, Urine Neg (Neg); Opiate, Urine Neg (Neg); Phencyclidine, Urine Neg (Neg)
[2021-11-23 02:23] LABS: Calcium Oxalate Crystals Urine Present (None Prsent)
--- NOTE | 2021-11-23 05:11 | History and Physical Report ---
DATE OF ADMISSION: 11/23/2021. CHIEF COMPLAINT: Suicidal ideation. HISTORY OF PRESENT ILLNESS: This is a 41-year-old male with past medical history significant for hypertension, CHF, schizophrenia, PTSD, depression, bipolar, who was recently in the hospital for mental health and found to be COVID positive. Seen by psychiatry and also neurology for history of seizures. Could not be placed because of COVID positive and psychiatrist started on Invega. But the patient signed out AMA in the morning. The patient says after going home, he was again feeling suicidal ideation, that is why he came back. Currently, he is sleeping, only answers yes and no. He says he was suicidal at home, but denies any homicidal intentions. Denies any headache. No blurred visions, no earache, no runny nose, no sore throat. He says he has a cough, but he attributes this to his asthma. Denies any chest pain, no shortness of breath, no fevers. Appetite is okay. No difficulty swallowing. No nausea, no abdominal pain. Normal bowel and bladder movements. Hemodynamically stable. ALLERGIES: CLONAZEPAM, GABAPENTIN, RISPERIDONE, AND STRAWBERRY. PAST MEDICAL HISTORY: As mentioned above. PAST SURGICAL HISTORY: Unknown at this time. FAMILY HISTORY: Unknown. SOCIAL HISTORY: one week prior to Last admission drank alcohol and also did meth, marijuana, and heroin a few days back before the last admission. Smokes 3-5packs cigarettes daily. REVIEW OF SYSTEMS: As per HPI. Rest of the review of systems is negative. PHYSICAL EXAMINATION: GENERAL: The patient is of moderate build, not in acute distress. VITAL SIGNS: Temperature 36.9, pulse 103, respiratory rate 18, blood pressure 103/62, oxygen 98% on room air. HEENT: Extraocular muscles intact. Atraumatic. NECK: No JVD. No neck masses. CARDIOVASCULAR: S1 and S2 heard. Regular rate and rhythm. No murmur, no RESPIRATORY SYSTEM: Normal AP diameter. No accessory muscle use. No wheezing, no crackles. ABDOMEN: Soft, bowel sounds present, nontender, no distention. CENTRAL NERVOUS SYSTEM: Drowsy, but arousable, answers simple questions. No facial droop. Speech is okay. Moves extremities. EXTREMITIES: No edema, no erythema. LABORATORY DATA: Urinalysis negative. Urine drug screen negative. SARS-CoV-2 positive. ASSESSMENT AND PLAN: This is a 41-year-old male who presents with suicidal ideation. 1. Suicidal ideation:Hx of Schizophrenia, PTSD,Depression, Bipolar . Abilify was changed to Invega last admission and on Depakote, which he will continued. One-on-one suicidal precautions. Consult psychiatry in the a.m. May need placement when stable. 2. History of COVID: Currently, the patient is not vaccinated. Saturating fine on room air. Isolation precautions. Will monitor. 3. History of hypertension: Continue amlodipine and atenolol. Will monitor the blood pressure. 4. History of seizure: Currently on Depakote. Needs followup. Follow his Depakote levels. 5. Deep venous thrombosis prophylaxis: Lovenox. DISPOSITION: Closely monitor in the medical floor. PT, OT prior to discharge. Social service to help with discharge planning. Job ID: [id number] MTDD
[2021-11-23] MEDS ORDERED: POLYETHYLENE (MIRALAX) 17 GM PACK PO PRN (06:17)
[2021-11-23] MEDS ORDERED: ACETAMINOPHEN 325 MG TAB PO PRN (06:17)
[2021-11-23] MEDS: DIVALPROEX EXTENDED RELEASE 500 MG TAB PO SCH ×2 (08:59→13:48)
[2021-11-23] MEDS ORDERED: ENOXAPARIN INJ 40 MG/0.4 ML SYR SQ SCH (09:00)
[2021-11-23] MEDS ORDERED: amLODIPine BESYLATE 5 MG TAB PO SCH (09:00)
[2021-11-23] MEDS ORDERED: FAMOTIDINE 20 MG TAB PO SCH (09:00)
[2021-11-23] MEDS ORDERED: PALIPERIDONE 3 MG TABCR PO SCH (09:00)
[2021-11-23] MEDS ORDERED: ATENOLOL 50 MG TABLET PO SCH (09:00)
[2021-11-23 09:26] LABS: Basophils # (auto) 0.02 K/uL (0-0.2); Basophils % (auto) 0.3 %; Eosinophils # (auto) 0.06 K/uL (0-0.50); Eosinophils % (auto) 0.9 %; Hematocrit (blood only) 46.8 % (40.1-51.0); Hemoglobin 15.8 g/dl (14.0-18.0); Immature Granulocytes # (auto) 0.06 K/uL (0.00-0.02); Immature Granulocytes % (auto) 0.9 %; Lymphocytes % (auto) 24.7 %; Mean Corpuscular Hgb Conc 33.8 g/dL (32.0-36.0); Mean Corpuscular Volume 82.8 fL (80.0-100.0); Mean Platelet Volume 9.6 fL (9.4-12.4); Monocytes # (auto) 0.56 K/uL (0.24-0.82); Monocytes % (auto) 8.1 %; Neutrophils # (auto) 4.48 K/uL (1.4-6.5); Neutrophils % (auto) 65.1 %; Platelet Count 220 K/uL (130-400); RDW Coefficient of Variation 13.9 % (11.5-14.5); RDW Standard Deviation 41.4 fL (36.4-46.3); Red Blood Count 5.65 M/uL (4.63-6.08); White Blood Count 6.88 K/ul (4.8-10.8)
[2021-11-23 09:50] LABS: Acetaminophen < 3 ug/ml (10-30); Albumin Globulin Ratio 1.7 (0.9-2); Albumin Level 4.3 gm/dl (3.4-5.0); BUN Creatinine Ratio 23.3 (10-20); Bilirubin,Total 0.6 mg/dl (0.2-1.0); Creatinine Clr Calc Pharmacy 128.4 ml/min; Est GFR (African American) 124.8 ml/min; Est GFR (Non-African American) 107.7 ml/min; Globulin 2.5 gm/dl (2.5-4.0); Salicylate < 3.0 mg/dl (3.0-30); Total Protein 6.8 gm/dl (6.0-8.3)
--- NOTE | 2021-11-23 12:07 | Psychiatric Consultation ---
Date of Consultation November 23, 2021 Impression / Recommendations Impression 41 yo homeless man on parole with history of polysubstance use disorder, cluster B traits-BPD and antisocial and schizoaffective disorder who re-presented to the ED last night after leaving AMA but then finding out that his friend was not going to come into town to pick him up so he called 911 and re-presented to the ED. His suicidal ideation last night, leading to re-admission due to COVID+ status, was contingent in the context of homelessness and has resolved since arriving to the hospital. He continues to have thoughts of self-harm but denies any intent related to this and has not done so in over a year. He does not have a history of any prior serious suicide attempts other than recent consumption of strawberries for which he immediately sought medical assistance. Diagnostically consistent with malingering with secondary gain of housing and desire to go to the [facility] as he likes being there and talking with people. Reviewed that while I understand why he wants connection that this does not meet criteria as a reason for inpatient psychiatric hospitalization. He agrees with this and wants to go to residential substance use treatment but "not yet" and remains ambivalent about this. He feels that if he can find housing, or resources via a homeless fdc since he is currently COVID+, that he would desire to leave the hospital and would feel safe to go. The focus of his presentation remains firmly in his desire for housing or admission to the [facility] rather than his symptoms, recent suicidality, thoughts of self-harm or substance use. He denies current SI and there is no plan or inte nt for suicide. He does not demonstrate evidence of any primary mood disorder such as major depression or signs of acute psychosis and he is finding the Invega KABA helpful for his impulsivity. His suicidality seems rather is a function of his underlying and chronic personality disorder and current homelessness and possible desire to avoid court-ordered/parole recommended substance use treatment. As such, I do not believe that his risk of suicide is significantly elevated above his chronic baseline. Patient does have a degree of chronic risk of self-harm due to historical factors, social problems, impulsivity, homelessness and his diagnosis of schizoaffective disorder, cluster B traits and polysubstance use. He does not meet 302 criteria as he denies SI (and only endorses when seeking housing/avoiding potential court-ordered substance use treatment), denies HI, shows no evidence of current psychosis nor cee and demonstrates ability for self-care and navigating ways of meeting his needs. I feel his presentation is consistent with a significant degree of malingering mixed with his underlying personality traits and substance use. Furthermore, when directly discussed, he is future-oriented about what he will do next and plans over the next few weeks and months including his desire to try to avoid substances. Acute risk is low given denial of SI, lack of access to lethal means, plan to avoid substance use, and future oriented. Chronic risk is moderate given extensive non-modifiable risk factors, psychiatric co-morbid diagnoses, periods of impulsivity, prior attempt vs gesture, hx self-harm, emotional reactivity, prior psychiatric hospitalizations but also with protective factors of current girlfriend. Counseled on ways to reduce acute and chronic risk including strongly encouraging and doing motivational interviewing regarding substance use treatment and avoiding substance use, engaging with outpatient providers, using his safety plan if needed, utilizing supports, taking medication, and using coping skills. Modifiable risk factors of SI improved after arriving to the hospital as housing remains his primary stressor. We discussed potential resources case management may be aware of, such as homeless shelters, that could be provided to him and he was interested in this and felt this would resolve his thoughts of self-harm via cutting. (1) Malingering: (2) Polysubstance use disorder: (3) Antisocial personality disorder: (4) Schizoaffective disorder, bipolar type: (5) PTSD (post-traumatic stress disorder): (6) COVID: Plan --Can discontinue 1-on-1 and suicide precautions --Safe for discharge from psychiatric standpoint, he continues to tolerate Invega KABA and has outpatient psychiatric services which he agrees to follow up with and has script for paliperidone po --Would recommend that case management offer local resources regarding homeless shelters and/or resources for possible housing/hotel vouchers given his COVID positive status and given that lack of housing has been the primary driving factor for his last two presentations to the ED --Encouraged residential substance use treatment once he feels ready for this, he remains uninterested at this time --Reviewed safety planning, he came up with a safety plan he can use including utilizing local crisis resources or calling his girlfriend or other supports, and reasons to return should SI re-emerge or he feel unsafe Risk Factors Assessment Do You Have Access To A Gun?: No Telehealth Telehealth Options: Telephone only For the duration of the visit, provider was performing the assessment from: The same facility as the patient After establishing a telemedicine visit, patient was: Patient was verified with two unique identifiers, Patient/authorized rep acknowledged consent and understanding and Gave permission to continue telehealth session Total Time Spent (minutes): 35 Psych History Identifying Data 41 yo man homeless man, recently moved from [place] to [place], on parole with history of polysubstance use disorder, cluster B traits-BPD and antisocial and schizoaffective disorder who re-presented to the ED last night after leaving AMA but then finding out that his friend was not going to come into town to pick him up a few hours later so he called 911 and re-presented to the ED with SI and was admitted due to being COVID+. Chief Complaint "My friend didn't show up, I shouldn't have listened to him". History of Present Illness Joseluis states that he requested to leave AMA yesterday afternoon as he listened to his friend who wanted him to leave the hospital but then he decided to come back. States he came back because he was "suicidal, everything and anything". States he was upset with himself for leaving AMA and that caused him to have SI. He states his friend convinced him to leave yesterday and told him he was going to come pick him up in [place] so they could "get high" but then he didn't show up and so Joseluis felt lonely and had no where to go so he felt suicidal. States he went to sleep "up by the library" but then his friend "wasn't answering or showing up" so he called 911 to come back to the hospital. He denies any substance use after leaving the hospital. States he felt suicidal due to being homeless and from guilt of leaving AMA. He endorses thoughts of self-harm today but denies SI. Explains these thoughts of self-harm are thoughts of wanting to self-harm via cutting but only superficially and hasn't acted on these thoughts in a year and has no current access to any knives or razors. States he can cope by "thinking positive thoughts" and doesn't have any intent to self-harm and feels these thoughts would all go away if he had housing or could be set up with temporary homeless fdc resources. States he knows he is supposed to go to rehab for 90 days per a probation order and that was supposed to start on November 18 for 90 days and he states he agreed to do this after discussing it with his PO. This will be his "10th attempt" at residential treatment, last time was about two years ago. He feels he needs help due to using heroin a few weeks ago. He states he is "scared" he will leave rehab but recognizes he should go but doesn't want to go yet. He is eager to go to the [facility] "to make sure my mental health is stable". He feels the [facility] helps by listening to him, he's been feeling lonely. He denies any other reasons for going or needing any other help except with housing. He's interested in a group home house and heard about a sober living house in [place] which lead him to come here. Reasons for living include his kids and his girlfriend. Denies any side effects from Invega KABA nor oral medication. Feels it makes him tired but thinks it's helping. He feels it's "helping me think clearer and make more rationale decisions". Psychiatric ROS notable for denial of any symptoms of psychosis, denies HI. Past Psychiatric History Outpatient Services: [facility] for outpatient care Previous Psych Admissions: multiple including at [facility] Do You Have Access To A Gun?: No History of Previous Suicide Attempt: Yes Describe Attempts in the Past: ate strawberries to which he has an allergy but then sought care Allergies Allergy/AdvReac Type Severity Reaction Status Date / Time clonazepam Allergy Severe PATIENT Verified 11/23/21 02:19 STATES "" THE REACTION gabapentin Allergy Severe makes Verified 11/23/21 02:19 patient extremely violent risperidone Allergy Severe FOAMING AT Verified 11/23/21 02:19 THE MOUTH, UNSTEADY GAIT strawberry Allergy Intermediate Hives Verified 11/23/21 02:19 Home Medications Medication Instructions Recorded Confirmed Type amlodipine 5 mg tablet 5 mg PO BID 11/30/20 11/23/21 History atenolol 50 mg tablet 50 mg PO DAILY 06/17/21 11/23/21 History famotidine 20 mg tablet (Pepcid) 20 mg PO DAILY 11/18/21 11/23/21 History divalproex 500 mg tablet,extended 500 mg PO TID 30 days #90 tabs 11/22/21 11/23/21 Rx release 24 hr paliperidone 3 mg tablet,extended 3 mg PO QAM 30 days #30 tabs 11/22/21 11/23/21 Rx release 24 hr (Invega) Substance Abuse History see HPI Personal History Living Arrangements: Homeless Beliefs That Will Affect Care: None History of Legal Problems: yes-currently on parole Patient History Medical History Alcohol consumption binge drinking Antisocial personality disorder Chest pain, rule out acute myocardial infarction Diabetes Epileptic seizures Headache Hypertension MDD (major depressive disorder) Methamphetamine use Nausea and vomiting Nausea, vomiting, and diarrhea Polysubstance use disorder PTSD (post-traumatic stress disorder) Schizoaffective disorder, bipolar type Seizure Surgical History No pertinent past surgical history No significant past surgical history Social History Smoking Status: Current every day smoker Tobacco Type: Cigarettes Hx Alcohol Use: Yes Alcohol type: beer Hx Substance Use: Yes Non-Prescribed Medications: Amphetamines Non-Prescribed Medications Comment: Has not used since beginning of 2020 Last Used Substance: Days (ago) Last Used Substance Other:: Heroin Substance Use Type Other:: 7 Preferred Language: Tristanian Communication Ability: Effective Maintenance Electrician Required: No Beliefs That Will Affect Care: None marital status: Single Current Living Situation: Homeless Other Information That Helps Us Care for You: No Feels Safe at Home: No Is there a partner from a previous relationship who is making you feel unsafe now?: No Assistive Devices: None Physical Exam Psychiatric: Orientation: alert and oriented x 3 Speech: normal rate/rhythm/volume of speech Mood: no depressed mood, no anxious mood and no irritable mood Thought Process: goal directed thought process Thought Content: reality based without delusions Suicidal Thoughts: denies suicidal thoughts Homicidal Thoughts: denies homicidal thoughts Hallucinations: no auditory hallucinations and no visual hallucinations Cognition: recent memory grossly intact, remote memory grossly intact, attention grossly intact and language grossly intact Insight: + fair insight Judgement: + limited judgement Vital Signs (Past 24 Hours): Last Vital Signs Temp 37.0 C 11/23/21 09:15 Pulse 86 11/23/21 09:15 Resp 18 11/23/21 09:15 BP 133/103 H 11/23/21 09:15 Pulse Ox 99 11/23/21 09:15 O2 Del Method 11/23/21 09:15 Results & Data (PSY) Medications Administered Amlodipine Besylate (Amlodipine Besylate 5 Mg Tab) 5 mg PO BID VIRA Stop: 12/23/21 08:59 Last Admin: 11/23/21 08:58 Dose: 5 mg Documented By: TORRIE Atenolol (Atenolol 50 Mg Tablet) 50 mg PO DAILY VIRA Stop: 12/23/21 08:59 Last Admin: 11/23/21 08:58 Dose: 50 mg Documented By: TORRIE Divalproex Sodium (Divalproex Extended Release 500 Mg Tab) 500 mg PO TID VIRA Stop: 12/23/21 08:59 Last Admin: 11/23/21 08:59 Dose: 500 mg Documented By: TORRIE Enoxaparin Sodium (Enoxaparin Inj 40 Mg/0.4 Ml Syr) 40 mg SQ Q12H VIRA Stop: 12/23/21 08:59 Last Admin: 11/23/21 08:59 Dose: 40 mg Documented By: TORRIE Famotidine (Famotidine 20 Mg Tab) 20 mg PO DAILY VIRA Stop: 12/23/21 08:59 Last Admin: 11/23/21 08:59 Dose: 20 mg Documented By: TORRIE Paliperidone (Paliperidone 3 Mg Tabcr) 3 mg PO QAM VIRA Stop: 12/23/21 08:59 Last Admin: 11/23/21 09:14 Dose: 3 mg Documented By: TORRIE Coding Level of Care Code 39103 Inpt Consult Level 4 Diagnoses Malingering Z76.5 Polysubstance use disorder F19.90 Antisocial personality disorder F60.2 Schizoaffective disorder, bipolar type F25.0 PTSD (post-traumatic stress disorder) F43.10 COVID U07.1 Time Spent (min) 40
--- NOTE | 2021-11-23 19:00 | Discharge Summary ---
Date of Service November 23, 2021 Admission HPI Per Admitting Provider This is a 41-year-old male with past medical history significant for hypertension, CHF, schizophrenia, PTSD, depression, bipolar, who was recently in the hospital for mental health and found to be COVID positive. Seen by psychiatry and also neurology for history of seizures. Could not be placed because of COVID positive and psychiatrist started on Invega. But the patient signed out AMA in the morning. The patient says after going home, he was again feeling suicidal ideation, that is why he came back. Currently, he is sleeping, only answers yes and no. He says he was suicidal at home, but denies any homicidal intentions. Denies any headache. No blurred visions, no earache, no runny nose, no sore throat. He says he has a cough, but he attributes this to his asthma. Denies any chest pain, no shortness of breath, no fevers. Appetite is okay. No difficulty swallowing. No nausea, no abdominal pain. Normal bowel and bladder movements. Hemodynamically stable. Admission Exam Per Admitting Provider GENERAL: The patient is of moderate build, not in acute distress. VITAL SIGNS: Temperature 36.9, pulse 103, respiratory rate 18, blood pressure 103/62, oxygen 98% on room air. HEENT: Extraocular muscles intact. Atraumatic. NECK: No JVD. No neck masses. CARDIOVASCULAR: S1 and S2 heard. Regular rate and rhythm. No murmur, no RESPIRATORY SYSTEM: Normal AP diameter. No accessory muscle use. No wheezing, no crackles. ABDOMEN: Soft, bowel sounds present, nontender, no distention. CENTRAL NERVOUS SYSTEM: Drowsy, but arousable, answers simple questions. No facial droop. Speech is okay. Moves extremities. EXTREMITIES: No edema, no erythema. Principal Diagnosis SI, COVID positive Substance abuse Malingering Discharge Exam GENERAL: obese M, not in acute distress. HEENT: NC/AT. Extraocular muscles intact. NECK: No JVD. No neck masses. CARDIOVASCULAR: S1 and S2 heard. Regular rate and rhythm. No murmur, no RESPIRATORY SYSTEM: Normal AP diameter. No accessory muscle use. No wheezing, no crackles. ABDOMEN: Soft, bowel sounds present, nontender, no distention. NEURO: awake and alert, answers simple questions appropriately. No facial droop. Moves extremities. EXTREMITIES: No edema, no erythema. Discharge Data Allergies Allergy/AdvReac Type Severity Reaction Status Date / Time clonazepam Allergy Severe PATIENT Verified 11/23/21 02:19 STATES "" THE REACTION gabapentin Allergy Severe makes Verified 11/23/21 02:19 patient extremely violent risperidone Allergy Severe FOAMING AT Verified 11/23/21 02:19 THE MOUTH, UNSTEADY GAIT strawberry Allergy Intermediate Hives Verified 11/23/21 02:19 Consultations 11/23/21 01:37 ED Decision to Admit Stat 11/23/21 08:00 Consult Psychiatry Routine Hospital Course (1) Suicidal ideation: (2) COVID-19: (3) Polysubstance use disorder: (4) Malingering: This is a 41-year-old male who presents with suicidal ideation. 1. Suicidal ideation: Hx of Schizophrenia, PTSD,Depression, Bipolar . Abilify was changed to Invega last admission and on Depakote, which he will be continued on. One-on-one suicidal precautions on admission. Psychiatry consulted - no need for one-on-one/suicidal precautions. Okay for discharge. Patient presents with malingering, please refer to full psychiatry note for further detail. Yesterday, patient left AMA from the hospital, reports using substances such as amphetamine, opiates, then came back to the hospital reporting SI, in order to obtain housing environment. manager [employer] in ED provided patient with resources for homelessness. Prescription for Depakote and Invega were sent to patient's pharmacy in [place] yesterday. Patient should follow Depakote level in 1 week. Ideally, pt should also follow-up for his 2nd Invega injection (first dose received in the hospital). 2. History of COVID: Currently, the patient is not vaccinated. Saturating well on room air. No need for any treatment at this time. Isolation precautions. Will monitor. 3. History of hypertension: Continue amlodipine and atenolol. Will monitor the blood pressure. 4. History of seizure: Currently on Depakote. Needs followup. Follow his Depakote levels. DVT prophylaxis: Lovenox. Total Time Total Time Spent Total Time Spent (In Minutes): 40 Discharge Plan Discharge Items Patient Disposition: Home - Self-Care Reason For Visit: MENTAL HEALTH EVALUATION Discharge Diagnosis: SI, COVID positive Substance abuse Activity: Per Instructions section Non-emergency contact: Primary Care Provider and Psychiatrist Call non-emergency contact if: you have any medication questions and your symptoms worsen Follow-up/Referrals: PCP,NO [Primary Care Provider] - Diet: Regular Addtl Attending Provider Instructions: Prescription for Depakote and Invega were sent to your pharmacy yesterday ([facility] in [place]). You should have Depakote level checked in about a week. Follow-up with [facility], as below, for your second injection of Invega. Addtl Press Operator Helper Provider Instructions: Per psychiatry : [facility] [Outside] (follow up with [facility] to receive second injection of Invega Sustenna 156mg. You are due for second injection on 11/26/21. You are also prescribed Invega 3mg po daily if unable to receive second injection. ) Pending Studies at Discharge: No Stand-Alone Forms: My [facility] [place], Smoking Cessation Medications and DC Order Prescriptions: Continued atenolol 50 mg tablet 50 mg PO DAILY famotidine [Pepcid] 20 mg tablet 20 mg PO DAILY divalproex 500 mg Tablet Extended Release 24 Hr 500 mg PO TID 30 Days Qty: 90 0RF paliperidone [Invega] 3 mg Tablet Extended Release 24hr 3 mg PO QAM 30 Days Qty: 30 0RF amlodipine 5 mg tablet 5 mg PO BID Discharge Orders: Discharge Order (Routine); Ordered 11/23/21 Ordered By: Jeff Jarrell/Other Patient Handouts: Treating Drug Abuse and Addiction Admission Data Admit Date/Time: 11/23/21 03:10 Attending Provider: Jeff Elkins Admit Provider: Ryan Escobar Primary Care Provider: PCP,NO Other Providers: Ryan Escobar ; Barbara Vera ; Shyann Membreno ; Sammie Hagen Other Interventions: Discharge Summary Assessment (RN) Last Done: 11/23/21 17:04
--- NOTE | 2021-11-24 05:47 | Emergency Department Note ---
History of Present Illness General Chief complaint: Mental Health Evaluation Stated complaint: MHE Time Seen by Provider: 11/23/21 01:31 Source: patient Mode of arrival: ambulatory Limitations: no limitations History of Present Illness Provider complaint: Mental health evaluation This is a 41-year-old male presents emergency department requesting mental health evaluation. Patient admits to and DC towards his . Of note patient was just admitted here recently medically because he was COVID-positive but with a psychiatry consult. Patient left AMA earlier today, and now returns stating after he left he began feeling worse and he believes he needs more treatment. Due to his known COVID-positive status, patient would need admitted medically again. Patient had no other physical complaints or concerns during my evaluation. Denies paranoia and hallucinations. Pt seen during a time of high acuity and national emergency pandemic while wearing PPE. Home Medications Medication Instructions Recorded Confirmed Type amlodipine 5 mg tablet 5 mg PO BID 11/30/20 11/23/21 History atenolol 50 mg tablet 50 mg PO DAILY 06/17/21 11/23/21 History famotidine 20 mg tablet (Pepcid) 20 mg PO DAILY 11/18/21 11/23/21 History divalproex 500 mg tablet,extended 500 mg PO TID 30 days #90 tabs 11/22/21 11/23/21 Rx release 24 hr paliperidone 3 mg tablet,extended 3 mg PO QAM 30 days #30 tabs 11/22/21 11/23/21 Rx release 24 hr (Invega) Allergies Allergy/AdvReac Type Severity Reaction Status Date / Time clonazepam Allergy Severe PATIENT Verified 11/23/21 02:19 STATES "" THE REACTION gabapentin Allergy Severe makes Verified 11/23/21 02:19 patient extremely violent risperidone Allergy Severe FOAMING AT Verified 11/23/21 02:19 THE MOUTH, UNSTEADY GAIT strawberry Allergy Intermediate Hives Verified 11/23/21 02:19 Past Med/Surg History Medical History Alcohol consumption binge drinking Antisocial personality disorder Chest pain, rule out acute myocardial infarction Diabetes Epileptic seizures Headache Hypertension MDD (major depressive disorder) Methamphetamine use Nausea and vomiting Nausea, vomiting, and diarrhea Polysubstance use disorder PTSD (post-traumatic stress disorder) Schizoaffective disorder, bipolar type Seizure Surgical History No pertinent past surgical history No significant past surgical history Social History Smoking Status: Current every day smoker Tobacco Type: Cigarettes Hx Alcohol Use: Yes Alcohol type: beer Hx Substance Use: Yes Non-Prescribed Medications: Amphetamines Non-Prescribed Medications Comment: Has not used since beginning 2020 Last Used Substance: Days (ago) Last Used Substance Other:: Heroin Substance Use Type Other:: 7 Preferred Language: Liberian Communication Ability: Effective Customer Service 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 Required: No Beliefs That Will Affect Care: None marital status: Single Current Living Situation: Homeless Feels Safe at Home: Yes Assistive Devices: None Review of Systems A total of 10 systems reviewed and were otherwise negative All systems reviewed & are unremarkable except as noted in HPI & below Physical Exam GENERAL: alert, well appearing, well nourished, no distress, non-toxic EYE EXAM: normal conjunctiva, PERRL and EOM's grossly intact OROPHARYNX: no exudate, no erythema, lips, buccal mucosa, and tongue normal and mucous membranes are moist NECK: supple, no nuchal rigidity, no adenopathy, non-tender LUNGS: Clear to auscultation. Normal chest wall mechanics, no w/r/r HEART: no murmurs, S1 normal and S2 normal ABDOMEN: abdomen soft, non-tender, normo-active bowel sounds, no masses, no rebound or guarding. BACK: Back is symmetrical on inspection and there is no deformity, no midline tenderness, no CVA tenderness. SKIN: no rashes and no bruising UPPER EXTREMITIES: upper extremities are grossly normal. FROM, nml pulses b/l. LOWER EXTREMITIES: No pitting edema. FROM, nml pulses b/l. NEURO EXAM: Normal sensorium, cranial nerves II-XII grossly intact, normal speech, no gross weakness of arms, no gross weakness of legs. Gross sensation intact. Course Administered Medications Discontinued Medications Amlodipine Besylate (Amlodipine Besylate 5 Mg Tab) 5 mg PO BID VIRA Stop: 12/23/21 08:59 Last Admin: 11/23/21 08:58 Dose: 5 mg Documented By: TORRIE Atenolol (Atenolol 50 Mg Tablet) 50 mg PO DAILY [facility] Stop: 12/23/21 08:59 Last Admin: 11/23/21 08:58 Dose: 50 mg Documented By: TORRIE Divalproex Sodium (Divalproex Extended Release 500 Mg Tab) 500 mg PO TID V[facility] Stop: 12/23/21 08:59 Last Admin: 11/23/21 13:48 Dose: 500 mg Documented By: Admin: 11/23/21 08:59 Dose: 500 mg Documented By: TORREI Enoxaparin Sodium (Enoxaparin Inj 40 Mg/0.4 Ml Syr) 40 mg SQ Q12H [facility]IR[facility] Stop: 12/23/21 08:59 Last Admin: 11/23/21 08:59 Dose: 40 mg Documented By: TORRIE Famotidine (Famotidine 20 Mg Tab) 20 mg PO DAILY VIRA Stop: 12/23/21 08:59 Last Admin: 11/23/21 08:59 Dose: 20 mg Documented By: TORRIE Paliperidone (Paliperidone 3 Mg Tabcr) 3 mg PO QAM [facility] Stop: 12/23/21 08:59 Last Admin: 11/23/21 09:14 Dose: 3 mg Documented By: TORRIE Medical Decision Making Differential Diagnosis Differential diagnoses considered include mood disorder, infection, hypoglycemia, electrolyte abnormalities, cardiac sources, intracerebral event, toxicologic, neurologic, as well as others. Medical Records Attestation: I reviewed the patient's medical records. Home Medications Current Medication List: was personally reviewed by me Laboratory Data Attestation: I reviewed the patient's lab results. Result diagrams: 11/23/21 08:58 11/23/21 08:58 Lab Results 11/23/21 11/23/21 11/23/21 Range/Units 00:25 00:25 01:26 Urine Color Dark Yellow Urine Appearance Cloudy A (Clear) Urine pH 5.5 (4.5-7.5) Ur Specific [place] 1.032 H (1.000-1.030) Urine Protein 2+ H (Negative) Urine Glucose (UA) Negative (Negative) Urine Ketones 1+ H (Negative) Urine Blood Negative (Negative) Urine Nitrite Negative (Negative) Urine Bilirubin 1+ H (Negative) Urine Urobilinogen Negative (Negative) Ur Leukocyte Esterase Negative (Negative) Urine WBC (Auto) 5-10 H (0-5) /hpf Urine RBC (Auto) 10-30 H (0-4) /hpf U Hyaline Cast (Auto) 10-30 H (0-5) /lpf U Epithel Cells (Auto) >30 H (0-5) /lpf Urine Bacteria (Auto) Negative (Negative) Ur Renal Epithelial Cell Not Reportable Urine Crystals Not Reportable Calcium Oxalate Crystal Present A (None Prsent) Urine Opiates Screen Neg (Neg) Ur Methadone, Qual Neg (Neg) Urine Barbiturates Neg (Neg) Ur Phencyclidine (PCP) Neg (Neg) U Amphetamin/Meth Scrn Neg (Neg) MDMA (Ecstasy) Screen Neg (Neg) U Benzodiazepines Scrn Neg (Neg) Ur Cocaine Metabolite Neg (Neg) U Marijuana (THC) Screen Neg (Neg) SARS-CoV-2, RNA, NAAT POSITIVE A* (NEGATIVE) MDM Narrative This is a 41-year-old male who presents for mental health evaluation. Patient was recently admitted with similar symptoms and left AMA earlier today. Patient returns voluntarily requesting additional intervention. Case discussed with hospitalist as he requires medical admission due to known COVID-positive status. Patient hemodynamically stable in the emergency room. Impression & Plan Depression, Suicidal ideation, COVID-19 Discharge Plan Visit Data Chief Complaint: Mental Health Evaluation Stated Complaint: MHE ED Provider: Tasha Garcia Discharge Problem: Depression, Suicidal ideation, COVID-19 Patient Disposition: Home - Self-Care Discharge Instructions Interventions: ED Discharge Assessment Last Done: 11/23/21 05:42
== END 2021-11-23 17:21 | disposition home or self-care (01) ==
LOC: ED 00:09 → EDINP 03:10 → INTOOBSV 03:10 → EDINP 05:42
DX: U07.1 COVID-19; Z76.5 Malingerer [conscious simulation]; R45.851 Suicidal ideations; Z88.8 Allergy status to other drugs, medicaments and biological substances; F25.0 Schizoaffective disorder, bipolar type

== ENCOUNTER 2023-05-14 21:48 | Inpatient (IN) ==
[2023-05-15 00:06] LABS: Basophils # (auto) 0.02 K/uL (0.00-0.20); Basophils % (auto) 0.2 %; Hematocrit (blood only) 45.1 % (42.0-52.0); Hemoglobin 16.2 g/dl (14.0-18.0); Immature Granulocytes # (auto) 0.03 K/uL (0.01-0.20); Immature Granulocytes % (auto) 0.4 %; Lymphocytes # (auto) 0.87 K/uL (1.20-3.40); Lymphocytes % (auto) 10.8 %; Mean Corpuscular Hemoglobin 29.3 pg (25.0-34.0); Mean Corpuscular Hgb Conc 35.9 g/dL (32.0-36.0); Mean Corpuscular Volume 81.6 fL (80.0-100.0); Mean Platelet Volume 9.9 fL (9.4-12.4); Monocytes # (auto) 0.46 K/uL (0.11-0.59); Monocytes % (auto) 5.7 %; Neutrophils # (auto) 6.68 K/uL (1.40-6.50); Neutrophils % (auto) 82.9 %; Platelet Count 213 K/uL (130-400); RDW Coefficient of Variation 12.8 % (11.5-14.5); RDW Standard Deviation 37.5 fL (36.4-46.3); Red Blood Count 5.53 M/uL (4.70-6.10); White Blood Count 8.06 K/ul (4.8-10.8)
[2023-05-15 00:21] LABS: Albumin Globulin Ratio 2.1 (0.9-2); Albumin Level 4.7 gm/dl (3.4-5.0); Bilirubin,Total 0.6 mg/dl (0.2-1.0); Calcium 9.8 mg/dl (8.6-10.3); Est GFR (African American) 142.7 ml/min; Est GFR (Non-African American) 123.1 ml/min; Globulin 2.2 gm/dl (2.5-4.0); Potassium 3.5 mmol/L (3.5-5.1); Total Protein 6.9 gm/dl (6.0-8.3)
[2023-05-15 00:22] LABS: Appearance Urine Clear (Clear); Bilirubin Urine Negative (Negative); Blood Urine Negative (Negative); Color Urine Yellow; Glucose Urine UA Negative (Negative); Ketones Urine Negative (Negative); Leukocyte Esterase Urine Negative (Negative); Nitrite Urine Negative (Negative); Protein Urine 2+ (Negative); Urobilinogen Urine Positive (Negative)
[2023-05-15 00:24] LABS: Amphetamines+Metham, Urine Neg (Neg); Barbiturates, Urine Neg (Neg); Benzodiazepine, Urine Neg (Neg); Cocaine, Urine Neg (Neg); MDMA (Ecstacy), Urine Neg (Neg); Marijuana, Urine Neg (Neg); Methadone, Urine Neg (Neg); Opiate, Urine Neg (Neg); Phencyclidine, Urine Neg (Neg)
[2023-05-15 00:31] LABS: Acetaminophen < 3 ug/ml (10-30); Salicylate < 3.0 mg/dl (3.0-30)
[2023-05-15 00:35] LABS: Thyroid Stimulating Hormone 0.345 uIu/ml (0.300-4.500)
[2023-05-15 00:37] LABS: Bacteria Urine Negative (Negative); Epithelial Cell Urine 0-5 /lpf (0-5); Mucus Urine Present (None Prsent); RBC Urine 0-4 /hpf (0-4); WBC Urine 0-5 /hpf (0-5)
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
[2023-05-15] MEDS ORDERED: SODIUM CHLORIDE 0.65% NA SOLN 45 ML (OCEAN) PRN (04:05)
[2023-05-15] MEDS ORDERED: ACETAMINOPHEN 325 MG TAB PO PRN (04:05)
[2023-05-15] MEDS ORDERED: BISMUTH SUBSALICYLATE LIQD 236 ML PO PRN (04:05)
[2023-05-15] MEDS ORDERED: hydrOXYzine HCl 25 MG TAB PO PRN ×2 (04:05)
[2023-05-15] MEDS ORDERED: MAGNESIUM HYDROXIDE SUSP 30 ML UDC PO PRN (04:05)
[2023-05-15] MEDS ORDERED: ALUMINUM/MAGNESIUM SUSP 30 ML UDC PO PRN (04:05)
[2023-05-15] MEDS ORDERED: ATENOLOL 25 MG TABLET PO STA (06:39)
--- NOTE | 2023-05-15 06:42 | Hospitalist Consultation ---
Date of Consultation May 15, 2023 Assessment & Plan (1) Hypertension: Final Assessment and Recommendations as follows : Hypertensive urgency Medication noncompliance for over a year due to lack of PCP to prescribe medications as per patient Patient previously on atenolol and amlodipine Rx. schizoaffective disorder, antisocial personality disorder, mood disorder/PTSD seizure disorder as per records, seizures well-controlled despite being off Depakote for about a year now as per patient. Patient claims seizures are secondary to alcohol and substance abuse. alcohol abuse, patient just released from alcohol rehab but claims claims last drink was last year. Ongoing tobacco abuse Initiate prior amlodipine Rx and titrate Watch out for signs of alcohol withdrawal Nicotine patch Thank you very much for this consultation. Dr. Denton will follow patient's progress. Text document was generated using [employer] voice recognition software. It may contain grammatical or spelling errors. Kindly contact undersigned for clarification of any documentation item in question. History of Present Illness Reason for Consultation: Medical management Requesting Physician: Dr. Sun Attending Physician: Scottie Sun MD History of Present Illness PCP: None History obtained from patient and records. Patient is a fair historian. Medical history significant for hypertension (off medications since last year because he does not have a current PCP), schizoaffective disorder, antisocial personality disorder, mood disorder/PTSD, seizure disorder as per records, ongoing alcohol/tobacco/substance abuse. Last confinement 2021 for suicidality in the setting of COVID-19 illness. Patient has been off home medications for about a year because he has not had a PCP to prescribe it. Patient admitted today under psychiatry service for suicidality after being discharged from alcohol and meth rehab as per records. SBP 180 to 210s since admission. Patient denies headache, chest pain, SOB, abdominal pain. Medical History as above Family History : Mood disorder Personal/Social history : 2 packs daily, past alcohol abuse as per patient although patient recently discharged from alcohol rehab as per records, disabled Allergies Allergy/AdvReac Type Severity Reaction Status Date / Time clonazepam Allergy Severe PATIENT Verified 11/23/21 02:19 STATES "" THE REACTION gabapentin Allergy Severe makes Verified 11/23/21 02:19 patient extremely violent risperidone Allergy Severe FOAMING AT Verified 11/23/21 02:19 THE MOUTH, UNSTEADY GAIT strawberry Allergy Intermediate Hives Verified 11/23/21 02:19 Patient History Medical History Alcohol consumption binge drinking Antisocial personality disorder Chest pain, rule out acute myocardial infarction Diabetes Epileptic seizures Headache Hypertension MDD (major depressive disorder) Methamphetamine use Nausea and vomiting Nausea, vomiting, and diarrhea Polysubstance use disorder PTSD (post-traumatic stress disorder) Schizoaffective disorder, bipolar type Seizure Surgical History No pertinent past surgical history No significant past surgical history Social History Smoking Status: Current every day smoker Tobacco Type: Cigarettes and Cigars Hx Alcohol Use: Yes Alcohol type: beer Hx Substance Use: Yes Non-Prescribed Medications: Amphetamines Non-Prescribed Medications Comment: Has not used since beginning of 2020 Last Used Substance: Days (ago) Last Used Substance Other:: Heroin Substance Use Type Other:: 7 Preferred Language: Turkish Communication Ability: Effective Materials Planning Manager Required: No Beliefs That Will Affect Care: None marital status: Single Current Living Situation: Homeless Feels Safe at Home: Yes Gender Identity: Male Assistive Devices: None Review of Systems Review of Systems: As per HPI, all other systems reviewed and negative Physical Exam Physical Exam: GENERAL: Comfortable, obese, looks older than stated age, no respiratory distress SKIN: Normal color, warm HEENT: Alopecia, pink palpebral conjunctivae, no ptosis, moist buccal mucosa NECK : Supple, no tenderness CHEST : CTA, no tenderness HEART : RRR, no obvious murmurs ABDOMEN: Some distention, nontender EXTREMITIES : No LE swelling/tenderness, no other conspicuous deformities noted NEUROLOGIC : Coherent, no facial asymmetry, no other gross focality Results & Data Results & Data Vital Signs (Past 12 Hours) Vital Signs Temp Pulse Pulse Pulse Resp BP BP 05/15/23 06:39 94 H 05/15/23 06:38 37 C 85 16 05/15/23 04:23 36.8 C 84 18 05/15/23 00:37 105 H 18 168/119 H 05/14/23 21:57 36.7 C 104 H 22 215/77 H 05/14/23 21:54 37.4 C 104 H 22 215/77 H BP Pulse Ox O2 Del Method 05/15/23 06:39 145/88 H 05/15/23 06:38 147/94 H 05/15/23 04:23 180/125 H 99 Room Air 05/15/23 00:37 99 05/14/23 21:57 98 Room Air 05/14/23 21:54 98 Room Air (1) Hypertension Hypertension type: unspecified Qualified Code(s): I10 - Essential (primary) hypertension
[2023-05-15] MEDS ORDERED: amLODIPine BESYLATE 5 MG TAB PO SCH (09:00)
[2023-05-15] MEDS ORDERED: NICOTINE 21 MG/24 HR TDSY TD SCH (09:00)
[2023-05-15] MEDS ORDERED: HALOPERIDOL DECANOATE INJ 50 MG/ML VIAL IM SCH (12:00)
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
[2023-05-15] MEDS ORDERED: DIVALPROEX DELAY RELEASE 500 MG TAB PO SCH (12:30)
[2023-05-15] MEDS ORDERED: NALTREXONE HCL 50 MG TAB PO SCH (12:30)
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
--- NOTE | 2023-05-15 13:38 | Hospitalist Progress Note ---
Date of Service May 15, 2023 Assessment & Plan (1) Hypertension: Plan: Hypertensive urgency Medication noncompliance for over a year due to lack of PCP to prescribe medications as per patient Patient previously on atenolol and amlodipine Rx. Started amlodipine 5 mg daily Monitor BP Advised to follow-up with PCP for further adjustment of medications as needed Schizoaffective disorder Antisocial personality disorder Mood disorder/PTSD Seizure disorder Continue current medications as per psychiatry Appreciate psychiatry input Alcohol abuse Ongoing tobacco abuse Counseled to quit smoking and drinking alcohol Nicotine patch DVT Px: Encourage to ambulate CODE STATUS Full code Disposition As per primary team Admission and Anticipated Discharge Date Admission Date: May 15, 2023 Subjective Patient is seen and examined bedside Offers no complaints this morning Denies any headache, dizziness, change in vision, chest pain, dyspnea, nausea, vomiting, abdominal pain Blood pressure better today Review of Systems Review of Systems: All systems reviewed & are unremarkable except as noted in Subjective Physical Exam Physical Exam: Physical Exam: Vitals signs as noted above General Appearance:Moderately built and nourished, no apparent distress Head: normocephalic, Atraumatic Eyes: normal inspection, EOMI Neck: supple, Trachea midline Respiratory/Chest: Normal breath sounds, CTA, No accessory muscle use Cardiovascular: S1, S2, No murmur Abdomen/GI:Soft, Non tender, Bowel sounds present Extremities/Musculoskeletal:normal inspection, no edema Neurologic/Psych:AAOX3, grossly no focal neurological deficits Skin: normal color, warm Results & Data Results & Data Vital Signs (Past 12 Hours) Vital Signs Temp Pulse Pulse Resp BP BP Pulse Ox 05/15/23 12:59 37 C 84 94 H 16 168/119 H 145/88 H 99 05/15/23 12:57 37 C 84 94 H 16 168/119 H 145/88 H 99 05/15/23 06:39 94 H 145/88 H 05/15/23 06:38 37 C 85 16 147/94 H 05/15/23 04:23 36.8 C 84 18 180/125 H 99 O2 Del Method 05/15/23 12:59 05/15/23 12:57 05/15/23 06:39 05/15/23 06:38 05/15/23 04:23 Room Air Laboratory Results Short CBC 05/14/23 Range/Units 23:34 WBC 8.06 (4.8-10.8) K/ul Hgb 16.2 (14.0-18.0) g/dl Hct 45.1 (42.0-52.0) % Plt Count 213 (130-400) K/uL BMP 05/14/23 23:34 Sodium 143 Potassium 3.5 Chloride 106 Carbon Dioxide 26 BUN 9 Creatinine 0.60 Glucose 105 H Calcium 9.8 Liver Function 05/14/23 Range/Units 23:34 Total Bilirubin 0.6 (0.2-1.0) mg/dl AST 17 (13-39) U/L ALT 26 (7-52) U/L Alkaline Phosphatase 73 (34-104) U/L Albumin 4.7 (3.4-5.0) gm/dl Urine 05/14/23 Range/Units 23:34 Urine Color Yellow Urine Appearance Clear (Clear) Urine pH 7.0 (4.5-7.5) Ur Specific [place] 1.020 (1.000-1.030) Urine Protein 2+ H (Negative) Urine Glucose (UA) Negative (Negative) (1) Hypertension Hypertension type: unspecified Qualified Code(s): I10 - Essential (primary) hypertension
[2023-05-15] MEDS ORDERED: PRAZOSIN HCL 1 MG CAP PO SCH (22:00)
== END 2023-05-15 13:55 | disposition home or self-care (01) | DRG 885 ==
LOC: ED 21:48 → 3S 05-15 03:14